=== PATIENT | female | born 1970 | race Caucasian/White ===

== ENCOUNTER 2016-06-12 15:05 | Inpatient (IN) | payer BC, MEDICARE ==
[2016-06-12] MEDS: SODIUM CHLORIDE 0.9% 500 ML IV SCH ×6 (15:46→17:30)
--- NOTE | 2016-06-12 16:15 | CT ---
EXAMINATION TYPE: CT brain wo con DATE OF EXAM: 06/12/2016 4:09 PM COMPARISON: 04/07/2016 HISTORY: weakness and tremor CT DLP: 2440 mGycm Automated exposure control for dose reduction was used. FINDINGS: There is no acute intracranial hemorrhage, mass effect, or midline shift identified. The ventricles and sulci are within normal limits in size. Calvarium intact. Mucous retention cyst or polyp within the right maxillary sinus. IMPRESSION: No acute intracranial hemorrhage, mass effect, or midline shift is seen.
--- NOTE | 2016-06-12 16:16 | XR ---
EXAMINATION TYPE: XR chest 2V DATE OF EXAM: 06/12/2016 4:11 PM COMPARISON: NONE HISTORY: Weakness and cough FINDINGS: Large area of consolidation involving the right upper and portions of the right middle and lower lobe . Left upper lobe consolidation also noted. Previous cardiac surgery seen. IVC filter in the abdomen. IMPRESSION: 1. Diffuse bilateral infiltrate correlate for pneumonia.
[2016-06-12] MEDS ORDERED: IV VANCOMYCIN PER PHARMACY 1 EACH MISC MISCELLANE PRN (16:17)
[2016-06-12] MEDS ORDERED: PIPERACILLIN-TAZOBACTAM 3.375 GM in DEXTROSE/WATER 1 50ML.BAG IVPB STA (16:17)
[2016-06-12] MEDS ORDERED: VANCOMYCIN 1,500 MG in SODIUM CHLORIDE 0.9% 250 ML IVPB ONE (16:30)
[2016-06-12 16:52] LABS: Basophils # (A) 0.1 k/uL (0-0.2); Basophils % (A) 1 %; CH 29.5; CHCM 31.3; Eosinophils % (A) 0 %; HCT 39.3 % (34.0-46.0); HDW 2.58; HGB 12.2 gm/dL (11.4-16.0); Luc # (Auto) 0.05; Luc % (Auto) 1; Lymphocytes # (A) 0.4 k/uL (1.0-4.8); Lymphocytes % (A) 6 %; MCH 29.5 pg (25.0-35.0); MCHC 31.1 g/dL (31.0-37.0); MCV 94.9 fL (80.0-100.0); Mean Platelet Volume 8.8; Monocytes # (A) 0.3 k/uL (0-1.0); Monocytes % (A) 4 %; Neutrophils # (A) 6.3 k/uL (1.3-7.7); Neutrophils % (A) 88 %; RBC 4.14 m/uL (3.80-5.40); WBC 7.1 k/uL (3.8-10.6); WBC (Perox) 7.33
[2016-06-12 16:59] LABS: INR 1.3 (<1.1); Partial Thromboplastin Time 37.1 sec (22.0-30.0); Prothrombin Time 12.5 sec (9.0-12.0)
[2016-06-12 17:09] LABS: Calcium 7.1 mg/dL (8.4-10.2); Potassium 5.5 mmol/L (3.5-5.1); Total Bilirubin 1.6 mg/dL (0.2-1.3); Total Protein 5.1 g/dL (6.3-8.2)
[2016-06-12 17:19] LABS: Creatine Kinase 86 U/L (30-135)
--- NOTE | 2016-06-12 17:28 | ED ---
Altered Mental Status HPI - General Source: patient, family, EMS, RN notes reviewed Mode of arrival: EMS Limitations: altered mental status <Meliton Bishop - Last Filed: 06/12/16 19:48> <Tyler Webber - Last Filed: 06/19/16 03:51> - General Chief Complaint: Altered Mental Status Stated Complaint: Altered Mental Status Time Seen by Provider: 06/12/16 15:10 - History of Present Illness Initial Comments: 45-year-old female presented emergency department via EMS from home for altered mental status. Patient information is limited as she and 1. Family does provide some history that she has a history of myasthenia gravis and has been sick recently with sore throat. Patient does not live at home with family she does with boyfriend currently. Patient's boyfriend is not present. Patient unsure she's been taking her medications or not. Patient was recently prescribed penicillin for her sore throat by urgent care. Patient reportedly has also had a slight cough. (Meliton Bishop) - Related Data Home Medications Medication Instructions Recorded Confirmed Diazepam [Valium] 5 mg PO HS 06/12/16 06/12/16 Diphenoxylate HCl/Atropine 2 tab PO BID PRN 06/12/16 06/12/16 [Lomotil] Hydrocodone/Acetaminophen [[place] 1 tab PO Q6H PRN 06/12/16 06/12/16 5-325] LORazepam [Ativan] 1 mg PO BID 06/12/16 06/12/16 Meclizine [Antivert] 25 mg PO TID PRN 06/12/16 06/12/16 Medroxyprogesterone Acetate 150 mg IM ONCE 06/12/16 06/12/16 [Depo-Provera] Methenamine Hippurate [Hiprex] 1 gm PO BID 06/12/16 06/12/16 Mycophenolate Mofetil [Cellcept] 1,000 mg PO BID 06/12/16 06/12/16 Naproxen 500 mg PO BID PRN 06/12/16 06/12/16 Pantoprazole [Protonix] 40 mg PO DAILY 06/12/16 06/12/16 Penicillin V Potassium [Pen Vee K] 500 mg PO TID 06/12/16 06/12/16 Telmisartan [Micardis] 40 mg PO DAILY 06/12/16 06/12/16 Zolpidem [Ambien] 10 mg PO HS PRN 06/12/16 06/12/16 cycloSPORINE [cycloSPORINE (GEQ 100 mg PO BID 06/12/16 06/12/16 for SandIMMUNE) 100MG] cycloSPORINE [cycloSPORINE (GEQ 25 mg PO BID 06/12/16 06/12/16 for SandIMMUNE)] traMADol HCL [Ultram] 100 mg PO TID PRN 06/12/16 06/12/16 Allergies Allergy/AdvReac Type Severity Reaction Status Date / Time adhesive Allergy Rash/Hives Verified 06/12/16 15:54 Aminoglycosides Allergy Dyspnea Verified 06/12/16 15:54 amlodipine besylate Allergy Swelling Verified 06/12/16 15:54 [From Norvasc] levofloxacin [From Levaquin] Allergy Dyspnea Verified 06/12/16 15:54 Macrolide Antibiotics Allergy Dyspnea Verified 06/12/16 15:54 Quinolones Allergy Dyspnea Verified 06/12/16 15:54 sulfamethoxazole Allergy Dyspnea Verified 06/12/16 15:54 [From Bactrim] trimethoprim [From Bactrim] Allergy Dyspnea Verified 06/12/16 15:54 Review of Systems ROS Other: All systems not noted in ROS Statement are negative. <Meliton Bishop - Last Filed: 06/12/16 19:48> ROS Other: All systems not noted in ROS Statement are negative. <Tyler Webber - Last Filed: 06/19/16 03:51> ROS Statement: Those systems with pertinent positive or pertinent negative responses have been documented in the HPI. Past Medical History Past Medical History: GERD/Reflux, Hypertension Additional Past Medical History / Comment(s): Hx. blood clot rt. leg and into lung 2010, ivan filter, kidney stones, myasthenia gravis, vertigo History of Any Multi-Drug Resistant Organisms: C-DIFF Date of last positivie culture/infection: 2012 MDRO Source:: stool Past Surgical History: Bariatric Surgery, Section, Cholecystectomy, Hernia Repair, Tonsillectomy Additional Past Surgical History / Comment(s): thymus removed 1994 LEEP.Umbilical hernia. GASTRIC SLEEVE 2012, uterine fibroid biopsy Past Anesthesia/Blood Transfusion Reactions: No Reported Reaction Past Psychological History: Anxiety Smoking Status: Never smoker Past Alcohol Use History: Unable to Obtain Past Drug Use History: Unable to Obtain - Past Family History Mother Family Medical History: Diabetes Mellitus, Hypertension <Meliton Bishop - Last Filed: 06/12/16 19:48> General Exam Limitations: altered mental status General appearance: alert Head exam: Present: atraumatic, normocephalic, normal inspection Eye exam: Present: normal appearance, PERRL, EOMI. Absent: scleral icterus, conjunctival injection, periorbital swelling ENT exam: Present: mucous membranes dry Neck exam: Present: normal inspection, full ROM. Absent: tenderness, meningismus, lymphadenopathy Respiratory exam: Present: rhonchi (Right), decreased breath sounds. Absent: normal lung sounds bilaterally, respiratory distress, wheezes, rales, stridor Cardiovascular Exam: Present: normal rhythm, tachycardia, normal heart sounds. Absent: systolic murmur, diastolic murmur, rubs, gallop, clicks GI/Abdominal exam: Present: soft, normal bowel sounds. Absent: distended, tenderness, guarding, rebound, rigid Neurological exam: Present: alert. Absent: oriented X3 (AOx1) Skin exam: Present: warm, dry <Meliton Bishop - Last Filed: 06/12/16 19:48> Course <Meliton Bihsop - Last Filed: 06/12/16 19:48> <Tyler Webber - Last Filed: 06/19/16 03:51> Vital Signs 06/12/16 06/12/16 06/12/16 15:07 15:49 16:19 Temperature 98.1 F Pulse Rate 111 H 101 H Pulse Rate [ 110 H Rn Float ] Respiratory 20 22 20 Rate Blood Pressure 68/55 114/53 O2 Sat by Pulse 93 L 93 L Oximetry 06/12/16 06/12/16 06/12/16 17:00 17:50 19:00 Temperature Pulse Rate 100 101 H 102 H Pulse Rate [ Rn Float ] Respiratory 20 20 18 Rate Blood Pressure 100/61 101/62 O2 Sat by Pulse 93 L 92 L 92 L Oximetry 06/12/16 06/12/16 06/12/16 19:45 20:15 20:44 Temperature Pulse Rate 100 100 104 H Pulse Rate [ Rn Float ] Respiratory 18 16 22 Rate Blood Pressure 115/59 102/59 O2 Sat by Pulse 88 L 89 L 92 L Oximetry 06/12/16 06/12/16 06/12/16 21:00 21:20 21:40 Temperature Pulse Rate 103 H 112 H 101 H Pulse Rate [ Rn Float ] Respiratory 20 20 20 Rate Blood Pressure 108/54 134/69 96/51 O2 Sat by Pulse 92 L 92 L 89 L Oximetry 06/12/16 06/12/16 22:00 22:20 Temperature Pulse Rate 97 104 H Pulse Rate [ Rn Float ] Respiratory 18 20 Rate Blood Pressure 90/51 97/55 O2 Sat by Pulse 89 L 95 Oximetry - Reevaluation(s) Reevaluation #1: 06/12/16 18:39 Central line was placed by Dr. Webber, patient's blood pressure is improving at this time with IV fluids. Patient has right-sided dense pneumonia with some patchy infiltrate noted to the left lung. Patient is in acute renal failure, sepsis. Patient was started on Zosyn and pending second antibiotic per ID secondary to multiple contraindications antibiotics secondary to myasthenia gravis. (Meliton Bishop) Reevaluation #2: 06/12/16 19:14 Dr. Webber discuss case with Dr. Rosa infectious disease who recommended Zosyn , Levaquin. According to her listed as an ALLERGY on her medications. Patient we given daptomycin at this time. Pending phone call to Dr. angulo news library director (Meliton Bishop) Reevaluation #3: 06/12/16 19:49 Dr. vasquez news library director case was discussed with by Dr. Webber, recommends IV hydration dual therapy antibiotics. (Meliton Bishop) Procedures - Central Line Placement Right Femoral Consent Obtained: written consent, emergent situation Patient Placed on Monitor/Pulse Ox: Yes MD Prep: mask, gown, gloves Central Line Prep: Chlorhexidine scrub, sterile drapes applied Local Anesthesia Used: Lidocaine 1% Central Line Lumen Inserted: triple Central Line Position: good blood return, all ports aspirated, flushed, capped, sutured in place with 2-0 silk Dressing Applied: Tegaderm Patient Tolerated Procedure: well Complications: none - Intubation Time Out Performed: Yes Sedative: Versed Paralytic: Succinylcholine Laryngoscope: Aman Size: 3 ET Tube Size: 7 ET Tube Uncuffed: No Tube Placement Confirmation: visualized tube passing through cords, equal breath sounds bilaterally, no breath sounds over epigastrium, confirmation by capnometry Patient Tolerated Procedure: well Intubation Complications: difficult intubation, other (Attempt to pass the tube once under direct laryngoscopy, but patient airway very anterior and she does have firm amount of tongue edema. Then switched over to the glidescope and patient intubated without difficulty under direct visualization.) <Tyler Webber - Last Filed: 06/19/16 03:51> Medical Decision Making - Lab Data Result diagrams: 06/12/16 16:26 06/12/16 16:26 - Radiology Data Radiology results: report reviewed, image reviewed <Meliton Bishop - Last Filed: 06/12/16 19:48> - Lab Data Result diagrams: 06/13/16 05:50 06/13/16 05:50 <Tyler Webber - Last Filed: 06/19/16 03:51> - Medical Decision Making Patient is a 45-year-old woman who presents with right-sided pneumonia and hypovolemia. She appears to be septic but lactic acid was normal. Patient resuscitated with over 3 L fluid bolus in the emergency department, started antibiotics. The patient had central line placed by myself to facilitate receiving antibiotics and fluids and in case she should require pressor support. Case discussed with Dr. oRsa of infectious disease and his recommendations incorporated. Following this the patient was not satting well on the nonrebreather mask. She also is delirious and not keeping a mask on. Case discussed with Dr. Vasquez, and patient will be intubated to support her respiratory status. I saw this patient in conjunction with the physician ambulance assistant. I performed independent history and physical exam. Agree with case management. (Tyler Webber) - Lab Data Lab Results 06/12/16 06/12/16 06/12/16 Range/Units 05:55 16:26 16:26 WBC 7.1 (3.8-10.6) k/uL RBC 4.14 (3.80-5.40) m/uL Hgb 12.2 (11.4-16.0) gm/dL Hct 39.3 (34.0-46.0) % MCV 94.9 (80.0-100.0) fL MCH 29.5 (25.0-35.0) pg MCHC 31.1 (31.0-37.0) g/dL RDW 14.0 (11.5-15.5) % Plt Count 104 L (150-450) k/uL Neutrophils % 88 % Lymphocytes % 6 % Monocytes % 4 % Eosinophils % 0 % Basophils % 1 % Neutrophils # 6.3 (1.3-7.7) k/uL Lymphocytes # 0.4 L (1.0-4.8) k/uL Monocytes # 0.3 (0-1.0) k/uL Eosinophils # 0.0 (0-0.7) k/uL Basophils # 0.1 (0-0.2) k/uL PT 12.5 H (9.0-12.0) sec INR 1.3 (<1.1) APTT 37.1 H (22.0-30.0) sec Sodium (137-145) mmol/L Potassium (3.5-5.1) mmol/L Chloride (98-107) mmol/L Carbon Dioxide (22-30) mmol/L Anion Gap mmol/L BUN (7-17) mg/dL Creatinine (0.52-1.04) mg/dL Est GFR (MDRD) Af Amer (>60 ml/min/1.73 sqM) Est GFR (MDRD) Non-Af (>60 ml/min/1.73 sqM) Glucose (74-99) mg/dL Plasma Lactic Acid Nahid (0.7-2.0) mmol/L Calcium (8.4-10.2) mg/dL Total Bilirubin (0.2-1.3) mg/dL AST (14-36) U/L ALT (9-52) U/L Alkaline Phosphatase (38-126) U/L Total Creatine Kinase 173 H (30-135) U/L CK-MB (CK-2) 2.4 (0.0-2.4) ng/mL CK-MB (CK-2) Rel Index 1.4 Troponin I 0.015 (0.000-0.034) ng/mL Total Protein (6.3-8.2) g/dL Albumin (3.5-5.0) g/dL Cortisol ug/dL 06/12/16 06/12/16 06/12/16 Range/Units 16:26 16:26 16:26 WBC (3.8-10.6) k/uL RBC (3.80-5.40) m/uL Hgb (11.4-16.0) gm/dL Hct (34.0-46.0) % MCV (80.0-100.0) fL MCH (25.0-35.0) pg MCHC (31.0-37.0) g/dL RDW (11.5-15.5) % Plt Count (150-450) k/uL Neutrophils % % Lymphocytes % % Monocytes % % Eosinophils % % Basophils % % Neutrophils # (1.3-7.7) k/uL Lymphocytes # (1.0-4.8) k/uL Monocytes # (0-1.0) k/uL Eosinophils # (0-0.7) k/uL Basophils # (0-0.2) k/uL PT (9.0-12.0) sec INR (<1.1) APTT (22.0-30.0) sec Sodium 145 (137-145) mmol/L Potassium 5.5 H (3.5-5.1) mmol/L Chloride 118 H (98-107) mmol/L Carbon Dioxide 14 L (22-30) mmol/L Anion Gap 13 mmol/L BUN 81 H* (7-17) mg/dL Creatinine 9.70 H* (0.52-1.04) mg/dL Est GFR (MDRD) Af Amer 5 (>60 ml/min/1.73 sqM) Est GFR (MDRD) Non-Af 4 (>60 ml/min/1.73 sqM) Glucose 78 (74-99) mg/dL Plasma Lactic Acid Nahid 1.3 (0.7-2.0) mmol/L Calcium 7.1 L (8.4-10.2) mg/dL Total Bilirubin 1.6 H (0.2-1.3) mg/dL AST 76 H (14-36) U/L ALT 87 H (9-52) U/L Alkaline Phosphatase 408 H (38-126) U/L Total Creatine Kinase 86 (30-135) U/L CK-MB (CK-2) 1.1 (0.0-2.4) ng/mL CK-MB (CK-2) Rel Index 1.3 Troponin I <0.012 (0.000-0.034) ng/mL Total Protein 5.1 L (6.3-8.2) g/dL Albumin 2.3 L (3.5-5.0) g/dL Cortisol 32 ug/dL 06/12/16 18:48 EKG performed at 15:12 sinus tachycardia with a rate of 110, OR 116, QRS duration 74, QT/QTC 324/438 (Meliton Bishop) - Radiology Data Chest x-ray dense pneumonia noted on the right lung with some patchy infiltrate noted to the left lung (Meliton Bishop) Critical Care Time Critical Care Time: Yes (50 minutes) <Tyler Webber - Last Filed: 06/19/16 03:51> Disposition <Meliton Bishop - Last Filed: 06/12/16 19:48> <Tyler Webber - Last Filed: 06/19/16 03:51> Clinical Impression: Sepsis, Bilateral pneumonia, Altered mental status, Acute renal failure, Dehydration, History of myasthenia gravis Disposition: ADMITTED IP TO THIS [facility] Condition: Critical
[2016-06-12 17:31] LABS: Creatine Kinase MB 1.1 ng/mL (0.0-2.4); Troponin I <0.012 ng/mL (0.000-0.034)
[2016-06-12] MEDS ORDERED: PYRIDOSTIGMINE 5 MG/ML IM STA (17:46)
[2016-06-12] MEDS: LORazepam 2 MG/ML SYRINGE IV STA ×3 (18:38→22:00)
[2016-06-12] MEDS ORDERED: PYRIDOSTIGMINE 60 MG TAB PO STA (18:40)
[2016-06-12] MEDS ORDERED: DAPTOmycin 500 MG in SODIUM CHLORIDE 0.9% 50 ML IV STA (19:13)
[2016-06-12] MEDS: SODIUM CHLORIDE 0.9% 1,000 ML IV SCH (19:30)
[2016-06-12 20:37] LABS: Appearance,Urine Turbid (Clear); Bacteria,Urine Moderate /hpf; Bilirubin,Urine Negative (Negative); Glucose,Urine (UA) Negative (Negative); Ketones,Urine Negative (Negative); Leukocyte Esterase,Urine Large (Negative); Nitrite,Urine Negative (Negative); PH, Urine 5.5 (5.0-8.0); Particle Count 358159; Protein,Urine 3+ (Negative); RBC,Urine >182 /hpf (0-5); UA Billing (MACRO vs. MICRO) MICRO; Urobilinogen,Urine <2.0 mg/dL (<2.0); WBC,Urine >182 /hpf (0-5)
[2016-06-12 20:59] LABS: Specific Gravity,Urine 1.023 (1.001-1.035)
[2016-06-12] MEDS: MIDAZOLAM (PF) 1 MG/ML 5 ML VIAL IV STA ×2 (21:14→23:22)
[2016-06-12] MEDS ORDERED: SUCCINYLCHOLINE CHLORIDE VIAL 200 MG/10 ML VIAL IV STA (21:16)
[2016-06-12] MEDS: MORPHINE SULFATE 4 MG/ML SYRINGE IVP STA ×3 (21:27→23:36)
--- NOTE | 2016-06-12 21:50 | XR ---
EXAMINATION TYPE: XR chest 1V portable DATE OF EXAM: 06/12/2016 9:44 PM COMPARISON: Today HISTORY: Check tube placement TECHNIQUE: Single frontal view of the chest is obtained. FINDINGS: There is an endotracheal tube that appears in fairly good position 2 cm from the ivan. T here is extensive pneumonic consolidation on the right side mainly in the right upper lobe. There is a mild patchy infiltrate also in the left lung. Trachea is midline. Heart size is normal. There is no gross heart failure. IMPRESSION: Endotracheal tube is at the lower limit of normal position. Extensive right-sided pneumo isael consolidation is worse than exam 5 hours ago.
[2016-06-12] MEDS ORDERED: fentaNYL (PF) 50 MCG/ML 2 ML AMP IV PRN (22:02)
[2016-06-12] MEDS ORDERED: PROPOFOL 50 ML IV ONE (22:38)
[2016-06-12] MEDS ORDERED: DEXTROSE 50%-WATER 50 ML SYRINGE IVP ONE (22:49)
[2016-06-12 22:57] LABS: Glucose,Whole Blood 74 mg/dL (75-99)
[2016-06-12 23:18] LABS: Glucose,Whole Blood 133 mg/dL (75-99)
[2016-06-12] MEDS: SODIUM CHLORIDE 0.9% 1,000 ML IV ONE ×2 (23:21)
[2016-06-12] MEDS ORDERED: NOREPINEPHRINE 4 MG-0.9% NS PMX 250 ML IV ONE (23:29)
[2016-06-12 23:38] LABS: ABG Base Excess -14.8 mmol/L; ABG HCO3 13 mmol/L (21-25); ABG PCO2 44 mmHg (35-45); ABG PO2 90 mmHg (83-108); ABG TCO2 14 mmol/L (19-24)
[2016-06-13 00:01] LABS: Potassium 5.3 mmol/L (3.5-5.1)
[2016-06-13] MEDS ORDERED: SODIUM BICARB 8.4% 50 ML SYR (1 MEQ/ML) IV STA ×2 (00:01→09:17)
[2016-06-13] MEDS ORDERED: NALOXONE 0.4 MG/ML 1 ML VIAL IV PRN (00:14)
[2016-06-13 00:20] LABS: Calcium 6.1 mg/dL (8.4-10.2)
[2016-06-13 00:26] LABS: Creatine Kinase MB 2.4 ng/mL (0.0-2.4); Troponin I 0.015 ng/mL (0.000-0.034)
[2016-06-13] MEDS: NOREPINEPHRINE 16 MG in SODIUM CHLORIDE 0.9% 250 ML IV SCH ×2 (00:35→09:55)
[2016-06-13] MEDS: SODIUM BICARB 8.4% 50 ML SYR (1 MEQ/ML) IV STA (00:41)
[2016-06-13] MEDS: PIPERACILLIN-TAZOBACTAM 3.375 GM in DEXTROSE/WATER 1 50ML.BAG IVPB SCH ×2 (01:37→08:35)
[2016-06-13] MEDS: LEVALBUTEROL NEB (CONC) 1.25 MG/0.5 ML AMP INHALATION SCH ×4 (03:15→15:26)
[2016-06-13] MEDS: IPRATROPIUM 0.5 MG/2.5 ML NEBU INHALATION SCH ×4 (03:15→15:26)
[2016-06-13] MEDS: PROPOFOL 500 MG in EMPTY BAG 1 BAG IV SCH ×2 (04:54→09:55)
[2016-06-13 05:36] LABS: ABG Base Excess -13.1 mmol/L; ABG HCO3 14 mmol/L (21-25); ABG PCO2 46 mmHg (35-45); ABG PH 7.13 (7.35-7.45); ABG PO2 89 mmHg (83-108); ABG TCO2 16 mmol/L (19-24)
[2016-06-13] MEDS: SODIUM CHLORIDE 0.9% 1,000 ML IV SCH (05:50)
[2016-06-13 06:16] LABS: Basophils # (A) 0.1 k/uL (0-0.2); Basophils % (A) 1 %; CHCM 30.2; Eosinophils % (A) 0 %; HCT 40.6 % (34.0-46.0); HDW 2.68; HGB 12.3 gm/dL (11.4-16.0); Hypochromasia Moderate; Luc # (Auto) 0.15; Luc % (Auto) 1; Lymphocytes # (A) 0.7 k/uL (1.0-4.8); Lymphocytes % (A) 3 %; MCH 29.2 pg (25.0-35.0); MCHC 30.3 g/dL (31.0-37.0); MCV 96.4 fL (80.0-100.0); Mean Platelet Volume 8.8; Monocytes # (A) 1.3 k/uL (0-1.0); Monocytes % (A) 6 %; Neutrophils # (A) 18.7 k/uL (1.3-7.7); Neutrophils % (A) 89 %; RBC 4.22 m/uL (3.80-5.40); RDW 14.1 % (11.5-15.5); WBC (Perox) 22.17
[2016-06-13 06:28] LABS: Magnesium 1.6 mg/dL (1.6-2.3); Phosphorous 7.9 mg/dL (2.5-4.5); Potassium 6.1 mmol/L (3.5-5.1)
[2016-06-13 06:43] LABS: Calcium 6.4 mg/dL (8.4-10.2)
[2016-06-13] MEDS ORDERED: Magnesium Replacement Protocol 1 EACH MISC MISCELLANE PRN (06:50)
[2016-06-13 07:25] LABS: Troponin I 0.143 ng/mL (0.000-0.034)
--- NOTE | 2016-06-13 07:33 | XR ---
EXAMINATION TYPE: XR chest 1V portable DATE OF EXAM: 06/13/2016 6:31 AM COMPARISON: 06/12/2016 HISTORY: Shortness of breath TECHNIQUE: Single frontal view of the chest is obtained. FINDINGS: There is bilateral airspace disease with near complete opacification the right hemithorax. NG tube now seen in position and appears in good position. Postoperative change and ET tube stable. IMPRESSION: 1. Bilateral airspace disease greater on the right correlate for pneumonia. Mucous plug or endobronch ial lesion of the right differential.
[2016-06-13] MEDS ORDERED: HEPARIN SODIUM,PORCINE 5,000 UNIT/ML 1 ML VIAL SQ SCH (08:00)
[2016-06-13] MEDS ORDERED: CHLORHEXIDINE GLUCONATE 15 ML CUP MUCOUS MEM SCH (09:00)
[2016-06-13] MEDS ORDERED: PANTOPRAZOLE 40 MG/10 ML VIAL IV SCH (09:00)
[2016-06-13] MEDS ORDERED: DEXTROSE 5% IN WATER 1,000 ML IV ONE (09:24)
[2016-06-13] MEDS ORDERED: CISATRACURIUM 2 MG/ML 5 ML VIAL IV ONE ×2 (10:19→10:29)
--- NOTE | 2016-06-13 11:02 | P.NPCON ---
History of Present Illness - Reason for Consult acute renal failure - History of Present Illness Reason for consultation: Acute kidney injury History of present illness: Patient is a 45-year-old female seen in renal consultation for acute kidney injury. Her baseline creatinine is near 1 and is elevated at greater than 9 during this admission. Patient presented with altered mental status. She was noted to be hypotensive with systolic blood pressure in the 60s to 70s on admission. She did receive about 4 L of IV fluid resuscitation. She is noted to be extremely acidotic with bicarb level of 9 which is improved to 14. She is also hyperkalemic with a potassium level of 6.1. She is currently intubated and sedated. She is anuric at this time with actually no urine output for the last few hours. She is requiring levofed which is currently at 30 mics. Vital signs are stable. General: The patient appeared well nourished and normally developed. HEENT: Head exam is unremarkable. Neck is without jugular venous distension. LUNGS: Lungs are clear to auscultation and percussion. Breath sounds decreased. HEART: Rate and Rhythm are regular. First and second heart sounds normal. No murmurs, rubs or gallops. ABDOMEN: Abdominal exam reveals normal bowel sounds. Non-tender and non- distended. No evidence of peritonitis. EXTREMITITES: No clubbing, cyanosis, or edema. Past Medical History Past Medical History: GERD/Reflux, Hypertension Additional Past Medical History / Comment(s): Hx. blood clot rt. leg and into lung 2010, ivan filter, kidney stones, myasthenia gravis, vertigo History of Any Multi-Drug Resistant Organisms: C-DIFF Date of last positivie culture/infection: 2012 MDRO Source:: stool Past Surgical History: Bariatric Surgery, Section, Cholecystectomy, Hernia Repair, Tonsillectomy Additional Past Surgical History / Comment(s): thymus removed 1994 LEEP.Umbilical hernia. GASTRIC SLEEVE 2012, uterine fibroid biopsy Past Anesthesia/Blood Transfusion Reactions: No Reported Reaction Past Psychological History: Anxiety Smoking Status: Never smoker Past Alcohol Use History: Unable to Obtain Past Drug Use History: Unable to Obtain - Past Family History Mother Family Medical History: Diabetes Mellitus, Hypertension Medications and Allergies Home Medications Medication Instructions Recorded Confirmed Type Diazepam [Valium] 5 mg PO HS 06/12/16 06/12/16 History Diphenoxylate HCl/Atropine 2 tab PO BID PRN 06/12/16 06/12/16 History [Lomotil] Hydrocodone/Acetaminophen [[place] 1 tab PO Q6H PRN 06/12/16 06/12/16 History 5-325] LORazepam [Ativan] 1 mg PO BID 06/12/16 06/12/16 History Meclizine [Antivert] 25 mg PO TID PRN 06/12/16 06/12/16 History Medroxyprogesterone Acetate 150 mg IM ONCE 06/12/16 06/12/16 History [Depo-Provera] Methenamine Hippurate [Hiprex] 1 gm PO BID 06/12/16 06/12/16 History Mycophenolate Mofetil [Cellcept] 1,000 mg PO BID 06/12/16 06/12/16 History Naproxen 500 mg PO BID PRN 06/12/16 06/12/16 History Pantoprazole [Protonix] 40 mg PO DAILY 06/12/16 06/12/16 History Penicillin V Potassium [Pen Vee K] 500 mg PO TID 06/12/16 06/12/16 History Telmisartan [Micardis] 40 mg PO DAILY 06/12/16 06/12/16 History Zolpidem [Ambien] 10 mg PO HS PRN 06/12/16 06/12/16 History cycloSPORINE [cycloSPORINE (GEQ 100 mg PO BID 06/12/16 06/12/16 History for SandIMMUNE) 100MG] cycloSPORINE [cycloSPORINE (GEQ 25 mg PO BID 06/12/16 06/12/16 History for SandIMMUNE)] traMADol HCL [Ultram] 100 mg PO TID PRN 06/12/16 06/12/16 History Allergies Allergy/AdvReac Type Severity Reaction Status Date / Time adhesive Allergy Rash/Hives Verified 06/12/16 15:54 Aminoglycosides Allergy Dyspnea Verified 06/12/16 15:54 amlodipine besylate Allergy Swelling Verified 06/12/16 15:54 [From Norvasc] levofloxacin [From Levaquin] Allergy Dyspnea Verified 06/12/16 15:54 Macrolide Antibiotics Allergy Dyspnea Verified 06/12/16 15:54 Quinolones Allergy Dyspnea Verified 06/12/16 15:54 sulfamethoxazole Allergy Dyspnea Verified 06/12/16 15:54 [From Bactrim] trimethoprim [From Bactrim] Allergy Dyspnea Verified 06/12/16 15:54 Physical Exam Vitals: Vital Signs Temp Pulse Resp BP Pulse Ox 06/13/16 08:19 96 06/13/16 07:45 92 06/13/16 07:00 94 24 96/60 95 06/13/16 06:00 96 24 101/54 93 L 06/13/16 05:00 101 H 24 112/57 95 06/13/16 04:00 98.7 F 102 H 24 108/64 96 06/13/16 03:32 96 06/13/16 03:20 93 06/13/16 03:00 92 24 95/53 96 06/13/16 02:00 86 24 100/55 95 06/13/16 01:00 85 18 97/62 92 L 06/13/16 00:00 86 24 78/54 96 06/12/16 23:00 98.6 F 91 28 H 107/53 94 L 06/12/16 22:44 94 L 06/12/16 22:40 102 H 20 104/52 96 06/12/16 22:20 104 H 20 97/55 95 06/12/16 22:00 97 18 90/51 89 L 06/12/16 21:40 101 H 20 96/51 89 L 06/12/16 21:20 112 H 20 134/69 92 L 06/12/16 21:00 103 H 20 108/54 92 L 06/12/16 20:44 104 H 22 102/59 92 L 06/12/16 20:15 100 16 115/59 89 L 06/12/16 19:45 100 18 88 L Intake and Output 06/12/16 06/13/16 06/13/16 22:59 06:59 14:59 Intake Total 100 997.250 218.75 Output Total 25 Balance 100 972.250 218.75 Intake: IV 100 800 100 Sodium Chloride 0.9% 1, 100 800 100 000 ml @ 100 mls/hr IV . Q10H [facility] Rx#:[id number] Intake, IV Titration 197.250 118.75 Amount Norepinephrine 16 mg In 170.000 96 Sodium Chloride 0.9% 250 ml @ Titrate IV .Q0M [facility] Rx#:[id number] Propofol 500 mg In Empty 27.25 22.75 Bag 1 bag @ Titrate IV . Q0M [facility]ERRANCE Rx#:[id number] Output: Urine 25 Other: Voiding Method Indwelling Catheter Indwelling Catheter Weight 93.4 kg Results - Lab Results Most recent lab results ABG pH 7.13 (7.35-7.45) L* 06/13/16 05:21 ABG pCO2 46 mmHg (35-45) H 06/13/16 05:21 ABG pO2 89 mmHg (83-108) 06/13/16 05:21 ABG HCO3 14 mmol/L (21-25) L 06/13/16 05:21 ABG O2 Saturation 93.0 % (94-97) L 06/13/16 05:21 Calcium 6.4 mg/dL (8.4-10.2) L* 06/13/16 05:50 Phosphorus 7.9 mg/dL (2.5-4.5) H 06/13/16 05:50 Magnesium 1.6 mg/dL (1.6-2.3) 06/13/16 05:50 06/13/16 05:50 06/13/16 05:50 Assessment and Plan Plan: Assessment: #1. Oliguric acute kidney injury secondary to ischemic ATN secondary to severe hypotension and sepsis. Creatinine 9.6 today. Baseline creatinine near 1. #2. Hyperkalemia secondary to acute kidney injury and metabolic acidosis. #3. Metabolic acidosis secondary to acute kidney injury. #4. Hypernatremia. Sodium level 148. #5. Hypocalcemia secondary to acute kidney injury and hyperalbuminemia. Plan: Patient is anuric with severe electrolyte imbalance including hyperkalemia and metabolic acidosis. Will get vascular surgery on board for dialysis catheter placement and plan for first treatment of hemodialysis today. Maintain Scales catheter. Strict I's and O's. Isotonic sodium bicarbonate drip to be run at 75 mL an hour. Wean vasopressors as blood pressure tolerates. Follow-up cultures. Antibiotics per infectious disease recommendations. Thank you for the consultation. I will continue to follow the patient with you during her hospital stay.
--- NOTE | 2016-06-13 11:08 | XR ---
EXAMINATION TYPE: XR chest 1V portable DATE OF EXAM: 06/13/2016 11:02 AM COMPARISON: 06/13/2016 HISTORY: Central line placement TECHNIQUE: Single frontal view of the chest is obtained. FINDINGS: Left-sided central line seen with the tip overlying the right atrium and no evidence of pn eumothorax. Postsurgical change, ET and NG tube stable. Diffuse bilateral airspace disease with near complete opa cification of the right hemithorax. Increasing left upper lobe area of consolidation. IMPRESSION: 1. Central line appears in good position with no pneumothorax. 2. Bilateral airspace disease most typical of pneumonia.
[2016-06-13 11:40] LABS: ABG HCO3 16 mmol/L (21-25); ABG PCO2 48 mmHg (35-45); ABG PH 7.15 (7.35-7.45); ABG PO2 79 mmHg (83-108); ABG TCO2 18 mmol/L (19-24)
[2016-06-13 11:41] LABS: ABG Oxygen Saturation 91.2 % (94-97)
[2016-06-13] MEDS ORDERED: CISATRACURIUM 200 MG in SODIUM CHLORIDE 0.9% 180 ML IV SCH (12:00)
[2016-06-13] MEDS ORDERED: DEXTROSE 5% IN WATER 1,000 ML with SODIUM BICARB (1 MEQ/ML) 150 ML IV ONE (12:00)
--- NOTE | 2016-06-13 12:01 | P.CNPUL ---
History of Present Illness Consult date: 06/13/16 Requesting physician: Nikolas Ace Reason for consult: abnormal CXR/CT, other (Critical care management) Chief complaint: Altered mental status History of present illness: This is a 45-year-old female patient who follows with Dr. Be Washburn is her primary care physician. She has a history of myasthenia gravis and is maintained on CellCept and cyclosporine, hypertension, nephrolithiasis, gastroesophageal reflux disease and a C. difficile colitis in 2012. She also has a history of DVT/PE in 2010 and is status post [place] filter placement. She's had her thymus removed in 1994, gastric sleeve surgery in 2012. She is a lifelong nonsmoker. No history of any previous pulmonary disease. She had recently presented to urgent care with complaints of a sore throat and cough and congestion and was started on antibiotics. She presented here yesterday after family had found her to have altered mental status. She lives with a boyfriend currently. She had subsequently developed impending respiratory failure was intubated in the emergency room. Her chest x-ray revealed extensive pneumonic consolidation on the right side mainly in the right upper lobe. There is also some patchy infiltrate in the left lung as well. Computed tomography scan of the brain revealed no acute intracranial process. Urine and sputum cultures are pending. She has remained afebrile. Her white count did jump from 7.1-21.0 today. She is currently on Zosyn per infectious disease. She had received daptomycin as well. She remains quite hypoxic and acidotic. Her current vent settings are assist-control 24, tidal volume 350 FiO2 100% and a PEEP of 10. Morning arterial blood gases revealed a P O2 of 79 pCO2 48 and a pH of 7.15. She is requiring significant amounts of pressors currently on levo fed at 50 mcg/kg/m and propofol 15 mcg/kg/m. Earlier this morning Dr. Vasquez had prescribed 2 amps of bicarb to be given along with D5W 1 L boluses 2. Review of Systems ROS unobtainable: due to endotracheal tube Past Medical History Past Medical History: GERD/Reflux, Hypertension Additional Past Medical History / Comment(s): Hx. blood clot rt. leg and into lung 2010, teresita filter, kidney stones, myasthenia gravis, vertigo History of Any Multi-Drug Resistant Organisms: C-DIFF Date of last positivie culture/infection: 2012 MDRO Source:: stool Past Surgical History: Bariatric Surgery, Section, Cholecystectomy, Hernia Repair, Tonsillectomy Additional Past Surgical History / Comment(s): thymus removed 1994 LEEP.Umbilical hernia. GASTRIC SLEEVE 2012, uterine fibroid biopsy Past Anesthesia/Blood Transfusion Reactions: No Reported Reaction Past Psychological History: Anxiety Smoking Status: Never smoker Past Alcohol Use History: Unable to Obtain Past Drug Use History: Unable to Obtain - Past Family History Mother Family Medical History: Diabetes Mellitus, Hypertension Medications and Allergies Home Medications Medication Instructions Recorded Confirmed Type Diazepam [Valium] 5 mg PO HS 06/12/16 06/12/16 History Diphenoxylate HCl/Atropine 2 tab PO BID PRN 06/12/16 06/12/16 History [Lomotil] Hydrocodone/Acetaminophen [[place] 1 tab PO Q6H PRN 06/12/16 06/12/16 History 5-325] LORazepam [Ativan] 1 mg PO BID 06/12/16 06/12/16 History Meclizine [Antivert] 25 mg PO TID PRN 06/12/16 06/12/16 History Medroxyprogesterone Acetate 150 mg IM ONCE 06/12/16 06/12/16 History [Depo-Provera] Methenamine Hippurate [Hiprex] 1 gm PO BID 06/12/16 06/12/16 History Mycophenolate Mofetil [Cellcept] 1,000 mg PO BID 06/12/16 06/12/16 History Naproxen 500 mg PO BID PRN 06/12/16 06/12/16 History Pantoprazole [Protonix] 40 mg PO DAILY 06/12/16 06/12/16 History Penicillin V Potassium [Pen Vee K] 500 mg PO TID 06/12/16 06/12/16 History Telmisartan [Micardis] 40 mg PO DAILY 06/12/16 06/12/16 History Zolpidem [Ambien] 10 mg PO HS PRN 06/12/16 06/12/16 History cycloSPORINE [cycloSPORINE (GEQ 100 mg PO BID 06/12/16 06/12/16 History for SandIMMUNE) 100MG] cycloSPORINE [cycloSPORINE (GEQ 25 mg PO BID 06/12/16 06/12/16 History for SandIMMUNE)] traMADol HCL [Ultram] 100 mg PO TID PRN 06/12/16 06/12/16 History Allergies Allergy/AdvReac Type Severity Reaction Status Date / Time adhesive Allergy Rash/Hives Verified 06/12/16 15:54 Aminoglycosides Allergy Dyspnea Verified 06/12/16 15:54 amlodipine besylate Allergy Swelling Verified 06/12/16 15:54 [From Norvasc] levofloxacin [From Levaquin] Allergy Dyspnea Verified 06/12/16 15:54 Macrolide Antibiotics Allergy Dyspnea Verified 06/12/16 15:54 Quinolones Allergy Dyspnea Verified 06/12/16 15:54 sulfamethoxazole Allergy Dyspnea Verified 06/12/16 15:54 [From Bactrim] trimethoprim [From Bactrim] Allergy Dyspnea Verified 06/12/16 15:54 Physical Exam Vitals: Vital Signs Temp Pulse Resp BP Pulse Ox 06/13/16 08:19 96 06/13/16 07:45 92 06/13/16 07:00 94 24 96/60 95 06/13/16 06:00 96 24 101/54 93 L 06/13/16 05:00 101 H 24 112/57 95 06/13/16 04:00 98.7 F 102 H 24 108/64 96 06/13/16 03:32 96 06/13/16 03:20 93 06/13/16 03:00 92 24 95/53 96 06/13/16 02:00 86 24 100/55 95 06/13/16 01:00 85 18 97/62 92 L 06/13/16 00:00 86 24 78/54 96 06/12/16 23:00 98.6 F 91 28 H 107/53 94 L 06/12/16 22:44 94 L 06/12/16 22:40 102 H 20 104/52 96 06/12/16 22:20 104 H 20 97/55 95 06/12/16 22:00 97 18 90/51 89 L 06/12/16 21:40 101 H 20 96/51 89 L 06/12/16 21:20 112 H 20 134/69 92 L 06/12/16 21:00 103 H 20 108/54 92 L 06/12/16 20:44 104 H 22 102/59 92 L 06/12/16 20:15 100 16 115/59 89 L 06/12/16 19:45 100 18 88 L Intake and Output 06/12/16 06/13/16 06/13/16 22:59 06:59 14:59 Intake Total 100 997.250 218.75 Output Total 25 Balance 100 972.250 218.75 Intake: IV 100 800 100 Sodium Chloride 0.9% 1, 100 800 100 000 ml @ 100 mls/hr IV . Q10H TERRANCE Rx#:[id number] Intake, IV Titration 197.250 118.75 Amount Norepinephrine 16 mg In 170.000 96 Sodium Chloride 0.9% 250 ml @ Titrate IV .Q0M [facility]ERRANCE Rx#:[id number] Propofol 500 mg In Empty 27.25 22.75 Bag 1 bag @ Titrate IV . Q0M TERRANCE Rx#:[id number] Output: Urine 25 Other: Voiding Method Indwelling Catheter Indwelling Catheter Weight 93.4 kg GENERAL EXAM: Sedated, intubated. HEAD: Normocephalic. EYES: Sluggish of pupils, equal size. NOSE: Clear with pink turbinates. THROAT: No tracheal and gastric tube secured in place. No erythema or exudates. NECK: No masses, no JVD. CHEST: No chest wall deformity. LUNGS: Equal air entry with crackles in the bilateral bases. He had rhonchi. CVS: S1 and S2 normal with no audible murmur, regular rhythm. ABDOMEN: No hepatosplenomegaly, normal bowel sounds, no guarding or rigidity. Extremities: There is no significant peripheral edema. No clubbing, no cyanosis. Peripheral pulses are intact. Results - Laboratory Findings CBC and BMP: 06/13/16 05:50 06/13/16 05:50 ABG ABG pH 7.13 (7.35-7.45) L* 06/13/16 05:21 ABG pCO2 46 mmHg (35-45) H 06/13/16 05:21 ABG pO2 89 mmHg (83-108) 06/13/16 05:21 ABG O2 Saturation 93.0 % (94-97) L 06/13/16 05:21 PT/INR, D-dimer PT 12.5 sec (9.0-12.0) H 06/12/16 16:26 INR 1.3 (<1.1) 06/12/16 16:26 Abnormal lab findings: Abnormal Labs 06/12/16 06/12/16 06/12/16 20:20 22:47 23:16 WBC MCHC Neutrophils # Lymphocytes # Monocytes # ABG pH ABG pCO2 ABG HCO3 ABG Total CO2 ABG O2 Saturation Sodium Potassium Chloride Carbon Dioxide BUN Creatinine Glucose POC Glucose (mg/dL) 74 L 133 H Plasma Lactic Acid N[place]id Calcium Ionized Calcium [place] Phosphorus Total Creatine Kinase CK-MB (CK-2) Troponin I Urine Appearance Turbid H Urine Protein 3+ H Urine Blood Large H Ur Leukocyte Esterase Large H Urine RBC >182 H Urine WBC >182 H Urine WBC Clumps Many H Urine Bacteria Moderate H Urine Opiates Screen U Benzodiazepines Scrn 06/12/16 06/12/16 06/12/16 23:24 23:30 23:30 WBC MCHC Neutrophils # Lymphocytes # Monocytes # ABG pH 7.10 L* ABG pCO2 ABG HCO3 13 L ABG Total CO2 14 L ABG O2 Saturation 93.0 L Sodium Potassium 5.3 H Chloride 121 H* Carbon Dioxide 9 L* BUN 79 H Creatinine 9.30 H* Glucose 110 H POC Glucose (mg/dL) Plasma Lactic Acid Nahid 0.6 L Calcium 6.1 L* Ionized Calcium [place] Phosphorus Total Creatine Kinase CK-MB (CK-2) Troponin I Urine Appearance Urine Protein Urine Blood Ur Leukocyte Esterase Urine RBC Urine WBC Urine WBC Clumps Urine Bacteria Urine Opiates Screen U Benzodiazepines Scrn 06/13/16 06/13/16 06/13/16 05:21 05:50 05:50 WBC 21.0 H MCHC 30.3 L Neutrophils # 18.7 H Lymphocytes # 0.7 L Monocytes # 1.3 H ABG pH 7.13 L* ABG pCO2 46 H ABG HCO3 14 L ABG Total CO2 16 L ABG O2 Saturation 93.0 L Sodium Potassium Chloride Carbon Dioxide BUN Creatinine Glucose POC Glucose (mg/dL) Plasma Lactic Acid N[place]id Calcium Ionized Calcium [place] Phosphorus Total Creatine Kinase 215 H CK-MB (CK-2) 3.0 H* Troponin I 0.143 H* Urine Appearance Urine Protein Urine Blood Ur Leukocyte Esterase Urine RBC Urine WBC Urine WBC Clumps Urine Bacteria Urine Opiates Screen U Benzodiazepines Scrn 06/13/16 06/13/16 06/13/16 05:50 05:50 07:00 WBC MCHC Neutrophils # Lymphocytes # Monocytes # ABG pH ABG pCO2 ABG HCO3 ABG Total CO2 ABG O2 Saturation Sodium 148 H Potassium 6.1 H Chloride 118 H Carbon Dioxide 14 L BUN 82 H* Creatinine 9.60 H* Glucose POC Glucose (mg/dL) Plasma Lactic Acid Nahid Calcium 6.4 L* Ionized Calcium [place] 4.1 L Phosphorus 7.9 H Total Creatine Kinase CK-MB (CK-2) Troponin I Urine Appearance Urine Protein Urine Blood Ur Leukocyte Esterase Urine RBC Urine WBC Urine WBC Clumps Urine Bacteria Urine Opiates Screen Detected H U Benzodiazepines Scrn Detected H - Diagnostic Findings Chest x-ray: image reviewed Assessment and Plan Plan: Impression: #1 Acute hypoxic respiratory failure secondary to multilobar pneumonia, possible opportunistic infection in a patient immunocompromised on CellCept. Possible aspiration secondary to altered mental status. #2 Altered mental status secondary to infection and sepsis. #3 Sepsis secondary to pneumonia. #4 Hypotension secondary to sepsis. #5 Acute oliguric kidney injury secondary to ischemic ATN secondary to severe hypotension and sepsis subsequent hyperkalemia and hypernatremia. #6Myasthenia gravis maintained on CellCept, cyclosporine area #7 Recurrent urinary tract infections, pain pain on Hiprex area #8 History of hypertension. #9 History of DVT/PE, status post [place] filter placement in 2010. #10 History of nephrolithiasis. #11 Thymectomy in 1994. #12 History of gastric sleeve in 2012. Plan: The patient was seen and evaluated by Dr. Vasquez. Her chest x-ray ABGs and labs were reviewed. We did initiate a bicarb drip. The patient was also given Nimbex 10 mg IV push 1 and started on a Nimbex drip at 2 mcg/kg/m. We'll continue to titrate down the propofol and levo fed as tolerated while maintaining mean arterial pressure of 65. Follow-up arterial blood gases revealed a pO2 of 79, pCO2 48 pH 7.15. We did increase the assist-control rate to 30 continue tidal volume 350 FiO2 100% and a PEEP of 10. A left internal jugular central line was placed along with a right radial arterial line. We'll continue to monitor patient closely. Her condition remains quite guarded at this point. May consider bronchoscopy with BAL if the chest x-ray is not clearing and she remains hypoxic. We'll continue to follow make further recommendations based on her clinical status. Critical care time not including procedures 42 minutes. Time with Patient: Greater than 30
[2016-06-13] MEDS ORDERED: ALTEPLASE 2 MG VIAL (CATHFLO) IV STA (12:44)
[2016-06-13] MEDS ORDERED: HEPARIN SODIUM,PORCINE 10,000 UNIT/ML 1 ML VIAL IV ONE ×2 (12:45→13:00)
[2016-06-13] MEDS: MAGNESIUM SULFATE-D5W PMX 1 GM in DEXTROSE/WATER 1 100ML.BAG IVPB SCH ×2 (12:54→13:12)
[2016-06-13 13:07] VITALS: BMI 33.2
--- NOTE | 2016-06-13 13:28 | CONS ---
DATE OF CONSULTATION: This is a 45-year-old female. I was consulted in intensive care unit for urgent dialysis catheter placement. Patient came with acute chronic renal failure. Patient has creatinine of 9. She is anuric at the time with no urine output. Her past medical history include history of hypertension. SURGICAL HISTORY: Patient had , cholecystectomy, hernia repair, tonsillectomy. On examination, patient was seen in the intensive care unit. She has been on respirator. Patient's neck is supple. Chest had crackles bilateral. ABDOMEN: Soft. Femoral pulses are present. Patient has line in the left femoral on the left groin. IMPRESSION: 1. Acute kidney injury secondary to ischemic acute tubular necrosis, severe hypotension. 2. Hyperkalemia. 3. Metabolic acidosis. Plan is placement of a dialysis catheter. Risks and complications discussed.
[2016-06-13] MEDS ORDERED: HYDROmorphone 1 MG/ML 1 ML SYRINGE IVP PRN ×2 (14:09→14:10)
[2016-06-13] MEDS ORDERED: SODIUM CHLORIDE 0.9% 99 ML with VASOPRESSIN 20 UNIT IV SCH ×2 (15:00)
[2016-06-13 15:04] VITALS: BP 83/55
[2016-06-13 15:10] VITALS: TEMP 99.4
[2016-06-13] MEDS ORDERED: AZITHROMYCIN 500 MG in SODIUM CHLORIDE 0.9% 250 ML IVPB STA (15:20)
[2016-06-13] MEDS ORDERED: methylPREDNISolone SOD SUCCI 125 MG/2 ML VIAL IV STA (15:33)
--- NOTE | 2016-06-13 15:56 | HP ---
DATE OF ADMISSION: CHIEF COMPLAINT: Altered mental status changed. HISTORY OF PRESENT ILLNESS: Ms. Beaver is a 45-year-old female with a past medical history of myasthenia gravis, hypertension, GERD, coming into the hospital for altered mental status changes. Patient has history of long-standing myasthenia gravis, but is noncompliant with her medications. Recently the patient went to an urgent care for difficulty in breathing and a sore throat. She was started on antibiotics and sent home, but patient did not show any signs of improvement and subsequently had difficulty in breathing and so EMS was called and she was brought into the emergency room. In the ED, the patient was intubated due to impending respiratory failure. Patient had a chest x-ray done showing patchy infiltrates and CT of the head was done, which was negative for any acute process. Patient also had ABGs done, which were showing acute hypoxic respiratory failure and also acute renal failure. Currently, the patient is in the ICU, is intubated and is also on ( ) mcg of Levophed. Nephrology and Pulmonary have been consulted. Review of systems could not be done as the patient is intubated. PAST MEDICAL HISTORY: Significant for GERD, hypertension, myasthenia gravis. Allergies of ADHESIVE TAPE, AMINOGLYCOSIDES, AMLODIPINE, LEVOFLOXACIN, MACROLIDE ANTIBIOTICS, QUINOLONES, BACTRIM. Patient's home medications: 1. Valium 5 mg p.o. q.h.s. 2. Lomotil 2 tablets p.o. b.i.d. p.r.n. for constipation. 3. [place] 5/325 one tablet q.6 hours p.r.n. for pain. 4. Ativan 1 mg p.o. b.i.d. 5. Meclizine 25 mg p.o. 3 times a day p.r.n. for vertigo. 6. Depo-Provera. 7. Hiprex 1 gram p.o. b.i.d. 8. CellCept 1000 mg p.o. b.i.d. 9. Naproxen 500 mg b.i.d. 10. Protonix 40 mg p.o. daily. 11. Penicillin VEE 500 mg p.o. 3 times a day. 12. Telmisartan 40 mg p.o. daily. 13. Ambien 10 mg p.o. q.h.s. p.r.n. for insomnia. 14. Cyclosporine 100 mg p.o. b.i.d. and 25 mg p.o. b.i.d. 15. Tramadol 100 mg p.o. 3 times a day. SOCIAL HISTORY: Never a smoker. Alcohol could not be obtained. FAMILY HISTORY: Diabetes mellitus and hypertension. PAST SURGICAL HISTORY: Bariatric surgery, , cholecystectomy, hernia repair, tonsillectomy and thymus removal in 1994. Patient's labs: White count of 21, hemoglobin is 12.3, platelets of 168. ABG 7.13, 46, 89. Sodium 148, potassium 6.1, chloride 118, bicarb 14, BUN 82, creatinine 9.6. Troponin 0.143. UDS is positive for benzos and opiates. ASSESSMENT AND PLAN: 1. Acute hypoxic respiratory failure secondary to multilobar pneumonia. 2. Severe sepsis secondary to pneumonia. 3. Hypotension requiring pressor support. 4. Acute renal failure secondary to ischemic acute tubular necrosis due to hypotension. 5. Myasthenia gravis. 6. History of hypertension. 7. History of deep venous thrombosis/pulmonary embolism, status post [place] filter placement. 8. History of nephrolithiasis. 9. Thymectomy in 1994. 10. History of gastric sleeve in 2012. PLAN: Plan is to continue the patient on ventilatory support and continue with bicarb drip and pressor support. Patient has been started on Nimbex drip, which will be continued. Continue the antibiotics in the form of Zosyn. Patient did receive one dose of daptomycin in the ED. Antibiotic management as per Dr. Moe AHUJA recommendation.
[2016-06-13] MEDS ORDERED: PYRIDOSTIGMINE 60 MG TAB PO SCH (16:00)
[2016-06-13 17:27] VITALS: PULSE 132; RESP 30
--- NOTE | 2016-06-13 20:29 | PCN ---
DATE OF PROCEDURE: 06/13/2016 ARTERIAL LINE PLACEMENT Indication: Hemodynamic monitoring. A time-out was completed verifying correct patient, procedure, site, positioning, and implant(s) or special equipment if applicable. Abdiaziz's test was performed to ensure adequate perfusion. The patient's right wrist was prepped and draped in sterile fashion. 1% Lidocaine was used to anesthetize the area. An 18G [place] arterial line was introduced into the right radial artery. The catheter was threaded over the guide wire and the needle was removed with appropriate pulsatile blood return. Blood loss was minimal. The catheter was then sutured in place to the skin and a sterile dressing applied. Perfusion to the extremity distal to the point of catheter insertion was checked and found to be adequate. The patient tolerated the procedure well and there were no complications. There were no immediate complications. RHINA
--- NOTE | 2016-06-13 20:31 | PCN ---
TRIPLE LUMEN CATHETER PLACEMENT PROCEDURE: Left internal jugular triple-lumen catheter. Indication: Administration of fluids and pressors. A time-out was completed verifying correct patient, procedure, site, positioning, and implant(s) or special equipment if applicable. The patient was placed in a dependent position appropriate for triple lumen catheter placement based on the vein to be cannulated. The patient's right/left shoulder or right/left neck or right/left groin was prepped and draped in sterile fashion. 1% Lidocaine was used to anesthetize the surrounding skin area. A triple lumen 9F [place] catheter was introduced into the subclavian or internal jugular or common femoral vein using Seldinger technique. The catheter was threaded smoothly over the guide wire and appropriate blood return was obtained. Each lumen of the catheter was evacuated of air and flushed with sterile saline. Perfusion to the extremity distal to the point of catheter insertion was checked and found to be adequate. A chest x-ray was ordered to check placement. The catheter was sutured in place. Sterile dressing was applied by the nurse. There was no immediate complications.
[2016-06-13] MEDS ORDERED: PIPERACILLIN-TAZOBACTAM 3.375 GM in DEXTROSE/WATER 1 50ML.BAG IVPB SCH (21:00)
--- NOTE | 2016-06-13 22:15 | P.CONS ---
History of Present Illness - Reason for Consult Consult date: 06/13/16 - Chief Complaint Shortness of breath - History of Present Illness 45-year-old female presents to the emergency center was negative and shortness of breath. She presented then to the emergency center a few days prior with similar symptoms, was instructed to follow-up with her primary care physician. She now presents with evidence of profound shortness of breath. She had respiratory failure required intubation mechanical ventilation. She also has become profoundly hypotensive requiring multiple vasopressors. She remains in intensive care unit. She however has continued to decline despite the aggressive interventions. She is on 100% FiO2 with a PEEP of 10 with barely adequate oxygenation. Vasopressin is being added to improve her blood pressure. The patient has a known history of myasthenia gravis and is on significant immunosuppression with CellCept as well as cyclosporine. There is evidence of extensive pneumonia and her chest x-rays pressure to the right chest. It with at the infectious diseases consultation was requested. At the time of the consult antibiotic therapy was initiated with piperacillin tazobactam as well as a azithromycin. She apparently had in ability to take levofloxacin. Review of Systems ROS unobtainable: due to endotracheal tube Past Medical History Past Medical History: GERD/Reflux, Hypertension Additional Past Medical History / Comment(s): Hx. blood clot rt. leg and into lung 2010, ivan filter, kidney stones, myasthenia gravis, vertigo History of Any Multi-Drug Resistant Organisms: C-DIFF Year Discovered:: 2012 MDRO Source:: stool Past Surgical History: Bariatric Surgery, Section, Cholecystectomy, Hernia Repair, Tonsillectomy Additional Past Surgical History / Comment(s): thymus removed 1994 LEEP.Umbilical hernia. GASTRIC SLEEVE 2012, uterine fibroid biopsy Past Anesthesia/Blood Transfusion Reactions: No Reported Reaction Past Psychological History: Anxiety Smoking Status: Never smoker Past Alcohol Use History: Unable to Obtain Past Drug Use History: Unable to Obtain - Past Family History Mother Family Medical History: Diabetes Mellitus, Hypertension Medications and Allergies Home Medications and Allergies Comment(s): please see the medication list Home Medications Medication Instructions Recorded Confirmed Type Diazepam [Valium] 5 mg PO HS 06/12/16 06/12/16 History Diphenoxylate HCl/Atropine 2 tab PO BID PRN 06/12/16 06/12/16 History [Lomotil] Hydrocodone/Acetaminophen [[place] 1 tab PO Q6H PRN 06/12/16 06/12/16 History 5-325] LORazepam [Ativan] 1 mg PO BID 06/12/16 06/12/16 History Meclizine [Antivert] 25 mg PO TID PRN 06/12/16 06/12/16 History Medroxyprogesterone Acetate 150 mg IM ONCE 06/12/16 06/12/16 History [Depo-Provera] Methenamine Hippurate [Hiprex] 1 gm PO BID 06/12/16 06/12/16 History Mycophenolate Mofetil [Cellcept] 1,000 mg PO BID 06/12/16 06/12/16 History Naproxen 500 mg PO BID PRN 06/12/16 06/12/16 History Pantoprazole [Protonix] 40 mg PO DAILY 06/12/16 06/12/16 History Penicillin V Potassium [Pen Vee K] 500 mg PO TID 06/12/16 06/12/16 History Telmisartan [Micardis] 40 mg PO DAILY 06/12/16 06/12/16 History Zolpidem [Ambien] 10 mg PO HS PRN 06/12/16 06/12/16 History cycloSPORINE [cycloSPORINE (GEQ 100 mg PO BID 06/12/16 06/12/16 History for SandIMMUNE) 100MG] cycloSPORINE [cycloSPORINE (GEQ 25 mg PO BID 06/12/16 06/12/16 History for SandIMMUNE)] traMADol HCL [Ultram] 100 mg PO TID PRN 06/12/16 06/12/16 History Allergies Allergy/AdvReac Type Severity Reaction Status Date / Time adhesive Allergy Rash/Hives Verified 06/12/16 15:54 Aminoglycosides Allergy Dyspnea Verified 06/12/16 15:54 amlodipine besylate Allergy Swelling Verified 06/12/16 15:54 [From Norvasc] levofloxacin [From Levaquin] Allergy Dyspnea Verified 06/12/16 15:54 Macrolide Antibiotics Allergy Dyspnea Verified 06/12/16 15:54 Quinolones Allergy Dyspnea Verified 06/12/16 15:54 sulfamethoxazole Allergy Dyspnea Verified 06/12/16 15:54 [From Bactrim] trimethoprim [From Bactrim] Allergy Dyspnea Verified 06/12/16 15:54 Physical Exam Vitals: Vital Signs Temp Pulse Resp BP Pulse Ox 06/13/16 17:00 132 H 30 H 93 L 06/13/16 16:00 124 H 29 H 92 L 06/13/16 15:41 115 H 06/13/16 15:26 118 H 06/13/16 15:20 95 06/13/16 15:00 99.4 F 130 H 23 83/55 86 L 06/13/16 14:00 126 H 30 H 83/55 86 L 06/13/16 13:00 118 H 30 H 100/61 90 L 06/13/16 12:00 98.4 F 105 H 24 100/61 93 L 06/13/16 11:48 92 06/13/16 11:38 92 06/13/16 11:00 101 H 24 112/58 94 L 06/13/16 10:00 103 H 24 105/64 95 06/13/16 09:00 110 H 24 90/64 95 06/13/16 08:19 96 06/13/16 08:00 98.2 F 89 23 89/57 95 06/13/16 07:45 92 06/13/16 07:00 94 24 96/60 95 06/13/16 06:00 96 24 101/54 93 L 06/13/16 05:00 101 H 24 112/57 95 06/13/16 04:00 98.7 F 102 H 24 108/64 96 06/13/16 03:32 96 06/13/16 03:20 93 06/13/16 03:00 92 24 95/53 96 06/13/16 02:00 86 24 100/55 95 06/13/16 01:00 85 18 97/62 92 L 06/13/16 00:00 86 24 78/54 96 06/12/16 23:00 98.6 F 91 28 H 107/53 94 L 06/12/16 22:44 94 L 06/12/16 22:40 102 H 20 104/52 96 06/12/16 22:20 104 H 20 97/55 95 Intake and Output 06/13/16 06/13/16 06/13/16 06:59 14:59 22:59 Intake Total 603.612 7120.275 553.506 Output Total 25 30 0 Balance 502.864 6107.275 553.506 Intake: IV 800 2500 300 Dextrose 5% in Water 1, 300 300 000 ml @ 100 mls/hr IV . [id number] ONE with Sodium Bicarb (1 Meq/ml) 150 ml Rx#:[id number] Dextrose 5% in Water 1, 2000 000 ml @ 999 mls/hr IV . Q1H1M ONE Rx#:[id number] Sodium Chloride 0.9% 1, 800 200 000 ml @ 100 mls/hr IV . Q10H TERRANCE Rx#:[id number] Intake, IV Titration 197.250 119.275 253.506 Amount Norepinephrine 16 mg In 170.000 96 253.506 Sodium Chloride 0.9% 250 ml @ Titrate IV .Q0M TERRANCE Rx#:[id number] Propofol 500 mg In Empty 27.25 23.275 Bag 1 bag @ Titrate IV . Q0M TERRANCE Rx#:[id number] Output: Urine 25 30 0 Stool 0 Other: Voiding Method Indwelling Catheter Indwelling Catheter Weight 93.4 kg 93.4 kg Patient Weight 06/14/16 06:59 Weight 93.4 kg ABP, PAP, CO, CI - Last 8 Hours Arterial Blood Pressure 96/54 Arterial Blood Pressure 96/58 Arterial Blood Pressure 83/47 45-year-old femalewho is intubated sedated and mechanically ventilated Multiple IVs in place HEENT: Anicteric conjunctiva are pale, nasal and oral mucosa without bleeding, oral cavity shows evidence of the No thrush is noted Neck: The neck is supple without significant lymphadenopathy or thyromegaly. Lungs: there is symmetrical air entry. However is markedly diminished breath sounds at the right base. Scattered expirtory wheezes heart: Tachycardic with mild irregularity, audible S1 and S2, soft S4 no audible murmur click or rub Abdomen: Positive bowel sounds soft and nontender without palpable masses or organomegaly. There was no rigidity Extremities: the upper and lower extremities are cool to touch but not frankly cold no ischemia is seen Neuro: sedated Results CBC & Chem 7: 06/13/16 05:50 06/13/16 05:50 Labs: Abnormal Lab Results - Last 24 Hours (Table) 06/12/16 06/12/16 06/12/16 Range/Units 22:47 23:16 23:24 WBC (3.8-10.6) k/uL MCHC (31.0-37.0) g/dL Neutrophils # (1.3-7.7) k/uL Lymphocytes # (1.0-4.8) k/uL Monocytes # (0-1.0) k/uL ABG pH 7.10 L* (7.35-7.45) ABG pCO2 (35-45) mmHg ABG pO2 (83-108) mmHg ABG HCO3 13 L (21-25) mmol/L ABG Total CO2 14 L (19-24) mmol/L ABG O2 Saturation 93.0 L (94-97) % Sodium (137-145) mmol/L Potassium (3.5-5.1) mmol/L Chloride (98-107) mmol/L Carbon Dioxide (22-30) mmol/L BUN (7-17) mg/dL Creatinine (0.52-1.04) mg/dL Glucose (74-99) mg/dL POC Glucose (mg/dL) 74 L 133 H (75-99) mg/dL Plasma Lactic Acid Nahid (0.7-2.0) mmol/L Calcium (8.4-10.2) mg/dL Ionized Calcium [place] (4.5-5.3) mg/dL Phosphorus (2.5-4.5) mg/dL Total Creatine Kinase (30-135) U/L CK-MB (CK-2) (0.0-2.4) ng/mL Troponin I (0.000-0.034) ng/mL Urine Opiates Screen (NotDetected) U Benzodiazepines Scrn (NotDetected) 06/12/16 06/12/16 06/13/16 Range/Units 23:30 23:30 05:21 WBC (3.8-10.6) k/uL MCHC (31.0-37.0) g/dL Neutrophils # (1.3-7.7) k/uL Lymphocytes # (1.0-4.8) k/uL Monocytes # (0-1.0) k/uL ABG pH 7.13 L* (7.35-7.45) ABG pCO2 46 H (35-45) mmHg ABG pO2 (83-108) mmHg ABG HCO3 14 L (21-25) mmol/L ABG Total CO2 16 L (19-24) mmol/L ABG O2 Saturation 93.0 L (94-97) % Sodium (137-145) mmol/L Potassium 5.3 H (3.5-5.1) mmol/L Chloride 121 H* (98-107) mmol/L Carbon Dioxide 9 L* (22-30) mmol/L BUN 79 H (7-17) mg/dL Creatinine 9.30 H* (0.52-1.04) mg/dL Glucose 110 H (74-99) mg/dL POC Glucose (mg/dL) (75-99) mg/dL Plasma Lactic Acid Nahid 0.6 L (0.7-2.0) mmol/L Calcium 6.1 L* (8.4-10.2) mg/dL Ionized Calcium [place] (4.5-5.3) mg/dL Phosphorus (2.5-4.5) mg/dL Total Creatine Kinase (30-135) U/L CK-MB (CK-2) (0.0-2.4) ng/mL Troponin I (0.000-0.034) ng/mL Urine Opiates Screen (NotDetected) U Benzodiazepines Scrn (NotDetected) 06/13/16 06/13/16 06/13/16 Range/Units 05:50 05:50 05:50 WBC 21.0 H (3.8-10.6) k/uL MCHC 30.3 L (31.0-37.0) g/dL Neutrophils # 18.7 H (1.3-7.7) k/uL Lymphocytes # 0.7 L (1.0-4.8) k/uL Monocytes # 1.3 H (0-1.0) k/uL ABG pH (7.35-7.45) ABG pCO2 (35-45) mmHg ABG pO2 (83-108) mmHg ABG HCO3 (21-25) mmol/L ABG Total CO2 (19-24) mmol/L ABG O2 Saturation (94-97) % Sodium 148 H (137-145) mmol/L Potassium 6.1 H (3.5-5.1) mmol/L Chloride 118 H (98-107) mmol/L Carbon Dioxide 14 L (22-30) mmol/L BUN 82 H* (7-17) mg/dL Creatinine 9.60 H* (0.52-1.04) mg/dL Glucose (74-99) mg/dL POC Glucose (mg/dL) (75-99) mg/dL Plasma Lactic Acid Nahid (0.7-2.0) mmol/L Calcium 6.4 L* (8.4-10.2) mg/dL Ionized Calcium [place] (4.5-5.3) mg/dL Phosphorus 7.9 H (2.5-4.5) mg/dL Total Creatine Kinase 215 H (30-135) U/L CK-MB (CK-2) 3.0 H* (0.0-2.4) ng/mL Troponin I 0.143 H* (0.000-0.034) ng/mL Urine Opiates Screen (NotDetected) U Benzodiazepines Scrn (NotDetected) 06/13/16 06/13/16 06/13/16 Range/Units 05:50 07:00 11:27 WBC (3.8-10.6) k/uL MCHC (31.0-37.0) g/dL Neutrophils # (1.3-7.7) k/uL Lymphocytes # (1.0-4.8) k/uL Monocytes # (0-1.0) k/uL ABG pH 7.15 L* (7.35-7.45) ABG pCO2 48 H (35-45) mmHg ABG pO2 79 L (83-108) mmHg ABG HCO3 16 L (21-25) mmol/L ABG Total CO2 18 L (19-24) mmol/L ABG O2 Saturation 91.2 L (94-97) % Sodium (137-145) mmol/L Potassium (3.5-5.1) mmol/L Chloride (98-107) mmol/L Carbon Dioxide (22-30) mmol/L BUN (7-17) mg/dL Creatinine (0.52-1.04) mg/dL Glucose (74-99) mg/dL POC Glucose (mg/dL) (75-99) mg/dL Plasma Lactic Acid Nahid (0.7-2.0) mmol/L Calcium (8.4-10.2) mg/dL Ionized Calcium [place] 4.1 L (4.5-5.3) mg/dL Phosphorus (2.5-4.5) mg/dL Total Creatine Kinase (30-135) U/L CK-MB (CK-2) (0.0-2.4) ng/mL Troponin I (0.000-0.034) ng/mL Urine Opiates Screen Detected H (NotDetected) U Benzodiazepines Scrn Detected H (NotDetected) Microbiology - Last 24 Hours (Table) 06/13/16 01:43 Gram Stain - Preliminary Sputum Sputum Culture - Preliminary 06/12/16 20:20 Urine Culture - Preliminary Urine,Catheterized Laboratory Results WBC 21.0 k/uL (3.8-10.6) H 06/13/16 05:50 RBC 4.22 m/uL (3.80-5.40) 06/13/16 05:50 Hgb 12.3 gm/dL (11.4-16.0) 06/13/16 05:50 Hct 40.6 % (34.0-46.0) 06/13/16 05:50 MCV 96.4 fL (80.0-100.0) 06/13/16 05:50 MCH 29.2 pg (25.0-35.0) 06/13/16 05:50 MCHC 30.3 g/dL (31.0-37.0) L 06/13/16 05:50 RDW 14.1 % (11.5-15.5) 06/13/16 05:50 Plt Count 168 k/uL (150-450) D 06/13/16 05:50 Neutrophils % 89 % 06/13/16 05:50 Lymphocytes % 3 % 06/13/16 05:50 Monocytes % 6 % 06/13/16 05:50 Eosinophils % 0 % 06/13/16 05:50 Basophils % 1 % 06/13/16 05:50 Neutrophils # 18.7 k/uL (1.3-7.7) H 06/13/16 05:50 Lymphocytes # 0.7 k/uL (1.0-4.8) L 06/13/16 05:50 Monocytes # 1.3 k/uL (0-1.0) H 06/13/16 05:50 Eosinophils # 0.0 k/uL (0-0.7) 06/13/16 05:50 Basophils # 0.1 k/uL (0-0.2) 06/13/16 05:50 Hypochromasia Moderate 06/13/16 05:50 PT 12.5 sec (9.0-12.0) H 06/12/16 16:26 INR 1.3 (<1.1) 06/12/16 16:26 APTT 37.1 sec (22.0-30.0) H 06/12/16 16:26 Sample Site A-LINE 06/13/16 11:27 ABG pH 7.15 (7.35-7.45) L* 06/13/16 11:27 ABG pCO2 48 mmHg (35-45) H 06/13/16 11:27 ABG pO2 79 mmHg (83-108) L 06/13/16 11:27 ABG HCO3 16 mmol/L (21-25) L 06/13/16 11:27 ABG Total CO2 18 mmol/L (19-24) L 06/13/16 11:27 ABG O2 Saturation 91.2 % (94-97) L 06/13/16 11:27 ABG Base Excess -11.0 mmol/L 06/13/16 11:27 FiO2 100 % 06/13/16 11:27 Sodium 148 mmol/L (137-145) H 06/13/16 05:50 Potassium 6.1 mmol/L (3.5-5.1) H 06/13/16 05:50 Chloride 118 mmol/L (98-107) H 06/13/16 05:50 Carbon Dioxide 14 mmol/L (22-30) L 06/13/16 05:50 Anion Gap 16 mmol/L 06/13/16 05:50 BUN 82 mg/dL (7-17) H* 06/13/16 05:50 Creatinine 9.60 mg/dL (0.52-1.04) H* 06/13/16 05:50 Est GFR (MDRD) Af Amer 5 (>60 ml/min/1.73 sqM) 06/13/16 05:50 Est GFR (MDRD) Non-Af 4 (>60 ml/min/1.73 sqM) 06/13/16 05:50 Glucose 94 mg/dL (74-99) 06/13/16 05:50 POC Glucose (mg/dL) 133 mg/dL (75-99) H 06/12/16 23:16 POC Glu Fitting Room Operator ID Amber Phelps 06/12/16 23:16 Plasma Lactic Acid Nahid 0.6 mmol/L (0.7-2.0) L 06/12/16 23:30 Calcium 6.4 mg/dL (8.4-10.2) L* 06/13/16 05:50 Ionized Calcium [place] 4.1 mg/dL (4.5-5.3) L 06/13/16 05:50 Phosphorus 7.9 mg/dL (2.5-4.5) H 06/13/16 05:50 Magnesium 1.6 mg/dL (1.6-2.3) 06/13/16 05:50 Total Bilirubin 1.6 mg/dL (0.2-1.3) H 06/12/16 16:26 AST 76 U/L (14-36) H 06/12/16 16:26 ALT 87 U/L (9-52) H 06/12/16 16:26 Alkaline Phosphatase 408 U/L (38-126) H 06/12/16 16:26 Total Creatine Kinase 215 U/L (30-135) H 06/13/16 05:50 CK-MB (CK-2) 3.0 ng/mL (0.0-2.4) H* 06/13/16 05:50 CK-MB (CK-2) Rel Index 1.4 06/13/16 05:50 Troponin I 0.143 ng/mL (0.000-0.034) H* 06/13/16 05:50 Total Protein 5.1 g/dL (6.3-8.2) L 06/12/16 16:26 Albumin 2.3 g/dL (3.5-5.0) L 06/12/16 16:26 Cortisol 32 ug/dL 06/12/16 16:26 Urine Color Dark Brown 06/12/16 20:20 Urine Appearance Turbid (Clear) H 06/12/16 20:20 Urine pH 5.5 (5.0-8.0) 06/12/16 20:20 Ur Specific [place] 1.023 (1.001-1.035) 06/12/16 20:20 Urine Protein 3+ (Negative) H 06/12/16 20:20 Urine Glucose (UA) Negative (Negative) 06/12/16 20:20 Urine Ketones Negative (Negative) 06/12/16 20:20 Urine Blood Large (Negative) H 06/12/16 20:20 Urine Nitrate Negative (Negative) 06/12/16 20:20 Urine Bilirubin Negative (Negative) 06/12/16 20:20 Urine Urobilinogen <2.0 mg/dL (<2.0) 06/12/16 20:20 Ur Leukocyte Esterase Large (Negative) H 06/12/16 20:20 Urine RBC >182 /hpf (0-5) H 06/12/16 20:20 Urine WBC >182 /hpf (0-5) H 06/12/16 20:20 Urine WBC Clumps Many /hpf (None) H 06/12/16 20:20 Urine Bacteria Moderate /hpf (None) H 06/12/16 20:20 Urine Opiates Screen Detected (NotDetected) H 06/13/16 07:00 Ur Oxycodone Screen Not Detected (NotDetected) 06/13/16 07:00 Urine Methadone Screen Not Detected (NotDetected) 06/13/16 07:00 Ur Propoxyphene Screen Not Detected (NotDetected) 06/13/16 07:00 Ur Barbiturates Screen Not Detected (NotDetected) 06/13/16 07:00 U Tricyclic Antidepress Not Detected (NotDetected) 06/13/16 07:00 Ur Phencyclidine Scrn Not Detected (NotDetected) 06/13/16 07:00 Ur Amphetamines Screen Not Detected (NotDetected) 06/13/16 07:00 U Methamphetamines Scrn Not Detected (NotDetected) 06/13/16 07:00 U Benzodiazepines Scrn Detected (NotDetected) H 06/13/16 07:00 Urine Cocaine Screen Not Detected (NotDetected) 06/13/16 07:00 U Marijuana (THC) Screen Not Detected (NotDetected) 06/13/16 07:00 Microbiology 06/12/16 16:26 Blood Blood Culture - Preliminary No Growth after 24 hours 06/13/16 01:43 Sputum Gram Stain - Preliminary 06/13/16 01:43 Sputum Sputum Culture - Preliminary 06/12/16 20:20 Urine,Catheterized Urine Culture - Preliminary Assessment and Plan (1) Septic shock Narrative/Plan: 45-year-old female with history of myasthenia gravis presents to the emergency center with profound shortness of breath. His thought evidence of extensive pneumonia, respiratory failure and hypotension. She's required volume resuscitation and vasopressor therapy for her septic shock. Given her significant immunosuppression concern would be to gram-negative pathogens as well as routine pathogen septa Streptococcus pneumoniae. However Legionella and other more opportunistic pathogens must be considered. And constantly piperacillin tazobactam and azithromycin is utilized given her history of inability to take levofloxacin. It is noted that she is on methenamine. Data review reveals that in persons with renal failure this medication may cause profound acidosis. It may be part of the difficulty she is suffering. At this point in time with her significant acidosis and her renal failure. She will be transferred to [facility] clinic short period of time for further evaluation of her status and alternatives to current ventilatory status. Prognosis is very poor. Multiple cultures have been obtained. She is somewhat immunosuppressed but has not been on large doses of steroids per the data. Consideration for pneumocystis is related she is being transferred. Status: Acute
--- NOTE | 2016-06-13 22:27 | PCN ---
DATE OF PROCEDURE: PREOPERATIVE DIAGNOSIS: Acute chronic renal failure and hyperkalemia. POSTOPERATIVE DIAGNOSIS: Acute chronic renal failure and hyperkalemia. PROCEDURE: Placement of dialysis catheter right femoral approach. The patient was seen in the Intensive Care Unit. The right groin was prepped and draped in sterile manner. 1% of Lidocaine was infiltrated in the right groin area ( ) right femoral vein. Micropuncture guidewire was passed. A ( ) dilated on top of the guidewire. The dilator guidewire was passed and tunneled on the top of the guidewire, we placed 20 cm dialysis catheter on the top of the guidewire, secured with 3-0 silk and hep-locked. Dressing applied. The patient tolerated the procedure well.
--- NOTE | 2016-07-09 09:30 | DS ---
DATE OF ADMISSION: 06/12/2016 DATE OF DISCHARGE: 06/13/2016 HOSPITAL COURSE: Ms. Beaver is a 45-year-old female with a past medical history of myasthenia gravis, hypertension, GERD, coming into the hospital with altered mental status changes. The patient has long-standing history of myasthenia gravis and has been noncompliant with her medications. Recently the patient went to urgent care for difficulty in breathing and was started on antibiotics and sent home. Eventually the patient did not show any signs of improvement and subsequently developed difficulty in breathing and so EMS was called she was brought into the emergency department. In the ED, the patient was intubated due to impending respiratory failure. Patient had a chest x-ray showing patchy infiltrates. A CT scan of the head was done, which for any acute process. The patient was acute hypoxic respiratory failure and also acute renal failure was septic shock. The patient was started on IV fluids and also pressors. Nephrology, pulmonary and infectious doctors are consulted. The patient showed some improvement in her blood pressure with pressor support and also antibiotics were initiated in the form of Zosyn and azithromycin. But, as the patient was on pressor support and also has history of myasthenia gravis, the decision was made to transfer the patient to a tertiary care center. The patient has been accepted by [facility]. I personally gave the sign-off to the hospitalist distance education faculty liaison at [facility]. The patient is being transferred on a ventilator and with pressor support. DISCHARGE DIAGNOSES: 1. Acute hypoxic respiratory failure secondary to multilobar pneumonia. 2. Septic shock secondary to pneumonia. 3. Acute renal failure secondary to ischemic acute tubular necrosis due to hypotension. 4. Myasthenia gravis. 5. Hypertension. 6. History of deep venous thrombosis and pulmonary embolism, status post [place] placement. 7. History of nephrolithiasis. 8. History of thymectomy in 1994. 9. History of gastric sleeve in 2012. Patient's condition has a poor prognosis and she is being transferred to [facility].
== END 2016-06-13 17:53 | disposition short-term general hospital (02) | DRG 871 ==
LOC: EC 15:05 → 6ICU 19:17
PROVIDERS: ADMIT Hospitalist; ATTEND Family Medicine
PROC: 0BH18EZ Insertion of Endotracheal Airway into Trachea, Via Natural or Artificial Opening Endoscopic (ICD-10-PCS; principal; 2016-06-12)
PROC: 5A1935Z Respiratory Ventilation, Less than 24 Consecutive Hours (ICD-10-PCS; 2016-06-12)
PROC: 06HM33Z Insertion of Infusion Device into Right Femoral Vein, Percutaneous Approach (ICD-10-PCS; 2016-06-12)
PROC: 03HY32Z Insertion of Monitoring Device into Upper Artery, Percutaneous Approach (ICD-10-PCS; 2016-06-13)
PROC: 4A133B1 Monitoring of Arterial Pressure, Peripheral, Percutaneous Approach (ICD-10-PCS; 2016-06-13)
PROC: 4A133J1 Monitoring of Arterial Pulse, Peripheral, Percutaneous Approach (ICD-10-PCS; 2016-06-13)
PROC: 05HN33Z Insertion of Infusion Device into Left Internal Jugular Vein, Percutaneous Approach (ICD-10-PCS; 2016-06-13)
PROC: 06HM33Z Insertion of Infusion Device into Right Femoral Vein, Percutaneous Approach (ICD-10-PCS; 2016-06-13)
DX: A41.9 Sepsis, unspecified organism (principal); J96.01 Acute respiratory failure with hypoxia; N17.0 Acute kidney failure with tubular necrosis; R65.21 Severe sepsis with septic shock; E87.0 Hyperosmolality and hypernatremia; J18.9 Pneumonia, unspecified organism; E87.2 Acidosis; E86.0 Dehydration; E87.5 Hyperkalemia; E83.51 Hypocalcemia; G70.00 Myasthenia gravis without (acute) exacerbation; E86.1 Hypovolemia; K21.9 Gastro-esophageal reflux disease without esophagitis; F41.9 Anxiety disorder, unspecified; G47.00 Insomnia, unspecified; I12.9 Hypertensive chronic kidney disease with stage 1 through stage 4 chronic kidney disease, or unspecified chronic kidney disease; N18.9 Chronic kidney disease, unspecified; Z98.84 Bariatric surgery status; Z91.14 Patient's other noncompliance with medication regimen; Z87.442 Personal history of urinary calculi; Z87.440 Personal history of urinary (tract) infections; Z86.718 Personal history of other venous thrombosis and embolism; Z86.711 Personal history of pulmonary embolism; Z90.49 Acquired absence of other specified parts of digestive tract; Z79.1 Long term (current) use of non-steroidal anti-inflammatories (NSAID); Z79.899 Other long term (current) drug therapy
CPT/HCPCS: 31500; 36415; 36556; 36600; 70450; 71010; 71020; 80048; 80053; 80306; 81001; 82330; 82533; 82550; 82553; 82805; 83605; 83735; 84100; 84484; 85025; 85610; 85730; 87040; 87070; 87077; 87086; 87186; 87205; 93005; 94002; 94003; 94640; 96361; 96365; 96366; 96367; 96368; 96375; 99291

== ENCOUNTER → 2016-08-28 | Outpatient (CLI) | payer MEDICARE ==
[2016-08-28 16:45] LABS: Appearance,Urine Clear (Clear); Bilirubin,Urine Negative (Negative); Glucose,Urine (UA) Negative (Negative); Ketones,Urine Negative (Negative); Leukocyte Esterase,Urine Negative (Negative); Nitrite,Urine Negative (Negative); Protein,Urine Negative (Negative); Specific Gravity,Urine 1.012 (1.001-1.035); UA Billing (MACRO vs. MICRO) CHEM; Urobilinogen,Urine <2.0 mg/dL (<2.0)
[2016-08-28 16:46] LABS: CH 30.5; CHCM 31.6; HCT 35.3 % (34.0-46.0); HDW 2.62; HGB 11.5 gm/dL (11.4-16.0); MCH 31.4 pg (25.0-35.0); MCHC 32.5 g/dL (31.0-37.0); MCV 96.6 fL (80.0-100.0); Mean Platelet Volume 7.1; RBC 3.65 m/uL (3.80-5.40); RDW 14.5 % (11.5-15.5)
[2016-08-28 16:52] LABS: Calcium 9.5 mg/dL (8.4-10.2); Magnesium 1.5 mg/dL (1.6-2.3); Phosphorous 4.1 mg/dL (2.5-4.5); Potassium 5.5 mmol/L (3.5-5.1); Uric Acid 5.3 mg/dL (3.7-7.4)
[2016-08-28 17:00] LABS: % Iron Saturation 31.9 % (20-50)
[2016-08-28 17:04] LABS: Creatinine,Urine Random 66.9 mg/dL
== END | disposition home or self-care (01) ==
LOC: LABWHC1 15:50
PROVIDERS: ATTEND Nurse Practitioner Family
DX: N18.6 End stage renal disease (principal); N17.9 Acute kidney failure, unspecified; N25.81 Secondary hyperparathyroidism of renal origin
CPT/HCPCS: 36415; 80048; 81003; 82306; 82570; 83540; 83550; 83735; 83970; 84100; 84156; 84550; 85027

== ENCOUNTER → 2016-09-04 | Outpatient (CLI) | payer MEDICARE | END | disposition home or self-care (01) | LOC: LABWHC1 12:20 | PROVIDERS: ATTEND Nurse Practitioner Family | DX: E87.5 Hyperkalemia (principal) | CPT/HCPCS: 36415; 84132 ==

== ENCOUNTER → 2016-11-10 | Outpatient (CLI) | payer MEDICARE ==
[2016-11-10 13:25] LABS: Calcium 9.6 mg/dL (8.4-10.2); Potassium 4.2 mmol/L (3.5-5.1); Total Bilirubin 0.8 mg/dL (0.2-1.3)
[2016-11-10 13:26] LABS: Appearance,Urine Cloudy (Clear); Bacteria,Urine Rare /hpf; Bilirubin,Urine Negative (Negative); Glucose,Urine (UA) Negative (Negative); Ketones,Urine Negative (Negative); Leukocyte Esterase,Urine Large (Negative); Mucus,Urine Rare /hpf; Nitrite,Urine Negative (Negative); Particle Count 6072; Protein,Urine Trace (Negative); RBC,Urine 2 /hpf (0-5); Specific Gravity,Urine 1.017 (1.001-1.035); Squamous Epithelial Cell,Urine 7 /hpf (0-4); UA Billing (MACRO vs. MICRO) MICRO; Urobilinogen,Urine <2.0 mg/dL (<2.0); WBC,Urine 21 /hpf (0-5)
[2016-11-10 14:54] LABS: Creatinine,Urine Random 267.5 mg/dL
== END | disposition home or self-care (01) ==
LOC: LABWHC1 12:40
PROVIDERS: ATTEND Internal Medicine Nephrology
DX: D64.9 Anemia, unspecified (principal); R80.9 Proteinuria, unspecified; N39.0 Urinary tract infection, site not specified; E21.3 Hyperparathyroidism, unspecified; E55.9 Vitamin D deficiency, unspecified
CPT/HCPCS: 36415; 80053; 81001; 82306; 82570; 83970; 84156

== ENCOUNTER → 2017-03-23 | Outpatient (CLI) | payer MEDICARE ==
[2017-03-23 16:17] LABS: Basophils # (A) 0.1 k/uL (0-0.2); Basophils % (A) 1 %; CH 31.4; CHCM 31.5; Eosinophils # (A) 0.3 k/uL (0-0.7); Eosinophils % (A) 5 %; HCT 43.7 % (34.0-46.0); HDW 2.18; HGB 13.8 gm/dL (11.4-16.0); Luc # (Auto) 0.15; Luc % (Auto) 3; Lymphocytes % (A) 34 %; MCH 31.5 pg (25.0-35.0); MCHC 31.5 g/dL (31.0-37.0); MCV 100.1 fL (80.0-100.0); Mean Platelet Volume 7.7; Monocytes # (A) 0.2 k/uL (0-1.0); Monocytes % (A) 4 %; Neutrophils # (A) 3.2 k/uL (1.3-7.7); Neutrophils % (A) 54 %; RBC 4.36 m/uL (3.80-5.40); RDW 13.4 % (11.5-15.5); WBC 5.9 k/uL (3.8-10.6); WBC (Perox) 5.96
[2017-03-23 16:36] LABS: Calcium 9.3 mg/dL (8.4-10.2); Potassium 3.8 mmol/L (3.5-5.1); Total Bilirubin 0.3 mg/dL (0.2-1.3)
[2017-03-23 20:16] LABS: Erythrocyte Sedimentation Rate 5 mm/hr (0-20)
== END | disposition home or self-care (01) ==
LOC: LABWHC1 15:28
PROVIDERS: ATTEND Psychiatry & Neurology Neurology
DX: R53.82 Chronic fatigue, unspecified (principal); G70.9 Myoneural disorder, unspecified; E55.9 Vitamin D deficiency, unspecified
CPT/HCPCS: 36415; 80053; 82306; 82550; 82607; 84207; 84439; 84443; 85025; 85652

== ENCOUNTER → 2017-05-04 | Outpatient (CLI) | payer MEDICARE ==
[~2017-05-04] MED LIST: SODIUM CHLORIDE 0.9% 500 ML in EMPTY BAG 1 BAG IV PRN
[2017-05-04 14:20] VITALS: BP 117/84; PULSE 56; RESP 16; TEMP 97.8
== END | disposition home or self-care (01) ==
LOC: PROCWHC3 13:50
PROVIDERS: ATTEND Psychiatry & Neurology Neurology
DX: G70.01 Myasthenia gravis with (acute) exacerbation (principal)
CPT/HCPCS: 96365; J2930

== ENCOUNTER → 2017-05-24 | Outpatient (CLI) | payer MEDICARE ==
[2017-05-24 17:02] LABS: HCT 48.1 % (34.0-46.0); MCH 30.8 pg (25.0-35.0); MCHC 31.2 g/dL (31.0-37.0); MCV 98.9 fL (80.0-100.0); Mean Platelet Volume 8.1; Platelet Count 229 k/uL (150-450); RBC 4.86 m/uL (3.80-5.40); WBC 7.4 k/uL (3.8-10.6)
[2017-05-24 17:20] LABS: Albumin 4.1 g/dL (3.5-5.0); Calcium 10.1 mg/dL (8.4-10.2); Potassium 4.6 mmol/L (3.5-5.1); Total Bilirubin 0.5 mg/dL (0.2-1.3); Total Protein 7.5 g/dL (6.3-8.2)
[2017-05-24 20:58] LABS: Lymphocytes # (M) 3.92 k/uL (1.0-4.8); Monocytes # (M) 0.22 k/uL (0-1.0); Neutrophils # (M) 2.96 k/uL (1.3-7.7); Neutrophils % (M) 40 %; Nucleated Red Blood Cells 0 /100 WBC (0-0); Total Cells Counted 100
== END | disposition home or self-care (01) ==
LOC: LABWHC1 16:10
PROVIDERS: ATTEND Psychiatry & Neurology Neurology
DX: T45.1X5A Adverse effect of antineoplastic and immunosuppressive drugs, initial encounter (principal); G70.01 Myasthenia gravis with (acute) exacerbation
CPT/HCPCS: 36415; 80053; 85027

== ENCOUNTER 2017-06-05 08:29 | Emergency (ER) | payer MEDICARE ==
[2017-06-05 08:39] VITALS: RESP 16
--- NOTE | 2017-06-05 10:16 | ED ---
Fall HPI - General Chief Complaint: Fall Stated Complaint: Fall Time Seen by Provider: 06/05/17 08:37 Source: patient, EMS Mode of arrival: EMS Limitations: no limitations - History of Present Illness Initial Comments: This a 46-year-old female presents emergency Department chief complaint of sudden fall. Patient states she was cutting across her yard states that she slipped on some ice and snow fell hit the right side of her head. There is no loss conscious. She does complain of mild headache and some neck discomfort. She denies any confusion, blurred vision, dizziness, back pain, lower extremity injury or upper [place] injury. She states that she was just concerned as she struck her head. - Related Data Home Medications Medication Instructions Recorded Confirmed Diazepam [Valium] 5 mg PO HS 06/12/16 05/04/17 Diphenoxylate HCl/Atropine 2 tab PO BID PRN 06/12/16 05/04/17 [Lomotil] LORazepam [Ativan] 1 mg PO BID 06/12/16 05/04/17 Meclizine [Antivert] 25 mg PO TID PRN 06/12/16 05/04/17 Medroxyprogesterone Acetate 150 mg IM ONCE 06/12/16 05/04/17 [Depo-Provera] Methenamine Hippurate [Hiprex] 1 gm PO BID 06/12/16 05/04/17 Pantoprazole [Protonix] 40 mg PO DAILY 06/12/16 05/04/17 Telmisartan [Micardis] 40 mg PO DAILY 06/12/16 05/04/17 Zolpidem [Ambien] 10 mg PO HS PRN 06/12/16 05/04/17 traMADol HCL [Ultram] 100 mg PO TID PRN 06/12/16 05/04/17 Mycophenolate Mofetil [Cellcept] 1,000 mg PO DAILY 04/22/17 05/04/17 Allergies Allergy/AdvReac Type Severity Reaction Status Date / Time adhesive Allergy Rash/Hives Verified 05/04/17 14:08 Aminoglycosides Allergy Dyspnea Verified 05/04/17 14:08 amlodipine besylate Allergy Swelling Verified 05/04/17 14:08 [From Norvasc] levofloxacin [From Levaquin] Allergy Dyspnea Verified 05/04/17 14:08 Macrolide Antibiotics Allergy Dyspnea Verified 05/04/17 14:08 Quinolones Allergy Dyspnea Verified 05/04/17 14:08 sulfamethoxazole Allergy Dyspnea Verified 05/04/17 14:08 [From Bactrim] trimethoprim [From Bactrim] Allergy Dyspnea Verified 05/04/17 14:08 Review of Systems ROS Statement: Those systems with pertinent positive or pertinent negative responses have been documented in the HPI. ROS Other: All systems not noted in ROS Statement are negative. Past Medical History Past Medical History: GERD/Reflux, Hypertension Additional Past Medical History / Comment(s): Hx. blood clot rt. leg and into lung 2010, ivan filter, kidney stones, myasthenia gravis, vertigo History of Any Multi-Drug Resistant Organisms: C-DIFF Date of last positivie culture/infection: 2012 MDRO Source:: stool Past Surgical History: Bariatric Surgery, Section, Cholecystectomy, Hernia Repair, Tonsillectomy Additional Past Surgical History / Comment(s): thymus removed 1994 LEEP.Umbilical hernia. GASTRIC SLEEVE 2012, uterine fibroid biopsy Past Anesthesia/Blood Transfusion Reactions: No Reported Reaction Past Psychological History: Anxiety Smoking Status: Never smoker Past Alcohol Use History: None Reported Past Drug Use History: None Reported - Past Family History Mother Family Medical History: Diabetes Mellitus, Hypertension General Exam General appearance: alert, in no apparent distress Head exam: Present: atraumatic, normocephalic, normal inspection Eye exam: Present: normal appearance, PERRL, EOMI. Absent: scleral icterus, conjunctival injection, periorbital swelling ENT exam: Present: normal exam, normal oropharynx, mucous membranes moist, TM's normal bilaterally, normal external ear exam Neck exam: Present: normal inspection, tenderness. Absent: meningismus, full ROM (In c-collar), lymphadenopathy Respiratory exam: Present: normal lung sounds bilaterally. Absent: respiratory distress, wheezes, rales, rhonchi, stridor Cardiovascular Exam: Present: regular rate, normal rhythm, normal heart sounds. Absent: systolic murmur, diastolic murmur, rubs, gallop, clicks Back exam: Present: normal inspection, full ROM. Absent: tenderness, paraspinal tenderness, vertebral tenderness Neurological exam: Present: alert, oriented X3, CN II-XII intact. Absent: motor sensory deficit Skin exam: Present: warm, dry, intact, normal color. Absent: rash Course Vital Signs 06/05/17 08:34 Temperature 97.8 F Pulse Rate 65 Respiratory 16 Rate Blood Pressure 183/95 O2 Sat by Pulse 92 L Oximetry Medical Decision Making - Medical Decision Making 46-year-old female presented emergency from for fall, head injury. Patient CT shows no acute cranial hemorrhage or mass effect. She does have a small scalp hematoma. CT of the C-spine shows no acute fracture or malalignment. Patient had incidental finding of an aneurysm. Patient is no chest pain or shortness of breath. Patient was updated on CT findings and that she needs follow-up with primary care physician to be referred to cardiothoracic surgeons. Disposition Clinical Impression: Fall, Head injury, Scalp hematoma Disposition: HOME SELF-CARE Condition: Stable Instructions: Head Injury (ED) Additional Instructions: Please follow up with your primary care physician and discuss possible referral to cardiothoracic surgeon for your aortic aneurysm.Please return to the Emergency Department if symptoms worsen or any other concerns. Referrals: Be Washburn MD [Primary Care Provider] - 1-2 days Time of Disposition: 10:34
--- NOTE | 2017-06-05 10:20 | CT ---
EXAMINATION TYPE: CT brain kelsieine wo con DATE OF EXAM: 06/05/2017 COMPARISON: Previous study dated 06/05/1716 HISTORY: fall CT DLP: 1692.7 mGycm Automated exposure control for dose reduction was used. TECHNIQUE: CT scan of the head and cervical spine are performed without contrast. FINDINGS: BRAIN: There is a small scalp hematoma overlying the posterior right parietal region. Central structures are midline. There is no evidence of hydrocephalus. No acute focal lesion, mass ef fect or midline shift is seen. I do not see evidence of intracranial blood. Visualized portions of the paranasal sinuses and mastoids are clear. No depressed skull fracture is s een. IMPRESSION: 1. NO ACUTE INTRACRANIAL ABNORMALITY. 2. SMALL, RIGHT PARIETAL SCALP HEMATOMA. CERVICAL SPINE: There is some mild interstitial change in the upper lobes bilaterally. I suspect some underlying COPD. There is mild aneurysmal dilatation of the proximal arch of the aorta measures 3.4 cm. Prevertebral soft tissues are otherwise unremarkable. There is a mild reversal of the normal cervical lordosis. Alignment is normal. Atlantoaxial relations hips are normal. There is no significant degenerative change. No fractures are identified. IMPRESSION: 1. NO ACUTE OSSEOUS LESION. 2. MILD ANEURYSMAL DILATATION OF THE PROXIMAL ARCH OF THE AORTA.
[2017-06-05] MEDS ORDERED: HYDROcodone/APAP 5-325MG 1 EACH TAB PO STA (10:34)
[2017-06-05 10:53] VITALS: BP 134/84; PULSE 63; TEMP 98
== END 2017-06-05 10:52 | disposition home or self-care (01) ==
LOC: EC 08:29
DX: S00.03XA Contusion of scalp, initial encounter (principal); I10 Essential (primary) hypertension; K21.9 Gastro-esophageal reflux disease without esophagitis; F41.9 Anxiety disorder, unspecified; Z79.3 Long term (current) use of hormonal contraceptives; Z79.899 Other long term (current) drug therapy; Z91.048 Other nonmedicinal substance allergy status; Z88.8 Allergy status to other drugs, medicaments and biological substances; Z88.1 Allergy status to other antibiotic agents; Z88.2 Allergy status to sulfonamides; W00.0XXA Fall on same level due to ice and snow, initial encounter; Y92.096 Garden or yard of other non-institutional residence as the place of occurrence of the external cause; Y93.89 Activity, other specified
CPT/HCPCS: 70450; 72125; 99284

== ENCOUNTER → 2017-06-17 | Outpatient (CLI) | payer MEDICARE | END | disposition home or self-care (01) | LOC: LABWHC1 12:19 | PROVIDERS: ATTEND Psychiatry & Neurology Neurology | DX: T45.1X5A Adverse effect of antineoplastic and immunosuppressive drugs, initial encounter (principal) | CPT/HCPCS: 36415; 80180 ==

== ENCOUNTER → 2017-07-14 | Outpatient (CLI) | payer MEDICARE ==
[2017-07-14 13:01] LABS: HCT 43.3 % (34.0-46.0); HGB 13.8 gm/dL (11.4-16.0); MCH 30.1 pg (25.0-35.0); MCHC 31.9 g/dL (31.0-37.0); MCV 94.6 fL (80.0-100.0); Mean Platelet Volume 7.5; Platelet Count 215 k/uL (150-450); RBC 4.58 m/uL (3.80-5.40); RDW 12.1 % (11.5-15.5); WBC 9.2 k/uL (3.8-10.6)
[2017-07-14 13:05] LABS: Appearance,Urine Cloudy (Clear); Bacteria,Urine Rare /hpf; Bilirubin,Urine Negative (Negative); Blood,Urine Negative (Negative); Calcium Oxalate Crystals,Urine Occasional /hpf; Color,Urine Yellow; Glucose,Urine (UA) Negative (Negative); Hyaline Casts,Urine 1 /lpf (0-2); Ketones,Urine Negative (Negative); Leukocyte Esterase,Urine Small (Negative); Mucus,Urine Rare /hpf; PH, Urine 5.5 (5.0-8.0); Protein,Urine 1+ (Negative); RBC,Urine 4 /hpf (0-5); Specific Gravity,Urine 1.027 (1.001-1.035); Squamous Epithelial Cell,Urine 11 /hpf (0-4); WBC,Urine 6 /hpf (0-5)
[2017-07-14 13:12] LABS: Anion Gap 1 mmol/L; Blood Urea Nitrogen 15 mg/dL (7-17); Calcium 9.6 mg/dL (8.4-10.2); Carbon Dioxide 21 mmol/L (22-30); Glucose 99 mg/dL (74-99); Potassium 3.6 mmol/L (3.5-5.1); Sodium 143 mmol/L (137-145)
[2017-07-14 13:26] LABS: Chloride 121 mmol/L (98-107)
--- NOTE | 2017-07-14 14:13 | MM ---
Reason for exam: additional evaluation requested from abnormal screening. Last mammogram was performed 1 month ago. History: Taking hormonal contraceptives beginning at age 31. Physical Findings: Nurse did not find any significant physical abnormalities on exam. MG 3D Work Up W/Cad LT Spot compression CC, spot compression MLO, and ML view(s) were taken of the left breast. Prior study comparison: June 17, 2017, bilateral MG 3d screening mammo w/cad. April 14, 2016, bilateral MG screening mammo w CAD. The breast tissue is heterogeneously dense. This may lower the sensitivity of mammography. There is no discrete abnormality including area of concern. These results were verbally communicated with the patient and result sheet given to the patient on 07/14/17. ASSESSMENT: Incomplete: need additional imaging evaluation, BI-RAD 0 RECOMMENDATION: Ultrasound of the left breast.
--- NOTE | 2017-07-14 14:14 | USB ---
Reason for exam: additional evaluation requested from abnormal screening. History: Taking hormonal contraceptives beginning at age 31. US Breast Workup Limited LT Left breast ultrasound demonstrates no cystic or solid lesion seen. These results were verbally communicated with the patient and result sheet given to the patient on 07/14/17. ASSESSMENT: Probably benign, BI-RAD 3 RECOMMENDATION: Follow-up diagnostic mammogram of the left breast in 6 months.
== END | disposition home or self-care (01) ==
LOC: RADMAMWWP 12:05
PROVIDERS: ATTEND Family Medicine
DX: R92.8 Other abnormal and inconclusive findings on diagnostic imaging of breast (principal); N39.0 Urinary tract infection, site not specified; D58.9 Hereditary hemolytic anemia, unspecified; N17.9 Acute kidney failure, unspecified
CPT/HCPCS: 80048; 82728; 83540; 83550; 83735; 84100; 85027; 81001; 77065; 76642; 36415; G0279

== ENCOUNTER 2017-07-28 08:20 | Day surgery (SDC) | payer MEDICARE ==
[2017-07-26 14:57] VITALS: BMI 31.6
--- NOTE | 2017-07-28 07:45 | P.GSHP ---
History of Present Illness H&P Date: 07/28/17 CHIEF COMPLAINT: GERD HISTORY OF PRESENT ILLNESS: The patient is a 46-year-old female who presents reports gastroesophageal reflux disease. Upper endoscopy was offered for further evaluation and management. PAST MEDICAL HISTORY: Please see list. PAST SURGICAL HISTORY: Please see list. MEDICATIONS: Please see list. ALLERGIES: Please see list. SOCIAL HISTORY: No illicit drug use FAMILY HISTORY: No reports of Crohn disease or ulcerative colitis. REVIEW OF ORGAN SYSTEMS: CONSTITUTIONAL: No reports of fevers or chills. GI: Denies any blood in stools or constipation. PHYSICAL EXAM: VITAL SIGNS: Stable GENERAL: Well-developed and pleasant in no acute distress. HEENT: No scleral icterus. Extraocular movements grossly intact. Moist buccal mucosa. NECK: Supple without lymphadenopathy. CHEST: Unlabored respirations. Equal bilateral excursions. CARDIOVASCULAR: Regular rate and rhythm. Distal 2+ pulses. ABDOMEN: Soft, nondistended. MUSCULOSKELETAL: No clubbing, cyanosis, or edema. ASSESSMENT: 1. Gastroesophageal reflux disease PLAN: 1. Recommend proceeding with an upper endoscopy Past Medical History Past Medical History: Deep Vein Thrombosis (DVT), GERD/Reflux, Hypertension, Pneumonia, Pulmonary Embolus (PE) Additional Past Medical History / Comment(s): ivan filter, kidney stones, myasthenia gravis, vertigo, hypoglycemia, hx renal problems with dialysis 1 yr ago- now resolved per pt, c-diff 2012, septicemia 2017 History of Any Multi-Drug Resistant Organisms: C-DIFF Date of last positivie culture/infection: 2012 MDRO Source:: stool Past Surgical History: Bariatric Surgery, Section, Cholecystectomy, Hernia Repair, Tonsillectomy Additional Past Surgical History / Comment(s): thymus removed , LEEP.Umbilical hernia. GASTRIC SLEEVE 2012, uterine fibroid biopsy, hiatal hernia repair, rt cataract, ivan filter, ports x 2/later removed Past Anesthesia/Blood Transfusion Reactions: Motion Sickness Smoking Status: Never smoker - Past Family History Mother Family Medical History: No Reported History Medications and Allergies Home Medications Medication Instructions Recorded Confirmed Type Diazepam [Valium] 5 mg PO HS 06/12/16 07/26/17 History Medroxyprogesterone Acetate 150 mg IM DIRECTED 06/12/16 07/26/17 History [Depo-Provera] Methenamine Hippurate [Hiprex] 1 gm PO BID PRN 06/12/16 07/26/17 History Zolpidem [Ambien] 10 mg PO HS 06/12/16 07/26/17 History Mycophenolate Mofetil [Cellcept] 750 mg PO BID 04/22/17 07/26/17 History Calcium Citrate/Vitamin D3 1 each PO BID 07/26/17 07/26/17 History [Calcitrate + Vit D Caplet] Escitalopram [Lexapro] 20 mg PO DAILY PRN 07/26/17 07/26/17 History Loperamide [Imodium] 2 mg PO QID 07/26/17 07/26/17 History Meclizine [Antivert] 25 mg PO HS PRN 07/26/17 07/26/17 History Multivitamins, Thera [Multivitamin 1 tab PO DAILY 07/26/17 07/26/17 History (formulary)] Ondansetron HCl [Zofran] 4 mg PO Q4-6H PRN 07/26/17 07/26/17 History Pyridostigmine Kincaid [Mestinon] 60 mg PO DIRECTED 07/26/17 07/26/17 History traMADol HCL [Ultram] 50 mg PO Q4HR PRN 07/26/17 07/26/17 History Allergies Allergy/AdvReac Type Severity Reaction Status Date / Time adhesive Allergy Rash/Hives Verified 07/26/17 14:40 Aminoglycosides Allergy Dyspnea Verified 07/26/17 14:40 amlodipine besylate Allergy Swelling Verified 07/26/17 14:40 [From Norvasc] levofloxacin [From Levaquin] Allergy Dyspnea Verified 07/26/17 14:40 Macrolide Antibiotics Allergy Dyspnea Verified 07/26/17 14:40 Quinolones Allergy Dyspnea Verified 07/26/17 14:40 sulfamethoxazole Allergy Dyspnea Verified 07/26/17 14:40 [From Bactrim] trimethoprim [From Bactrim] Allergy Dyspnea Verified 07/26/17 14:40
[~2017-07-28 08:20] MED LIST changes: +DEXAMETHASONE SOD PHOSPHATE 10 MG/ML 1 ML VIAL IV ONE; +LACTATED RINGERS 1,000 ML IV SCH; +ONDANSETRON 4 MG/2 ML VIAL IVP ONE; -SODIUM CHLORIDE 0.9% 500 ML in EMPTY BAG 1 BAG IV PRN
[2017-07-28 08:46] VITALS: TEMP 97.6
[2017-07-28] MEDS ORDERED: LIDOCAINE 1% 20 ML VIAL (10MG/ML) FOR IV START INTRADERMA ONE (08:54)
[2017-07-28 09:04] LABS: Glucose,Whole Blood 82 mg/dL (75-99)
[2017-07-28] MEDS ORDERED: ONDANSETRON 4 MG/2 ML VIAL IVP ONE (10:08)
[2017-07-28] MEDS ORDERED: fentaNYL (PF) 50 MCG/ML 2 ML AMP ONE (10:37)
[2017-07-28] MEDS ORDERED: PROPOFOL 10 MG/ML 20 ML VIAL IV ONE (10:37)
[2017-07-28] MEDS ORDERED: GLYCOPYRROLATE 0.2 MG/ML 2 ML VIAL ONE (10:37)
[2017-07-28 11:12] VITALS: RESP 18
[2017-07-28 11:26] VITALS: PULSE 69
[2017-07-28 11:44] VITALS: BP 156/87
--- NOTE | 2017-08-02 09:49 | P.PCN ---
Date of Procedure: 07/28/17 Description of Procedure: PREOPERATIVE DIAGNOSIS: Status post sleeve gastrectomy. Gastroesophageal reflux disease. Epigastric abdominal pain. POSTOPERATIVE DIAGNOSIS: Status post sleeve gastrectomy. Gastroesophageal reflux disease. Epigastric abdominal pain. Erosive esophagitis, chronic. Diaphragmatic hiatal hernia with obstruction. Chronic superficial gastritis. OPERATION: Esophagogastroduodenoscopy with cold forceps biopsies along the antrum and distal esophagus. SURGEON: Arleth Iniguez MD ANESTHESIA: MAC. INDICATIONS: The patient is a 46-year-old female who presents with a history of sleeve gastrectomy with abdominal pain. She is over 5 years out from her bariatric procedure. Benefits and risks of the procedure were described. Informed consent was obtained. DESCRIPTION: The patient was brought into the endoscopy suite and laid in the left lateral decubitus position. An Olympus gastroscope was passed along the posterior oropharynx down to the distal esophagus where the squamocolumnar junction was at 36 centimeters from the incisors remarkable for chronic erosive esophagitis, LA grade C with ulceration. The stomach was entered where she had a recurrent 4- cm hiatal hernia with a diaphragmatic hiatus found at 40 cm. The sleeve reservoir moderately large allowing easy retroflexion of the scope to view the lower esophageal valve. Chronic gastritis albeit mild was found along the antrum with cold biopsies obtained. The first through third portion of the duodenum was examined and unremarkable. The scope again had easily retroflexed along the antrum. The stomach was desufflated. The patient tolerated the procedure well. FINDINGS: No acute ulceration found along her sleeve. Mild corkscrewing of her sleeve gastrectomy. Squamocolumnar junction at 36 cm from the incisors. Diaphragmatic hiatus at 40 cm. Moderate large gastric reservoir with prior history of sleeve gastrectomy allowing easy retroflexion of the gastroscope to view the lower esophageal valve. Hiatal hernia 4 cm, fixed, recurrent. LA grade C erosive esophagitis. No active duodenitis. Chronic gastritis. RECOMMENDATIONS: Upper endoscopy as needed. Recommend conversion of sleeve to the gastric bypass for anatomical variation of her sleeve gastrectomy Plan - Discharge Summary New Discharge Prescriptions: New Omeprazole 40 mg PO DAILY #30 capsule.dr Rosa Dean Zolpidem [Ambien] 10 mg PO HS Medroxyprogesterone Acetate [Depo-Provera] 150 mg IM DIRECTED Methenamine Hippurate [Hiprex] 1 gm PO BID PRN PRN Reason: UTI Diazepam [Valium] 5 mg PO HS Mycophenolate Mofetil [Cellcept] 750 mg PO BID traMADol HCL [Ultram] 50 mg PO Q4HR PRN PRN Reason: Pain Meclizine [Antivert] 25 mg PO HS PRN PRN Reason: dizziness Pyridostigmine Ward [Mestinon] 60 mg PO DIRECTED Loperamide [Imodium] 2 mg PO QID Multivitamins, Thera [Multivitamin (formulary)] 1 tab PO DAILY Calcium Citrate/Vitamin D3 [Calcitrate + Vit D Caplet] 1 each PO BID Ondansetron HCl [Zofran] 4 mg PO Q4-6H PRN PRN Reason: Nausea Escitalopram [Lexapro] 20 mg PO DAILY PRN PRN Reason: stress Discharge Medication List Diazepam [Valium] 5 mg PO HS 06/12/16 [History] Medroxyprogesterone Acetate [Depo-Provera] 150 mg IM DIRECTED 06/12/16 [ History] Methenamine Hippurate [Hiprex] 1 gm PO BID PRN 06/12/16 [History] Zolpidem [Ambien] 10 mg PO HS 06/12/16 [History] Mycophenolate Mofetil [Cellcept] 750 mg PO BID 04/22/17 [History] Calcium Citrate/Vitamin D3 [Calcitrate + Vit D Caplet] 1 each PO BID 07/26/17 [ History] Escitalopram [Lexapro] 20 mg PO DAILY PRN 07/26/17 [History] Loperamide [Imodium] 2 mg PO QID 07/26/17 [History] Meclizine [Antivert] 25 mg PO HS PRN 07/26/17 [History] Multivitamins, Thera [Multivitamin (formulary)] 1 tab PO DAILY 07/26/17 [History ] Ondansetron HCl [Zofran] 4 mg PO Q4-6H PRN 07/26/17 [History] Pyridostigmine Ward [Mestinon] 60 mg PO DIRECTED 07/26/17 [History] traMADol HCL [Ultram] 50 mg PO Q4HR PRN 07/26/17 [History] Omeprazole 40 mg PO DAILY #30 capsule. 03/14/18 [Rx] Follow up Appointment(s)/Referral(s): [facility] [NON-STAFF] - 08/18/17 3:40 pm Patient Instructions/Handouts: *Surgery [facility] - (Anesthesia) Endoscopy Discharge Instructions, Hiatal Hernia (GEN), Gastritis (DC), Gastroesophageal Reflux Disease (DC), Upper Endoscopy (DC) Discharge Disposition: HOME SELF-CARE
== END 2017-07-28 12:09 | disposition home or self-care (01) ==
LOC: ORWHC2ENDO 08:20
PROVIDERS: ATTEND Surgery Plastic and Reconstructive Surgery
DX: K29.30 Chronic superficial gastritis without bleeding (principal); K31.9 Disease of stomach and duodenum, unspecified; K21.0 Gastro-esophageal reflux disease with esophagitis; K22.10 Ulcer of esophagus without bleeding; K44.9 Diaphragmatic hernia without obstruction or gangrene; Z90.3 Acquired absence of stomach [part of]; Z98.84 Bariatric surgery status; I10 Essential (primary) hypertension; G70.00 Myasthenia gravis without (acute) exacerbation; Z86.718 Personal history of other venous thrombosis and embolism; Z86.711 Personal history of pulmonary embolism; Z79.899 Other long term (current) drug therapy; Z88.1 Allergy status to other antibiotic agents; Z88.2 Allergy status to sulfonamides; Z91.048 Other nonmedicinal substance allergy status; Z88.8 Allergy status to other drugs, medicaments and biological substances
CPT/HCPCS: 81025; 88305; 88312; 43239; J2405; J3010; J2704

== ENCOUNTER → 2017-09-22 | Outpatient (CLI) | payer MEDICARE ==
[2017-09-22 13:42] VITALS: BP 131/84; PULSE 67; RESP 16; TEMP 98.3; BMI 34.0
--- NOTE | 2017-09-22 14:06 | P.PN ---
Subjective Progress Note Date: 09/22/17 DATE OF SERVICE: 09/22/2017 CHIEF COMPLAINT: Follow-up sleeve gastrectomy. HISTORY OF PRESENT ILLNESS: Vianca Beaver is a 46-year-old female who had a sleeve gastrectomy at an outside institution 2012. Her last visit was 03/25/2016. Her last weight was 179 pounds almost 2 years ago. Today she comes in 198 pounds. She reports having diarrhea from her medications. She often skips breakfast due to taking much of her medications. She is concerned about eating very little and feeling full during the day. She reports getting hypoglycemia and is drinking pop. No recent dysphagia or abdominal pain. She has occasional nausea and reports generalized malaise. Her initial weight was 268 pounds for a 5-foot, 4-frame. Her ideal body weight is 144 pounds. Today she comes weighing 198 pounds. She has gained 19 pounds since her last visit. Maintained weight loss is 70 pounds. Percent excess weight loss is 56%. PAST MEDICAL HISTORY: 1. Myasthenia gravis. 2. DVT. 3. Pulmonary embolism. 4. Obstructive sleep apnea. 5. Hypertension. 6. Gastroesophageal reflux disease. 7. Morbid obesity. 8. Anxiety. 9. History of respiratory failure. 10. Urinary tract infection. 11. Adrenal mass. 12. Esophageal dysmotility due to myasthenia gravis. PAST SURGICAL HISTORY: 1. . 2. Tonsillectomy. 3. LEEP procedure. 4. Laparoscopic cholecystectomy. 5. IVC filter placement. 6. Mediport placement. 7. Thymectomy. 8. Uvuloplasty. 9. Status post sleeve gastrectomy. 10. Upper endoscopy. MEDICATIONS: 1. Hiprex. 2. Ultram. 3. Cyclosporine. 4. Micardis. 5. Carafate. 6. Zantac. 7. Mestinon. 8. CellCept. 9. Centrum. 10. Imodium. 11. Ativan. 12. Vitamin D. 13. TUMS. ALLERGIES: 1. ADHESIVES. 2. AMINOGLYCOSIDE. 3. NORVASC. 4. LEVAQUIN. 5. MACROLIDE. 6. QUINOLONE. 7. BACTRIM. SOCIAL HISTORY: Denies any active tobacco use. FAMILY HISTORY: Significant for morbid obesity. REVIEW OF SYSTEMS: CONSTITUTIONAL: 5 foot 4, ideal body weight is 144 pounds. There has been an 89 pound weight loss, percent excess weight loss, 72%. Her initial weight was 268 pounds for a 5-foot, 4-frame. Today she comes weighing 179 pounds. GASTROINTESTINAL: Has gastroesophageal reflux disease. Also history of bilateral lower abdominal pain. NEURO: Myasthenia gravis is currently in remission, she is no longer on steroids. MUSCULOSKELETAL: History of myasthenia gravis. HEENT: Denies any trouble with vision or hearing. ENDOCRINE: History of adrenal suppression with prednisone. CARDIOVASCULAR: Denies any active chest pain or heart attack. RESPIRATORY: Denies any recent pneumonia. Prior history of respiratory failure. PSYCH: No reports of depression or suicidal ideation. PHYSICAL EXAM: VITAL SIGNS: 5 foot 4, 179 pounds. Body mass index 30.7. GENERAL: Well-developed female in no acute distress. ABDOMEN: Bilateral lower abdominal pain without peritonitis. Pannus extends over pubis by 6 cm. Mild hyperemia. Pannus is 8 pounds. MUSCULOSKELETAL: No clubbing, cyanosis, or edema. HEENT: No scleral icterus. Extraocular movements intact. NECK: No JVD or lymphadenopathy. CHEST: Unlabored respirations, equal bilateral excursions. CARDIOVASCULAR: Regular rate and rhythm. NEURO: No focal or lateralizing signs. Cranial nerves II through XII grossly intact. PSYCH: Appropriate affect. Alert and oriented to person, place and time. EGD FINDINGS: No acute ulceration found along her sleeve. Mild corkscrewing of her sleeve gastrectomy. Squamocolumnar junction at 36 cm from the incisors. Diaphragmatic hiatus at 40 cm. Moderate large gastric reservoir with prior history of sleeve gastrectomy allowing easy retroflexion of the gastroscope to view the lower esophageal valve. Hiatal hernia 4 cm, fixed, recurrent. LA grade C erosive esophagitis. No active duodenitis. Chronic gastritis. ASSESSMENT: 1. Chronic narcotic use. 2. History of left lower quadrant abdominal pain. 3. History of diverticulitis. 4. History of chronic urinary tract infection. 5. Chronic pain. 6. History of multiple antibiotic allergies. 7. Morbid obesity due to excess calories, now resolved. 8. Body mass index reduced from 46 down to 30.7. obese. 9. Status post sleeve gastrectomy. 10. Status post weight loss 90 pounds. 11. Recurrent panniculitis. 12. Esophageal dysmotility secondary to myasthenia gravis. 13. Gastroesophageal reflux disease with history of erosive esophagitis. 14. Myasthenia gravis. 15. Complications from sleeve gastrectomy. PLAN: 1. She has complications from her sleeve gastrectomy including distortion of the body of her sleeve and a recurrent hiatal hernia. As a result of her surgery , corrective procedure to a gastric bypass is advised. 2. Increased risks of complications from a revision of a sleeve to a gastric bypass is reviewed. 3. Recommend bariatric dietitan evaluation to address hypoglycemia. 4. In the meantime, will add Zantac, Reglan, and Carafate to address severity of reflux disease exacerbated from her sleeve gastrectomy. 5. Correct nutritional deficiencies.
== END ==
LOC: BARWHC3 13:01
PROVIDERS: ATTEND Surgery Plastic and Reconstructive Surgery
DX: Z48.815 Encounter for surgical aftercare following surgery on the digestive system (principal); G89.4 Chronic pain syndrome; M79.3 Panniculitis, unspecified; K22.4 Dyskinesia of esophagus; G70.00 Myasthenia gravis without (acute) exacerbation; K22.10 Ulcer of esophagus without bleeding; K95.89 Other complications of other bariatric procedure; K21.9 Gastro-esophageal reflux disease without esophagitis; Z87.19 Personal history of other diseases of the digestive system; Z87.448 Personal history of other diseases of urinary system; Z98.84 Bariatric surgery status; Z88.1 Allergy status to other antibiotic agents; Z91.09 Other allergy status, other than to drugs and biological substances; Z88.2 Allergy status to sulfonamides; Z88.8 Allergy status to other drugs, medicaments and biological substances; Z79.899 Other long term (current) drug therapy; Z79.891 Long term (current) use of opiate analgesic
CPT/HCPCS: 99211

== ENCOUNTER → 2017-10-20 | Outpatient (CLI) | payer MEDICARE ==
[2017-10-20 15:35] VITALS: BP 133/81; PULSE 63; TEMP 98.2; BMI 35.2
--- NOTE | 2017-10-20 16:18 | P.PN ---
Subjective Progress Note Date: 10/20/17 DATE OF SERVICE: 10/20/2017 CHIEF COMPLAINT: Follow-up sleeve gastrectomy. HISTORY OF PRESENT ILLNESS: Vianca Beaver is a 46-year-old female who had a sleeve gastrectomy at an outside institution 2012. Her last visit was 03/25/2016. Her last weight was 179 pounds almost 2 years ago. 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 She has severe reflux and is pending revision. PLAN: 1. Needs letter from her myasthenia gravis provider, Dr. Bailey 2. She is at very high risk of complications of sleeve to gastric bypass. Will need to stop medications that impairs healing such as Cellcept. DATE OF SERVICE: 09/22/2017 CHIEF COMPLAINT: Follow-up sleeve gastrectomy. HISTORY OF PRESENT ILLNESS: Vianca Beaver is a 46-year-old female who had a sleeve gastrectomy at an outside institution 2012. Her last visit was 03/25/2016. Her last weight was 179 pounds almost 2 years ago. Today she comes in 198 pounds. She reports having diarrhea from her medications. She often skips breakfast due to taking much of her medications. She is concerned about eating very little and feeling full during the day. She reports getting hypoglycemia and is drinking pop. No recent dysphagia or abdominal pain. She has occasional nausea and reports generalized malaise. Her initial weight was 268 pounds for a 5-foot, 4-frame. Her ideal body weight is 144 pounds. Today she comes weighing 198 pounds. She has gained 19 pounds since her last visit. Maintained weight loss is 70 pounds. Percent excess weight loss is 57%. PAST MEDICAL HISTORY: 1. Myasthenia gravis. 2. DVT. 3. Pulmonary embolism. 4. Obstructive sleep apnea. 5. Hypertension. 6. Gastroesophageal reflux disease. 7. Morbid obesity. 8. Anxiety. 9. History of respiratory failure. 10. Urinary tract infection. 11. Adrenal mass. 12. Esophageal dysmotility due to myasthenia gravis. PAST SURGICAL HISTORY: 1. . 2. Tonsillectomy. 3. LEEP procedure. 4. Laparoscopic cholecystectomy. 5. IVC filter placement. 6. Mediport placement. 7. Thymectomy. 8. Uvuloplasty. 9. Status post sleeve gastrectomy. 10. Upper endoscopy. MEDICATIONS: 1. Hiprex. 2. Ultram. 3. Mestinon. 4. CellCept. 5. Imodium. 6. Ambien 7. Zofran 8. Omeprazole 9. Multivitamin 10. Depo-Provera 11. Antivert 12. Ibuprofen 13. Lexapro 14. Valium ALLERGIES: 1. ADHESIVES. 2. AMINOGLYCOSIDE. 3. NORVASC. 4. LEVAQUIN. 5. MACROLIDE. 6. QUINOLONE. 7. BACTRIM. SOCIAL HISTORY: Denies any active tobacco use. FAMILY HISTORY: Significant for morbid obesity. REVIEW OF SYSTEMS: CONSTITUTIONAL: Her initial weight was 268 pounds for a 5-foot, 4-frame. Her ideal body weight is 144 pounds. Today she comes weighing 198 pounds. She has gained 19 pounds since her last visit. Maintained weight loss is 70 pounds. Percent excess weight loss is 57%. GASTROINTESTINAL: Has gastroesophageal reflux disease. Has chronic diarrhea. NEURO: Myasthenia gravis is currently in remission, she is no longer on steroids. Denies any numbness or tingling along the distal extremities. No seizure disorders or headaches. MUSCULOSKELETAL: History of myasthenia gravis. Has back pain, stiffness, joint arthritis. HEENT: Denies any trouble with vision or hearing. CARDIOVASCULAR: Denies any active chest pain or heart attack. RESPIRATORY: Denies any recent pneumonia. Prior history of respiratory failure. PSYCH: No reports of depression or suicidal ideation. LYMPHATIC: The patient denies any lumps and bumps around the neck. ENDOCRINE: Denies any thyroid disorders. Denies any blood sugar glucose intolerance. RESPIRATORY: Denies pneumonia. Denies any troubles with breathing or dyspnea on exertion. GENITOURINARY: Has history of chronic urinary tract infection HEMATOLOGIC: Denies any abnormal bleeding or bruising. BREASTS: Denies any breast lumps, pain or nipple discharge. PHYSICAL EXAM: VITAL SIGNS: 5 foot 4, 198 pounds. Body mass index 34.0 Vital Signs Temp 98.3 F 09/22/17 13:38 Pulse 67 09/22/17 13:38 Resp 16 09/22/17 13:38 BP 131/84 09/22/17 13:38 Pulse Ox ABDOMEN: Soft, nontender, nondistended. No peritonitis. MUSCULOSKELETAL: No clubbing, cyanosis, or edema. CHEST: Unlabored respirations, equal bilateral excursions. NEURO: No focal or lateralizing signs. Cranial nerves II through XII grossly intact. PSYCH: Appropriate affect. Alert and oriented to person, place and time. GENERAL: Well developed and in no acute distress. Pleasant. HEENT: No sclera icterus. Extraocular movements grossly intact. Moist buccal mucosa. Head is atraumatic, normocephalic. Hears conversational speech. No nasal drainage. NECK: Supple without lymphadenopathy. No JV distention. CHEST: Non-labored respirations and equal bilateral excursions. CARDIOVASCULAR: Regular rate and rhythm. Palpable 2+ radial pulses. ABDOMEN: Soft, nontender. Nondistended. MUSCULOSKELETAL: No clubbing, cyanosis or edema. SKIN: Good skin turgor. Well perfused. EGD FINDINGS: No acute ulceration found along her sleeve. Corkscrewing of her sleeve gastrectomy. Squamocolumnar junction at 36 cm from the incisors. Diaphragmatic hiatus at 40 cm. Moderate large gastric reservoir with prior history of sleeve gastrectomy allowing easy retroflexion of the gastroscope to view the lower esophageal valve. Hiatal hernia 4 cm, fixed, recurrent. LA grade C erosive esophagitis. No active duodenitis. Chronic gastritis. ASSESSMENT: 1. Morbid obesity due to excess calories 2. Body mass index reduced from 46 down to 34.0 3. Status post sleeve gastrectomy. 4. Status post weight loss 70 pounds. 5. Recurrent panniculitis. 6. Esophageal dysmotility secondary to myasthenia gravis. 7. Gastroesophageal reflux disease with history of erosive esophagitis. 8. Myasthenia gravis. 9. Complications from sleeve gastrectomy. 10. Recurrent hiatal hernia 11. Hypoglycemia PLAN: 1. She has complications from her sleeve gastrectomy including distortion of the body of her sleeve and a recurrent hiatal hernia. As a result of her surgery , corrective procedure to a gastric bypass is advised. 2. Increased risks of complications from a revision of a sleeve to a gastric bypass is reviewed. 3. Recommend bariatric dietitan evaluation to address hypoglycemia. 4. In the meantime, will add Zantac, Reglan, and Carafate to address severity of reflux disease exacerbated from her sleeve gastrectomy. 5. Correct nutritional deficiencies. 6. Recommend bariatric metabolic panel 7. DVT prophylaxis 8. Antibiotic prophylaxis 9. Inpatient hospitalization greater than 2 nights Objective - Vital Signs Vital signs: Vital Signs Temp 98.2 F 10/20/17 15:27 Pulse 63 10/20/17 15:27 Resp BP 133/81 10/20/17 15:27 Pulse Ox Intake & Output 10/19/17 10/20/17 10/20/17 18:59 06:59 18:59 Weight 93.032 kg
== END | disposition home or self-care (01) ==
LOC: BARWHC3 15:06
PROVIDERS: ATTEND Surgery Plastic and Reconstructive Surgery
DX: Z09 Encounter for follow-up examination after completed treatment for conditions other than malignant neoplasm (principal); E66.01 Morbid (severe) obesity due to excess calories; M79.3 Panniculitis, unspecified; G70.00 Myasthenia gravis without (acute) exacerbation; K22.4 Dyskinesia of esophagus; K21.9 Gastro-esophageal reflux disease without esophagitis; K44.9 Diaphragmatic hernia without obstruction or gangrene; E16.2 Hypoglycemia, unspecified; Z79.899 Other long term (current) drug therapy; Z79.891 Long term (current) use of opiate analgesic; Z79.1 Long term (current) use of non-steroidal anti-inflammatories (NSAID); Z88.1 Allergy status to other antibiotic agents; Z88.2 Allergy status to sulfonamides; Z88.8 Allergy status to other drugs, medicaments and biological substances; Z91.09 Other allergy status, other than to drugs and biological substances; Z68.34 Body mass index [BMI] 34.0-34.9, adult; K95.89 Other complications of other bariatric procedure; Z98.84 Bariatric surgery status
CPT/HCPCS: 99211

== ENCOUNTER → 2018-01-06 | Outpatient (CLI) | payer MEDICARE ==
--- NOTE | 2018-01-07 10:32 | MM ---
Reason for exam: follow-up at short interval from prior study. Last mammogram was performed 6 months ago. History: Taking hormonal contraceptives beginning at age 31. Physical Findings: Nurse did not find any significant physical abnormalities on exam. MG 3D Diag Mammo W/Cad LT CC and MLO view(s) were taken of the left breast. Prior study comparison: July 14, 2017, left breast MG 3d work up w/cad LT. June 17, 2017, bilateral MG 3d screening mammo w/cad. The breast tissue is heterogeneously dense. This may lower the sensitivity of mammography. No significant new findings when compared with previous films. These results were verbally communicated with the patient and result sheet given to the patient on 01/06/18. ASSESSMENT: Benign, BI-RAD 2 RECOMMENDATION: Return to routine screening mammogram schedule for both breasts.
== END | disposition home or self-care (01) ==
LOC: RADMAMWWP 13:25
PROVIDERS: ATTEND Family Medicine
DX: R92.8 Other abnormal and inconclusive findings on diagnostic imaging of breast (principal)
CPT/HCPCS: 77065; G0279; 77061

== ENCOUNTER → 2018-03-21 | Outpatient (CLI) | payer MEDICARE ==
--- NOTE | 2018-03-21 22:17 | CT ---
EXAMINATION TYPE: CT abdomen pelvis w con DATE OF EXAM: 03/21/2018 HISTORY: Abdominal pain with cramping x3 days CT DLP: 1424mGycm Automated Exposure Control for Dose Reduction was Utilized. CONTRAST: CT scan of the abdomen and pelvis is performed with oral and with IV Contrast, patient injected with 100 mL of Isovue 300. COMPARISON: CT abdomen and pelvis January 23, 2016. FINDINGS: LUNG BASES: No significant abnormality is appreciated. LIVER/GB: Cholecystectomy clips are redemonstrated. There is new mild left-sided intrahepatic biliary dilatation is fairly moderate to severe extrahepatic biliary dilatation as the common bile duct oziel ures around 28 mm near the raghav hepatis and gradually tapers measuring around 18 mm mid segment and between 10 to 14 mm near duodenal ampulla.. No obstructing mass or calculus is clearly seen. PANCREAS: There is mild fat replaced atrophy involving the inferior body and uncinate process. SPLEEN: No significant abnormality is seen. ADRENALS: No significant abnormality is seen. KIDNEYS: Cortical thinning in both kidneys is present. There is symmetric cortical medullary uptake a nd excretion without hydronephrosis bilaterally. BOWEL: The oral contrast reaches level of proximal sigmoid colon. Sutures from gastric sleeve procedu re are redemonstrated. There is no suspicious small or large bowel dilatation. Normal contrast-filled appendix is seen extending medially from cecum. There are prominent diverticula in the sigmoid colon . There is mild haziness of the surrounding fat on the current study. Well-formed fluid collection or pneumoperitoneum is present. Mild to moderate wall thickening distal sigmoid colon and rectum is pre sent. Findings presumed primary ductal poor distention, a mild distal colitis cannot be excluded. Cor relate clinically. UTERUS/ADNEXA: Uterus is seen. Both ovaries are redemonstrated and not suspiciously enlarged. Scatter ed pelvic phleboliths are noted inferiorly. LYMPH NODES: No greater than 1cm abdominal or pelvic lymph nodes are appreciated. OSSEOUS STRUCTURES: No significant abnormality is seen. OTHER: Stable IVC filter with struts penetrating venous wall similar to prior. Stable 1.0 cm subcutan eous soft tissue nodule anterior right lower quadrant axial image 66 is presumed benign. IMPRESSION: 1. Worsening now moderate to severe extrahepatic biliary dilatation with new mild central intrahepati c biliary dilatation even for a patient with history of cholecystectomy. No obvious obstructing mass or calculus. Advise ERCP to rule out ampullary tumor or distal stricture. 2. Possible mild distal colitis versus product of poor distention. Correlate clinically. Prominent si gmoid colonic diverticulosis is redemonstrated. Possible mild acute diverticulitis involving sigmoid colon on current study. Correlate clinically.
== END | disposition home or self-care (01) ==
LOC: RADCTMAIN 14:42
PROVIDERS: ATTEND Midwife
DX: K57.30 Diverticulosis of large intestine without perforation or abscess without bleeding (principal)
CPT/HCPCS: 82565; 84520; 74177; 36415; Q9967

== ENCOUNTER → 2018-05-13 | Outpatient (CLI) | payer MEDICARE ==
--- NOTE | 2018-05-13 12:26 | CT ---
EXAMINATION TYPE: CT abdomen pelvis w con DATE OF EXAM: 05/13/2018 HISTORY: Diverticulitis of intestine CT DLP: 1543mGycm Automated Exposure Control for Dose Reduction was Utilized. CONTRAST: CT scan of the abdomen and pelvis is performed with oral and with IV Contrast, patient injected with 100 ml mL of Isovue 300. COMPARISON: CT abdomen and pelvis March 21, 2018 FINDINGS: LUNG BASES: Elevated right hemidiaphragm is redemonstrated. LIVER/GB: Cholecystectomy clips are redemonstrated. There is persistent moderate extrahepatic and mil d to moderate central intrahepatic biliary dilatation not significantly changed from prior study with out obstructing mass or calculus clearly seen. PANCREAS: No significant abnormality is seen. SPLEEN: No significant abnormality is seen. ADRENALS: No significant abnormality is seen. KIDNEYS: Some cortical thinning in both kidneys is present. There is symmetric cortical medullary upt trisha and excretion from both kidneys without hydronephrosis seen bilaterally BOWEL: Oral contrast does not reach ileal loops in the right lower quadrant make evaluation of distal bowel suboptimal. There is no suspicious small or large bowel dilatation. Diverticula in the sigmoid colon are redemonstrated without convincing CT evidence for acute diverticulitis on current study. UTERUS/ADNEXA: Anteverted uterus is seen. There is slightly more prominent hypodense area superior le ft aspect axial image 71 suspicious for intrauterine subserosal fibroid measuring roughly 2.5 cm. Lef t ovary is felt normal in size near axial image 72. There is small amount of fluid in the left pelvis just superior to this axial image 70. LYMPH NODES: No greater than 1cm abdominal or pelvic lymph nodes are appreciated. OSSEOUS STRUCTURES: No significant abnormality is seen. OTHER: There is stable infrarenal IVC filter with wall penetration. IMPRESSION: Interval resolution of suspected mild acute diverticulitis in the sigmoid colon. Suboptim al evaluation due to slow passage of ingested contrast. Redemonstration of prominent sigmoid colonic diverticulosis without convincing evidence for acute diverticulitis currently.
== END | disposition home or self-care (01) ==
LOC: RADCTMAIN 09:17
DX: K57.30 Diverticulosis of large intestine without perforation or abscess without bleeding (principal)
CPT/HCPCS: 74177; 36415; Q9967

== ENCOUNTER → 2018-06-28 | Outpatient (CLI) | payer MEDICARE ==
--- NOTE | 2018-06-28 14:48 | US ---
EXAMINATION TYPE: US thyroid st tissue head/neck DATE OF EXAM: 06/28/2018 COMPARISON: NONE CLINICAL HISTORY: 47-year-old female E07.9 Disorder of thyroid, unspecified. TECHNIQUE: Multiple sonographic images of the thyroid gland are obtained. FINDINGS: GLAND SIZE: Right Lobe: 4.7 x 1.7 x 1.8 cm Overall Parenchyma: heterogenous Left Lobe: 3.6 x 1.4 x 1.5 cm Overall Parenchyma: heterogeneous Isthmus Thickness: 0.7 cm NODULES RIGHT: # of nodules measured on right: 1 1. 0.6 X 0.4 x 0.5 cm hypoechoic cystic nodule at the mid pole with well-defined margins. There may be a tiny mural based nodular focus. This nodule is wider than tall and shows no intranodular vascul arity. Prior size: No previous LEFT: # of nodules measured on left: 0 ISTHMUS: # of nodules measured in the isthmus: 0 Bilateral neck scanned, no evidence of lymphadenopathy. IMPRESSION: Solitary 6 mm nodule in the right lobe appears predominantly cystic. Short interval follow-up can be considered.
== END | disposition home or self-care (01) ==
LOC: RADUSWWP 13:53
PROVIDERS: ATTEND Family Medicine
DX: E04.1 Nontoxic single thyroid nodule (principal)
CPT/HCPCS: 76536

== ENCOUNTER → 2018-06-29 | Outpatient (CLI) | payer MEDICARE ==
[2018-06-29 14:32] VITALS: BP 149/96; PULSE 59; RESP 16; TEMP 98.1; BMI 37.6
--- NOTE | 2018-06-29 15:00 | P.PN ---
Subjective Progress Note Date: 06/29/18 HPI: She reports troubles with her thyroid and diverticulitis. She has changed her neurologist. She has weight regain with her sleeve. She has severe GERD and reports lower abdominal pain. STUDIES: US of thyroid reviewed with less than 6 mm nodule PLAN: 1. She is seeing Dr. Galvan for neurology 2. She has troubles with myasthenia gravis 3. She is pending follow up [facility] for her myasthenia gravis 4. She is still seeking for revision of her sleeve gastrectomy to a gastric bypass 5. Needs psych per Medicare guidelines. 6. Gastric bypass revisions described. 7. Will need off Cellcept for 30 days before and after surgery. Objective - Vital Signs Vital signs: Vital Signs Temp 98.1 F 06/29/18 14:23 Pulse 59 L 06/29/18 14:23 Resp 16 06/29/18 14:23 BP 149/96 06/29/18 14:23 Pulse Ox Intake & Output 06/28/18 06/29/18 06/29/18 18:59 06:59 18:59 Weight 99.478 kg
== END ==
LOC: BARWHC3 13:11
PROVIDERS: ATTEND Surgery Plastic and Reconstructive Surgery
DX: K57.92 Diverticulitis of intestine, part unspecified, without perforation or abscess without bleeding (principal); K21.9 Gastro-esophageal reflux disease without esophagitis; R10.30 Lower abdominal pain, unspecified; E04.1 Nontoxic single thyroid nodule
CPT/HCPCS: 99211

== ENCOUNTER → 2018-08-17 | Outpatient (CLI) | payer MEDICARE ==
--- NOTE | 2018-08-17 16:15 | P.PN ---
Subjective Progress Note Date: 08/17/18 HPI: She has seen her neurologist and may be off Cellcept prior to her revision of a gastric bypass. She reports severe GERD. She is looking into the gastric bypass. She reports trouble with her diverticulosis. ABDOMEN: ASSESSMENT: 1. Morbid obesity 2. Diverticulosis PLAN: 1. Gastric bypass risks described 2. All risks of surgery described with over 40 to 50% of leak and potential complications.
== END ==
LOC: BARWHC3 14:14
PROVIDERS: ATTEND Surgery Plastic and Reconstructive Surgery
DX: K21.9 Gastro-esophageal reflux disease without esophagitis (principal); K57.90 Diverticulosis of intestine, part unspecified, without perforation or abscess without bleeding; E66.01 Morbid (severe) obesity due to excess calories
CPT/HCPCS: 99211

== ENCOUNTER → 2018-09-19 | Outpatient (CLI) | payer MEDICARE ==
--- NOTE | 2018-09-21 08:43 | MM ---
Reason for exam: screening (asymptomatic). Last mammogram was performed 8 months ago. History: Taking hormonal contraceptives beginning at age 31. Physical Findings: A clinical breast exam by your physician is recommended on an annual basis and results should be correlated with mammographic findings. MG 3D Screening Mammo W/Cad Bilateral CC and MLO view(s) were taken. Prior study comparison: January 06, 2018, left breast MG 3d diag mammo w/cad LT. July 14, 2017, left breast MG 3d work up w/cad LT. The breast tissue is heterogeneously dense. This may lower the sensitivity of mammography. No significant changes when compared with prior studies. ASSESSMENT: Negative, BI-RAD 1 RECOMMENDATION: Routine screening mammogram of both breasts in 1 year.
== END ==
LOC: RADMAMWWP 14:57
PROVIDERS: ATTEND Family Medicine
DX: Z12.31 Encounter for screening mammogram for malignant neoplasm of breast (principal)
CPT/HCPCS: 77063; 77067

== ENCOUNTER 2018-10-03 16:04 | Emergency (ER) | payer MEDICARE ==
[2018-10-03] MEDS ORDERED: SODIUM CHLORIDE 0.9% 1,000 ML IV ONE (16:20)
[2018-10-03] MEDS ORDERED: ONDANSETRON 4 MG/2 ML VIAL IVP STA (16:33)
[2018-10-03] MEDS ORDERED: HYDROcodone/APAP 5-325MG 1 EACH TAB PO STA (16:33)
--- NOTE | 2018-10-03 16:36 | ED ---
Abdominal Pain HPI - General Chief Complaint: Abdominal Pain Stated Complaint: Abd Pain Time Seen by Provider: 10/03/18 16:19 Source: patient Mode of arrival: ambulatory Limitations: no limitations - History of Present Illness Initial Comments: Patient is a 47-year-old female who presents with a chief complaint of abdominal pain. This for about 2 days. She has a history of diverticulitis. She states that this feels similar. She states she has had a 10 out of 10 pain, stabbing in nature in the left lower quadrant and spanning across the right. She states that her symptoms are worse with ending and twisting. There are no alleviating factors. Timing is constant. Patient denies fever or chills but admits to nausea and dysuria - Related Data Home Medications Medication Instructions Recorded Confirmed Diazepam [Valium] 5 mg PO HS 06/12/16 10/03/18 Zolpidem [Ambien] 10 mg PO HS 06/12/16 10/03/18 Loperamide [Imodium] 2 mg PO QID 07/26/17 10/03/18 Meclizine [Antivert] 25 mg PO HS PRN 07/26/17 10/03/18 traMADol HCL [Ultram] 50 mg PO Q4HR PRN 07/26/17 10/03/18 Mycophenolate Mofetil [Cellcept] 1,000 mg PO BID 10/03/18 10/03/18 Ondansetron [Zofran] 1 - 2 tab PO Q4-6H PRN 10/03/18 10/03/18 Pyridostigmine [place] [Mestinon] 90 mg PO QID 10/03/18 10/03/18 Previous Rx's Medication Instructions Recorded Omeprazole 40 mg PO DAILY #30 capsule. 07/28/17 Ibuprofen 600 mg PO Q6HR #20 tablet 09/03/17 Cephalexin [Keflex] 500 mg PO Q6HR #28 cap 10/03/18 Ibuprofen [Motrin] 800 mg PO TID #20 tab 10/03/18 Allergies Allergy/AdvReac Type Severity Reaction Status Date / Time adhesive Allergy Rash/Hives Verified 10/03/18 16:21 Aminoglycosides Allergy Dyspnea Verified 10/03/18 16:21 amlodipine besylate Allergy Swelling Verified 10/03/18 16:21 [From Norvasc] levofloxacin [From Levaquin] Allergy Dyspnea Verified 10/03/18 16:21 Macrolide Antibiotics Allergy Dyspnea Verified 10/03/18 16:21 Quinolones Allergy Dyspnea Verified 10/03/18 16:21 sulfamethoxazole Allergy Dyspnea Verified 10/03/18 16:21 [From Bactrim] trimethoprim [From Bactrim] Allergy Dyspnea Verified 10/03/18 16:21 Review of Systems ROS Statement: Those systems with pertinent positive or pertinent negative responses have been documented in the HPI. ROS Other: All systems not noted in ROS Statement are negative. Gastrointestinal: Reports: nausea, diarrhea Genitourinary: Reports: dysuria Past Medical History Past Medical History: Deep Vein Thrombosis (DVT), GERD/Reflux, Hypertension, Pneumonia, Pulmonary Embolus (PE) Additional Past Medical History / Comment(s): ivan filter, kidney stones, myasthenia gravis, vertigo, hypoglycemia, hx renal problems with dialysis 1 yr ago- now resolved per pt, c-diff 2012, septicemia 2017, diverticulitis. History of Any Multi-Drug Resistant Organisms: C-DIFF Date of last positivie culture/infection: 2012 MDRO Source:: stool Past Surgical History: Bariatric Surgery, Section, Cholecystectomy, Hernia Repair, Tonsillectomy Additional Past Surgical History / Comment(s): thymus removed , LEEP.Umbilical hernia. GASTRIC SLEEVE 2012, uterine fibroid biopsy, hiatal hernia repair, rt cataract, ivan filter, ports x 2/later removed Past Anesthesia/Blood Transfusion Reactions: Motion Sickness Past Psychological History: Anxiety Smoking Status: Never smoker Past Alcohol Use History: None Reported Past Drug Use History: None Reported - Past Family History Mother Family Medical History: No Reported History General Exam Limitations: no limitations General appearance: alert, in no apparent distress Head exam: Present: atraumatic, normocephalic Eye exam: Present: normal appearance ENT exam: Present: normal exam Neck exam: Present: normal inspection Respiratory exam: Present: normal lung sounds bilaterally. Absent: respiratory distress, wheezes Cardiovascular Exam: Present: regular rate, normal rhythm GI/Abdominal exam: Present: soft, tenderness (Patient has tenderness to palpation in the left and right lower quadrants). Absent: distended Rectal exam: Present: deferred Extremities exam: Present: normal inspection Back exam: Present: normal inspection. Absent: CVA tenderness (R), CVA tenderness (L) Neurological exam: Present: alert, oriented X3 Psychiatric exam: Present: normal affect, normal mood Skin exam: Present: warm, dry, intact Course Vital Signs 10/03/18 10/03/18 16:06 16:40 Temperature 98.1 F 98.6 F Pulse Rate 109 H 103 H Respiratory 18 18 Rate Blood Pressure 135/97 145/106 O2 Sat by Pulse 97 98 Oximetry Medical Decision Making - Medical Decision Making Patient presents with a chief complaint abdominal pain. On initial evaluation, vital signs showed tachycardia but otherwise stable. Patient is in no acute distress. She'll be evaluated basic labs including liver profile, lipase, urinalysis. She'll be sent for computed tomography scan of the abdomen and pelvis with IV contrast. 5:59 PM Lab evaluation of this patient is consistent with urinary tract infection. Computed tomography scan of the abdomen and pelvis with IV contrast shows diverticulosis without active diverticulitis. No obstructive uropathy. At this time, patient started on Keflex and instructed to use Motrin for pain. Follow- up with primary care in 1-2 days, return to the ED if symptoms worsen or change. - Lab Data Result diagrams: 10/03/18 16:48 10/03/18 16:48 Lab Results 10/03/18 10/03/18 10/03/18 Range/Units 16:48 16:48 16:48 WBC 9.4 (3.8-10.6) k/uL RBC 4.87 (3.80-5.40) m/uL Hgb 14.3 (11.4-16.0) gm/dL Hct 44.8 (34.0-46.0) % MCV 91.9 (80.0-100.0) fL MCH 29.3 (25.0-35.0) pg MCHC 31.9 (31.0-37.0) g/dL RDW 13.2 (11.5-15.5) % Plt Count 207 (150-450) k/uL Neutrophils % 72 % Lymphocytes % 22 % Monocytes % 4 % Eosinophils % 2 % Basophils % 0 % Neutrophils # 6.7 (1.3-7.7) k/uL Lymphocytes # 2.0 (1.0-4.8) k/uL Monocytes # 0.4 (0-1.0) k/uL Eosinophils # 0.1 (0-0.7) k/uL Basophils # 0.0 (0-0.2) k/uL Sodium 143 (137-145) mmol/L Potassium 3.8 (3.5-5.1) mmol/L Chloride 123 H (98-107) mmol/L Carbon Dioxide 17 L (22-30) mmol/L Anion Gap 3 mmol/L BUN 17 (7-17) mg/dL Creatinine 1.39 H (0.52-1.04) mg/dL Est GFR (CKD-EPI)AfAm 53 (>60 ml/min/1.73 sqM) Est GFR (CKD-EPI)NonAf 46 (>60 ml/min/1.73 sqM) Glucose 101 H (74-99) mg/dL Calcium 9.8 (8.4-10.2) mg/dL Total Bilirubin 0.7 (0.2-1.3) mg/dL AST 15 (14-36) U/L ALT 17 (9-52) U/L Alkaline Phosphatase 90 (38-126) U/L Total Protein 7.2 (6.3-8.2) g/dL Albumin 3.8 (3.5-5.0) g/dL Lipase 83 (23-300) U/L Urine Color Yellow Urine Appearance Turbid H (Clear) Urine pH 6.0 (5.0-8.0) Ur Specific [place] 1.026 (1.001-1.035) Urine Protein 2+ H (Negative) Urine Glucose (UA) Negative (Negative) Urine Ketones Negative (Negative) Urine Blood Moderate H (Negative) Urine Nitrite Negative (Negative) Urine Bilirubin Negative (Negative) Urine Urobilinogen <2.0 (<2.0) mg/dL Ur Leukocyte Esterase Large H (Negative) Urine RBC 62 H (0-5) /hpf Urine WBC >182 H (0-5) /hpf Urine WBC Clumps Many H (None) /hpf Ur Squamous Epith Cells 5 H (0-4) /hpf Urine Mucus Rare H (None) /hpf Disposition Clinical Impression: UTI (urinary tract infection), Diverticulosis Disposition: HOME SELF-CARE Condition: Good Prescriptions: Cephalexin [Keflex] 500 mg PO Q6HR #28 cap Ibuprofen [Motrin] 800 mg PO TID #20 tab Is patient prescribed a controlled substance at d/c from ED?: No Referrals: Be Washburn MD [Primary Care Provider] - 1-2 days
[2018-10-03 16:58] LABS: Eosinophils % (A) 2 %; HCT 44.8 % (34.0-46.0); HGB 14.3 gm/dL (11.4-16.0); Lymphocytes % (A) 22 %; MCH 29.3 pg (25.0-35.0); MCHC 31.9 g/dL (31.0-37.0); MCV 91.9 fL (80.0-100.0); Mean Platelet Volume 7.1; Monocytes % (A) 4 %; Neutrophils % (A) 72 %; Platelet Count 207 k/uL (150-450); RBC 4.87 m/uL (3.80-5.40); RDW 13.2 % (11.5-15.5); WBC 9.4 k/uL (3.8-10.6)
[2018-10-03 16:59] LABS: Basophils % (A) 0 %; Eosinophils # (A) 0.1 k/uL (0-0.7); Monocytes # (A) 0.4 k/uL (0-1.0); Neutrophils # (A) 6.7 k/uL (1.3-7.7)
[2018-10-03 17:08] LABS: Albumin 3.8 g/dL (3.5-5.0); Calcium 9.8 mg/dL (8.4-10.2); Potassium 3.8 mmol/L (3.5-5.1); Total Bilirubin 0.7 mg/dL (0.2-1.3); Total Protein 7.2 g/dL (6.3-8.2)
[2018-10-03 17:21] LABS: Appearance,Urine Turbid (Clear); Bilirubin,Urine Negative (Negative); Blood,Urine Moderate (Negative); Color,Urine Yellow; Glucose,Urine (UA) Negative (Negative); Ketones,Urine Negative (Negative); Leukocyte Esterase,Urine Large (Negative); Mucus,Urine Rare /hpf; Nitrite,Urine Negative (Negative); Protein,Urine 2+ (Negative); RBC,Urine 62 /hpf (0-5); Specific Gravity,Urine 1.026 (1.001-1.035); Squamous Epithelial Cell,Urine 5 /hpf (0-4); Urobilinogen,Urine <2.0 mg/dL (<2.0); WBC,Urine >182 /hpf (0-5)
--- NOTE | 2018-10-03 17:39 | CT ---
EXAMINATION TYPE: CT abdomen pelvis w con DATE OF EXAM: 10/03/2018 COMPARISON: 05/13/2018 HISTORY: Pelvic pain. CT DLP: 1307.2 mGycm Automated exposure control for dose reduction was used. TECHNIQUE: Helical acquisition of images was performed from the lung bases through the pelvis. CONTRAST: Performed without Oral Contrast and with IV Contrast, patient injected with 100 mL of Isovue 300. FINDINGS: Lung bases are clear. There is no pleural effusion. Heart size is normal. There is hiatal hernia. The re is clips from bariatric surgery. There are clips from cholecystectomy. There is large common bile duct that measures 1.3 cm. Spleen appears normal. There is no pancreatic mass. There is no adrenal mass. Kidneys show satisfactory contrast opacification. There is no hydronephrosi s. Ureters are not dilated. There is no retroperitoneal adenopathy. Bladder distends smoothly. Uterus is anteverted. There is no free fluid in the pelvis. There is extensive sigmoid diverticulosis. Ther e is minimal fat stranding around the mid sigmoid colon. There is small fluid collection on the poste rior aspect of the sigmoid colon within the pelvis that measures 2 x 1.5 cm. It is not clear if this is related to the colon or is a cyst on the left ovary. This is more likely arising from the sigmoid colon. The appendix appears normal. There is no free air. There is no ascites. Lumbar spine is intact. I see no bony destructive process. Bony pelvis is intact. IMPRESSION: THERE IS MODERATE SIGMOID DIVERTICULOSIS. SMALL FLUID COLLECTION POSTERIOR TO THE MID SIGMOID COLON S HOW SLIGHT CHANGING PATTERN COMPARED TO LAST EXAM AND CONSISTENT WITH THE RESIDUAL OF A PERIDIVERTICU LAR ABSCESS AND CHRONIC DIVERTICULITIS. I DO NOT SEE EVIDENCE FOR ACUTE DIVERTICULITIS.
[2018-10-03 19:10] VITALS: BP 137/98; PULSE 70; RESP 16; TEMP 98.9
== END 2018-10-03 19:00 | disposition home or self-care (01) ==
LOC: EC 16:04
DX: N39.0 Urinary tract infection, site not specified (principal); K57.30 Diverticulosis of large intestine without perforation or abscess without bleeding; G70.00 Myasthenia gravis without (acute) exacerbation; F41.9 Anxiety disorder, unspecified; Z88.1 Allergy status to other antibiotic agents; Z88.2 Allergy status to sulfonamides; Z88.8 Allergy status to other drugs, medicaments and biological substances; Z91.048 Other nonmedicinal substance allergy status; Z79.899 Other long term (current) drug therapy; Z87.19 Personal history of other diseases of the digestive system; Z90.49 Acquired absence of other specified parts of digestive tract; Z98.84 Bariatric surgery status
CPT/HCPCS: 36415; 80053; 83690; 85025; 81001; 74177; 99284; 96374; 96361; J2405; Q9967

== ENCOUNTER 2019-02-16 13:49 | Emergency (ER) | payer MEDICARE ==
[2019-02-16] MEDS ORDERED: SODIUM CHLORIDE 0.9% 1,000 ML IV STA (14:37)
[2019-02-16] MEDS ORDERED: ONDANSETRON 4 MG/2 ML VIAL IVP STA (14:38)
--- NOTE | 2019-02-16 14:43 | ED ---
General Adult HPI - General Chief complaint: Nausea/Vomiting/Diarrhea Stated complaint: NVD Time Seen by Provider: 02/16/19 14:09 Source: patient, RN notes reviewed Mode of arrival: ambulatory Limitations: no limitations - History of Present Illness Initial comments: 48-year-old female with a past medical history of DVT, GERD, hypertension, PE, kidney stones, myasthenia gravis presents to the emergency department for nausea vomiting diarrhea. Patient states she has had these symptoms for about one week. States they started a few days after she had a flu shot. He denies any abdominal pain associated this whatsoever. States she has also had congestion for several months and is on Flonase for this. States she is not able to keep down any solids or liquids. Denies fevers or chills. Patient has no other complaints at this time including shortness of breath, chest pain, abdominal pain,headache, or visual changes. - Related Data Home Medications Medication Instructions Recorded Confirmed Diazepam [Valium] 5 mg PO HS 06/12/16 10/03/18 Zolpidem [Ambien] 10 mg PO HS 06/12/16 10/03/18 Loperamide [Imodium] 2 mg PO QID 07/26/17 10/03/18 Meclizine [Antivert] 25 mg PO HS PRN 07/26/17 10/03/18 traMADol HCL [Ultram] 50 mg PO Q4HR PRN 07/26/17 10/03/18 Mycophenolate Mofetil [Cellcept] 1,000 mg PO BID 10/03/18 10/03/18 Ondansetron [Zofran] 1 - 2 tab PO Q4-6H PRN 10/03/18 10/03/18 Pyridostigmine [place] [Mestinon] 90 mg PO QID 10/03/18 10/03/18 Previous Rx's Medication Instructions Recorded RX: Omeprazole 40 mg PO DAILY #30 capsule. 07/28/17 RX: Ibuprofen 600 mg PO Q6HR #20 tablet 09/03/17 Cephalexin [Keflex] 500 mg PO Q6HR #28 cap 10/03/18 Ibuprofen [Motrin] 800 mg PO TID #20 tab 10/03/18 Allergies Allergy/AdvReac Type Severity Reaction Status Date / Time adhesive Allergy Rash/Hives Verified 02/16/19 14:02 Aminoglycosides Allergy Dyspnea Verified 02/16/19 14:02 amlodipine besylate Allergy Swelling Verified 02/16/19 14:02 [From Norvasc] levofloxacin [From Levaquin] Allergy Dyspnea Verified 02/16/19 14:02 Macrolide Antibiotics Allergy Dyspnea Verified 02/16/19 14:02 Quinolones Allergy Dyspnea Verified 02/16/19 14:02 sulfamethoxazole Allergy Dyspnea Verified 02/16/19 14:02 [From Bactrim] trimethoprim [From Bactrim] Allergy Dyspnea Verified 02/16/19 14:02 Review of Systems ROS Statement: Those systems with pertinent positive or pertinent negative responses have been documented in the HPI. ROS Other: All systems not noted in ROS Statement are negative. Past Medical History Past Medical History: Deep Vein Thrombosis (DVT), GERD/Reflux, Hypertension, Pneumonia, Pulmonary Embolus (PE) Additional Past Medical History / Comment(s): ivan filter, kidney stones, myasthenia gravis, vertigo, hypoglycemia, hx renal problems with dialysis 1 yr ago- now resolved per pt, c-diff 2012, septicemia 2016, diverticulitis. History of Any Multi-Drug Resistant Organisms: C-DIFF Date of last positivie culture/infection: 2012 MDRO Source:: stool Past Surgical History: Bariatric Surgery, Section, Cholecystectomy, Hernia Repair, Tonsillectomy Additional Past Surgical History / Comment(s): thymus removed , LEEP.Umbilical hernia. GASTRIC SLEEVE 2012, uterine fibroid biopsy, hiatal hernia repair, rt cataract, ivan filter, ports x 2/later removed Past Anesthesia/Blood Transfusion Reactions: Motion Sickness Past Psychological History: Anxiety Smoking Status: Never smoker Past Alcohol Use History: None Reported Past Drug Use History: None Reported - Past Family History Mother Family Medical History: No Reported History General Exam Limitations: no limitations General appearance: alert, in no apparent distress Head exam: Present: atraumatic, normocephalic, normal inspection Eye exam: Present: normal appearance, PERRL, EOMI. Absent: scleral icterus, conjunctival injection, periorbital swelling ENT exam: Present: normal exam, mucous membranes moist Neck exam: Present: normal inspection, full ROM. Absent: tenderness, meningismus, lymphadenopathy Respiratory exam: Present: normal lung sounds bilaterally. Absent: respiratory distress, wheezes, rales, rhonchi, stridor Cardiovascular Exam: Present: regular rate, normal rhythm, normal heart sounds. Absent: systolic murmur, diastolic murmur, rubs, gallop, clicks GI/Abdominal exam: Present: soft, normal bowel sounds. Absent: distended, tenderness, guarding, rebound, rigid Neurological exam: Present: alert Course Vital Signs 02/16/19 14:00 Temperature 97.9 F Pulse Rate 58 L Respiratory 20 Rate Blood Pressure 140/97 O2 Sat by Pulse 99 Oximetry Medical Decision Making - Medical Decision Making 48-year-old female presents for nausea vomiting diarrhea. HPI and past medical history as documented. Exam demonstrates no abdominal tenderness. Vitals are stable. CBC CMP unremarkable. Creatinine 1.16 was actually appears better than patient's baseline. Minimal hypomagnesemia 1.5. TSH is found to be less than 0.015. However free T4 is within normal limits. She can follow up with primary care for this. Patient was given IV fluids and antiemetics. Patient is feeling better at this time. Patient likely has viral gastroenteritis given nausea vomiting and diarrhea. Drinking plenty of fluids. Patient has Zofran at home. recommended to return if she has any worsening symptoms.I discussed this case with attending Dr. Fountain who agrees with this assessment and treatment plan. - Lab Data Result diagrams: 02/16/19 14:45 02/16/19 14:45 Lab Results 02/16/19 02/16/19 02/16/19 Range/Units 14:45 14:45 14:45 WBC 7.1 (3.8-10.6) k/uL RBC 5.02 (3.80-5.40) m/uL Hgb 14.7 (11.4-16.0) gm/dL Hct 46.3 H (34.0-46.0) % MCV 92.3 (80.0-100.0) fL MCH 29.4 (25.0-35.0) pg MCHC 31.8 (31.0-37.0) g/dL RDW 12.9 (11.5-15.5) % Plt Count 187 (150-450) k/uL Neutrophils % 77 % Lymphocytes % 19 % Monocytes % 2 % Eosinophils % 1 % Basophils % 0 % Neutrophils # 5.4 (1.3-7.7) k/uL Lymphocytes # 1.4 (1.0-4.8) k/uL Monocytes # 0.1 (0-1.0) k/uL Eosinophils # 0.1 (0-0.7) k/uL Basophils # 0.0 (0-0.2) k/uL Sodium 139 (137-145) mmol/L Potassium 4.1 (3.5-5.1) mmol/L Chloride 117 H (98-107) mmol/L Carbon Dioxide 21 L (22-30) mmol/L Anion Gap 1 mmol/L BUN 13 (7-17) mg/dL Creatinine 1.16 H (0.52-1.04) mg/dL Est GFR (CKD-EPI)AfAm 65 (>60 ml/min/1.73 sqM) Est GFR (CKD-EPI)NonAf 56 (>60 ml/min/1.73 sqM) Glucose 96 (74-99) mg/dL Calcium 9.9 (8.4-10.2) mg/dL Magnesium 1.5 L (1.6-2.3) mg/dL Total Bilirubin 0.6 (0.2-1.3) mg/dL AST 19 (14-36) U/L ALT 21 (9-52) U/L Alkaline Phosphatase 84 (38-126) U/L Total Protein 7.4 (6.3-8.2) g/dL Albumin 4.2 (3.5-5.0) g/dL Amylase 63 (30-110) U/L Lipase 59 (23-300) U/L TSH <0.015 L (0.465-4.680) mIU/L Free T4 1.15 (0.78-2.19) ng/dL Urine Color Urine Appearance (Clear) Urine pH (5.0-8.0) Ur Specific [place] (1.001-1.035) Urine Protein (Negative) Urine Glucose (UA) (Negative) Urine Ketones (Negative) Urine Blood (Negative) Urine Nitrite (Negative) Urine Bilirubin (Negative) Urine Urobilinogen (<2.0) mg/dL Ur Leukocyte Esterase (Negative) Urine RBC (0-5) /hpf Urine WBC (0-5) /hpf Ur Squamous Epith Cells (0-4) /hpf Amorphous Sediment (None) /hpf Urine Bacteria (None) /hpf Hyaline Casts (0-2) /lpf Urine Mucus (None) /hpf 02/16/19 Range/Units 15:27 WBC (3.8-10.6) k/uL RBC (3.80-5.40) m/uL Hgb (11.4-16.0) gm/dL Hct (34.0-46.0) % MCV (80.0-100.0) fL MCH (25.0-35.0) pg MCHC (31.0-37.0) g/dL RDW (11.5-15.5) % Plt Count (150-450) k/uL Neutrophils % % Lymphocytes % % Monocytes % % Eosinophils % % Basophils % % Neutrophils # (1.3-7.7) k/uL Lymphocytes # (1.0-4.8) k/uL Monocytes # (0-1.0) k/uL Eosinophils # (0-0.7) k/uL Basophils # (0-0.2) k/uL Sodium (137-145) mmol/L Potassium (3.5-5.1) mmol/L Chloride (98-107) mmol/L Carbon Dioxide (22-30) mmol/L Anion Gap mmol/L BUN (7-17) mg/dL Creatinine (0.52-1.04) mg/dL Est GFR (CKD-EPI)AfAm (>60 ml/min/1.73 sqM) Est GFR (CKD-EPI)NonAf (>60 ml/min/1.73 sqM) Glucose (74-99) mg/dL Calcium (8.4-10.2) mg/dL Magnesium (1.6-2.3) mg/dL Total Bilirubin (0.2-1.3) mg/dL AST (14-36) U/L ALT (9-52) U/L Alkaline Phosphatase (38-126) U/L Total Protein (6.3-8.2) g/dL Albumin (3.5-5.0) g/dL Amylase (30-110) U/L Lipase (23-300) U/L TSH (0.465-4.680) mIU/L Free T4 (0.78-2.19) ng/dL Urine Color Yellow Urine Appearance Cloudy H (Clear) Urine pH 5.5 (5.0-8.0) Ur Specific [place] 1.021 (1.001-1.035) Urine Protein Negative (Negative) Urine Glucose (UA) Negative (Negative) Urine Ketones Negative (Negative) Urine Blood Small H (Negative) Urine Nitrite Negative (Negative) Urine Bilirubin Negative (Negative) Urine Urobilinogen <2.0 (<2.0) mg/dL Ur Leukocyte Esterase Moderate H (Negative) Urine RBC 5 (0-5) /hpf Urine WBC 27 H (0-5) /hpf Ur Squamous Epith Cells 13 H (0-4) /hpf Amorphous Sediment Rare H (None) /hpf Urine Bacteria Occasional H (None) /hpf Hyaline Casts 3 H (0-2) /lpf Urine Mucus Occasional H (None) /hpf Disposition Clinical Impression: Nausea vomiting and diarrhea Disposition: HOME SELF-CARE Condition: Fair Instructions (If sedation given, give patient instructions): Acute Nausea and Vomiting (ED), Acute Diarrhea (ED) Additional Instructions: Please drink plenty of fluids. Follow-up with primary care in 1-2 days. Return if you have any worsening symptoms. Is patient prescribed a controlled substance at d/c from ED?: No Referrals: Be Washburn MD [Primary Care Provider] - 1-2 days Time of Disposition: 17:13
[2019-02-16 14:51] LABS: Basophils % (A) 0 %; Eosinophils # (A) 0.1 k/uL (0-0.7); Eosinophils % (A) 1 %; HCT 46.3 % (34.0-46.0); HGB 14.7 gm/dL (11.4-16.0); Lymphocytes # (A) 1.4 k/uL (1.0-4.8); Lymphocytes % (A) 19 %; MCH 29.4 pg (25.0-35.0); MCHC 31.8 g/dL (31.0-37.0); MCV 92.3 fL (80.0-100.0); Mean Platelet Volume 7.4; Monocytes # (A) 0.1 k/uL (0-1.0); Monocytes % (A) 2 %; Neutrophils # (A) 5.4 k/uL (1.3-7.7); Neutrophils % (A) 77 %; Platelet Count 187 k/uL (150-450); RBC 5.02 m/uL (3.80-5.40); RDW 12.9 % (11.5-15.5); WBC 7.1 k/uL (3.8-10.6)
[2019-02-16 15:04] LABS: ALT 21 U/L (9-52); AST 19 U/L (14-36); African American GFR (CKD) 65 (>60 ml/min/1.73 sqM); Albumin 4.2 g/dL (3.5-5.0); Alkaline Phosphatase 84 U/L (38-126); Amylase 63 U/L (30-110); Anion Gap 1 mmol/L; Blood Urea Nitrogen 13 mg/dL (7-17); Calcium 9.9 mg/dL (8.4-10.2); Carbon Dioxide 21 mmol/L (22-30); Chloride 117 mmol/L (98-107); Glucose 96 mg/dL (74-99); Magnesium 1.5 mg/dL (1.6-2.3); Potassium 4.1 mmol/L (3.5-5.1); Sodium 139 mmol/L (137-145); Total Bilirubin 0.6 mg/dL (0.2-1.3); Total Protein 7.4 g/dL (6.3-8.2)
[2019-02-16] MEDS ORDERED: METOCLOPRAMIDE 5 MG/ML 2 ML VIAL IVP STA (15:21)
[2019-02-16 15:59] LABS: Amorphous Sediment,Urine Rare /hpf; Appearance,Urine Cloudy (Clear); Bacteria,Urine Occasional /hpf; Bilirubin,Urine Negative (Negative); Blood,Urine Small (Negative); Color,Urine Yellow; Glucose,Urine (UA) Negative (Negative); Hyaline Casts,Urine 3 /lpf (0-2); Ketones,Urine Negative (Negative); Leukocyte Esterase,Urine Moderate (Negative); Mucus,Urine Occasional /hpf; Nitrite,Urine Negative (Negative); PH, Urine 5.5 (5.0-8.0); Protein,Urine Negative (Negative); RBC,Urine 5 /hpf (0-5); Specific Gravity,Urine 1.021 (1.001-1.035); Squamous Epithelial Cell,Urine 13 /hpf (0-4); Urobilinogen,Urine <2.0 mg/dL (<2.0); WBC,Urine 27 /hpf (0-5)
[2019-02-16 17:34] VITALS: BP 134/87; PULSE 67; RESP 16; TEMP 98
[2019-02-17 14:04] LABS: C. trachomatis,PCR Negative (Neg,Equiv); Chlamydia trachomatis Source Urine; N. gonorrhoeae,PCR Negative (Neg,Equiv); Neisseria Source Urine
== END 2019-02-16 17:34 | disposition home or self-care (01) ==
LOC: EC 13:49
DX: R11.2 Nausea with vomiting, unspecified (principal); R19.7 Diarrhea, unspecified; E83.42 Hypomagnesemia; G70.00 Myasthenia gravis without (acute) exacerbation; F41.9 Anxiety disorder, unspecified; Z88.1 Allergy status to other antibiotic agents; Z88.2 Allergy status to sulfonamides; Z88.8 Allergy status to other drugs, medicaments and biological substances; Z91.048 Other nonmedicinal substance allergy status; Z79.899 Other long term (current) drug therapy; Z92.25 Personal history of immunosuppression therapy; Z87.19 Personal history of other diseases of the digestive system; Z90.49 Acquired absence of other specified parts of digestive tract; Z98.84 Bariatric surgery status
CPT/HCPCS: 36415; 84439; 80053; 82150; 83690; 83735; 84443; 85025; 81001; 87491; 87591; 99284; 96374; 96375; 96361 ×3; J2765; J2405

== ENCOUNTER 2019-04-16 19:15 | Emergency (ER) | payer MEDICARE ==
[2019-04-16] MEDS ORDERED: ACETAMINOPHEN TAB 325 MG TAB PO STA (20:04)
--- NOTE | 2019-04-16 20:26 | XR ---
EXAMINATION TYPE: XR chest 2V DATE OF EXAM: 04/16/2019 COMPARISON: 06/13/2016 HISTORY: Fever and cough TECHNIQUE: Frontal and lateral views of the chest are obtained. FINDINGS: Heart is normal. Lungs are clear of consolidation. There are sternal wires. There is no si gn of pleural effusion. Bony thorax is intact. IMPRESSION: No active cardiopulmonary disease. There is clearing of the right side pleural fluid and bilateral pulmonary edema compared to old exam.
[2019-04-16 20:40] LABS: Basophils % (A) 0 %; Eosinophils # (A) 0.2 k/uL (0-0.7); Eosinophils % (A) 1 %; HCT 44.2 % (34.0-46.0); HGB 14.1 gm/dL (11.4-16.0); Lymphocytes # (A) 1.1 k/uL (1.0-4.8); Lymphocytes % (A) 9 %; MCH 29.8 pg (25.0-35.0); MCV 93.4 fL (80.0-100.0); Mean Platelet Volume 6.3; Monocytes # (A) 0.6 k/uL (0-1.0); Monocytes % (A) 5 %; Neutrophils # (A) 10.4 k/uL (1.3-7.7); Neutrophils % (A) 83 %; Platelet Count 163 k/uL (150-450); RBC 4.73 m/uL (3.80-5.40); RDW 13.3 % (11.5-15.5); WBC 12.5 k/uL (3.8-10.6)
[2019-04-16 21:16] LABS: Albumin 4.1 g/dL (3.5-5.0); Calcium 9.4 mg/dL (8.4-10.2); Potassium 4.3 mmol/L (3.5-5.1); Total Bilirubin 0.5 mg/dL (0.2-1.3); Total Protein 7.4 g/dL (6.3-8.2)
--- NOTE | 2019-04-16 21:56 | ED ---
General Adult HPI - General Chief complaint: Upper Respiratory Infection Stated complaint: Fever Time Seen by Provider: 04/16/19 19:35 Source: patient Mode of arrival: EMS Limitations: no limitations - History of Present Illness Initial comments: Patient is a 48-year-old female with history of myasthenia gravis is presenting to the emergency department with a chief complaint of a cough. Patient reports about 2 weeks ago she developed an upper respiratory infection along with a sore throat and clear bilateral rhinorrhea. Patient reports about a week ago she began to have a productive cough with some green sputum production. Patient denies any night sweats fevers or chills. Patient is not a smoker, denies COPD or asthma. Patient went to primary care 2 days ago and was started on amoxicillin. Patient currently taken 3 doses of the amoxicillin and states she continues to have a cough. Patient denies wheezing shortness of breath or chest pain. - Related Data Home Medications Medication Instructions Recorded Confirmed Diazepam [Valium] 5 mg PO HS 06/12/16 10/03/18 Zolpidem [Ambien] 10 mg PO HS 06/12/16 10/03/18 Loperamide [Imodium] 2 mg PO QID 07/26/17 10/03/18 Meclizine [Antivert] 25 mg PO HS PRN 07/26/17 10/03/18 traMADol HCL [Ultram] 50 mg PO Q4HR PRN 07/26/17 10/03/18 Mycophenolate Mofetil [Cellcept] 1,000 mg PO BID 10/03/18 10/03/18 Ondansetron [Zofran] 1 - 2 tab PO Q4-6H PRN 10/03/18 10/03/18 Pyridostigmine [place] [Mestinon] 90 mg PO QID 10/03/18 10/03/18 Previous Rx's Medication Instructions Recorded Omeprazole 40 mg PO DAILY #30 capsule. 07/28/17 Ibuprofen 600 mg PO Q6HR #20 tablet 09/03/17 Cephalexin [Keflex] 500 mg PO Q6HR #28 cap 10/03/18 Ibuprofen [Motrin] 800 mg PO TID #20 tab 10/03/18 Allergies Allergy/AdvReac Type Severity Reaction Status Date / Time adhesive Allergy Rash/Hives Verified 04/16/19 19:30 Aminoglycosides Allergy Dyspnea Verified 04/16/19 19:30 amlodipine besylate Allergy Swelling Verified 04/16/19 19:30 [From Norvasc] levofloxacin [From Levaquin] Allergy Dyspnea Verified 04/16/19 19:30 Macrolide Antibiotics Allergy Dyspnea Verified 04/16/19 19:30 Quinolones Allergy Dyspnea Verified 04/16/19 19:30 sulfamethoxazole Allergy Dyspnea Verified 04/16/19 19:30 [From Bactrim] trimethoprim [From Bactrim] Allergy Dyspnea Verified 04/16/19 19:30 Review of Systems ROS Statement: Those systems with pertinent positive or pertinent negative responses have been documented in the HPI. ROS Other: All systems not noted in ROS Statement are negative. Past Medical History Past Medical History: Deep Vein Thrombosis (DVT), GERD/Reflux, Hypertension, Pneumonia, Pulmonary Embolus (PE) Additional Past Medical History / Comment(s): ivan filter, kidney stones, myasthenia gravis, vertigo, hypoglycemia, hx renal problems with dialysis 1 yr ago- now resolved per pt, c-diff 2012, septicemia 2016, diverticulitis. History of Any Multi-Drug Resistant Organisms: C-DIFF Date of last positivie culture/infection: 2012 MDRO Source:: stool Past Surgical History: Bariatric Surgery, Section, Cholecystectomy, Hernia Repair, Tonsillectomy Additional Past Surgical History / Comment(s): thymus removed , LEEP.Umbilical hernia. GASTRIC SLEEVE 2012, uterine fibroid biopsy, hiatal hernia repair, rt cataract, ivan filter, ports x 2/later removed Past Anesthesia/Blood Transfusion Reactions: Motion Sickness Past Psychological History: Anxiety Smoking Status: Never smoker Past Alcohol Use History: None Reported Past Drug Use History: None Reported - Past Family History Mother Family Medical History: No Reported History General Exam Limitations: no limitations General appearance: alert, in no apparent distress Head exam: Present: atraumatic, normocephalic, normal inspection Eye exam: Present: normal appearance, PERRL, EOMI Pupils: Present: normal accommodation ENT exam: Present: normal exam, normal oropharynx, mucous membranes moist, TM's normal bilaterally, normal external ear exam Neck exam: Present: normal inspection, full ROM Respiratory exam: Present: normal lung sounds bilaterally. Absent: respiratory distress, wheezes, rales Cardiovascular Exam: Present: normal rhythm, tachycardia, normal heart sounds GI/Abdominal exam: Present: soft, normal bowel sounds. Absent: distended, tenderness, guarding Extremities exam: Present: normal inspection, full ROM Back exam: Present: normal inspection, full ROM. Absent: CVA tenderness (R), CVA tenderness (L) Neurological exam: Present: alert, oriented X3 Psychiatric exam: Present: normal affect, normal mood Skin exam: Present: warm, dry, intact, normal color Course Vital Signs 04/16/19 04/16/19 04/16/19 19:26 19:47 20:36 Temperature 100.3 F H Pulse Rate 113 H Respiratory 18 22 20 Rate Blood Pressure 129/60 O2 Sat by Pulse 96 Oximetry Medical Decision Making - Medical Decision Making Patient is a 48-year-old female with history of myasthenia gravis is presenting to emergency Department with a chief complaint of cough. Physical exam is negative for wheezing, rales or rhonchi. Rest of physical examination is unremarkable. No fevers or chills. Patient has a white count of 12.5 K. K idney function appears to be at baseline. Blood cultures pending. Lactic is 1.2. Chest x-ray is unremarkable, in fact there is an improvement in pleural effusion compared to last exam. I suspect the patient to have an upper respiratory infection along with bronchitis. This appears to viral in nature although she is currently getting treated with amoxicillin. Patient advised to continue taking the antibiotic. Strict return parameters were thoroughly discussed with patient is understanding and agreeable. Case discussed with physician. - Lab Data Result diagrams: 04/16/19 20:25 04/16/19 20:25 Lab Results 04/16/19 04/16/19 04/16/19 Range/Units 20:25 20:25 20:30 WBC 12.5 H (3.8-10.6) k/uL RBC 4.73 (3.80-5.40) m/uL Hgb 14.1 (11.4-16.0) gm/dL Hct 44.2 (34.0-46.0) % MCV 93.4 (80.0-100.0) fL MCH 29.8 (25.0-35.0) pg MCHC 32.0 (31.0-37.0) g/dL RDW 13.3 (11.5-15.5) % Plt Count 163 (150-450) k/uL Neutrophils % 83 % Lymphocytes % 9 % Monocytes % 5 % Eosinophils % 1 % Basophils % 0 % Neutrophils # 10.4 H (1.3-7.7) k/uL Lymphocytes # 1.1 (1.0-4.8) k/uL Monocytes # 0.6 (0-1.0) k/uL Eosinophils # 0.2 (0-0.7) k/uL Basophils # 0.0 (0-0.2) k/uL Sodium 139 (137-145) mmol/L Potassium 4.3 (3.5-5.1) mmol/L Chloride 111 H (98-107) mmol/L Carbon Dioxide 25 (22-30) mmol/L Anion Gap 3 mmol/L BUN 19 H (7-17) mg/dL Creatinine 1.14 H (0.52-1.04) mg/dL Est GFR (CKD-EPI)AfAm 67 (>60 ml/min/1.73 sqM) Est GFR (CKD-EPI)NonAf 58 (>60 ml/min/1.73 sqM) Glucose 106 H (74-99) mg/dL Plasma Lactic Acid [place] 1.2 (0.7-2.0) mmol/L Calcium 9.4 (8.4-10.2) mg/dL Total Bilirubin 0.5 (0.2-1.3) mg/dL AST 19 (14-36) U/L ALT 17 (9-52) U/L Alkaline Phosphatase 90 (38-126) U/L Total Protein 7.4 (6.3-8.2) g/dL Albumin 4.1 (3.5-5.0) g/dL Disposition Clinical Impression: Upper respiratory tract infection, Bronchitis Disposition: HOME SELF-CARE Condition: Stable Instructions (If sedation given, give patient instructions): Upper Respiratory Infection (ED), Acute Bronchitis (ED) Additional Instructions: Continue taking the antibiotics. Alternate between Tylenol and ibuprofen for fever control. Please return to emergency department if symptoms worsen. Is patient prescribed a controlled substance at d/c from ED?: No Referrals: Be Washburn MD [Primary Care Provider] - 1-2 days Time of Disposition: 21:50
[2019-04-16 22:11] VITALS: BP 128/76; PULSE 72; RESP 18; TEMP 99.2
== END 2019-04-16 22:05 | disposition home or self-care (01) ==
LOC: EC 19:15
DX: J40 Bronchitis, not specified as acute or chronic (principal); J06.9 Acute upper respiratory infection, unspecified; J90 Pleural effusion, not elsewhere classified; G70.00 Myasthenia gravis without (acute) exacerbation; F41.9 Anxiety disorder, unspecified; I10 Essential (primary) hypertension; Z79.899 Other long term (current) drug therapy; Z91.048 Other nonmedicinal substance allergy status; Z88.8 Allergy status to other drugs, medicaments and biological substances; Z88.1 Allergy status to other antibiotic agents; Z88.2 Allergy status to sulfonamides
CPT/HCPCS: 36415; 71046; 80053; 83605; 85025; 87040; 99284

== ENCOUNTER 2019-07-11 23:01 | Inpatient (IN) | payer MEDICARE ==
[2019-07-11] MEDS ORDERED: ALBUTEROL NEBULIZED 2.5 MG/3 ML INHALATION STA (23:37)
--- NOTE | 2019-07-11 23:44 | ED ---
SOB HPI - General Chief Complaint: Shortness of Breath Stated Complaint: Upper Resp Time Seen by Provider: 07/11/19 23:11 Source: patient Mode of arrival: ambulatory Limitations: no limitations - History of Present Illness MD Complaint: shortness of breath, cough -: days(s) Severity scale (1-10): 0 Consistency: constant Improves With: nothing Worsens With: nothing Context: recent URI Associated Symptoms: cough Treatments Prior to Arrival: none - Related Data Home Oxygen Therapy: No Home Medications Medication Instructions Recorded Confirmed Diazepam [Valium] 5 mg PO HS PRN 06/12/16 07/12/19 Zolpidem [Ambien] 10 mg PO HS 06/12/16 07/12/19 Loperamide [Imodium] 2 mg PO QID 07/26/17 07/12/19 Meclizine [Antivert] 25 mg PO TID PRN 07/26/17 07/12/19 traMADol HCL [Ultram] 50 mg PO TID PRN 07/26/17 07/12/19 Mycophenolate Mofetil [Cellcept] 1,000 mg PO BID 10/03/18 07/12/19 Pyridostigmine [place] [Mestinon] 90 mg PO QID 10/03/18 07/12/19 Ibuprofen [Motrin] 800 mg PO TID PRN 07/12/19 07/12/19 Multivitamins, Thera [Multivitamin 1 tab PO BID 07/12/19 07/12/19 (formulary)] Omeprazole [PriLOSEC] 40 mg PO DAILY@1200 07/12/19 07/12/19 Ondansetron Odt [Zofran ODT] 8 mg PO Q8HR PRN 07/12/19 07/12/19 Previous Rx's Medication Instructions Recorded Amoxic-Pot Clav 875-125Mg 1 tab PO Q12HR 10 Days #20 tab 07/13/19 [Augmentin 875-125] Allergies Allergy/AdvReac Type Severity Reaction Status Date / Time adhesive Allergy Rash/Hives Verified 07/12/19 09:55 Aminoglycosides Allergy Dyspnea Verified 07/12/19 09:55 amlodipine besylate Allergy Swelling Verified 07/12/19 09:55 [From Norvasc] levofloxacin [From Levaquin] Allergy Dyspnea Verified 07/12/19 09:55 Macrolide Antibiotics Allergy Dyspnea Verified 07/12/19 09:55 Quinolones Allergy Dyspnea Verified 07/12/19 09:55 sulfamethoxazole Allergy Dyspnea Verified 07/12/19 09:55 [From Bactrim] trimethoprim [From Bactrim] Allergy Dyspnea Verified 07/12/19 09:55 Review of Systems ROS Statement: Those systems with pertinent positive or pertinent negative responses have been documented in the HPI. ROS Other: All systems not noted in ROS Statement are negative. Constitutional: Denies: fever, chills Respiratory: Reports: cough, dyspnea, wheezes. Denies: hemoptysis, stridor Cardiovascular: Denies: chest pain, palpitations, edema, syncope Gastrointestinal: Denies: abdominal pain, nausea, vomiting, diarrhea Genitourinary: Denies: dysuria, hematuria Musculoskeletal: Denies: back pain Skin: Denies: rash Neurological: Denies: headache, weakness, numbness Past Medical History Past Medical History: Deep Vein Thrombosis (DVT), GERD/Reflux, Hypertension, Pneumonia, Pulmonary Embolus (PE) Additional Past Medical History / Comment(s): ivan filter, kidney stones, myasthenia gravis, vertigo, hypoglycemia, hx renal problems with dialysis 1 yr ago- now resolved per pt, c-diff 2012, septicemia 2017, diverticulitis. History of Any Multi-Drug Resistant Organisms: C-DIFF Date of last positivie culture/infection: 2012 MDRO Source:: stool Past Surgical History: Bariatric Surgery, Section, Cholecystectomy, Hernia Repair, Tonsillectomy Additional Past Surgical History / Comment(s): thymus removed , LEEP.Umbilical hernia. GASTRIC SLEEVE 2013, uterine fibroid biopsy, hiatal hernia repair, rt cataract, ivan filter, ports x 2/later removed Past Anesthesia/Blood Transfusion Reactions: Motion Sickness Past Psychological History: Anxiety Smoking Status: Never smoker Past Alcohol Use History: None Reported Past Drug Use History: None Reported - Past Family History Mother Family Medical History: No Reported History General Exam Limitations: no limitations General appearance: alert, in no apparent distress Head exam: Present: atraumatic, normocephalic Eye exam: Present: normal appearance. Absent: scleral icterus, conjunctival injection ENT exam: Present: normal oropharynx Respiratory exam: Present: wheezes. Absent: respiratory distress, rales, rhonchi, stridor, chest wall tenderness, accessory muscle use Cardiovascular Exam: Present: regular rate, normal rhythm, normal heart sounds. Absent: systolic murmur, diastolic murmur, rubs, gallop GI/Abdominal exam: Present: soft. Absent: distended, tenderness, guarding, rebound, rigid, mass Extremities exam: Present: normal inspection, normal capillary refill. Absent: pedal edema, calf tenderness Back exam: Present: normal inspection. Absent: CVA tenderness (R), CVA tenderness (L) Neurological exam: Present: alert Skin exam: Present: warm, dry, intact, normal color. Absent: rash Course Vital Signs 07/11/19 07/11/19 07/11/19 23:03 23:17 23:50 Temperature 98.1 F Pulse Rate 92 96 Respiratory 18 18 Rate Blood Pressure 161/94 O2 Sat by Pulse 97 Oximetry 07/12/19 00:02 Temperature Pulse Rate 96 Respiratory Rate Blood Pressure O2 Sat by Pulse Oximetry Medical Decision Making - Lab Data Result diagrams: 07/13/19 06:26 07/13/19 06:26 Lab Results 07/11/19 Range/Units 23:38 Influenza Type A RNA Not Detected (Not Detectd) Influenza Type B (PCR) Not Detected (Not Detectd) Disposition Clinical Impression: Bilateral pneumonia, History of myasthenia gravis Disposition: ADMITTED IP TO THIS HOSP Condition: Fair
--- NOTE | 2019-07-11 23:51 | XR ---
EXAMINATION TYPE: XR chest 2V DATE OF EXAM: 07/11/2019 COMPARISON: 04/16/2019 HISTORY: Cough TECHNIQUE: FINDINGS: There is some patchy airspace infiltrate in the left upper lobe and to a lesser extent the left lower lobe. The right lung is relatively clear. There are sternal wires. Heart size is normal. T here is no heart failure. IMPRESSION: There is left upper lobe pneumonia and minimal left lower lobe pneumonia that is new comp ared to last exam. Normal heart.
[2019-07-12] MEDS ORDERED: PNEUMONIA PROTOCOL UTILIZED 1 EACH MISC PO PRN (00:23)
[2019-07-12] MEDS ORDERED: AZITHROMYCIN 500 MG in SODIUM CHLORIDE 0.9% 250 ML IVPB STA (00:23)
[2019-07-12] MEDS ORDERED: ALBUTEROL NEBULIZED 2.5 MG/3 ML INHALATION PRN (00:23)
[2019-07-12] MEDS ORDERED: MECLIZINE 25 MG TAB PO PRN (00:28)
[2019-07-12] MEDS: SODIUM CHLORIDE 0.9% 1,000 ML IV SCH (01:27)
[2019-07-12] MEDS: traMADol 50 MG TAB PO PRN ×2 (02:31→07:37)
[2019-07-12] MEDS ORDERED: ZOLPIDEM 10 MG TAB PO ONE (04:02)
[2019-07-12] MEDS: IBUPROFEN 800 MG TAB PO SCH ×3 (07:37→21:19)
[2019-07-12] MEDS: PANTOPRAZOLE 40 MG TABLET PO SCH (07:37)
[2019-07-12] MEDS: LOPERAMIDE 2 MG CAP PO SCH ×4 (07:38→21:20)
[2019-07-12] MEDS: MYCOPHENOLATE MOFETIL 500 MG TAB PO SCH ×2 (07:38→21:19)
[2019-07-12] MEDS: PYRIDOSTIGMINE 60 MG TAB PO SCH ×4 (07:38→21:20)
[2019-07-12] MEDS: IPRATROPIUM-ALBUTEROL 3 ML NEB INHALATION SCH ×4 (09:04→19:43)
[2019-07-12] MEDS: ONDANSETRON 4 MG TAB PO PRN (09:23)
--- NOTE | 2019-07-12 11:58 | P.HPIM ---
History of Present Illness Patient is a 48-year-old female presented to the hospital with cough she reports that she had been sick for approximately 1 week, she did not report any shortness of breath however she did state that she could not control her cough after coming home from the gym and felt that she needed to go to the emergency room for evaluation. She has a history of myasthenia gravis and an immunity disorder she is being treated through [facility] and currently on CellCept for her disorder. Review of Systems Constitutional: Reports night sweats Respiratory: Reports cough Gastrointestinal: Reports diarrhea, Reports nausea Past Medical History Past Medical History: Deep Vein Thrombosis (DVT), GERD/Reflux, Hypertension, Pneumonia, Pulmonary Embolus (PE) Additional Past Medical History / Comment(s): ivan filter, kidney stones, myasthenia gravis, vertigo, hypoglycemia, hx renal problems with dialysis 1 yr ago- now resolved per pt, c-diff 2012, septicemia 2016, diverticulitis, immunity disorder History of Any Multi-Drug Resistant Organisms: C-DIFF Date of last positivie culture/infection: 2012 MDRO Source:: stool Past Surgical History: Bariatric Surgery, Section, Cholecystectomy, Hernia Repair, Tonsillectomy Additional Past Surgical History / Comment(s): thymus removed , LEEP.Umbilical hernia. GASTRIC SLEEVE 2012, uterine fibroid biopsy, hiatal hernia repair, rt cataract, ivan filter, ports x 2/later removed Past Anesthesia/Blood Transfusion Reactions: Motion Sickness Past Psychological History: Anxiety Smoking Status: Never smoker Past Alcohol Use History: None Reported Past Drug Use History: None Reported - Past Family History Mother Family Medical History: No Reported History Medications and Allergies Home Medications Medication Instructions Recorded Confirmed Type Diazepam [Valium] 5 mg PO HS PRN 06/12/16 07/12/19 History Zolpidem [Ambien] 10 mg PO HS 06/12/16 07/12/19 History Loperamide [Imodium] 2 mg PO QID 07/26/17 07/12/19 History Meclizine [Antivert] 25 mg PO TID PRN 07/26/17 07/12/19 History traMADol HCL [Ultram] 50 mg PO TID PRN 07/26/17 07/12/19 History Mycophenolate Mofetil [Cellcept] 1,000 mg PO BID 10/03/18 07/12/19 History Pyridostigmine [place] [Mestinon] 90 mg PO QID 10/03/18 07/12/19 History Ibuprofen [Motrin] 800 mg PO TID PRN 07/12/19 07/12/19 History Multivitamins, Thera [Multivitamin 1 tab PO BID 07/12/19 07/12/19 History (formulary)] Omeprazole [PriLOSEC] 40 mg PO DAILY@1200 07/12/19 07/12/19 History Ondansetron Odt [Zofran Odt] 8 mg PO Q8HR PRN 07/12/19 07/12/19 History Allergies Allergy/AdvReac Type Severity Reaction Status Date / Time adhesive Allergy Rash/Hives Verified 07/12/19 09:55 Aminoglycosides Allergy Dyspnea Verified 07/12/19 09:55 amlodipine besylate Allergy Swelling Verified 07/12/19 09:55 [From Norvasc] levofloxacin [From Levaquin] Allergy Dyspnea Verified 07/12/19 09:55 Macrolide Antibiotics Allergy Dyspnea Verified 07/12/19 09:55 Quinolones Allergy Dyspnea Verified 07/12/19 09:55 sulfamethoxazole Allergy Dyspnea Verified 07/12/19 09:55 [From Bactrim] trimethoprim [From Bactrim] Allergy Dyspnea Verified 07/12/19 09:55 Physical Exam Vitals: Vital Signs Temp Pulse Pulse Resp BP BP Pulse Ox 07/12/19 09:15 84 07/12/19 09:05 80 07/12/19 07:00 98.4 F 84 17 154/74 96 07/12/19 02:10 92 18 151/98 95 07/12/19 00:02 96 07/11/19 23:50 96 07/11/19 23:17 18 07/11/19 23:03 98.1 F 92 18 161/94 97 Intake and Output 07/11/19 07/12/19 07/12/19 22:59 06:59 14:59 Intake Total 200 Balance 200 Intake: Intake, IV Titration 50 Amount cefTRIAXone 1 gm In 50 Sodium Chloride 0.9% 50 ml @ 100 mls/hr IVPB Q24H [facility] Rx#:[id number] Oral 150 Other: Voiding Method Toilet # Voids 1 Weight 100.698 kg - Constitutional General appearance: mild distress - EENT Eyes: PERRLA - Neck Neck: normal ROM - Respiratory Respiratory: bilateral: CTA, diminished (Bilateral lower lobe) - Cardiovascular Rhythm: regular Heart sounds: normal: S1, S2 - Gastrointestinal General gastrointestinal: normal bowel sounds - Integumentary Integumentary: normal - Neurologic Neurologic: CNII-XII intact - Psychiatric Psychiatric: A&O x's 3, appropriate affect Results Abdominal x-ray: report reviewed Thrombosis Risk Factor Assmnt - Choose All That Apply Any of the Below Risk Factors Present?: Yes Each Factor Represents 1 point: Age 41-60 years, Obesity (BMI >25) Other Risk Factors: Yes Each Risk Factor Represents 3 Points: History of DVT/PE Other congenital or acquired thrombophilia - If yes, enter type in comment: No Thrombosis Risk Factor Assessment Total Risk Factor Score: 5 Thrombosis Risk Factor Assessment Level: High Risk Assessment and Plan Plan: Assessment Pneumonia left upper lobe minimal left lower lobe community-acquired History of DVT remote History of GERD acid reflux History of hypertension History of pulmonary embolism remote with a Ivan filter History of immunity disorder treated through [facility] History of myasthenia gravis Plan Continue IV antibiotics Rocephin 1 g daily Consult pulmonology Dr. Bobby
--- NOTE | 2019-07-12 15:52 | P.CNPUL ---
History of Present Illness Consult date: 07/12/19 Requesting physician: Be Washburn Reason for consult: dyspnea, cough, pneumonia, abnormal CXR/CT Chief complaint: Dyspnea, cough History of present illness: 48-year-old white female patient of Dr. Be Washburn, with past medical history of myasthenia gravis maintained on CellCept, hypertension, nephrolithiasis, GERD, previous history of DVT/PE in 2010 status post [place] filter placement. Patient had her thymus removed in 1994, and she had a gastric sleeve surgery in 2012. She is a lifelong nonsmoker. She has been following at the [facility] in regards to her myasthenia gravis, she used to be on a combination of CellCept and cyclosporine however she is no longer on cyclosporine. She states her myasthenia gravis has been stable, she had last been seen at the [facility] last year in August. Today on O2 2019 patient presents to the hospital with complaints of increased shortness of breath, cough. She states that she started with cold symptoms several weeks ago, which gradually progressed to cough and chest congestion, denies any fever or chills, denies any chest pain, no nausea vomiting or diarrhea, denied any hemoptysis, or palpitations, no increased edema in lower extremities. Chest x-ray shows left upper lobe patchy airspace infiltrate and minimal left lower lobe patchy infiltrate in the right lung is relatively clear. Influenza A and B were negative, other blood work including CBC and comprehensive metabolic panel have been ordered by the attending physician but are pending at this time, she was empirically placed on azithromycin and Rocephin however patient is ALLERGIC to macrolide antibiotics, and Zithromax will be discontinued, room air pulse ox is 95%, hemodynamically she is stable, she is afebrile, she is awake and alert, no altered mentation. Lung sounds reveal diminished breath sounds and crackles at lower bases otherwise patient is clinically stable. Review of Systems All systems: negative Constitutional: Denies chills, Denies fever Eyes: denies blurred vision, denies pain Ears, nose, mouth and throat: Denies headache, Denies sore throat Cardiovascular: Denies chest pain, Denies shortness of breath Respiratory: Reports cough, Reports dyspnea, Reports respiratory infections Gastrointestinal: Denies abdominal pain, Denies diarrhea, Denies nausea, Denies vomiting Genitourinary: Denies dysuria, Denies hematuria Musculoskeletal: Denies myalgias Integumentary: Denies pruritus, Denies rash Neurological: Denies numbness, Denies weakness Psychiatric: Denies anxiety, Denies depression Endocrine: Denies fatigue, Denies weight change Past Medical History Past Medical History: Deep Vein Thrombosis (DVT), GERD/Reflux, Hypertension, Pneumonia, Pulmonary Embolus (PE) Additional Past Medical History / Comment(s): ivan filter, kidney stones, myasthenia gravis, vertigo, hypoglycemia, hx renal problems with dialysis 1 yr ago- now resolved per pt, c-diff 2012, septicemia 2016, diverticulitis, immunity disorder History of Any Multi-Drug Resistant Organisms: C-DIFF Date of last positivie culture/infection: 2012 MDRO Source:: stool Past Surgical History: Bariatric Surgery, Section, Cholecystectomy, Hernia Repair, Tonsillectomy Additional Past Surgical History / Comment(s): thymus removed , LEEP.Umbilical hernia. GASTRIC SLEEVE 2012, uterine fibroid biopsy, hiatal hernia repair, rt cataract, ivan filter, ports x 2/later removed Past Anesthesia/Blood Transfusion Reactions: Motion Sickness Past Psychological History: Anxiety Smoking Status: Never smoker Past Alcohol Use History: None Reported Past Drug Use History: None Reported - Past Family History Mother Family Medical History: No Reported History Medications and Allergies Home Medications Medication Instructions Recorded Confirmed Type Diazepam [Valium] 5 mg PO HS PRN 06/12/16 07/12/19 History Zolpidem [Ambien] 10 mg PO HS 06/12/16 07/12/19 History Loperamide [Imodium] 2 mg PO QID 07/26/17 07/12/19 History Meclizine [Antivert] 25 mg PO TID PRN 07/26/17 07/12/19 History traMADol HCL [Ultram] 50 mg PO TID PRN 07/26/17 07/12/19 History Mycophenolate Mofetil [Cellcept] 1,000 mg PO BID 10/03/18 07/12/19 History Pyridostigmine [place] [Mestinon] 90 mg PO QID 10/03/18 07/12/19 History Ibuprofen [Motrin] 800 mg PO TID PRN 07/12/19 07/12/19 History Multivitamins, Thera [Multivitamin 1 tab PO BID 07/12/19 07/12/19 History (formulary)] Omeprazole [PriLOSEC] 40 mg PO DAILY@1200 07/12/19 07/12/19 History Ondansetron Odt [Zofran Odt] 8 mg PO Q8HR PRN 07/12/19 07/12/19 History Allergies Allergy/AdvReac Type Severity Reaction Status Date / Time adhesive Allergy Rash/Hives Verified 07/12/19 09:55 Aminoglycosides Allergy Dyspnea Verified 07/12/19 09:55 amlodipine besylate Allergy Swelling Verified 07/12/19 09:55 [From Norvasc] levofloxacin [From Levaquin] Allergy Dyspnea Verified 07/12/19 09:55 Macrolide Antibiotics Allergy Dyspnea Verified 07/12/19 09:55 Quinolones Allergy Dyspnea Verified 07/12/19 09:55 sulfamethoxazole Allergy Dyspnea Verified 07/12/19 09:55 [From Bactrim] trimethoprim [From Bactrim] Allergy Dyspnea Verified 07/12/19 09:55 Physical Exam Vitals: Vital Signs Temp Pulse Pulse Resp BP BP Pulse Ox 07/12/19 13:05 80 07/12/19 12:55 80 07/12/19 09:15 84 07/12/19 09:05 80 07/12/19 07:00 98.4 F 84 17 154/74 96 07/12/19 02:10 92 18 151/98 95 07/12/19 00:02 96 07/11/19 23:50 96 07/11/19 23:17 18 07/11/19 23:03 98.1 F 92 18 161/94 97 Intake and Output 07/12/19 07/12/19 07/12/19 06:59 14:59 22:59 Intake Total 200 580 Balance 200 580 Intake: Intake, IV Titration 50 Amount cefTRIAXone 1 gm In 50 Sodium Chloride 0.9% 50 ml @ 100 mls/hr IVPB Q24H [facility] Rx#:[id number] Oral 150 580 Other: Voiding Method Toilet Toilet Toilet # Voids 1 2 Weight 100.698 kg GENERAL EXAM: Alert, very pleasant, 48-year-old white female, on room air, with a pulse ox of 96%, hemodynamically stable, no altered mentation, no shortness of breath, comfortable in no apparent distress. HEAD: Normocephalic/atraumatic. EYES: Normal reaction of pupils, equal size. Conjunctiva pink, sclera white. NOSE: Clear with pink turbinates. THROAT: No erythema or exudates. NECK: No masses, no JVD, no thyroid enlargement, no adenopathy. CHEST: No chest wall deformity. Symmetrical expansion. LUNGS: Equal air entry with bibasilar crackles, but no wheeze, rhonchi or dullness. CVS: Regular rate and rhythm, normal S1 and S2, no gallops, no murmurs, no rubs ABDOMEN: Soft, nontender. No hepatosplenomegaly, normal bowel sounds, no guarding or rigidity. EXTREMITIES: No clubbing, no edema, no cyanosis, 2+ pulses and upper and lower extremities. MUSCULOSKELETAL: Muscle strength and tone normal. SPINE: No scoliosis or deformity SKIN: No rashes CENTRAL NERVOUS SYSTEM: Alert and oriented -3. No focal deficits, tone is normal in all 4 extremities. PSYCHIATRIC: Alert and oriented -3. Appropriate affect. Intact judgment and insight. Results - Diagnostic Findings Chest x-ray: report reviewed, image reviewed Assessment and Plan Plan: Assessment: #1. Acute left upper and left lower lobe pneumonia, community acquired. Influenza screen was negative, CBC and CMP are still pending, no fever or chills, patient presented with symptoms of progressive shortness of breath and coughing after having upper respiratory infection #2. History of myasthenia gravis, status post thymectomy, maintained on CellCept, has been stable, patient follows at the [facility] #3. Previous history of pneumonia #4. Previous history of pulmonary embolism and DVT status post Ivan filter #5. Previous history of chronic kidney disease, with previous hemodialysis, which had improved and patient no longer requires hemodialysis #6. History of renal calculi #7. Hypertension #8. History of C. diff colitis #9. History of uterine fibroids status post LEEP surgery #10. History of morbid obesity status post gastric sleeve in 2013 #11. Anxiety #12. Never smoker Plan: Continue current antibiotic coverage, patient cannot take macrolide antibiotics, so Zithromax will be discontinued, continue with Rocephin, clinically she is stable, no altered mentation, no fever or chills, her blood work is still pending, influenza screen was negative, chest x-ray does show left upper and lower lobe pneumonia, she is maintaining stable oxygenation on room air, her home dose of CellCept and Mestinon have been reordered and continue. Continue breathing treatments. We'll repeat chest x-ray in the morning if it shows improvement and patient is improving may consider discharge home in the next 24 hours on outpatient course of Augmentin I performed a history & physical examination of the patient and discussed their management with my nurse practitioner, Alisia Guillen. I reviewed the nurse practitioner's note and agree with the documented findings and plan of care. Lung sounds are positive for basilar crackles. The findings and the impression was discussed with the patient. I attest to the documentation by the nurse practitioner. Time with Patient: Greater than 30
[2019-07-12 20:23] LABS: Glucose,Whole Blood 132 mg/dL (75-99)
[2019-07-12] MEDS ORDERED: DIAZEPAM 5 MG TAB PO SCH (21:00)
[2019-07-12] MEDS ORDERED: ZOLPIDEM 10 MG TAB PO SCH (21:00)
[2019-07-13] MEDS: SODIUM CHLORIDE 0.9% 1,000 ML IV SCH (00:16)
[2019-07-13] MEDS ORDERED: AZITHROMYCIN 500 MG TAB PO SCH (00:24)
[2019-07-13 01:52] VITALS: TEMP 98.2
[2019-07-13] MEDS: traMADol 50 MG TAB PO PRN (05:07)
[2019-07-13 07:24] LABS: Basophils % (A) 1 %; Eosinophils # (A) 0.1 k/uL (0-0.7); Eosinophils % (A) 3 %; HCT 42.2 % (34.0-46.0); HGB 12.9 gm/dL (11.4-16.0); Hypochromasia Slight; Lymphocytes % (A) 35 %; MCH 28.7 pg (25.0-35.0); MCHC 30.4 g/dL (31.0-37.0); MCV 94.3 fL (80.0-100.0); Mean Platelet Volume 8.3; Monocytes # (A) 0.2 k/uL (0-1.0); Monocytes % (A) 7 %; Neutrophils # (A) 1.6 k/uL (1.3-7.7); Neutrophils % (A) 53 %; Platelet Count 133 k/uL (150-450); RBC 4.48 m/uL (3.80-5.40); RDW 13.3 % (11.5-15.5); WBC 2.9 k/uL (3.8-10.6)
[2019-07-13 07:34] LABS: Albumin 3.4 g/dL (3.5-5.0); Calcium 8.7 mg/dL (8.4-10.2); Potassium 4.8 mmol/L (3.5-5.1); Total Bilirubin 0.1 mg/dL (0.2-1.3); Total Protein 6.4 g/dL (6.3-8.2)
[2019-07-13 07:44] VITALS: BP 121/80; RESP 17
[2019-07-13] MEDS: MYCOPHENOLATE MOFETIL 500 MG TAB PO SCH (07:44)
[2019-07-13] MEDS: PANTOPRAZOLE 40 MG TABLET PO SCH (07:44)
[2019-07-13] MEDS: LOPERAMIDE 2 MG CAP PO SCH ×2 (07:45→12:52)
[2019-07-13] MEDS: IBUPROFEN 800 MG TAB PO SCH (07:45)
[2019-07-13] MEDS: PYRIDOSTIGMINE 60 MG TAB PO SCH ×2 (07:45→12:51)
--- NOTE | 2019-07-13 08:09 | XR ---
EXAMINATION TYPE: XR chest 2V DATE OF EXAM: 07/13/2019 COMPARISON: Prior chest x-ray 07/11/2019 HISTORY: Pneumonia TECHNIQUE: Frontal and lateral views of the chest are obtained. FINDINGS: Airspace disease persists in the left upper lobe. Patient is post median sternotomy. No ev ident pneumothorax or pleural effusion. Cardiac mediastinal silhouette, pulmonary vascularity and hil a are stable. IMPRESSION: Similar findings to prior exam. Left upper lobe pneumonia.
[2019-07-13] MEDS: IPRATROPIUM-ALBUTEROL 3 ML NEB INHALATION SCH ×2 (08:51→12:05)
[2019-07-13 09:10] VITALS: PULSE 80
[2019-07-13] MEDS: ONDANSETRON 4 MG TAB PO PRN ×2 (09:13→12:52)
--- NOTE | 2019-07-13 09:17 | P.PN ---
Subjective Progress Note Date: 07/13/19 48-year-old white female patient of Dr. Be Washburn, with past medical history of myasthenia gravis maintained on CellCept, hypertension, nephrolithiasis, GERD, previous history of DVT/PE in 2010 status post [place] filter placement. Patient had her thymus removed in 1994, and she had a gastric sleeve surgery in 2012. She is a lifelong nonsmoker. She has been following at the [facility] in regards to her myasthenia gravis, she used to be on a combination of CellCept and cyclosporine however she is no longer on cyclosporine. She states her myasthenia gravis has been stable, she had last been seen at the [facility] last year in August. Today on O2 2019 patient presents to the hospital with complaints of increased shortness of breath, cough. She states that she started with cold symptoms several weeks ago, which gradually progressed to cough and chest congestion, denies any fever or chills, denies any chest pain, no nausea vomiting or diarrhea, denied any hemoptysis, or palpitations, no increased edema in lower extremities. Chest x-ray shows left upper lobe patchy airspace infiltrate and minimal left lower lobe patchy infiltrate in the right lung is relatively clear. Influenza A and B were negative, other blood work including CBC and comprehensive metabolic panel have been ordered by the attending physician but are pending at this time, she was empirically placed on azithromycin and Rocephin however patient is ALLERGIC to macrolide antibiotics, and Zithromax will be discontinued, room air pulse ox is 95%, hemodynamically she is stable, she is afebrile, she is awake and alert, no altered mentation. Lung sounds reveal diminished breath sounds and crackles at lower bases otherwise patient is clinically stable. On O2 2019 patient seen in follow-up on general medical floor, she states she still has coughing spells, she is not able to bring up any sputum, does have a congested cough. She was able to cannulate the halls, she is on room air, with a pulse ox of 95%, she is afebrile, she has not been able to produce a sputum specimen, hemodynamically she is stable, she is complaining of nasal drainage, sinus headache. She states with activity she starts coughing. Influenza screen was negative, patient is currently on Rocephin for antibiotic coverage, today's labs have been reviewed showing white blood cell count of 2.9, hemoglobin of 12.9, platelet count is 133, chloride is 116, B1 of 18, creatinine is 1.15. Blood cultures are negative at the 24-hour margarito. Objective - Vital Signs Vital signs: Vital Signs Temp 98.2 F 07/13/19 07:00 Pulse 80 07/13/19 09:10 Resp 17 07/13/19 07:00 BP 121/80 07/13/19 07:00 Pulse Ox 95 07/13/19 08:51 Intake & Output 07/12/19 07/13/19 07/13/19 18:59 06:59 18:59 Intake Total 580 480 Balance 580 480 Intake: Oral 580 480 Other: Voiding Method Toilet # Voids 2 2 - Exam GENERAL EXAM: Alert, very pleasant, 48-year-old white female, on room air, with a pulse ox of 96%, hemodynamically stable, no altered mentation, no shortness of breath, comfortable in no apparent distress. HEAD: Normocephalic/atraumatic. EYES: Normal reaction of pupils, equal size. Conjunctiva pink, sclera white. NOSE: Clear with pink turbinates. THROAT: No erythema or exudates. NECK: No masses, no JVD, no thyroid enlargement, no adenopathy. CHEST: No chest wall deformity. Symmetrical expansion. LUNGS: Equal air entry with coarse inspiratory crackles in the left upper lobe, but no wheeze, rhonchi or dullness. CVS: Regular rate and rhythm, normal S1 and S2, no gallops, no murmurs, no rubs ABDOMEN: Soft, nontender. No hepatosplenomegaly, normal bowel sounds, no guardi ng or rigidity. EXTREMITIES: No clubbing, no edema, no cyanosis, 2+ pulses and upper and lower extremities. MUSCULOSKELETAL: Muscle strength and tone normal. SPINE: No scoliosis or deformity SKIN: No rashes CENTRAL NERVOUS SYSTEM: Alert and oriented -3. No focal deficits, tone is normal in all 4 extremities. PSYCHIATRIC: Alert and oriented -3. Appropriate affect. Intact judgment and insight. - Labs CBC & Chem 7: 07/13/19 06:26 07/13/19 06:26 Labs: Abnormal Lab Results - Last 24 Hours (Table) 07/12/19 07/13/19 07/13/19 Range/Units 20:22 06:26 06:26 WBC 2.9 L (3.8-10.6) k/uL MCHC 30.4 L (31.0-37.0) g/dL Plt Count 133 L (150-450) k/uL Chloride 116 H (98-107) mmol/L BUN 18 H (7-17) mg/dL Creatinine 1.15 H (0.52-1.04) mg/dL Glucose 73 L (74-99) mg/dL POC Glucose (mg/dL) 132 H (75-99) mg/dL Total Bilirubin 0.1 L (0.2-1.3) mg/dL Albumin 3.4 L (3.5-5.0) g/dL Microbiology - Last 24 Hours (Table) 07/12/19 01:10 Blood Culture - Preliminary Blood No Growth after 24 hours Assessment and Plan Plan: Assessment: #1. Acute left upper and left lower lobe pneumonia, community acquired. Influenza screen was negative, CBC and CMP are still pending, no fever or c hills, patient presented with symptoms of progressive shortness of breath and coughing after having upper respiratory infection #2. History of myasthenia gravis, status post thymectomy, maintained on CellCept, has been stable, patient follows at the [facility] #3. Previous history of pneumonia #4. Previous history of pulmonary embolism and DVT status post [place] filter #5. Previous history of chronic kidney disease, with previous hemodialysis, which had improved and patient no longer requires hemodialysis #6. History of renal calculi #7. Hypertension #8. History of C. diff colitis #9. History of uterine fibroids status post LEEP surgery #10. History of morbid obesity status post gastric sleeve in 2013 #11. Anxiety #12. Never smoker #13. Neutropenia and thrombocytopenia related to acute left lung pneumonia, rule out sepsis Plan: We'll continue with current antibiotic coverage that includes Rocephin, will provide patient a flutter valve, continue breathing treatments, today's chest x- ray shows stable findings of left upper lobe pneumonia, patient is on room air, has a congested nonproductive cough, she has been afebrile. Continue with curren t medical treatment, repeat blood work in the morning. We'll continue to follow I performed a history & physical examination of the patient and discussed their management with my nurse practitioner, Alisia Guillen. I reviewed the nurse practitioner's note and agree with the documented findings and plan of care. Lung sounds are positive for basilar crackles. The findings and the impression was discussed with the patient. I attest to the documentation by the nurse practitioner. Time with Patient: Less than 30
--- NOTE | 2019-07-13 11:45 | P.PN ---
Subjective Patient had a bad stated she has been up ambulating down the hallway reports cough with sputum production she reports she is looking for to going home soon pulmonology consult this morning recommendation of 1 more night stay recommendation for Augmentin upon discharge for home. Objective - Vital Signs Vital signs: Vital Signs Temp 98.2 F 07/13/19 07:00 Pulse 80 07/13/19 09:10 Resp 17 07/13/19 07:00 BP 121/80 07/13/19 07:00 Pulse Ox 95 07/13/19 08:51 Intake & Output 07/12/19 07/13/19 07/13/19 18:59 06:59 18:59 Intake Total 580 480 Balance 580 480 Intake: Oral 580 480 Other: Voiding Method Toilet Toilet # Voids 2 2 - Constitutional General appearance: Present: mild distress - EENT Eyes: Present: PERRLA - Neck Neck: Present: normal ROM - Respiratory Respiratory: bilateral: diminished, rales (faint crackles at bases) - Cardiovascular Rhythm: regular Heart sounds: normal: S1, S2 - Gastrointestinal General gastrointestinal: Present: normal bowel sounds, soft - Integumentary Integumentary: Present: normal - Neurologic Neurologic: Present: CNII-XII intact - Psychiatric Psychiatric: Present: A&O x's 3, appropriate affect, intact judgment & insight - Labs CBC & Chem 7: 07/13/19 06:26 07/13/19 06:26 Labs: Abnormal Lab Results - Last 24 Hours (Table) 07/12/19 07/13/19 07/13/19 Range/Units 20:22 06:26 06:26 WBC 2.9 L (3.8-10.6) k/uL MCHC 30.4 L (31.0-37.0) g/dL Plt Count 133 L (150-450) k/uL Chloride 116 H (98-107) mmol/L BUN 18 H (7-17) mg/dL Creatinine 1.15 H (0.52-1.04) mg/dL Glucose 73 L (74-99) mg/dL POC Glucose (mg/dL) 132 H (75-99) mg/dL Total Bilirubin 0.1 L (0.2-1.3) mg/dL Albumin 3.4 L (3.5-5.0) g/dL Microbiology - Last 24 Hours (Table) 07/12/19 01:10 Blood Culture - Preliminary Blood No Growth after 24 hours - Imaging and Cardiology Chest x-ray: report reviewed Assessment and Plan Plan: Assessment: Pneumonia left upper lobe community-acquired History of DVT remote History of GERD acid reflux History of hypertension History of pulmonary embolism remote with a [place] filter History of myasthenia gravis treated through [facility] Plan: Continue IV antibiotics Rocephin 1 g daily Continue pulmonology consultation Discharge home tomorrow with Augmentin per pulmonology recommendation
--- NOTE | 2019-07-13 15:38 | P.DS ---
Providers Date of admission: 07/12/19 00:23 Expected date of discharge: 07/13/19 Attending physician: Be Washburn Consults: 07/12/19 11:42 Consult Physician Urgent Consulting Provider: Lamar Bobby Consult Reason/Comments: pneumonia Do you want consulting provider notified?: Yes Primary care physician: Be Washburn Hospital Course: Patient came in with cough, was admitted with pneumonia, consultation with Pulmonolgy, recommended discharge home with Augmentin Assessment: Assessment: Pneumonia left upper lobe community-acquired History of DVT remote History of GERD acid reflux History of hypertension History of pulmonary embolism remote with a [place] filter History of myasthenia gravis treated through [facility] Plan: Discharge home with Augmentin per pulmonology recommendation Follow up with Dr. Washburn in 2-3 days Plan - Discharge Summary Discharge Rx Participant: Yes New Discharge Prescriptions: New Amoxic-Pot Clav 875-125Mg [Augmentin 875-125] 1 tab PO Q12HR 10 Days #20 tab Continue Zolpidem [Ambien] 10 mg PO HS Diazepam [Valium] 5 mg PO HS PRN PRN Reason: Anxiety traMADol HCL [Ultram] 50 mg PO TID PRN PRN Reason: Pain Meclizine [Antivert] 25 mg PO TID PRN PRN Reason: DIZZINESS Loperamide [Imodium] 2 mg PO QID Pyridostigmine [place] [Mestinon] 90 mg PO QID Mycophenolate Mofetil [Cellcept] 1,000 mg PO BID Multivitamins, Thera [Multivitamin (formulary)] 1 tab PO BID Omeprazole [PriLOSEC] 40 mg PO DAILY@1200 Ibuprofen [Motrin] 800 mg PO TID PRN PRN Reason: Pain Ondansetron Odt [Zofran ODT] 8 mg PO Q8HR PRN PRN Reason: Nausea Discharge Medication List Diazepam [Valium] 5 mg PO HS PRN 06/12/16 [History] Zolpidem [Ambien] 10 mg PO HS 06/12/16 [History] Loperamide [Imodium] 2 mg PO QID 07/26/17 [History] Meclizine [Antivert] 25 mg PO TID PRN 07/26/17 [History] traMADol HCL [Ultram] 50 mg PO TID PRN 07/26/17 [History] Mycophenolate Mofetil [Cellcept] 1,000 mg PO BID 10/03/18 [History] Pyridostigmine [place] [Mestinon] 90 mg PO QID 10/03/18 [History] Ibuprofen [Motrin] 800 mg PO TID PRN 07/12/19 [History] Multivitamins, Thera [Multivitamin (formulary)] 1 tab PO BID 07/12/19 [History] Omeprazole [PriLOSEC] 40 mg PO DAILY@1200 07/12/19 [History] Ondansetron Odt [Zofran ODT] 8 mg PO Q8HR PRN 07/12/19 [History] Amoxic-Pot Clav 875-125Mg [Augmentin 875-125] 1 tab PO Q12HR 10 Days #20 tab 07/13/19 [Rx] Follow up Appointment(s)/Referral(s): Be Washburn MD [Primary Care Provider] - 1-2 days
== END 2019-07-13 16:08 | disposition home or self-care (01) | DRG 195 ==
LOC: EC 23:01 → 4SSUR 07-12 00:23
PROVIDERS: ADMIT Family Medicine; ATTEND Family Medicine
DX: J18.9 Pneumonia, unspecified organism (principal); G70.00 Myasthenia gravis without (acute) exacerbation; D70.9 Neutropenia, unspecified; D69.59 Other secondary thrombocytopenia; I10 Essential (primary) hypertension; F41.9 Anxiety disorder, unspecified; K21.9 Gastro-esophageal reflux disease without esophagitis; E66.9 Obesity, unspecified; Z68.38 Body mass index [BMI] 38.0-38.9, adult; Z79.899 Other long term (current) drug therapy; Z87.01 Personal history of pneumonia (recurrent); Z87.19 Personal history of other diseases of the digestive system; Z87.442 Personal history of urinary calculi; Z86.19 Personal history of other infectious and parasitic diseases; Z98.891 History of uterine scar from previous surgery; Z90.49 Acquired absence of other specified parts of digestive tract; Z86.711 Personal history of pulmonary embolism; Z86.718 Personal history of other venous thrombosis and embolism; Z95.828 Presence of other vascular implants and grafts; Z98.890 Other specified postprocedural states; Z90.89 Acquired absence of other organs; Z98.41 Cataract extraction status, right eye; Z98.84 Bariatric surgery status; Z88.1 Allergy status to other antibiotic agents; Z88.2 Allergy status to sulfonamides; Z88.8 Allergy status to other drugs, medicaments and biological substances; Z91.048 Other nonmedicinal substance allergy status
CPT/HCPCS: 71046; 80053; 85025; 87040; 87502; 94640; 94760; 99285

== ENCOUNTER 2019-12-12 07:51 | Day surgery (SDC) | payer MEDICARE ==
[2019-12-07 14:19] VITALS: BMI 38.8
[~2019-12-12 07:51] MED LIST changes: -DEXAMETHASONE SOD PHOSPHATE 10 MG/ML 1 ML VIAL IV ONE; +LIDOCAINE 1% (10MG/ML) FOR IV START INTRADERMA PRN; -ONDANSETRON 4 MG/2 ML VIAL IVP ONE
[2019-12-12 08:23] VITALS: TEMP 95.5
[2019-12-12] MEDS ORDERED: ONDANSETRON 4 MG/2 ML VIAL ONE (08:30)
[2019-12-12] MEDS ORDERED: LIDOCAINE 1% INJ 10MG/ML (20 ML MDV) ONE (09:01)
[2019-12-12] MEDS ORDERED: PROPOFOL 10 MG/ML 20 ML VIAL IV ONE (09:01)
[2019-12-12] MEDS ORDERED: MIDAZOLAM 2 MG/2 ML VIAL ONE (09:01)
[2019-12-12] MEDS ORDERED: fentaNYL (PF) 50 MCG/ML 2 ML AMP ONE (09:01)
--- NOTE | 2019-12-12 09:37 | P.PCN ---
Date of Procedure: 12/12/19 Description of Procedure: BRIEF HISTORY: Patient is a 49-year-old female presenting for outpatient colonoscopy for evaluation of diarrhea. Patient reports long-standing chronic diarrhea. She has 3 bowel movements daily generally lucent urgency. She'll has associated sharp and cramping lower abdominal pain. Symptoms are worse after eating. She does use loperamide as needed for loose stool. PROCEDURE PERFORMED: Colonoscopy with biopsy. PREOPERATIVE DIAGNOSIS: Diarrhea, abdominal pain. ESTIMATED BLOOD LOSS: Minimal. IV sedation per Anesthesia. PROCEDURE: After informed consent was obtained, the patient, was brought into the endoscopy unit. IV sedation was administered by Anesthesia under continuous monitoring. Digital rectal examination was normal. Initially the Olympus CF-190 flexible video colonoscope was then inserted in the rectum, gradually advanced into the cecum without any difficulty. Careful examination was performed as the scope was gradually being withdrawn. Ileocecal valve and the appendiceal orifice were visualized and appeared normal. The terminal ileum was intubated and also appeared normal, with biopsies taken.. Prep was excellent. Mucosa of the cecum, ascending colon, transverse colon, descending colon, sigmoid colon, and rectum appeared normal, with random biopsies taken of the right and left colon in the setting of diarrhea. The patient had multiple small and large mouth diverticula in the left colon with associated diverticular stricture. The scope was withdrawn through the rectum with no lesions noted. IMPRESSION: Moderate left colonic diverticulosis with associated sigmoid stricture in the setting of diverticulosis (will likely need pediatric scope on next colonoscopy). Otherwise normal-appearing colon from rectum to cecum with normal-appearing terminal ileum and random biopsies taken of the terminal ileum, right colon and left colon. RECOMMENDATIONS: Findings of this examination were discussed with the patient and her boyfriend. Okay for diet. Okay to resume medications. With pathology from biopsies. Follow up in gastroenterology clinic as previously scheduled. Patient should undergo screening colonoscopy in 10 years, or sooner if symptoms which warrant further evaluation develop (will likely need pediatric scope at that time.
[2019-12-12 10:00] VITALS: BP 138/91; PULSE 81; RESP 20
== END 2019-12-12 10:50 | disposition home or self-care (01) ==
LOC: ORWHC2ENDO 07:51
PROVIDERS: ATTEND Internal Medicine
DX: K52.9 Noninfective gastroenteritis and colitis, unspecified (principal); K57.30 Diverticulosis of large intestine without perforation or abscess without bleeding; I10 Essential (primary) hypertension; G47.33 Obstructive sleep apnea (adult) (pediatric); F41.9 Anxiety disorder, unspecified; G70.00 Myasthenia gravis without (acute) exacerbation; Z87.442 Personal history of urinary calculi; Z88.1 Allergy status to other antibiotic agents; Z88.2 Allergy status to sulfonamides; Z88.8 Allergy status to other drugs, medicaments and biological substances; Z91.048 Other nonmedicinal substance allergy status; Z79.3 Long term (current) use of hormonal contraceptives; Z79.899 Other long term (current) drug therapy; Z98.84 Bariatric surgery status; Z90.49 Acquired absence of other specified parts of digestive tract; Z90.89 Acquired absence of other organs; Z98.890 Other specified postprocedural states
CPT/HCPCS: 81025; 88305; 45380; J2250; J2405; J2001; J3010; J2704

== ENCOUNTER → 2020-03-05 | Outpatient (CLI) | payer MEDICARE ==
--- NOTE | 2020-03-06 07:44 | CT ---
EXAMINATION TYPE: CT angio chest DATE OF EXAM: 03/05/2020 4:54 PM COMPARISON: CT chest December 23, 2010 HISTORY: Thoracic aortic ectasia CT DLP: 875.8 mGycm Automated exposure control for dose reduction was used. CONTRAST: CTA scan of the thorax is performed without and with IV Contrast, patient injected with 100 mL of Iso mynor 370, pulmonary embolism protocol. 3D reconstructed images are created on an independent workstat ion and reviewed.. FINDINGS: LUNGS: New patchy irregular consolidation and groundglass opacity in the right middle lobe near axial image 27. Left lung is clear. There is no pleural effusion or pneumothorax seen. The tracheobronchi al tree is patent. MEDIASTINUM: Noncontrast images show no suspicious hyperdensity to suggest intramural hematoma. There is satisfactory opacification of the central pulmonary arteries. Ascending aorta measures up to 3.7 cm in diameter sagittal image 20. There is bovine type arch which is normal variant. Some tortuosity to the ascending aorta without aneurysm. No dissection is evident. New right hilar adenopathy seen be st on axial image 26 series 6 measuring 1.4 x 1.2 cm. No pericardial effusion is seen. No cardiomeg allie. Mild/moderate left ventricular dilatation. OTHER: Evidence of gastric sleeve surgery with small sized hiatal hernia similar to 2019 abdominal C T. Cholecystectomy clips are redemonstrated. There is extrahepatic biliary dilatation up to 20 mm davis l image 42 with mild to moderate central intrahepatic biliary dilatation. This is similar to October 03, [address] Consider follow-up based on clinical and lab correlation. Possible 1.8 cm nonsimple cyst exophytic upper pole right kidney axial image 56 perhaps was identifie d on abdominal CT in retrospect is partially imaged and may be more prominent. Follow-up advised. IMPRESSION: 1. Ectasia of the ascending aorta up to 3.7 cm in diameter. 2. Suspicion for right middle lobe acute pneumonic infiltrate with reactive right hilar adenopathy. C orrelate clinically. 3. Possible nonsimple cyst or solid mass exophytically upper pole right kidney. Follow-up advised. Re nal protocol contrast-enhanced CT or MRI recommended to further assess. A Yellow level critical message alert has been initiated for Be Washburn MD via the [employer] Critical Results System on 03/06/2020 7:41 AM. This message alert has been sent to eB Washburn MD via the preferences provided by the clinician for the receipt of Radiology Critical Findings. [facility] [id number].
== END | disposition home or self-care (01) ==
LOC: RADCTMAIN 15:48
PROVIDERS: ATTEND Family Medicine
DX: I77.810 Thoracic aortic ectasia (principal)
CPT/HCPCS: 71275; Q9967

== ENCOUNTER 2020-06-15 16:43 | Emergency (ER) | payer MEDICARE ==
[2020-06-15] MEDS ORDERED: LIDOCAINE 1% INJ 10MG/ML (20 ML MDV) SQ ONE (17:10)
--- NOTE | 2020-06-15 17:49 | ED ---
General Adult HPI - General Chief complaint: Wound/Laceration Stated complaint: Finger Lac Time Seen by Provider: 06/15/20 16:52 Source: patient, RN notes reviewed Mode of arrival: ambulatory Limitations: no limitations - History of Present Illness Initial comments: 49-year-old female with a past medical history of DVT, GERD, hypertension, myasthenia gravis presents to the emergency room for a chief complaint of laceration to the right thumb. Patient has a laceration noted to the tip of the right thumb that occurred prior to arrival. Patient was at [facility] when she was using a pocket knife to cut something and she cut her finger. Tetanus up-to-date within the past 5 years. Patient denies any difficulty moving the finger. Denies any other injuries.Patient has no other complaints at this time including shortness of breath, chest pain, abdominal pain, nausea or vomiting, headache, or visual changes. - Related Data Home Medications Medication Instructions Recorded Confirmed diazePAM [Valium] 5 mg PO HS PRN 06/12/16 12/12/19 Loperamide [Imodium] 2 mg PO AC-LUNCH 07/26/17 12/12/19 Meclizine [Antivert] 25 mg PO HS 07/26/17 12/12/19 Pyridostigmine [place] [Mestinon] 90 mg PO QID 10/03/18 12/12/19 mycophenolate mofetiL [Cellcept] 1,000 mg PO BID 10/03/18 12/12/19 Multivitamins, Thera [Multivitamin 1 tab PO DAILY 07/12/19 12/12/19 (formulary)] Omeprazole [PriLOSEC] 40 mg PO DAILY@1200 07/12/19 12/12/19 Ondansetron Odt [Zofran ODT] 8 mg PO Q8HR PRN 07/12/19 12/12/19 Medroxyprogesterone Acetate 150 mg IM Q90D 12/07/19 12/12/19 [Depo-Provera] traZODone HCL [Trazodone HCl] 100 mg PO HS 12/07/19 12/12/19 Allergies Allergy/AdvReac Type Severity Reaction Status Date / Time adhesive Allergy Rash/Hives Verified 06/15/20 16:49 Aminoglycosides Allergy Dyspnea Verified 06/15/20 16:49 amlodipine besylate Allergy Swelling Verified 06/15/20 16:49 [From Norvasc] levofloxacin [From Levaquin] Allergy Dyspnea Verified 06/15/20 16:49 Macrolide Antibiotics Allergy Dyspnea Verified 06/15/20 16:49 Quinolones Allergy Dyspnea Verified 06/15/20 16:49 sulfamethoxazole Allergy Dyspnea Verified 06/15/20 16:49 [From Bactrim] trimethoprim [From Bactrim] Allergy Dyspnea Verified 06/15/20 16:49 FLUORINOQUINOLINES Allergy Unknown Uncoded 06/15/20 16:50 Review of Systems ROS Statement: Those systems with pertinent positive or pertinent negative responses have been documented in the HPI. ROS Other: All systems not noted in ROS Statement are negative. Past Medical History Past Medical History: Deep Vein Thrombosis (DVT), GERD/Reflux, Hypertension, Pneumonia, Pulmonary Embolus (PE) Additional Past Medical History / Comment(s): ivan filter, kidney stones, myasthenia gravis, vertigo, hypoglycemia, hx renal problems with dialysis 1 yr ago- now resolved per pt, c-diff 2012, septicemia 2016, diverticulitis. History of Any Multi-Drug Resistant Organisms: C-DIFF Date of last positivie culture/infection: 2012 MDRO Source:: stool Past Surgical History: Bariatric Surgery, Section, Cholecystectomy, Hernia Repair, Tonsillectomy Additional Past Surgical History / Comment(s): thymus removed , LEEP.Umbilical hernia. GASTRIC SLEEVE 2012, uterine fibroid biopsy, hiatal hernia repair, rt cataract, [place] filter, ports x 2/later removed Past Anesthesia/Blood Transfusion Reactions: Motion Sickness Past Psychological History: Anxiety Smoking Status: Never smoker Past Alcohol Use History: None Reported Past Drug Use History: None Reported - Past Family History Mother Family Medical History: No Reported History General Exam Limitations: no limitations General appearance: alert Head exam: Present: atraumatic Eye exam: Present: normal appearance, PERRL, EOMI. Absent: scleral icterus ENT exam: Present: normal exam, mucous membranes moist Neck exam: Present: normal inspection, full ROM. Absent: tenderness Respiratory exam: Present: normal lung sounds bilaterally. Absent: respiratory distress, wheezes Cardiovascular Exam: Present: regular rate, normal rhythm, normal heart sounds Extremities exam: Present: other (1.5 cm laceration to the distal tip of the right thumb.) Course Vital Signs 06/15/20 16:46 Temperature 98.5 F Pulse Rate 58 L Respiratory 16 Rate Blood Pressure 179/108 O2 Sat by Pulse 97 Oximetry Procedures - Laceration Laceration #1 Consent Obtained: verbal consent Indication: laceration Site: hand Size (cm): 2 Description: linear Depth: simple, single layer Anesthetic Used: lidocaine 1% Anesthesia Technique: nerve block Amount (mls): 4 Pre-repair: wound explored, irrigated extensively, deep structures intact Type of Sutures: nylon Size of Sutures: 5-0 Number of Sutures: 3 Technique: simple, interrupted Patient Tolerated Procedure: well, no complications Medical Decision Making - Medical Decision Making Area was cleaned. Sutures were applied. Wound well approximated. Patient was hypertensive likely secondary to anxiety from injury. Discussed monitoring for signs of infection and care parameters her discuss follow-up with her doctor. She'll return in 10 days for suture removal. Disposition Clinical Impression: Laceration Disposition: HOME SELF-CARE Instructions (If sedation given, give patient instructions): Care For Your Stitches (ED), Laceration (ED) Additional Instructions: Please keep the area clean. Monitor for signs of infection such as spreading or streaking redness, drainage, or fever and return if these occur. Return if you have any other worsening symptoms. Otherwise return in 10 days for suture removal. Is patient prescribed a controlled substance at d/c from ED?: No Referrals: Be Washburn MD [Primary Care Provider] - 1-2 days Time of Disposition: 17:48
[2020-06-15 18:06] VITALS: BP 156/98; PULSE 71; RESP 18; TEMP 97.9
== END 2020-06-15 18:05 | disposition home or self-care (01) ==
LOC: EC 16:43
DX: S61.011A Laceration without foreign body of right thumb without damage to nail, initial encounter (principal); I10 Essential (primary) hypertension; K21.9 Gastro-esophageal reflux disease without esophagitis; G70.00 Myasthenia gravis without (acute) exacerbation; Z79.899 Other long term (current) drug therapy; Z91.048 Other nonmedicinal substance allergy status; Z88.8 Allergy status to other drugs, medicaments and biological substances; Z88.1 Allergy status to other antibiotic agents; Z88.2 Allergy status to sulfonamides; Z98.84 Bariatric surgery status; Z86.718 Personal history of other venous thrombosis and embolism; Z86.711 Personal history of pulmonary embolism; Z99.2 Dependence on renal dialysis; W26.0XXA Contact with knife, initial encounter
CPT/HCPCS: 99282; 12001; J2001

== ENCOUNTER → 2020-06-18 | Outpatient (CLI) | payer MEDICARE ==
--- NOTE | 2020-06-21 13:15 | MM ---
Reason for exam: screening (asymptomatic). Last mammogram was performed 1 year and 9 months ago. History: Taking hormonal contraceptives beginning at age 31. Physical Findings: A clinical breast exam by your physician is recommended on an annual basis and results should be correlated with mammographic findings. MG 3D Screening Mammo W/Cad Bilateral CC and MLO view(s) were taken. Prior study comparison: September 19, 2018, bilateral MG 3d screening mammo w/cad. January 06, 2018, left breast MG 3d diag mammo w/cad LT. The breast tissue is heterogeneously dense. This may lower the sensitivity of mammography. No significant changes when compared with prior studies. ASSESSMENT: Benign, BI-RAD 2 RECOMMENDATION: Routine screening mammogram of both breasts in 1 year.
== END | disposition home or self-care (01) ==
LOC: RADMAMWWP 15:29
PROVIDERS: ATTEND Family Medicine
DX: Z12.31 Encounter for screening mammogram for malignant neoplasm of breast (principal)
CPT/HCPCS: 77063; 77067

== ENCOUNTER → 2020-07-03 | Outpatient (CLI) | payer MEDICARE ==
--- NOTE | 2020-07-03 16:31 | US ---
EXAMINATION TYPE: US venous doppler duplex LE RT DATE OF EXAM: 07/03/2020 3:49 PM COMPARISON: NONE CLINICAL HISTORY: M79.650 pain right leg. SIDE PERFORMED: right TECHNIQUE: The lower extremity deep venous system is examined utilizing real time linear array sonog micah with graded compression, doppler sonography and color-flow sonography. VESSELS IMAGED: Common Femoral Vein Deep Femoral Vein Greater Saphenous Vein * Femoral Vein Popliteal Vein Small Saphenous Vein * Proximal Calf Veins (* superficial vessels) Right Leg: Appears negative for DVT. Area of redness scanned, no superficial clot seen at this area. IMPRESSION: 1. Right lower extremity ultrasound negative for deep venous thrombosis.
== END | disposition home or self-care (01) ==
LOC: RADUSWWP 15:47
PROVIDERS: ATTEND Family Medicine
DX: M79.604 Pain in right leg (principal)

== ENCOUNTER 2020-07-29 09:53 | Emergency (ER) | payer MEDICARE ==
[2020-07-29 10:02] VITALS: RESP 18
--- NOTE | 2020-07-29 10:58 | ED ---
Skin/Abscess/FB HPI - General Source: patient, RN notes reviewed Mode of arrival: ambulatory Limitations: no limitations - History of Present Illness MD complaint: other (cellulitis , area of induration) Location: RLE (approx 6cm x 3.5cm induration) Severity scale (1-10): 10 Consistency: constant Improves with: none Worsens with: palpation Context: recent antibiotic (states seen a couple lesions which have resolved, area of dry skin noted where lesions were) Associated symptoms: denies other symptoms Treatments Prior to Arrival: antibiotic (taking keflex qid) <Ari Goel - Last Filed: 07/29/20 12:25> <Delisa Phillips - Last Filed: 07/30/20 23:03> - General Chief complaint: Skin/Abscess/Foreign Body Stated complaint: leg swelling/pain Time Seen by Provider: 07/29/20 10:29 - History of Present Illness Initial comments: 49-year-old white female patient presents to the emergency room with right calf pain and redness with 6cm x 3.5cm area of induration. Patient states seen Dr. Washburn and was prescribed Keflex for 10 days and is on day 3, but states has not gotten better. Patient states started with 3 lesions which have now healed. She denies any symptoms of nausea, vomiting, diarrhea, fever or chills associated with leg pain. Patient denies trauma. Patient with a history of DVT, hypertension, PE, kidney stones, myasthenia gravis, C. diff, and diverticulitis. Patient afebrile with a temp of 98 4, tachycardic at 116 with 10 out of 10 pain. Patient denies any drainage from site. (Ari Goel) - Related Data Home Medications Medication Instructions Recorded Confirmed diazePAM [Valium] 5 mg PO HS PRN 06/12/16 12/12/19 Loperamide [Imodium] 2 mg PO AC-LUNCH 07/26/17 12/12/19 Meclizine [Antivert] 25 mg PO HS 07/26/17 12/12/19 Pyridostigmine [place] [Mestinon] 90 mg PO QID 10/03/18 12/12/19 mycophenolate mofetiL [Cellcept] 1,000 mg PO BID 10/03/18 12/12/19 Multivitamins, Thera [Multivitamin 1 tab PO DAILY 07/12/19 12/12/19 (formulary)] Omeprazole [PriLOSEC] 40 mg PO DAILY@1200 07/12/19 12/12/19 Ondansetron Odt [Zofran ODT] 8 mg PO Q8HR PRN 07/12/19 12/12/19 Medroxyprogesterone Acetate 150 mg IM Q90D 12/07/19 12/12/19 [Depo-Provera] traZODone HCL [Trazodone HCl] 100 mg PO HS 12/07/19 12/12/19 Previous Rx's Medication Instructions Recorded Clindamycin [Cleocin] 450 mg PO Q8HR 10 Days #30 cap 07/29/20 Allergies Allergy/AdvReac Type Severity Reaction Status Date / Time adhesive Allergy Rash/Hives Verified 06/15/20 16:49 Aminoglycosides Allergy Dyspnea Verified 06/15/20 16:49 amlodipine besylate Allergy Swelling Verified 06/15/20 16:49 [From Norvasc] levofloxacin [From Levaquin] Allergy Dyspnea Verified 06/15/20 16:49 Macrolide Antibiotics Allergy Dyspnea Verified 06/15/20 16:49 Quinolones Allergy Dyspnea Verified 06/15/20 16:49 sulfamethoxazole Allergy Dyspnea Verified 06/15/20 16:49 [From Bactrim] trimethoprim [From Bactrim] Allergy Dyspnea Verified 06/15/20 16:49 FLUORINOQUINOLINES Allergy Unknown Uncoded 06/15/20 16:50 Review of Systems ROS Other: All systems not noted in ROS Statement are negative. <Ari Goel - Last Filed: 07/29/20 12:25> ROS Other: All systems not noted in ROS Statement are negative. <Delisa Phillips - Last Filed: 07/30/20 23:03> ROS Statement: Those systems with pertinent positive or pertinent negative responses have been documented in the HPI. Past Medical History Past Medical History: Deep Vein Thrombosis (DVT), GERD/Reflux, Hypertension, Pneumonia, Pulmonary Embolus (PE) Additional Past Medical History / Comment(s): ivan filter, kidney stones, myasthenia gravis, vertigo, hypoglycemia, hx renal problems with dialysis 1 yr ago- now resolved per pt, c-diff 2012, septicemia 2017, diverticulitis. History of Any Multi-Drug Resistant Organisms: C-DIFF Date of last positivie culture/infection: 2012 MDRO Source:: stool Past Surgical History: Ablation, Bariatric Surgery, Section, Cholecystectomy, Hernia Repair, Tonsillectomy Additional Past Surgical History / Comment(s): thymus removed , LEEP.Umbilical hernia. GASTRIC SLEEVE 2012, uterine fibroid biopsy, hiatal hernia repair, rt cataract, ivan filter, ports x 2/later removed Past Anesthesia/Blood Transfusion Reactions: Motion Sickness Past Psychological History: Anxiety Smoking Status: Never smoker Past Alcohol Use History: None Reported Past Drug Use History: None Reported - Past Family History Mother Family Medical History: No Reported History <Ari Goel - Last Filed: 07/29/20 12:25> General Exam Limitations: no limitations General appearance: alert, in no apparent distress Head exam: Present: atraumatic, normocephalic, normal inspection Eye exam: Present: other (ecchymosis , purple, yellow and green to right eye. States fell on 07/15 in bathroom after having an episode of diarrhea from IBS) Neck exam: Present: normal inspection. Absent: tenderness, meningismus, lymphadenopathy Respiratory exam: Present: normal lung sounds bilaterally. Absent: respiratory distress, wheezes, rales, rhonchi, stridor Cardiovascular Exam: Present: tachycardia GI/Abdominal exam: Present: soft, normal bowel sounds. Absent: distended, tenderness, guarding, rebound, rigid Right Lower Leg exam: Present: tenderness, swelling, erythema (area of induration 6cm x 3.5cm) Ankle exam: Present: normal inspection, full ROM. Absent: swelling, ecchymosis, erythema Foot/Toe exam: Present: normal inspection (calleous medial side of great toe) Neurovascular tendon exam: Present: no vascular compromise. Absent: pulse deficit, abnormal cap refill, extremity cold to touch, pallor Neurological exam: Present: alert, oriented X3, CN II-XII intact, normal gait Psychiatric exam: Present: normal affect, normal mood Skin exam: Present: warm, dry, intact, normal color. Absent: rash <Ari Goel - Last Filed: 07/29/20 12:25> Course Vital Signs 07/29/20 07/29/20 09:59 11:17 Temperature 98.4 F 98.1 F Pulse Rate 116 H 102 H Respiratory 18 18 Rate Blood Pressure 159/96 148/88 O2 Sat by Pulse 94 L 95 Oximetry Medical Decision Making - Lab Data Result diagrams: 07/29/20 11:05 07/29/20 11:05 <Ari Goel - Last Filed: 07/29/20 12:25> - Lab Data Result diagrams: 07/29/20 11:05 07/29/20 11:05 <Delisa Phillips - Last Filed: 07/30/20 23:03> - Medical Decision Making Patient states was seen at Dr. Washburn's office and placed on Keflex for c ellulitis of the right calf. Patient states has been on antibiotics for 3 days and still has 7 days to go. Pt states that although the lesions have healed, swelling and tenderness remains. WBC count is 9.8, patient afebrile with no systemic s/s of infectino. Pt willing to go home with an additional antibiotic of clindamycin 450 mg 3 times a day with follow-up by Dr. Washburn before Wednesday this week. (Ari Goel) I was available for consultation in the emergency department. The history and physical exam were done by the midlevel provider. I was consulted for this patients care. I reviewed the case with the midlevel provider and based on their presentation of the patient, I agree with the assessment, medical decision making and plan of care as documented. Chart was dictated using [employer] dictation software. Attempts were made to correct any dictation errors however some typographical errors may persist. (Delisa Phillips) - Lab Data Lab Results 07/29/20 07/29/20 Range/Units 11:05 11:05 WBC 9.8 (3.8-10.6) k/uL RBC 4.84 (3.80-5.40) m/uL Hgb 13.3 (11.4-16.0) gm/dL Hct 42.4 (34.0-46.0) % MCV 87.7 (80.0-100.0) fL MCH 27.6 (25.0-35.0) pg MCHC 31.4 (31.0-37.0) g/dL RDW 14.0 (11.5-15.5) % Plt Count 209 (150-450) k/uL MPV 7.7 Neutrophils % 75 % Lymphocytes % 17 % Monocytes % 5 % Eosinophils % 2 % Basophils % 1 % Neutrophils # 7.4 (1.3-7.7) k/uL Lymphocytes # 1.7 (1.0-4.8) k/uL Monocytes # 0.5 (0-1.0) k/uL Eosinophils # 0.2 (0-0.7) k/uL Basophils # 0.1 (0-0.2) k/uL Sodium 139 (137-145) mmol/L Potassium 4.2 (3.5-5.1) mmol/L Chloride 114 H (98-107) mmol/L Carbon Dioxide 25 (22-30) mmol/L Anion Gap 0 mmol/L BUN 14 (7-17) mg/dL Creatinine 1.08 H (0.52-1.04) mg/dL Est GFR (CKD-EPI)AfAm 70 (>60 ml/min/1.73 sqM) Est GFR (CKD-EPI)NonAf 61 (>60 ml/min/1.73 sqM) Glucose 77 (74-99) mg/dL Calcium 9.6 (8.4-10.2) mg/dL Disposition Is patient prescribed a controlled substance at d/c from ED?: No Time of Disposition: 12:31 <Ari Goel - Last Filed: 07/29/20 12:25> <Delisa Phillips - Last Filed: 07/30/20 23:03> Clinical Impression: Cellulitis Disposition: HOME SELF-CARE Condition: Good Additional Instructions: Take clindamycin 3 times a day in addition to Keflex as previously prescribed by your doctor. Please follow-up with your doctor before Wednesday this week. Prescriptions: Clindamycin [Cleocin] 450 mg PO Q8HR 10 Days #30 cap Referrals: Be Washburn MD [Primary Care Provider] - 1-2 days
[2020-07-29 11:18] VITALS: BP 148/88; PULSE 102; TEMP 98.1
[2020-07-29 11:23] LABS: Basophils # (A) 0.1 k/uL (0-0.2); Basophils % (A) 1 %; Eosinophils # (A) 0.2 k/uL (0-0.7); Eosinophils % (A) 2 %; HCT 42.4 % (34.0-46.0); HGB 13.3 gm/dL (11.4-16.0); Lymphocytes # (A) 1.7 k/uL (1.0-4.8); Lymphocytes % (A) 17 %; MCH 27.6 pg (25.0-35.0); MCHC 31.4 g/dL (31.0-37.0); MCV 87.7 fL (80.0-100.0); Mean Platelet Volume 7.7; Monocytes # (A) 0.5 k/uL (0-1.0); Monocytes % (A) 5 %; Neutrophils # (A) 7.4 k/uL (1.3-7.7); Neutrophils % (A) 75 %; Platelet Count 209 k/uL (150-450); RBC 4.84 m/uL (3.80-5.40); WBC 9.8 k/uL (3.8-10.6)
[2020-07-29 11:38] LABS: Calcium 9.6 mg/dL (8.4-10.2); Potassium 4.2 mmol/L (3.5-5.1)
== END 2020-07-29 12:56 | disposition home or self-care (01) ==
LOC: EC 09:53
DX: L03.115 Cellulitis of right lower limb (principal); I10 Essential (primary) hypertension; K21.9 Gastro-esophageal reflux disease without esophagitis; F41.9 Anxiety disorder, unspecified; Z86.711 Personal history of pulmonary embolism
CPT/HCPCS: 36415; 80048; 85025; 99283

== ENCOUNTER 2020-08-10 10:06 | Observation (INO) | payer MEDICARE ==
[2020-08-10] MEDS ORDERED: SODIUM CHLORIDE 0.9% 1,000 ML IV ONE (10:42)
--- NOTE | 2020-08-10 10:45 | ED ---
Lower Extremity Injury HPI - General Source: patient, RN notes reviewed, old records reviewed Mode of arrival: ambulatory Limitations: no limitations <Ketty Vela - Last Filed: 08/10/20 12:59> <Delisa Phillips - Last Filed: 08/12/20 15:14> - General Chief Complaint: Extremity Injury, Lower Stated Complaint: Sent pcp Time Seen by Provider: 08/10/20 10:24 - History of Present Illness Initial Comments: This is a 49-year-old female who presents emergency department today for concern for failure of outpatient treatment for right leg cellulitis. Patient reports that she has been on Keflex for the past 10 days and continues to report right lower extremity swelling. He states that she's had history of DVT and does have a [place] filter. Patient states that she is not on anticoagulation this time. Patient reports she did have an ultrasound for her leg approximately 2 months ago which this was negative for DVT. She states that she was told to come to the ER yesterday for admission. Patient denies any other complaints. (Ketty eVla) - Related Data Home Medications Medication Instructions Recorded Confirmed diazePAM [Valium] 5 mg PO HS 06/12/16 08/10/20 Loperamide [Imodium] 12 mg PO DAILY PRN 07/26/17 08/10/20 Meclizine [Antivert] 25 mg PO HS 07/26/17 08/10/20 Pyridostigmine [place] [Mestinon] 90 mg PO QID 10/03/18 08/10/20 mycophenolate mofetiL [Cellcept] 1,000 mg PO BID 10/03/18 08/10/20 Omeprazole [PriLOSEC] 40 mg PO DAILY@1200 07/12/19 08/10/20 Ondansetron Odt [Zofran ODT] 8 mg PO Q8HR PRN 07/12/19 08/10/20 Medroxyprogesterone Acetate 150 mg IM Q90D 12/07/19 08/10/20 [Depo-Provera] traZODone HCL [Trazodone HCl] 100 mg PO HS 12/07/19 08/10/20 Allergies Allergy/AdvReac Type Severity Reaction Status Date / Time adhesive Allergy Rash/Hives Verified 08/10/20 17:04 Aminoglycosides Allergy Dyspnea Verified 08/10/20 17:04 amlodipine besylate Allergy Swelling Verified 08/10/20 17:04 [From Norvasc] levofloxacin [From Levaquin] Allergy Dyspnea Verified 08/10/20 17:04 Macrolide Antibiotics Allergy Dyspnea Verified 08/10/20 17:04 Quinolones Allergy Dyspnea Verified 08/10/20 17:04 sulfamethoxazole Allergy Dyspnea Verified 08/10/20 17:04 [From Bactrim] trimethoprim [From Bactrim] Allergy Dyspnea Verified 08/10/20 17:04 FLUORINOQUINOLINES Allergy Unknown Uncoded 08/10/20 17:04 Review of Systems ROS Other: All systems not noted in ROS Statement are negative. <Ketty Vela - Last Filed: 08/10/20 12:59> ROS Other: All systems not noted in ROS Statement are negative. <Delisa Phillips - Last Filed: 08/12/20 15:14> ROS Statement: Those systems with pertinent positive or pertinent negative responses have been documented in the HPI. Past Medical History Past Medical History: Deep Vein Thrombosis (DVT), GERD/Reflux, Hypertension, Pneumonia, Pulmonary Embolus (PE) Additional Past Medical History / Comment(s): ivan filter, kidney stones, myasthenia gravis, vertigo, hypoglycemia, hx renal problems with dialysis 1 yr ago- now resolved per pt, c-diff 2012, septicemia 2016, diverticulitis. History of Any Multi-Drug Resistant Organisms: C-DIFF Date of last positivie culture/infection: 2012 MDRO Source:: stool Past Surgical History: Ablation, Bariatric Surgery, Section, Cholecystectomy, Hernia Repair, Tonsillectomy Additional Past Surgical History / Comment(s): thymus removed , LEEP.Umbilical hernia. GASTRIC SLEEVE 2012, uterine fibroid biopsy, hiatal hernia repair, rt cataract, ivan filter, ports x 2/later removed Past Anesthesia/Blood Transfusion Reactions: Motion Sickness Past Psychological History: Anxiety Smoking Status: Never smoker Past Alcohol Use History: None Reported Past Drug Use History: None Reported - Past Family History Mother Family Medical History: No Reported History <Ketty Vela - Last Filed: 08/10/20 12:59> General Exam Limitations: no limitations General appearance: alert, in no apparent distress Head exam: Present: atraumatic, normocephalic, normal inspection Eye exam: Present: normal appearance, PERRL, EOMI. Absent: scleral icterus, con junctival injection, periorbital swelling ENT exam: Present: normal exam, mucous membranes moist Neck exam: Present: normal inspection. Absent: tenderness, meningismus, lymphadenopathy Respiratory exam: Present: normal lung sounds bilaterally. Absent: respiratory distress, wheezes, rales, rhonchi, stridor Cardiovascular Exam: Present: regular rate, normal rhythm, normal heart sounds. Absent: systolic murmur, diastolic murmur, rubs, gallop, clicks GI/Abdominal exam: Present: soft, normal bowel sounds. Absent: distended, tenderness, guarding, rebound, rigid Extremities exam: Present: normal inspection, full ROM, normal capillary refill, calf tenderness, other (lower extremity swelling on R leg, firm calf, slight erythema. No evidence of skin laceration. ). Absent: tenderness, pedal edema, joint swelling Back exam: Present: normal inspection Neurological exam: Present: alert, oriented X3, CN II-XII intact Psychiatric exam: Present: normal affect, normal mood Skin exam: Present: warm, dry, intact, normal color. Absent: rash <Ketty Vela - Last Filed: 08/10/20 12:59> - General Exam Comments Initial Comments: Pleasant 49-year-old female. Alert and oriented. No acute distress. (Ketty Vela) Course Vital Signs 08/10/20 08/10/20 10:20 15:03 Temperature 97.9 F Pulse Rate 87 76 Respiratory 18 18 Rate Blood Pressure 143/96 154/99 O2 Sat by Pulse 98 100 Oximetry Medical Decision Making - Lab Data Result diagrams: 08/10/20 11:29 08/10/20 11:29 - Radiology Data Radiology results: report reviewed <Ketty Vela - Last Filed: 08/10/20 12:59> - Lab Data Result diagrams: 08/11/20 06:52 08/12/20 07:19 <Delisa Phillips - Last Filed: 08/12/20 15:14> - Medical Decision Making 41-year-old female presents to the emergency department today with right lower extremity swelling. She has had this for over 2 weeks. She completed 10 day course of Keflex and was encouraged him to emergency room due to continued swelling and redness. Patient was to be admitted for failure of outpatient treatment. She did have ultrasound completed today which is negative for DVT. Patient has no evidence of laceration or break in the skin at this time. She did report initially there is ulceration on the right calf that have now healed. Patient has extensive history of ALLERGY to multiple antibiotics. Patient started on Zosyn and Vancomycin. Patient case was discussed with Dr. Phillips who evaluated the Patient. Patient will be admitted at this time for failure of outpatient treatment. She discussed the case with Dr. Ram. (Ketty Vela) I was available for consultation in the emergency department. The history and physical exam were done by the midlevel provider. I was consulted for this patients care. I reviewed the case with the midlevel provider and based on their presentation of the patient, I agree with the assessment, medical decision making and plan of care as documented. Chart was dictated using [employer] dictation software. Attempts were made to correct any dictation errors however some typographical errors may persist. Patient was seen during a national state of emergency due to the Covid-19 pandemic. (Delisa Phillips) - Lab Data Lab Results 08/10/20 08/10/20 08/10/20 Range/Units 11:29 11:29 11:29 WBC 7.2 (3.8-10.6) k/uL RBC 4.81 (3.80-5.40) m/uL Hgb 13.5 (11.4-16.0) gm/dL Hct 41.1 (34.0-46.0) % MCV 85.5 (80.0-100.0) fL MCH 28.1 (25.0-35.0) pg MCHC 32.8 (31.0-37.0) g/dL RDW 13.6 (11.5-15.5) % Plt Count 263 (150-450) k/uL MPV 7.8 Neutrophils % 61 % Lymphocytes % 29 % Monocytes % 6 % Eosinophils % 3 % Basophils % 1 % Neutrophils # 4.4 (1.3-7.7) k/uL Lymphocytes # 2.1 (1.0-4.8) k/uL Monocytes # 0.4 (0-1.0) k/uL Eosinophils # 0.2 (0-0.7) k/uL Basophils # 0.0 (0-0.2) k/uL Sodium 138 (137-145) mmol/L Potassium 4.0 (3.5-5.1) mmol/L Chloride 113 H (98-107) mmol/L Carbon Dioxide 20 L (22-30) mmol/L Anion Gap 5 mmol/L BUN 19 H (7-17) mg/dL Creatinine 1.09 H (0.52-1.04) mg/dL Est GFR (CKD-EPI)AfAm 70 (>60 ml/min/1.73 sqM) Est GFR (CKD-EPI)NonAf 61 (>60 ml/min/1.73 sqM) Glucose 99 (74-99) mg/dL Plasma Lactic Acid [place] 1.2 (0.7-2.0) mmol/L Calcium 9.7 (8.4-10.2) mg/dL Total Bilirubin 0.4 (0.2-1.3) mg/dL AST 18 (14-36) U/L ALT 10 (4-34) U/L Alkaline Phosphatase 94 (38-126) U/L C-Reactive Protein 12.1 H (<10.0) mg/L Total Protein 7.4 (6.3-8.2) g/dL Albumin 4.0 (3.5-5.0) g/dL - Radiology Data RLE US si negative for DVT. (Ketty Vela) Disposition Is patient prescribed a controlled substance at d/c from ED?: No Time of Disposition: 13:00 <Ketty Vela - Last Filed: 08/10/20 12:59> <Delisa Phillips - Last Filed: 08/12/20 15:14> Clinical Impression: Cellulitis, Failure of outpatient treatment Disposition: ADMITTED IP TO THIS HOSP Condition: Good
[2020-08-10 11:37] LABS: Basophils % (A) 1 %; Eosinophils # (A) 0.2 k/uL (0-0.7); Eosinophils % (A) 3 %; HCT 41.1 % (34.0-46.0); HGB 13.5 gm/dL (11.4-16.0); Lymphocytes # (A) 2.1 k/uL (1.0-4.8); Lymphocytes % (A) 29 %; MCH 28.1 pg (25.0-35.0); MCHC 32.8 g/dL (31.0-37.0); MCV 85.5 fL (80.0-100.0); Mean Platelet Volume 7.8; Monocytes # (A) 0.4 k/uL (0-1.0); Monocytes % (A) 6 %; Neutrophils # (A) 4.4 k/uL (1.3-7.7); Neutrophils % (A) 61 %; Platelet Count 263 k/uL (150-450); RBC 4.81 m/uL (3.80-5.40); RDW 13.6 % (11.5-15.5); WBC 7.2 k/uL (3.8-10.6)
[2020-08-10] MEDS: SODIUM CHLORIDE 0.9% 1,000 ML IV SCH ×3 (11:50→21:25)
--- NOTE | 2020-08-10 11:56 | US ---
EXAMINATION TYPE: US venous doppler duplex LE RT DATE OF EXAM: 08/10/2020 11:42 AM COMPARISON: NONE CLINICAL HISTORY: swelling, hx dvt. SIDE PERFORMED: Right TECHNIQUE: The lower extremity deep venous system is examined utilizing real time linear array sonog micah with graded compression, doppler sonography and color-flow sonography. VESSELS IMAGED: Common Femoral Vein Deep Femoral Vein Greater Saphenous Vein * Femoral Vein Popliteal Vein Small Saphenous Vein * Proximal Calf Veins (* superficial vessels) Right Leg: Negative for DVT IMPRESSION: No evidence for DVT at this time.
[2020-08-10 12:10] LABS: C Reactive Protein 12.1 mg/L (<10.0); Calcium 9.7 mg/dL (8.4-10.2); Total Bilirubin 0.4 mg/dL (0.2-1.3); Total Protein 7.4 g/dL (6.3-8.2)
[2020-08-10] MEDS ORDERED: PIPERACILLIN-TAZOBACTAM 3.375 GM in SODIUM CHLORIDE 0.9% 100 ML IVPB STA (12:15)
[2020-08-10] MEDS ORDERED: VANCOMYCIN IV PER PHARMACY 1 EACH MISC MISCELLANE PRN (12:15)
[2020-08-10] MEDS ORDERED: KETOROLAC 15 MG/ML 1 ML VIAL IVP STA (12:16)
[2020-08-10] MEDS ORDERED: VANCOMYCIN 1,750 MG in SODIUM CHLORIDE 0.9% 500 ML 500 ML IVPB STA (12:20)
[2020-08-10] MEDS ORDERED: LORazepam 2 MG/ML INJ IV PRN (13:00)
[2020-08-10] MEDS ORDERED: NALOXONE 0.4 MG/ML 1 ML VIAL IV PRN (13:00)
[2020-08-10] MEDS ORDERED: IBUPROFEN 400 MG TAB PO PRN (13:00)
[2020-08-10] MEDS ORDERED: methylPREDNISolone SOD SUCCI 125 MG/2 ML VIAL IV STA (15:09)
[2020-08-10] MEDS ORDERED: diphenhydrAMINE 50 MG/ML 1 ML VIAL IVP STA (15:09)
[2020-08-10] MEDS: FAMOTIDINE 20 MG/2 ML VIAL IV SCH (15:16)
[2020-08-10] MEDS ORDERED: LOPERAMIDE 2 MG CAP PO PRN (16:20)
[2020-08-10] MEDS: ACETAMINOPHEN TAB 325 MG TAB PO PRN (17:38)
[2020-08-10] MEDS: HYDROmorphone 2 MG TAB PO PRN ×2 (17:54→21:24)
[2020-08-10] MEDS: PYRIDOSTIGMINE 60 MG TAB PO SCH ×2 (18:22→22:27)
--- NOTE | 2020-08-10 19:47 | CT ---
Result: History: Right posterior leg pain and swelling. Comparison: None available. Technique: Axial CT images of the right lower extremity was obtained with 100 mL Isovue-300 intraveno us contrast. Coronal and sagittal reformats were provided and reviewed. Automated dose control was u sed for this exam. Findings: There is moderate, near circumferential soft tissue edema and fat stranding about the distal leg and imaged ankle. There is confluent soft tissue edema at the posterior medial aspect of the distal leg. No soft tissue gas or enhancing fluid collection seen. No acute osseous abnormality or significant joint effusion. No destructive or erosive lesions seen. A therosclerotic calcifications are seen. Impression: Soft tissue edema/inflammatory changes about the distal leg/ankle, compatible with cellulitis in the appropriate clinical setting. No evidence of soft tissue gas or definite fluid collection.
[2020-08-10] MEDS: MECLIZINE 25 MG TAB PO SCH (21:25)
[2020-08-10] MEDS: diazePAM 5 MG TAB PO SCH (22:28)
[2020-08-10] MEDS: traZODone HCL 100 MG TAB PO SCH (22:28)
--- NOTE | 2020-08-10 22:56 | P.HPIM ---
History of Present Illness H&P Date: 08/10/20 Chief Complaint: Right LE cellulitis Ms. Beaver is a 49-year-old female with a past medical history of GERD, hypertension, PE, DVT not on anticoagulation, myasthenia gravis, nephrolithiasis, history of medial problems with dialysis 1 year ago now resolved coming in with a chief complaint of right lower extremity swelling. Patient states that she was being treated for right leg cellulitis with Keflex and clindamycin as outpatient. But her lower extremity redness and swelling did not show much improvement. So she came in to the ED for further management. Patient denies having any fevers chills or rigors. She has past medical history of DVT and [place] filter placement. She is not on any anticoagulation. Patient denies having any recent travel. She denies having any chest pain or palpitations. No abdominal pain nausea vomiting or diarrhea. No dysuria or hematuria. In the ER patient's vitals at the time of admission temperature 97.9, heart rate 87, blood pressure 143 x 96, saturating at 98% on room air. She had lower extremity Doppler that was negative for DVT in her right leg. She was given a dose of vancomycin and Zosyn and admitted for further management. The patient received her Zosyn dose without any complications. Then when she was getting her vancomycin patient developed a rash over the upper extremity and upper chest. So her IV vancomycin was discontinued she was given a dose of Benadryl and Solu-Medrol in the ED. Later on patient's rash resolved and she is transferred to the general medical floors. On reviewing the labs white count of 7.2, hemoglobin 13.5, platelets 263. Sodium 138, potassium 4, chloride 113, bic arb 20, BUN 19, creatinine 1.09. CRP of 12.1. Coronavirus PCR negative. Review of Systems REVIEW OF SYSTEMS: CONSTITUTIONAL: No fever, fatigue or malaise HEENT: No recent visual problems or hearing problems. Denied any sore throat. CARDIOVASCULAR: No chest pain, orthopnea, PND, no palpitations, no syncope. PULMONARY: no cough or SOB GASTROINTESTINAL: No diarrhea, no nausea, no vomiting, no abdominal pain. NEUROLOGICAL: no headaches, no weakness, no numbness. HEMATOLOGICAL: Denies any bleeding or petechiae. GENITOURINARY: Denies any burning micturition, frequency, or urgency. MUSCULOSKELETAL/RHEUMATOLOGICAL: Myasthenia gravis ENDOCRINE: Denies any polyuria or polydipsia. The rest of the 14-point review of systems is negative Past Medical History Past Medical History: Deep Vein Thrombosis (DVT), GERD/Reflux, Hypertension, Pneumonia, Pulmonary Embolus (PE) Additional Past Medical History / Comment(s): ivan filter, kidney stones, myasthenia gravis, vertigo, hypoglycemia, hx renal problems with dialysis 1 yr ago- now resolved per pt, c-diff 2012, septicemia 2016, diverticulitis. History of Any Multi-Drug Resistant Organisms: C-DIFF Date of last positivie culture/infection: 2012 MDRO Source:: stool Past Surgical History: Ablation, Bariatric Surgery, Section, Cholecystectomy, Hernia Repair, Tonsillectomy Additional Past Surgical History / Comment(s): thymus removed , LEEP.Umbilical hernia. GASTRIC SLEEVE 2012, uterine fibroid biopsy, hiatal hernia repair, rt cataract, ivan filter, ports x 2/later removed Past Anesthesia/Blood Transfusion Reactions: Motion Sickness Past Psychological History: Anxiety Smoking Status: Never smoker Past Alcohol Use History: None Reported Past Drug Use History: None Reported - Past Family History Mother Family Medical History: No Reported History Father Family Medical History: Coronary Artery Disease (CAD) Additional Family Medical History / Comment(s): quadruple bipass Medications and Allergies Home Medications Medication Instructions Recorded Confirmed Type diazePAM [Valium] 5 mg PO HS 06/12/16 08/10/20 History Loperamide [Imodium] 12 mg PO DAILY PRN 07/26/17 08/10/20 History Meclizine [Antivert] 25 mg PO HS 07/26/17 08/10/20 History Pyridostigmine Mcgrad[place] [Mestinon] 90 mg PO QID 10/03/18 08/10/20 History mycophenolate mofetiL [Cellcept] 1,000 mg PO BID 10/03/18 08/10/20 History Omeprazole [PriLOSEC] 40 mg PO DAILY@1200 07/12/19 08/10/20 History Ondansetron Odt [Zofran ODT] 8 mg PO Q8HR PRN 07/12/19 08/10/20 History Medroxyprogesterone Acetate 150 mg IM Q90D 12/07/19 08/10/20 History [Depo-Provera] traZODone HCL [Trazodone HCl] 100 mg PO HS 12/07/19 08/10/20 History Allergies Allergy/AdvReac Type Severity Reaction Status Date / Time adhesive Allergy Rash/Hives Verified 08/10/20 17:04 Aminoglycosides Allergy Dyspnea Verified 08/10/20 17:04 amlodipine besylate Allergy Swelling Verified 08/10/20 17:04 [From Norvasc] levofloxacin [From Levaquin] Allergy Dyspnea Verified 08/10/20 17:04 Macrolide Antibiotics Allergy Dyspnea Verified 08/10/20 17:04 Quinolones Allergy Dyspnea Verified 08/10/20 17:04 sulfamethoxazole Allergy Dyspnea Verified 08/10/20 17:04 [From Bactrim] trimethoprim [From Bactrim] Allergy Dyspnea Verified 08/10/20 17:04 FLUORINOQUINOLINES Allergy Unknown Uncoded 08/10/20 17:04 Physical Exam Vitals: Vital Signs Temp Pulse Resp BP Pulse Ox 08/10/20 15:03 76 18 154/99 100 08/10/20 10:20 97.9 F 87 18 143/96 98 Intake and Output 08/10/20 08/10/20 08/10/20 06:59 14:59 22:59 Other: Weight 103.419 kg PHYSICAL EXAMINATION: GENERAL: The patient is alert and oriented x3, not in any acute distress.Obese HEENT: Pupils are round and equally reacting to light. EOMI. No scleral icterus. No conjunctival pallor. CARDIOVASCULAR: S1 and S2 present. Tachycardia PULMONARY: Chest is clear to auscultation, no wheezing or crackles. ABDOMEN: Soft, nontender, nondistended, normoactive bowel sounds. No palpable organomegaly. MUSCULOSKELETAL: No joint swelling EXTREMITIES: Right LE - skin is tender and indurated on the posterior calf area, skin markings done. Let LE - WNL. NEUROLOGICAL: Gross neurological examination did not reveal any focal deficits. SKIN: No rashes. Results CBC & Chem 7: 08/10/20 11:29 08/10/20 11:29 Labs: Abnormal Lab Results - Last 24 Hours (Table) 08/10/20 Range/Units 11:29 Chloride 113 H (98-107) mmol/L Carbon Dioxide 20 L (22-30) mmol/L BUN 19 H (7-17) mg/dL Creatinine 1.09 H (0.52-1.04) mg/dL C-Reactive Protein 12.1 H (<10.0) mg/L Assessment and Plan Assessment: ASSESSMENT Right lower extremity cellulitis-failed outpatient antibiotic therapy History of DVT and PE -status post IVC Ivan replacement 10 years back Myasthenia gravis CKD stage II History of nephrolithiasis History of renal problems with dialysis 1 year ago History of bariatric surgery History of gastric sleeve in 2002 History of hiatal hernia repair Obesity with BMI of 39.1 PLAN: Patient failed outpatient antibiotic therapy for her right lower extremity cellulitis. She had a lower extremity Doppler that was negative for DVT. Patient was given a dose of Zosyn and vancomycin. She developed a rash with IV vancomycin, responded to Benadryl and Solu-Medrol. ID Dr. Alfonso consulted for antibiotic stewardship. Patient has been restarted on her home medications. Further recommendations to follow depending on the progress of the patient.
--- NOTE | 2020-08-11 00:22 | CONS ---
CONSULTATION DATE OF SERVICE: 08/10/2020 REASON FOR CONSULTATION: Right lower extremity cellulitis. HISTORY OF PRESENT ILLNESS: The patient is a 49-year-old female with apparently family history of DVT and Teresita filter in this patient who did have a fall with right lower extremity swelling and redness and has been treated in the outpatient setting with oral Keflex. The patient currently has been evaluated by the nurse practitioner yesterday. She was noticed to have increasing swelling and redness to the right lower extremity for which the patient was advised to go to the hospital. The patient said she could not come yesterday, hence took care of her business and came to the ER this morning. The patient complaining of swelling and redness to the right posterior leg that has been going on for the last few days. No history of any trauma. The patient did have pain to the leg more of a dull aching at times sharp, 6 to 7/10. No radiation with associated swelling and redness. The patient denies any high-grade fever or any chills and did not have any fever on presentation to the hospital. The patient also had a normal white count. Creatinine was 1.09. Liver enzymes are normal. Creatinine was 12.1. The patient was started on vancomycin and Zosyn. Apparently, the patient did have some with the vancomycin which was put on hold. Infectious Disease was consulted for management of antibiotic therapy. The patient did have a lower extremity Doppler that was negative for DVT. REVIEW OF SYSTEMS: Positive points have been mentioned in HPI. Rest of the systems are negative. PAST MEDICAL HISTORY: DVT, gastroesophageal reflux disease, hypertension, pneumonia, pulmonary embolism, history of C difficile and cellulitis. PAST SURGICAL HISTORY: Ablation, bariatric surgery, , cholecystectomy, hernia repair, tonsillectomy. SOCIAL HISTORY: No history of smoking, drinking or drug use. FAMILY HISTORY: No pertinent findings noticed. ALLERGIES: AMLODIPINE, LEVAQUIN, MACROBID. MEDICATIONS: Currently include the patient is on vancomycin pharmacy to dose, she is on Desyrel, saline, Protonix, Narcan, sulfa, Antivert, Imodium, Toradol, Motrin, Dilaudid, Pepcid, Valium and Tylenol. PHYSICAL EXAMINATION: Blood pressure 146/96, pulse of 65, temperature of 98.3. She is 97% on room air. General description: The patient is a middle-aged female lying in bed in no distress. No tachypnea or accessory muscles of respiration use. HEENT: Examination shows no pallor or scleral icterus. Oral mucous membranes dry. No pharyngeal erythema or thrush. NECK: Trachea central. There is no thyromegaly. LUNGS: Unlabored breathing. Clear to auscultation with no wheeze or crackles. HEART S1, S2. Regular rate and rhythm. ABDOMEN: Soft. No tenderness. No guarding. No rigidity. EXTREMITIES: No edema of the feet. SKIN examination: The right posterior leg did have a line drawn on the area that is slightly indurated, mildly warm to touch. The patient mentioned there was some redness, however, at the time of my evaluation, there was no redness. No skin breakdown. No drainage. NEUROLOGICAL: Patient is awake, alert, oriented times three. Mood and affect normal. LABS: Hemoglobin is 13.5, white count 7.2, BUN of 19, creatinine 1.09. CRP is 12.1. DIAGNOSTIC IMPRESSION AND PLAN: 1. Patient with acute right lower extremity cellulitis in this patient who did have history of recurrent cellulitis and apparently has been treated with oral Keflex, without any clear resolution. Concern for possible community associated MRSA. 2. Patient who does have multiple antibiotic allergies that will limit the number of antibiotics safe to use. PLAN: 1. We will obtain a CT of the right lower extremity to make sure no evidence of any abscess in view of the induration that was seen on clinical examination. 2. Vancomycin, pharmacy to dose target of 15 while watching kidney function closely. 3. We will follow on clinical condition and culture to further adjust medication if needed. Thank you for this consultation. Will follow this patient with you. MMODL / IJN: [id number] /
[2020-08-11] MEDS: KETOROLAC 15 MG/ML 1 ML VIAL IVP PRN ×3 (00:48→17:49)
[2020-08-11] MEDS: VANCOMYCIN 1,750 MG in SODIUM CHLORIDE 0.9% 500 ML 500 ML IVPB SCH ×2 (06:02→22:21)
[2020-08-11] MEDS: SODIUM CHLORIDE 0.9% 1,000 ML IV SCH ×2 (06:08→17:58)
[2020-08-11 07:44] LABS: Basophils % (A) 0 %; Eosinophils % (A) 0 %; HCT 42.2 % (34.0-46.0); HGB 13.9 gm/dL (11.4-16.0); Lymphocytes # (A) 1.2 k/uL (1.0-4.8); Lymphocytes % (A) 13 %; MCH 28.4 pg (25.0-35.0); MCV 86.1 fL (80.0-100.0); Mean Platelet Volume 8.2; Monocytes # (A) 0.2 k/uL (0-1.0); Monocytes % (A) 2 %; Neutrophils # (A) 7.5 k/uL (1.3-7.7); Neutrophils % (A) 84 %; Platelet Count 231 k/uL (150-450); RDW 13.5 % (11.5-15.5); WBC 8.9 k/uL (3.8-10.6)
[2020-08-11 08:14] LABS: Calcium 9.8 mg/dL (8.4-10.2); Potassium 5.1 mmol/L (3.5-5.1)
[2020-08-11] MEDS: ACETAMINOPHEN TAB 325 MG TAB PO PRN ×2 (08:26→17:50)
[2020-08-11] MEDS: PYRIDOSTIGMINE 60 MG TAB PO SCH ×4 (08:29→22:20)
[2020-08-11] MEDS: FAMOTIDINE 20 MG/2 ML VIAL IV SCH (08:30)
[2020-08-11] MEDS ORDERED: PANTOPRAZOLE 40 MG/10 ML VIAL IV SCH (09:00)
[2020-08-11] MEDS: HYDROmorphone 2 MG TAB PO PRN ×3 (09:59→21:00)
[2020-08-11] MEDS ORDERED: NON FORMULARY DRUG (Omeprazole 40 MG Capsule.Dr) PO SCH (12:00)
[2020-08-11] MEDS: LORATADINE 10 MG TAB PO SCH (13:17)
--- NOTE | 2020-08-11 15:09 | P.PN ---
Subjective Progress Note Date: 08/11/20 Principal diagnosis: Right LE cellulitis failed OP Abx Ms. Beaver is a 49-year-old female with a past medical history of GERD, hypertension, PE, DVT not on anticoagulation, myasthenia gravis, nephrolithiasis, history of medial problems with dialysis 1 year ago now [facility] coming in with a chief complaint of right lower extremity swelling. Patient states that she was being treated for right leg cellulitis with Keflex and clindamycin as outpatient. But her lower extremity redness and swelling did not show much improvement. So she came in to the ED for further management. Patient denies having any fevers chills or rigors. She has past medical history of DVT and [place] filter placement. She is not on any anticoagulation. Patient denies having any recent travel. She denies having any chest pain or palpitations. No abdominal pain nausea vomiting or diarrhea. No dysuria or hematuria. In the ER patient's vitals at the time of admission temperature 97.9, heart rate 87, blood pressure 143 x 96, saturating at 98% on room air. She had lower extremity Doppler that was negative for DVT in her right leg. She was given a dose of vancomycin and Zosyn and admitted for further management. The patient received her Zosyn dose without any complications. Then when she was getting her vancomycin patient developed a rash over the upper extremity and upper chest. So her IV vancomycin was discontinued she was given a dose of Benadryl and Solu-Medrol in the ED. Later on patient's rash resolved and she is transferred to the general medical floors. On reviewing the labs white count of 7.2, hemoglobin 13.5, platelets 263. Sodium 138, potassium 4, chloride 113, bicarb 20, BUN 19, creatinine 1.09. CRP of 12.1. Coronavirus PCR negative. On 08/03/2020 - patient was seen and examined at the bedside. She states that her right lower extremity swelling is improved, she feels less tight in her leg. She also states that redness and pain improved a lot. Patient denies having any chest pain or palpitations. No fever chills or rigors. No cough or difficulty in breathing. No abdominal pain nausea vomiting or diarrhea. No dysuria or hematuria. On reviewing vitals temperature of 98.3, heart rate 86, respiratory rate 18, blood pressure 1 36 x 80, saturating at 98% on room air. Reviewing the labs white count of 8.9, hemoglobin 13.9, platelets 231. Sodium 138, potassium 4.1, chloride 1:15 over 16, BUN 17, creatinine 0.98. Patient's blood cultures currently pending. Active Medications Acetaminophen (Acetaminophen Tab 325 Mg Tab) 650 mg PO Q6HR PRN PRN Reason: Mild Pain or Fever > 100.5 Last Admin: 08/11/20 08:26 Dose: 650 mg Documented by: Diazepam (Diazepam 5 Mg Tab) 5 mg PO [facility] Last Admin: 08/10/20 22:28 Dose: 5 mg Documented by: Hydromorphone HCl (Hydromorphone 2 Mg Tab) 1 mg PO Q3HR PRN PRN Reason: Severe Pain Last Admin: 08/11/20 09:59 Dose: 1 mg Documented by: Sodium Chloride (Saline 0.9%) 1,000 mls @ 100 mls/hr IV .Q10H [facility] Last Admin: 08/11/20 06:08 Dose: 100 mls/hr Documented by: Vancomycin HCl 1,750 mg/ (Sodium Chloride) 500 mls @ 167 mls/hr IVPB Q16H [facility] Last Admin: 08/11/20 06:02 Dose: 167 mls/hr Documented by: Ibuprofen (Ibuprofen 400 Mg Tab) 400 mg PO Q6HR PRN PRN Reason: Mild Pain or Fever > 100.5 Ketorolac Tromethamine (Ketorolac 15 Mg/Ml 1 Ml Vial) 15 mg IVP Q6HR PRN PRN Reason: Moderate Pain Stop: 08/13/20 13:01 Last Admin: 08/11/20 08:33 Dose: 15 mg Documented by: Loperamide HCl (Loperamide 2 Mg Cap) 2 mg PO BID PRN PRN Reason: Loose Stool Loratadine (Loratadine 10 Mg Tab) 10 mg PO DAILY [facility] Last Admin: 08/11/20 13:17 Dose: 10 mg Documented by: Meclizine HCl (Meclizine 25 Mg Tab) 25 mg PO [facility] Last Admin: 08/10/20 21:25 Dose: 25 mg Documented by: Miscellaneous Information (Vancomycin Trough Due 1 Each Misc) 1 each MISCELLANE ONCE ONE Stop: 08/13/20 05:01 Mycophenolate Mofetil (Mycophenolate Mofetil 500 Mg Tab) 1,000 mg PO BID [facility] Last Admin: 08/11/20 08:28 Dose: 1,000 mg Documented by: Naloxone HCl (Naloxone 0.4 Mg/Ml 1 Ml Vial) 0.2 mg IV Q2M PRN PRN Reason: Opioid Reversal Pantoprazole Sodium (Pantoprazole 40 Mg Tablet) 40 mg PO AC-BRKFST [facility] Pyridostigmine [place] (Pyridostigmine 60 Mg Tab) 90 mg PO QID [facility] Last Admin: 08/11/20 13:18 Dose: 90 mg Documented by: Trazodone HCl (Trazodone Hcl 100 Mg Tab) 100 mg PO HS [facility] Last Admin: 08/10/20 22:28 Dose: 100 mg Documented by: Objective - Vital Signs Vital signs: Vital Signs Temp 97.8 F 08/11/20 08:25 Pulse 75 08/11/20 08:25 Resp 18 08/11/20 08:25 BP 160/93 08/11/20 08:25 Pulse Ox 97 08/11/20 08:25 Intake & Output 08/10/20 08/11/20 08/11/20 18:59 06:59 18:59 Intake Total 480 Balance 480 Weight 103.419 kg Intake: Oral 480 Other: # Voids 1 1 # Emeses 1 - Exam PHYSICAL EXAMINATION: GENERAL: The patient is alert and oriented x3, not in any acute distress.Obese HEENT: Pupils are round and equally reacting to light. EOMI. No scleral icterus. No conjunctival pallor. CARDIOVASCULAR: S1 and S2 present. PULMONARY: Chest is clear to auscultation, no wheezing or crackles. ABDOMEN: Soft, nontender, nondistended, normoactive bowel sounds. No palpable organomegaly. MUSCULOSKELETAL: No joint swelling EXTREMITIES: Right LE - skin is tender and indurated on the posterior calf area , skin markings done. Redness and swelling residing. NEUROLOGICAL: Gross neurological examination did not reveal any focal deficits. SKIN: No rashes. - Labs CBC & Chem 7: 08/11/20 06:52 08/11/20 06:52 Labs: Abnormal Lab Results - Last 24 Hours (Table) 08/11/20 Range/Units 06:52 Chloride 115 H (98-107) mmol/L Carbon Dioxide 16 L (22-30) mmol/L Glucose 102 H (74-99) mg/dL Assessment and Plan Assessment: ASSESSMENT Right lower extremity cellulitis-failed outpatient antibiotic therapy History of DVT and PE -status post IVC Teresita replacement 10 years back Myasthenia gravis CKD stage II History of nephrolithiasis History of renal problems with dialysis 1 year ago History of bariatric surgery History of gastric sleeve in 2002 History of hiatal hernia repair Obesity with BMI of 39.1 PLAN: Patient failed outpatient antibiotic therapy for her right lower extremity cellulitis. She had a lower extremity Doppler that was negative for DVT. Patient was given a dose of Zosyn and vancomycin. She developed a rash with IV vancomycin, responded to Benadryl and Solu-Medrol. ID Dr. Alfonso consulted for antibiotic stewardship. Patient is being continued on vancomycin at a slow rate. She complains of mild nasal congestion, Claritin and it for symptomatic relief. Further recommendations to follow depending on the progress of the patient.
--- NOTE | 2020-08-11 19:45 | PN ---
PROGRESS NOTE DATE OF SERVICE: 08/11/2020 REASON FOR FOLLOWUP: Right lower extremity cellulitis. INTERVAL HISTORY: Patient is currently afebrile. The patient is feeling better. Breathing comfortably. Denies having any chest pain. No shortness of breath or cough. Right leg swelling and redness are improved. Currently no open wound or any drainage. PHYSICAL EXAMINATION: Blood pressure 135/84, pulse of 59, temperature is 97.8. She is 96% on room air. General description is a middle-aged female up in the bed in no distress. Respiratory system: Unlabored breathing, clear to auscultation anteriorly. Heart S1, S2. Regular rate and rhythm. Abdomen soft, no tenderness. Right leg swelling persists. Minimal induration. No redness. DIAGNOSTIC IMPRESSION AND PLAN: Patient with acute right lower extremity cellulitis in this patient who did have a CT that was negative for any abscess formation. The patient seemed to have shown overall clinical improvement with vancomycin to continue with the plan to finish therapy with oral doxy 100 mg twice a day for 10 days and close outpatient followup. MMODL / IJN: [id number] /
[2020-08-11] MEDS: traZODone HCL 100 MG TAB PO SCH (22:20)
[2020-08-11] MEDS: MECLIZINE 25 MG TAB PO SCH (22:20)
[2020-08-11] MEDS: diazePAM 5 MG TAB PO SCH (22:20)
[2020-08-12] MEDS: HYDROmorphone 2 MG TAB PO PRN ×2 (02:01→22:47)
[2020-08-12] MEDS: ACETAMINOPHEN TAB 325 MG TAB PO PRN ×2 (02:01→22:46)
[2020-08-12] MEDS: KETOROLAC 15 MG/ML 1 ML VIAL IVP PRN ×2 (02:01→19:22)
[2020-08-12] MEDS: SODIUM CHLORIDE 0.9% 1,000 ML IV SCH ×2 (02:58→13:53)
[2020-08-12] MEDS: PANTOPRAZOLE 40 MG TABLET PO SCH (06:40)
[2020-08-12] MEDS: PYRIDOSTIGMINE 60 MG TAB PO SCH ×4 (08:46→22:47)
[2020-08-12] MEDS: LORATADINE 10 MG TAB PO SCH (08:46)
[2020-08-12] MEDS: VANCOMYCIN 1,750 MG in SODIUM CHLORIDE 0.9% 500 ML 500 ML IVPB SCH (13:51)
[2020-08-12] MEDS ORDERED: ONDANSETRON ODT 8 MG TAB.RAPDIS PO PRN (15:59)
[2020-08-12] MEDS ORDERED: NON FORMULARY DRUG (Medroxyprogesterone Acetate [Depo-Provera] 150 MG/ML Syringe) IM SCH (16:00)
--- NOTE | 2020-08-12 16:39 | PN ---
PROGRESS NOTE DATE OF SERVICE: 08/12/2020 This 49-year-old woman who was admitted with right lower extremity cellulitis and failure of outpatient treatment is on IV vancomycin. The cultures are negative so far. Infectious Disease is following the patient closely. No chest pain. No palpitations. No fever. PHYSICAL EXAMINATION: Alert and oriented x3. Pulse 75, blood pressure 128/84, respirations 20, temperature 97.9, pulse ox 97% on room air. HEENT: Conjunctivae normal. NECK: No jugular venous distention. CARDIOVASCULAR SYSTEM: S1, S2 muffled. RESPIRATORY SYSTEM: Breath sounds diminished at the bases. No rhonchi. No crackles. ABDOMEN: Soft, non-tender. LEGS: No edema. No swelling. NERVOUS SYSTEM: No focal deficit. LABS: WBC 8.2, hemoglobin 13.9. CO2 is 16. ASSESSMENT: 1. Right lower extremity cellulitis with failure of outpatient treatment. 2. History of deep vein thrombosis and pulmonary embolism, status post IVC Te[place] filter placement 10 years ago. 3. Decreased carbon dioxide. 4. History of myasthenia gravis. 5. Chronic kidney disease, stage 2. 6. History of nephrolithiasis. 7. History of renal problems with dialysis one year ago. 8. History of bariatric surgery. 9. History of gastric sleeve in 2002. 10.History of hiatal hernia repair. 11.Obesity with body mass index of 39.1. RECOMMENDATIONS AND DISCUSSION: I recommend to continue current medications, continue with the monitoring, symptomatic treatment. Would recommend repeat labs. Continue with the rest of the medications. Continue with IV antibiotics. Closely follow with Dr. Alfonso in the outpatient . Continue with Mestinon q.i.d. Cut down on the IV fluids. Prognosis guarded. Further recommendations to follow. MMODL / IJN: [id number] / MTDD
[2020-08-12 20:45] LABS: Appearance,Urine Clear (Clear); Bilirubin,Urine Negative (Negative); Blood,Urine Negative (Negative); Color,Urine Light Yellow; Glucose,Urine (UA) Negative (Negative); Ketones,Urine Negative (Negative); Leukocyte Esterase,Urine Negative (Negative); Nitrite,Urine Negative (Negative); Protein,Urine Negative (Negative); Specific Gravity,Urine 1.016 (1.001-1.035); Urobilinogen,Urine <2.0 mg/dL (<2.0)
[2020-08-12] MEDS: traZODone HCL 100 MG TAB PO SCH (21:24)
[2020-08-12] MEDS: MECLIZINE 25 MG TAB PO SCH (21:24)
[2020-08-12] MEDS: diazePAM 5 MG TAB PO SCH (21:24)
--- NOTE | 2020-08-13 00:31 | PN ---
PROGRESS NOTE DATE OF SERVICE: 08/12/2020 REASON FOR FOLLOWUP: Right lower extremity cellulitis. INTERVAL HISTORY: The patient is currently afebrile. The patient is breathing comfortably. Overall pain and discomfort the right lower extremity has improved. No chest pain, shortness of breath or cough. No abdominal pain or diarrhea. PHYSICAL EXAMINATION: Blood pressure is 141/94, pulse of 73, temperature 98.7. She is 96% on room air. General description is a middle-aged female lying in bed in no distress. Respiratory system: Unlabored breathing, clear to auscultation anteriorly. Heart S1, S2. Regular rate and rhythm. Abdomen: Soft, no tenderness. LABS: Creatinine 1.01. Urine is negative. DIAGNOSTIC IMPRESSION AND PLAN: Patient with acute right lower extremity cellulitis. The patient is failing outpatient oral Keflex therapy. CT was negative for any abscess. Improvement on vancomycin. Finish therapy on oral doxycycline for 10 days. Close outpatient followup. MMODL / IJN: [id number] /
[2020-08-13] MEDS: KETOROLAC 15 MG/ML 1 ML VIAL IVP PRN ×2 (01:44→08:49)
[2020-08-13] MEDS: HYDROmorphone 2 MG TAB PO PRN (01:45)
[2020-08-13] MEDS ORDERED: VANCOMYCIN TROUGH DUE 1 EACH MISC MISCELLANE ONE (05:00)
[2020-08-13] MEDS: VANCOMYCIN 1,750 MG in SODIUM CHLORIDE 0.9% 500 ML 500 ML IVPB SCH (06:06)
[2020-08-13 06:42] LABS: Basophils % (A) 1 %; Eosinophils # (A) 0.3 k/uL (0-0.7); Eosinophils % (A) 4 %; HCT 37.4 % (34.0-46.0); HGB 12.3 gm/dL (11.4-16.0); Lymphocytes # (A) 2.4 k/uL (1.0-4.8); Lymphocytes % (A) 36 %; MCH 28.8 pg (25.0-35.0); MCHC 32.9 g/dL (31.0-37.0); MCV 87.4 fL (80.0-100.0); Mean Platelet Volume 8.5; Monocytes # (A) 0.4 k/uL (0-1.0); Monocytes % (A) 5 %; Neutrophils # (A) 3.5 k/uL (1.3-7.7); Neutrophils % (A) 52 %; Platelet Count 208 k/uL (150-450); RBC 4.28 m/uL (3.80-5.40); RDW 13.6 % (11.5-15.5); WBC 6.7 k/uL (3.8-10.6)
[2020-08-13] MEDS: PANTOPRAZOLE 40 MG TABLET PO SCH (06:43)
[2020-08-13 07:43] LABS: Calcium 8.8 mg/dL (8.4-10.2); Potassium 4.4 mmol/L (3.5-5.1)
[2020-08-13 08:21] VITALS: BP 161/88; PULSE 63; RESP 16; TEMP 98.7
[2020-08-13] MEDS: LORATADINE 10 MG TAB PO SCH (08:42)
[2020-08-13] MEDS: PYRIDOSTIGMINE 60 MG TAB PO SCH ×2 (08:42→13:29)
[2020-08-13] MEDS ORDERED: VANCOMYCIN 1,500 MG in SODIUM CHLORIDE 0.9% 250 ML IVPB SCH (22:00)
--- NOTE | 2020-08-14 05:52 | DS ---
DISCHARGE SUMMARY DATE OF SERVICE: 08/13/2020 FINAL DIAGNOSIS: 1. Right lower extremity cellulitis with failure of outpatient treatment. 2. History of deep vein thrombosis and pulmonary embolism, status post IVC [place] filter placement 10 years ago. 3. Decreased CO2. 4. History of myasthenia gravis. 5. Chronic kidney disease stage 2. 6. History of nephrolithiasis. 7. History of renal problems with dialysis about a year ago. 8. History of bariatric surgery. 9. History of gastric sleeve in 2002. 10.History of hiatal hernia repair. 11.Obesity with body mass index of 39.1. DISCHARGE DISPOSITION: The patient will be discharged in stable condition with a guarded prognosis. HISTORY OF PRESENT ILLNESS: This 49-year-old with a past history of multiple medical problems was admitted with features of cellulitis with failure of outpatient treatment. The patient has been treated with IV vancomycin. Infectious Disease saw the patient and recommended doxycycline as outpatient. Cultures negative. PHYSICAL EXAMINATION: On exam, vitals are stable. Cardiovascular stable. Abdomen soft. Nervous system: No focal deficits. DISCHARGE DIAGNOSIS: Right leg cellulitis improved. DISCHARGE INSTRUCTIONS: Discharge diet is cardiac diet. Activity is limited until followup. Follow up with Dr. Washburn in 2-3 days. Follow up with Dr. Alfonso as recommended. MEDICATIONS: 1. Antivert 25 mg q.h.s. 2. CellCept 1000 mg p.o. b.i.d. 3. Medroxyprogesterone 150 mg p.o. Q 90 days. 4. Next Imodium 12 mg p.o. daily. 5. Mestinon 90 mg p.o. q.i.d. 6. Prilosec 40 mg p.o. daily. 7. Trazodone 100 mg q.h.s. 8. Valium 5 mg q.h.s. 9. Zofran 8 mg q.8 p.r.n. 10.Doxycycline [address] Dr[address] Alfonso. MMODL / IJN: [id number] /
== END 2020-08-13 14:10 | disposition home or self-care (01) ==
LOC: EC 10:06 → 6PED 13:13
PROVIDERS: ADMIT Family Medicine; ATTEND Family Medicine
DX: L03.115 Cellulitis of right lower limb (principal); K21.9 Gastro-esophageal reflux disease without esophagitis; I10 Essential (primary) hypertension; G70.00 Myasthenia gravis without (acute) exacerbation; F41.9 Anxiety disorder, unspecified; R42 Dizziness and giddiness; R21 Rash and other nonspecific skin eruption; R09.81 Nasal congestion; I12.9 Hypertensive chronic kidney disease with stage 1 through stage 4 chronic kidney disease, or unspecified chronic kidney disease; N18.2 Chronic kidney disease, stage 2 (mild); Z86.718 Personal history of other venous thrombosis and embolism; Z95.828 Presence of other vascular implants and grafts; Z79.899 Other long term (current) drug therapy; Z79.890 Hormone replacement therapy; Z88.1 Allergy status to other antibiotic agents; Z88.2 Allergy status to sulfonamides; Z88.8 Allergy status to other drugs, medicaments and biological substances; Z91.048 Other nonmedicinal substance allergy status; Z87.01 Personal history of pneumonia (recurrent); Z86.711 Personal history of pulmonary embolism; Z87.442 Personal history of urinary calculi; Z16.24 Resistance to multiple antibiotics; Z87.19 Personal history of other diseases of the digestive system; Z98.84 Bariatric surgery status; Z86.19 Personal history of other infectious and parasitic diseases; Z90.49 Acquired absence of other specified parts of digestive tract; Z20.822 Contact with and (suspected) exposure to COVID-19; E66.9 Obesity, unspecified; Z68.39 Body mass index [BMI] 39.0-39.9, adult; Z82.49 Family history of ischemic heart disease and other diseases of the circulatory system
CPT/HCPCS: 96361 ×4; 96366 ×4; 96375 ×2; 96376 ×3; 96365; 96367; 99285; 36415; 80053; 80048 ×2; 82565; 83605; 85025 ×3; 80202; 86140; 81003; 87040; 87635; 93971; 73701; G0378 ×4; J2543; J3370 ×4; J1200; J2930; J7517 ×4; J1885 ×4; C9113; Q9967

== ENCOUNTER → 2021-02-17 | Outpatient (CLI) | payer MEDICARE ==
--- NOTE | 2021-02-17 16:10 | US ---
EXAMINATION TYPE: US extremity nonvasc mass LT DATE OF EXAM: 02/17/2021 COMPARISON: CT 08/10/2020 CLINICAL HISTORY: 50-year-old female R22.9 Localized swelling, mass and lump, unspecified. Right ante rior lower leg mass noted x 1 week. TECHNIQUE: Sonography notes: At right anterior lower leg US at palpable site. FINDINGS: A small solid appearing echogenic, shadowing mass is seen measuring 5 x 3 x 2 mm. A second smaller si milar area is present seen just inferiorly measuring 3 x 2 x 2 mm. These appear to be located in the deep subcutaneous adipose layer along the superficial muscular fascia. These measure 1.5 cm away from each other. IMPRESSION: 2 adjacent shadowing echogenic lesions situated within the subcutaneous adipose layer at the patient' s palpable site anterior lower leg measuring 5 mm and 3 mm. These are located along the superficial m uscular fascia in the subcutaneous adipose layer. Possible calcifications relating to small areas of oil cyst formation/fat necrosis. Tiny hernias related to myofascial defects are also possible and matilda uld be correlated clinically. Recommend follow-up ultrasound in 2-3 months to reassess.
== END | disposition home or self-care (01) ==
LOC: RADUSWWP 13:35
PROVIDERS: ATTEND Family Medicine
DX: R22.42 Localized swelling, mass and lump, left lower limb (principal)

== ENCOUNTER → 2021-04-08 | Outpatient (CLI) | payer MEDICARE ==
--- NOTE | 2021-04-09 07:51 | CT ---
EXAMINATION TYPE: CT angio chest DATE OF EXAM: 04/08/2021 COMPARISON: 03/05/2020 HISTORY: f/u aneurysm CT DLP: 1129.3 mGycm CONTRAST: CTA thoracic aorta with 3-D reconstruction is performed and without and with IV Contrast, patient inj ected with 100 mL of Isovue 370. Contrast CTA of the thoracic aorta was performed from the lung apex through the upper abdomen. 3D re construction imaging obtained at a separate workstation. CT Chest: THORACIC AORTA: No evidence for thoracic aortic aneurysm. Ascending thoracic aorta measures approxima tely 3.7 cm AP dimension versus 3.7 cm. Mild atheromatous changes seen. There is no evidence for dis section or periaortic collection. LUNGS: The lungs are clear and free of infiltrate or atelectasis. Postinflammatory change persists ri ght upper lobe anteriorly. No pulmonary nodule or mass is detected. No pleural effusion or CT eviden ce of interstitial lung disease. MEDIASTINUM: No evidence for mediastinal hematoma. The heart is not enlarged. No evidence for med iastinal mass or adenopathy. HILAR STRUCTURES: No evidence for mass. No hilar adenopathy is appreciated. OTHER: No significant abnormality. IMPRESSION- No evidence for ascending thoracic aortic aneurysm. No evidence for adenopathy at this time.
== END | disposition home or self-care (01) ==
LOC: RADCTMAIN 17:23
PROVIDERS: ATTEND Thoracic Surgery (Cardiothoracic Vascular Surgery)
DX: Z03.89 Encounter for observation for other suspected diseases and conditions ruled out (principal)
CPT/HCPCS: 82565; 84520; 71275; 36415; Q9967

== ENCOUNTER 2021-05-04 21:11 | Emergency (ER) | payer MEDICARE ==
--- NOTE | 2021-05-04 22:14 | ED ---
Female Urogenital HPI - General Chief complaint: Urogenital Stated complaint: Urogenital Time Seen by Provider: 05/04/21 21:48 Source: patient, RN notes reviewed, old records reviewed Mode of arrival: ambulatory Limitations: no limitations - History of Present Illness Initial comments: This is a 50-year-old female to the emergency department for evaluation today. Patient's history of myasthenia gravis very nervous so medications that she takes. Patient does have multiple medication antibiotic ALLERGIES. Patient presents with frequency and urgency of urination. No fevers no abdominal pain no other complaints. MD Complaint: dysuria -: days(s) (3) Location: suprapubic Radiation: non-radiating Severity: moderate Severity scale (1-10): 7 Quality: burning Consistency: intermittent Improves with: none Worsens with: urination Patient : No Associated Symptoms: dysuria - Related Data Sexually active: No Home Medications Medication Instructions Recorded Confirmed diazePAM [Valium] 5 mg PO HS 06/12/16 05/04/21 Loperamide [Imodium] 2 mg PO QID PRN 07/26/17 05/04/21 Meclizine [Antivert] 50 mg PO HS 07/26/17 05/04/21 Pyridostigmine [place] [Mestinon] 90 mg PO QID@08,14,19,00 10/03/18 05/04/21 mycophenolate mofetiL [Cellcept] 1,000 mg PO Q12H 10/03/18 05/04/21 Omeprazole [PriLOSEC] 40 mg PO DAILY@1200 07/12/19 05/04/21 Ondansetron Odt [Zofran ODT] 8 mg PO Q8HR PRN 07/12/19 05/04/21 Medroxyprogesterone Acetate 150 mg IM Q90D 12/07/19 05/04/21 [Depo-Provera] traZODone HCL 100 mg PO HS 12/07/19 05/04/21 Fluticasone Nasal Smoot [Flonase 1 spray EA NOSTRIL DAILY 05/04/21 05/04/21 Nasal Smoot] Previous Rx's Medication Instructions Recorded Cephalexin [Keflex] 500 mg PO TID #21 cap 05/04/21 Allergies Allergy/AdvReac Type Severity Reaction Status Date / Time adhesive Allergy Rash/Hives Verified 05/04/21 23:24 Aminoglycosides Allergy Dyspnea Verified 05/04/21 23:24 amlodipine besylate Allergy Swelling Verified 05/04/21 23:24 [From Norvasc] levofloxacin [From Levaquin] Allergy Dyspnea Verified 05/04/21 23:24 Macrolide Antibiotics Allergy Dyspnea Verified 05/04/21 23:24 Quinolones Allergy Dyspnea Verified 05/04/21 23:24 sulfamethoxazole Allergy Dyspnea Verified 05/04/21 23:24 [From Bactrim] trimethoprim [From Bactrim] Allergy Dyspnea Verified 05/04/21 23:24 FLUORINOQUINOLINES Allergy Unknown Uncoded 05/04/21 21:38 Review of Systems ROS Statement: Those systems with pertinent positive or pertinent negative responses have been documented in the HPI. ROS Other: All systems not noted in ROS Statement are negative. Past Medical History Past Medical History: Deep Vein Thrombosis (DVT), GERD/Reflux, Hypertension, Pneumonia, Pulmonary Embolus (PE) Additional Past Medical History / Comment(s): ivan filter, kidney stones, myasthenia gravis, vertigo, hypoglycemia, hx renal problems with dialysis 1 yr ago- now resolved per pt, c-diff 2012, septicemia 2016, diverticulitis. History of Any Multi-Drug Resistant Organisms: C-DIFF Date of last positivie culture/infection: 2012 MDRO Source:: stool Past Surgical History: Ablation, Bariatric Surgery, Section, Cholecystectomy, Hernia Repair, Tonsillectomy Additional Past Surgical History / Comment(s): thymus removed , LEEP.Umbilical hernia. GASTRIC SLEEVE 2012, uterine fibroid biopsy, hiatal hernia repair, rt cataract, ivan filter, ports x 2/later removed Past Anesthesia/Blood Transfusion Reactions: Motion Sickness Past Psychological History: Anxiety Smoking Status: Never smoker Past Alcohol Use History: None Reported Past Drug Use History: None Reported - Past Family History Mother Family Medical History: No Reported History Father Family Medical History: Coronary Artery Disease (CAD) Additional Family Medical History / Comment(s): quadruple bipass General Exam Limitations: no limitations General appearance: alert, in no apparent distress Head exam: Present: atraumatic, normocephalic, normal inspection Eye exam: Present: normal appearance, PERRL, EOMI. Absent: scleral icterus, conjunctival injection, periorbital swelling ENT exam: Present: normal exam, mucous membranes moist Neck exam: Present: normal inspection. Absent: tenderness, meningismus, lymphadenopathy Respiratory exam: Present: normal lung sounds bilaterally. Absent: respiratory distress, wheezes, rales, rhonchi, stridor Cardiovascular Exam: Present: regular rate, normal rhythm, normal heart sounds. Absent: systolic murmur, diastolic murmur, rubs, gallop, clicks GI/Abdominal exam: Present: soft, normal bowel sounds. Absent: distended, tenderness, guarding, rebound, rigid Extremities exam: Present: normal inspection, full ROM, normal capillary refill. Absent: tenderness, pedal edema, joint swelling, calf tenderness Back exam: Present: normal inspection Neurological exam: Present: alert, oriented X3, CN II-XII intact Psychiatric exam: Present: normal affect, normal mood Skin exam: Present: warm, dry, intact, normal color. Absent: rash Course Vital Signs 05/04/21 05/05/21 21:33 00:06 Temperature 98.4 F 99.4 F Pulse Rate 87 85 Respiratory 16 18 Rate Blood Pressure 179/110 175/107 O2 Sat by Pulse 95 98 Oximetry - Reevaluation(s) Reevaluation #1: 05/05/21 00:13 Medical record is reviewed Reevaluation #2: 05/05/21 improved here in the ER patient feels comfortable with discharge Medical Decision Making - Medical Decision Making 50 female positive urinary tract infection. Patient will be discharged home on appropriate antibiotic treatment - Lab Data Lab Results 05/04/21 Range/Units 22:13 Urine Color Yellow Urine Appearance Cloudy H (Clear) Urine pH 5.5 (5.0-8.0) Ur Specific [place] 1.020 (1.001-1.035) Urine Protein 1+ H (Negative) Urine Glucose (UA) Negative (Negative) Urine Ketones Negative (Negative) Urine Blood Large H (Negative) Urine Nitrite Negative (Negative) Urine Bilirubin Negative (Negative) Urine Urobilinogen <2.0 (<2.0) mg/dL Ur Leukocyte Esterase Large H (Negative) Urine RBC 49 H (0-5) /hpf Urine WBC >182 H (0-5) /hpf Urine WBC Clumps Occasional H (None) /hpf Ur Squamous Epith Cells 1 (0-4) /hpf Urine Bacteria Few H (None) /hpf Urine Mucus Rare H (None) /hpf Disposition Clinical Impression: Dehydration, Urinary tract infection Disposition: HOME SELF-CARE Condition: Good Instructions (If sedation given, give patient instructions): Urinary Tract Infection in Women (ED) Prescriptions: Cephalexin [Keflex] 500 mg PO TID #21 cap Is patient prescribed a controlled substance at d/c from ED?: No Referrals: Be Washburn MD [Primary Care Provider] - 1-2 days
[2021-05-04 22:28] LABS: Appearance,Urine Cloudy (Clear); Bacteria,Urine Few /hpf; Bilirubin,Urine Negative (Negative); Blood,Urine Large (Negative); Color,Urine Yellow; Glucose,Urine (UA) Negative (Negative); Ketones,Urine Negative (Negative); Leukocyte Esterase,Urine Large (Negative); Mucus,Urine Rare /hpf; Nitrite,Urine Negative (Negative); PH, Urine 5.5 (5.0-8.0); Protein,Urine 1+ (Negative); RBC,Urine 49 /hpf (0-5); Squamous Epithelial Cell,Urine 1 /hpf (0-4); Urobilinogen,Urine <2.0 mg/dL (<2.0); WBC,Urine >182 /hpf (0-5)
[2021-05-04] MEDS ORDERED: NITROFURANTOIN MONOHYD/M-CRYST 100 MG CAP PO STA (23:13)
[2021-05-04] MEDS ORDERED: PHENAZOPYRIDINE 200 MG TAB PO STA (23:13)
[2021-05-04] MEDS ORDERED: cefTRIAXone 250 MG VIAL IM STA (23:13)
[2021-05-04] MEDS ORDERED: CEPHALEXIN 500 MG CAP PO STA (23:39)
[2021-05-04] MEDS ORDERED: CEPHALEXIN 500MG STARTER PACK 4 CAP BTL PO STA (23:39)
[2021-05-05 00:09] VITALS: BP 175/107; PULSE 85; RESP 18; TEMP 99.4
== END 2021-05-05 00:15 | disposition home or self-care (01) ==
LOC: EC 21:11
DX: E86.0 Dehydration (principal); N39.0 Urinary tract infection, site not specified; I10 Essential (primary) hypertension; K21.9 Gastro-esophageal reflux disease without esophagitis; F41.9 Anxiety disorder, unspecified; Z86.718 Personal history of other venous thrombosis and embolism; Z79.899 Other long term (current) drug therapy
CPT/HCPCS: 81001; 87086; 99283; 96372; J0696; 87077; 87186

== ENCOUNTER 2021-05-12 21:09 | Emergency (ER) | payer MEDICARE ==
--- NOTE | 2021-05-12 22:34 | XR ---
EXAMINATION TYPE: XR chest 2V DATE OF EXAM: 05/12/2021 COMPARISON: 07/13/2019 HISTORY: Cough TECHNIQUE: 2 views FINDINGS: There is no heart failure no confluent pneumonic infiltrate. There are sternal wires. Costo phrenic angles are clear. There is some mild interstitial infiltrate in the left lung in the upper an d lower lobe. IMPRESSION: Left-sided mild pulmonary interstitial pneumonia which is improved compared to old exam. Normal heart.
[2021-05-13] MEDS ORDERED: ONDANSETRON 4 MG/2 ML VIAL IVP STA (00:09)
[2021-05-13] MEDS ORDERED: FAMOTIDINE 20 MG/2 ML VIAL IV STA (00:09)
[2021-05-13] MEDS ORDERED: SODIUM CHLORIDE 0.9% 1,000 ML IV STA (00:09)
--- NOTE | 2021-05-13 01:01 | ED ---
General Adult HPI - General Source: patient, RN notes reviewed, old records reviewed Mode of arrival: ambulatory Limitations: no limitations <Cameron Aviles - Last Filed: 05/13/21 00:57> <Tyler Webber - Last Filed: 05/13/21 07:18> - General Chief complaint: Upper Respiratory Infection Stated complaint: SOB,Cough Time Seen by Provider: 05/12/21 23:30 - History of Present Illness Initial comments: Patient is a 50-year-old female with past medical history remarkable for recently diagnosed UTI for which she is no longer taking antibiotics, hypertension, GERD who presents emergency Department complaining of cough, diarrhea. She states she has been having a persistent cough since last weekend. She states she feels "miserable." Endorses fatigue and joint pain. States she feels dehydrated. Denies any dysuria, hematuria. His no other acute complaints at this time. Presents emergency Department because she feels she is dehydrated and wants to be evaluated. She was recently tested for Covid and was found to be negative. She is seeking additional tests at this time. (Cameron Aviles) - Related Data Home Medications Medication Instructions Recorded Confirmed diazePAM [Valium] 5 mg PO HS 06/12/16 05/13/21 Loperamide [Imodium] 2 mg PO QID PRN 07/26/17 05/13/21 Meclizine [Antivert] 25 mg PO HS 07/26/17 05/13/21 Pyridostigmine [place] [Mestinon] 90 mg PO QID@08,14,19,00 10/03/18 05/13/21 mycophenolate mofetiL [Cellcept] 1,000 mg PO Q12H 10/03/18 05/13/21 Omeprazole [PriLOSEC] 40 mg PO DAILY@1200 07/12/19 05/13/21 Ondansetron Odt [Zofran ODT] 8 mg PO Q8HR PRN 07/12/19 05/13/21 Medroxyprogesterone Acetate 150 mg IM Q90D 12/07/19 05/13/21 [Depo-Provera] traZODone HCL 100 mg PO HS 12/07/19 05/13/21 Ibuprofen [Motrin] 600 mg PO DAILY PRN 05/13/21 05/13/21 Allergies Allergy/AdvReac Type Severity Reaction Status Date / Time adhesive Allergy Rash/Hives Verified 05/13/21 06:54 Aminoglycosides Allergy Dyspnea Verified 05/13/21 06:54 amlodipine besylate Allergy Swelling Verified 05/13/21 06:54 [From Norvasc] levofloxacin [From Levaquin] Allergy Dyspnea Verified 05/13/21 06:54 Macrolide Antibiotics Allergy Dyspnea Verified 05/13/21 06:54 Quinolones Allergy Dyspnea Verified 05/13/21 06:54 sulfamethoxazole Allergy Dyspnea Verified 05/13/21 06:54 [From Bactrim] trimethoprim [From Bactrim] Allergy Dyspnea Verified 05/13/21 06:54 FLUORINOQUINOLINES Allergy Unknown Uncoded 05/12/21 22:04 Review of Systems ROS Other: All systems not noted in ROS Statement are negative. <Cameron Aviles - Last Filed: 05/13/21 00:57> ROS Other: All systems not noted in ROS Statement are negative. <Tyler Webber - Last Filed: 05/13/21 07:18> ROS Statement: Those systems with pertinent positive or pertinent negative responses have been documented in the HPI. Review of Systems: CONST: Denies fever EYES: Denies blurry vision ENT: Endorses nasal congestion C/V: Denies Chest pain RESP: Denies shortness of breath GI: Denies abdominal pain : Denies dysuria SKIN: Denies rash. MSK: Endorses generalized joint pain. NEURO: Denies headache (Cameron Aviles) Past Medical History Past Medical History: Deep Vein Thrombosis (DVT), GERD/Reflux, Hypertension, Pneumonia, Pulmonary Embolus (PE) Additional Past Medical History / Comment(s): ivan filter, kidney stones, myasthenia gravis, vertigo, hypoglycemia, hx renal problems with dialysis 1 yr ago- now resolved per pt, c-diff 2012, septicemia 2017, diverticulitis. History of Any Multi-Drug Resistant Organisms: C-DIFF Date of last positivie culture/infection: 2012 MDRO Source:: stool Past Surgical History: Ablation, Bariatric Surgery, Section, Cholecystectomy, Hernia Repair, Tonsillectomy Additional Past Surgical History / Comment(s): thymus removed , LEEP.Umbilical hernia. GASTRIC SLEEVE 2013, uterine fibroid biopsy, hiatal hernia repair, rt cataract, ivan filter, ports x 2/later removed Past Anesthesia/Blood Transfusion Reactions: Motion Sickness Past Psychological History: Anxiety Smoking Status: Never smoker Past Alcohol Use History: None Reported Past Drug Use History: None Reported - Past Family History Mother Family Medical History: No Reported History Father Family Medical History: Coronary Artery Disease (CAD) Additional Family Medical History / Comment(s): quadruple bipass <Cameron Aviles - Last Filed: 05/13/21 00:57> General Exam Limitations: no limitations <Cameron Aviles - Last Filed: 05/13/21 00:57> - General Exam Comments Initial Comments: General: Appears in no acute distress. HEAD: Normal with no signs of head trauma. EYES: PERRLA, EOMI, conjunctiva normal, no discharge. ENT: Hearing grossly intact. Mildly dry mucous membranes. RESPIRATORY: Clear breath sounds bilaterally. No wheezes, rales, or rhonchi. No hypoxia. No increased work of breathing. C/V: Regular rate and rhythm. S1 and S2 auscultated, no edema, peripheral pulses 2+ and intact throughout ABD: Abd is soft, nontender, nondistended. No guarding. No peritoneal signs. No rebound tenderness. EXT: Normal range of motion, no obvious deformity SKIN: No rashes or lesions observed on exposed skin. NEURO: Alert and oriented 4. (Cameron Aviles) Course Vital Signs 05/12/21 05/12/21 05/12/21 22:00 23:46 23:48 Temperature 99.4 F Pulse Rate 86 76 Respiratory 18 20 22 Rate Blood Pressure 162/110 149/94 O2 Sat by Pulse 96 97 Oximetry 05/13/21 05/13/21 05/13/21 01:00 05:35 06:18 Temperature 98.4 F Pulse Rate 64 87 54 L Respiratory 20 20 18 Rate Blood Pressure 155/95 151/96 137/83 O2 Sat by Pulse 99 96 96 Oximetry Medical Decision Making <Cameron Aviles - Last Filed: 05/13/21 00:57> - Lab Data Result diagrams: 05/13/21 00:34 05/13/21 00:34 <Tyler Webber - Last Filed: 05/13/21 07:18> - Medical Decision Making Based on the patient's presentation and physical exam, I'm concerned for acute dehydration considering she is having persistent diarrhea after stopping her antibiotics for prior UTI. She is also having upper respiratory complaints wo uld like Covid swab. Covid swab was already obtained in triage and is pending. Chest x-ray will also be obtained in triage show no acute cardiopulmonary process. I will add on to abdominal laboratory studies as well as a urinalysis. She'll be symptomatically treated with 1 L fluid bolus, IV Zofran and Pepcid. She was in agreement with this plan. Patient's laboratory studies are remarkable for positive Covid test and negative flu and RSV. Chest x-ray showed no acute cardiopulmonary process, but improving mild pulmonary interstitial pneumonia.. Remainder the patient's laboratory studies are pending at this time. She'll be sent to the emergency team under Dr. Webber pending results of laboratory studies and re-evaluation. She is sent out in stable condition. (Cameron Aviles) - Lab Data Lab Results 05/12/21 05/13/21 05/13/21 Range/Units 22:06 00:34 00:34 WBC 5.5 (3.8-10.6) k/uL RBC 4.99 (3.80-5.40) m/uL Hgb 13.6 (11.4-16.0) gm/dL Hct 44.5 (34.0-46.0) % MCV 89.2 (80.0-100.0) fL MCH 27.2 (25.0-35.0) pg MCHC 30.5 L (31.0-37.0) g/dL RDW 13.5 (11.5-15.5) % Plt Count 158 (150-450) k/uL MPV 9.5 Neutrophils % 67 % Lymphocytes % 25 % Monocytes % 7 % Eosinophils % 0 % Basophils % 0 % Neutrophils # 3.7 (1.3-7.7) k/uL Lymphocytes # 1.4 (1.0-4.8) k/uL Monocytes # 0.4 (0-1.0) k/uL Eosinophils # 0.0 (0-0.7) k/uL Basophils # 0.0 (0-0.2) k/uL Hypochromasia Slight Sodium (137-145) mmol/L Potassium (3.5-5.1) mmol/L Chloride (98-107) mmol/L Carbon Dioxide (22-30) mmol/L Anion Gap mmol/L BUN (7-17) mg/dL Creatinine (0.52-1.04) mg/dL Est GFR (CKD-EPI)AfAm (>60 ml/min/1.73 sqM) Est GFR (CKD-EPI)NonAf (>60 ml/min/1.73 sqM) Glucose (74-99) mg/dL Calcium (8.4-10.2) mg/dL Total Bilirubin (0.2-1.3) mg/dL AST (14-36) U/L ALT (4-34) U/L Alkaline Phosphatase (38-126) U/L Total Protein (6.3-8.2) g/dL Albumin (3.5-5.0) g/dL Amylase (30-110) U/L Lipase (23-300) U/L Urine Color Yellow Urine Appearance Clear (Clear) Urine pH 6.0 (5.0-8.0) Ur Specific [place] 1.030 (1.001-1.035) Urine Protein 2+ H (Negative) Urine Glucose (UA) Negative (Negative) Urine Ketones 2+ H (Negative) Urine Blood Large H (Negative) Urine Nitrite Negative (Negative) Urine Bilirubin Negative (Negative) Urine Urobilinogen <2.0 (<2.0) mg/dL Ur Leukocyte Esterase Negative (Negative) Urine RBC 50 H (0-5) /hpf Urine WBC 3 (0-5) /hpf Ur Squamous Epith Cells 1 (0-4) /hpf Urine Bacteria Rare H (None) /hpf Hyaline Casts 8 H (0-2) /lpf Urine Mucus Occasional H (None) /hpf Urine Yeast (Bud[place]) Occasional H (None) /hpf Influenza Type A (PCR) Not Detected (Not Detectd) Influenza Type B (PCR) Not Detected (Not Detectd) RSV (PCR) Not Detected (Not Detectd) SARS-CoV-2 (PCR) Detected A (Not Detectd) 05/13/21 Range/Units 00:34 WBC (3.8-10.6) k/uL RBC (3.80-5.40) m/uL Hgb (11.4-16.0) gm/dL Hct (34.0-46.0) % MCV (80.0-100.0) fL MCH (25.0-35.0) pg MCHC (31.0-37.0) g/dL RDW (11.5-15.5) % Plt Count (150-450) k/uL MPV Neutrophils % % Lymphocytes % % Monocytes % % Eosinophils % % Basophils % % Neutrophils # (1.3-7.7) k/uL Lymphocytes # (1.0-4.8) k/uL Monocytes # (0-1.0) k/uL Eosinophils # (0-0.7) k/uL Basophils # (0-0.2) k/uL Hypochromasia Sodium 143 (137-145) mmol/L Potassium 3.9 (3.5-5.1) mmol/L Chloride 119 H (98-107) mmol/L Carbon Dioxide 20 L (22-30) mmol/L Anion Gap 4 mmol/L BUN 12 (7-17) mg/dL Creatinine 0.85 (0.52-1.04) mg/dL Est GFR (CKD-EPI)AfAm >90 (>60 ml/min/1.73 sqM) Est GFR (CKD-EPI)NonAf 81 (>60 ml/min/1.73 sqM) Glucose 92 (74-99) mg/dL Calcium 9.3 (8.4-10.2) mg/dL Total Bilirubin 0.4 (0.2-1.3) mg/dL AST 28 (14-36) U/L ALT 13 (4-34) U/L Alkaline Phosphatase 109 (38-126) U/L Total Protein 7.5 (6.3-8.2) g/dL Albumin 3.9 (3.5-5.0) g/dL Amylase 67 (30-110) U/L Lipase 86 (23-300) U/L Urine Color Urine Appearance (Clear) Urine pH (5.0-8.0) Ur Specific [place] (1.001-1.035) Urine Protein (Negative) Urine Glucose (UA) (Negative) Urine Ketones (Negative) Urine Blood (Negative) Urine Nitrite (Negative) Urine Bilirubin (Negative) Urine Urobilinogen (<2.0) mg/dL Ur Leukocyte Esterase (Negative) Urine RBC (0-5) /hpf Urine WBC (0-5) /hpf Ur Squamous Epith Cells (0-4) /hpf Urine Bacteria (None) /hpf Hyaline Casts (0-2) /lpf Urine Mucus (None) /hpf Urine Yeast (Bud[place]) (None) /hpf Influenza Type A (PCR) (Not Detectd) Influenza Type B (PCR) (Not Detectd) RSV (PCR) (Not Detectd) SARS-CoV-2 (PCR) (Not Detectd) Disposition <Cameron Aviles - Last Filed: 05/13/21 00:57> Is patient prescribed a controlled substance at d/c from ED?: No <Tyler Webber - Last Filed: 05/13/21 07:18> Clinical Impression: COVID-19 Disposition: HOME SELF-CARE Condition: Good Instructions (If sedation given, give patient instructions): Coronavirus Disease 2019 (COVID-19) Referrals: Be Washburn MD [Primary Care Provider] - 1-2 days
[2021-05-13 01:07] LABS: Basophils % (A) 0 %; Eosinophils % (A) 0 %; HCT 44.5 % (34.0-46.0); HGB 13.6 gm/dL (11.4-16.0); Hypochromasia Slight; Lymphocytes # (A) 1.4 k/uL (1.0-4.8); Lymphocytes % (A) 25 %; MCH 27.2 pg (25.0-35.0); MCHC 30.5 g/dL (31.0-37.0); MCV 89.2 fL (80.0-100.0); Mean Platelet Volume 9.5; Monocytes # (A) 0.4 k/uL (0-1.0); Monocytes % (A) 7 %; Neutrophils # (A) 3.7 k/uL (1.3-7.7); Neutrophils % (A) 67 %; Platelet Count 158 k/uL (150-450); RBC 4.99 m/uL (3.80-5.40); RDW 13.5 % (11.5-15.5); WBC 5.5 k/uL (3.8-10.6)
[2021-05-13 01:23] LABS: ALT 13 U/L (4-34); AST 28 U/L (14-36); African American GFR (CKD) >90 (>60 ml/min/1.73 sqM); Albumin 3.9 g/dL (3.5-5.0); Alkaline Phosphatase 109 U/L (38-126); Amylase 67 U/L (30-110); Anion Gap 4 mmol/L; Blood Urea Nitrogen 12 mg/dL (7-17); Calcium 9.3 mg/dL (8.4-10.2); Carbon Dioxide 20 mmol/L (22-30); Chloride 119 mmol/L (98-107); Glucose 92 mg/dL (74-99); Lipase 86 U/L (23-300); Non-African American GFR(CKD) 81 (>60 ml/min/1.73 sqM); Potassium 3.9 mmol/L (3.5-5.1); Sodium 143 mmol/L (137-145); Total Bilirubin 0.4 mg/dL (0.2-1.3); Total Protein 7.5 g/dL (6.3-8.2)
[2021-05-13 01:42] LABS: Appearance,Urine Clear (Clear); Bacteria,Urine Rare /hpf; Bilirubin,Urine Negative (Negative); Blood,Urine Large (Negative); Budding Yeast,Urine Occasional /hpf; Color,Urine Yellow; Glucose,Urine (UA) Negative (Negative); Hyaline Casts,Urine 8 /lpf (0-2); Ketones,Urine 2+ (Negative); Leukocyte Esterase,Urine Negative (Negative); Mucus,Urine Occasional /hpf; Nitrite,Urine Negative (Negative); Protein,Urine 2+ (Negative); RBC,Urine 50 /hpf (0-5); Squamous Epithelial Cell,Urine 1 /hpf (0-4); Urobilinogen,Urine <2.0 mg/dL (<2.0); WBC,Urine 3 /hpf (0-5)
[2021-05-13 02:02] VITALS: TEMP 98.4
[2021-05-13] MEDS ORDERED: ALBUTEROL NEBULIZED 2.5 MG/3 ML INHALATION STA (04:30)
[2021-05-13] MEDS ORDERED: SODIUM CHLORIDE 0.9% 50 ML IVPB ONE (05:00)
[2021-05-13] MEDS ORDERED: BAMLANIVIMAB (EUA) 700 MG, ETESEVIMAB (EUA) 1,400 MG in SODIUM CHLORIDE 0.9% 100 ML IVPB ONE (05:00)
[2021-05-13] MEDS ORDERED: ALBUTEROL HFA INHALER INHALATION STA (06:09)
[2021-05-13 06:19] VITALS: BP 137/83; PULSE 54; RESP 18
== END 2021-05-13 07:43 | disposition home or self-care (01) ==
LOC: EC 21:09
DX: U07.1 COVID-19 (principal); I10 Essential (primary) hypertension; K21.9 Gastro-esophageal reflux disease without esophagitis; F41.9 Anxiety disorder, unspecified; Z86.711 Personal history of pulmonary embolism; Z86.718 Personal history of other venous thrombosis and embolism; Z79.1 Long term (current) use of non-steroidal anti-inflammatories (NSAID); Z79.899 Other long term (current) drug therapy
CPT/HCPCS: 36415; 94640; 80053; 82150; 83690; 85025; 81001; 87636; 71046; 99284; 96374; 96375; 96361; J2405; J3490

== ENCOUNTER 2021-07-23 14:18 | Emergency (ER) | payer MEDICARE ==
[2021-07-23] MEDS ORDERED: ONDANSETRON ODT 4 MG TAB PO STA (15:24)
--- NOTE | 2021-07-23 15:28 | ED ---
General Adult HPI - General Chief complaint: Nausea/Vomiting/Diarrhea Stated complaint: Nausea/Vomiting/Headcold Time Seen by Provider: 07/23/21 15:15 Source: patient, RN notes reviewed, old records reviewed Mode of arrival: ambulatory - History of Present Illness Initial comments: 50-year-old female, well-appearing, alert and oriented presents to the emergency room with complaints of nausea vomiting and diarrhea that started yesterday. She states that other people at work have similar symptoms. She is concerned for coronavirus. She has not had a fever. She's had 2 episodes of vomiting and one episode of diarrhea which was watery, not very much. She denies hematochezia or hematemesis. She states that she has a weakened immune system because she has myasthenia gravis. She did see her primary care doctor last week for respiratory congestion and was told to take Mucinex. She states she did take a Zofran prior to arrival. -: days(s) (1) Location: abdomen Radiation: non-radiation Quality: other (Cramping) Consistency: intermittent Improves with: other (bowel movement or vomiting) Worsens with: none Associated Symptoms: nausea/vomiting, other (congestion) Treatments Prior to Arrival: other (mucinex) - Related Data Home Medications Medication Instructions Recorded Confirmed diazePAM [Valium] 5 mg PO HS 06/12/16 05/13/21 Loperamide [Imodium] 2 mg PO QID PRN 07/26/17 05/13/21 Meclizine [Antivert] 25 mg PO HS 07/26/17 05/13/21 Pyridostigmine [place] [Mestinon] 90 mg PO QID@08,14,19,00 10/03/18 05/13/21 mycophenolate mofetiL [Cellcept] 1,000 mg PO Q12H 10/03/18 05/13/21 Omeprazole [PriLOSEC] 40 mg PO DAILY@1200 07/12/19 05/13/21 Ondansetron Odt [Zofran ODT] 8 mg PO Q8HR PRN 07/12/19 05/13/21 Medroxyprogesterone Acetate 150 mg IM Q90D 12/07/19 05/13/21 [Depo-Provera] traZODone HCL 100 mg PO HS 12/07/19 05/13/21 Ibuprofen [Motrin] 600 mg PO DAILY PRN 05/13/21 05/13/21 Allergies Allergy/AdvReac Type Severity Reaction Status Date / Time adhesive Allergy Rash/Hives Verified 07/23/21 14:24 Aminoglycosides Allergy Dyspnea Verified 07/23/21 14:24 amlodipine besylate Allergy Swelling Verified 07/23/21 14:24 [From Norvasc] levofloxacin [From Levaquin] Allergy Dyspnea Verified 07/23/21 14:24 Macrolide Antibiotics Allergy Dyspnea Verified 07/23/21 14:24 Quinolones Allergy Dyspnea Verified 07/23/21 14:24 sulfamethoxazole Allergy Dyspnea Verified 07/23/21 14:24 [From Bactrim] trimethoprim [From Bactrim] Allergy Dyspnea Verified 07/23/21 14:24 FLUORINOQUINOLINES Allergy Unknown Uncoded 05/12/21 22:04 Review of Systems ROS Statement: Those systems with pertinent positive or pertinent negative responses have been documented in the HPI. ROS Other: All systems not noted in ROS Statement are negative. Past Medical History Past Medical History: Deep Vein Thrombosis (DVT), GERD/Reflux, Hypertension, Pneumonia, Pulmonary Embolus (PE) Additional Past Medical History / Comment(s): ivan filter, kidney stones, myasthenia gravis, vertigo, hypoglycemia, hx renal problems with dialysis 1 yr ago- now resolved per pt, c-diff 2012, septicemia 2016, diverticulitis. History of Any Multi-Drug Resistant Organisms: C-DIFF Date of last positivie culture/infection: 2012 MDRO Source:: stool Past Surgical History: Ablation, Bariatric Surgery, Section, Cholecystectomy, Hernia Repair, Tonsillectomy Additional Past Surgical History / Comment(s): thymus removed , LEEP.Umbilical hernia. GASTRIC SLEEVE 2012, uterine fibroid biopsy, hiatal hernia repair, rt cataract, ivan filter, ports x 2/later removed Past Anesthesia/Blood Transfusion Reactions: Motion Sickness Past Psychological History: Anxiety Smoking Status: Never smoker Past Alcohol Use History: None Reported Past Drug Use History: None Reported - Past Family History Mother Family Medical History: No Reported History Father Family Medical History: Coronary Artery Disease (CAD) Additional Family Medical History / Comment(s): quadruple bipass General Exam Limitations: no limitations General appearance: alert, in no apparent distress Eye exam: Present: normal appearance. Absent: scleral icterus, conjunctival injection ENT exam: Present: normal oropharynx, mucous membranes moist Neck exam: Present: full ROM. Absent: meningismus Respiratory exam: Present: normal lung sounds bilaterally. Absent: respiratory distress, wheezes, rales, rhonchi, stridor, accessory muscle use, decreased breath sounds Cardiovascular Exam: Present: tachycardia, normal heart sounds GI/Abdominal exam: Present: soft. Absent: distended, guarding, rebound, rigid Neurological exam: Present: alert, oriented X3 Psychiatric exam: Present: normal affect, normal mood Skin exam: Present: warm, dry, normal color. Absent: cyanosis, diaphoretic, pallor Course Vital Signs 07/23/21 07/23/21 14:21 16:31 Temperature 98.8 F 98.0 F Pulse Rate 110 H 83 Respiratory 18 16 Rate Blood Pressure 166/96 163/119 O2 Sat by Pulse 96 96 Oximetry Medical Decision Making - Medical Decision Making Patient presents with 1 day of nausea vomiting diarrhea. No fevers. She did have a URI type symptoms was seen by her primary care doctor put on Mucinex. 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 She was given Zofran in the emergency room no further nausea vomiting. Coronavirus, influenza and RSV swabs negative. Lungs sounds are clear to auscultation vital signs are stable. She is encouraged to increase her fluid intake and follow-up with her doctor next week. She was given a work note as requested. Case discussed with Dr. Vann - Lab Data Lab Results 07/23/21 Range/Units 15:12 Influenza Type A (PCR) Not Detected (Not Detectd) Influenza Type B (PCR) Not Detected (Not Detectd) RSV (PCR) Not Detected (Not Detectd) SARS-CoV-2 (PCR) Not Detected (Not Detectd) Disposition Clinical Impression: Nausea vomiting and diarrhea Disposition: HOME SELF-CARE Condition: Good Instructions (If sedation given, give patient instructions): Acute Nausea and Vomiting (ED), Acute Diarrhea (ED) Additional Instructions: Increase your fluid intake to prevent dehydration. Clear liquid diet for the next 12 hours and for the following 12 hours, slowly advance your diet with bananas, rice, applesauce and toast. Return to the emergency room with any new or concerning symptoms including increased pain, inability to keep any fluids down or pain with fever. Follow-up with the primary care doctor this week. Is patient prescribed a controlled substance at d/c from ED?: No Referrals: Be Washburn MD [Primary Care Provider] - 1-2 days Time of Disposition: 16:24
[2021-07-23 16:03] LABS: Influenza A Not Detected (Not Detectd); Influenza B Not Detected (Not Detectd)
[2021-07-23 16:33] VITALS: BP 163/119; PULSE 83; RESP 16; TEMP 98
== END 2021-07-23 16:32 | disposition home or self-care (01) ==
LOC: EC 14:18
DX: R11.2 Nausea with vomiting, unspecified (principal); R19.7 Diarrhea, unspecified; Z20.822 Contact with and (suspected) exposure to COVID-19; I10 Essential (primary) hypertension; F41.9 Anxiety disorder, unspecified; Z86.718 Personal history of other venous thrombosis and embolism
CPT/HCPCS: 87636; 99284

== ENCOUNTER → 2021-10-01 | Outpatient (CLI) | payer MEDICARE ==
--- NOTE | 2021-10-01 15:48 | XR ---
EXAMINATION TYPE: XR chest 2V DATE OF EXAM: 10/01/2021 COMPARISON: 01/08 TECHNIQUE: PA and lateral views submitted. HISTORY: History of myasthenia gravis FINDINGS: The lungs are clear and there is no pneumothorax, pleural effusion, or focal pneumonia. Postsurgica l changes. Degenerative changes of the spine. Ectasia of the aorta. IMPRESSION: 1. No acute process.
--- NOTE | 2021-10-01 15:49 | XR ---
EXAMINATION TYPE: XR sternum DATE OF EXAM: 10/01/2021 COMPARISON: NONE HISTORY: Pain TECHNIQUE: 3 views submitted FINDINGS: Sternotomy wires are noted. Visualized portion of the sternum is intact. IMPRESSION: No abnormality noted. If symptoms persist consider CT scan.
== END | disposition home or self-care (01) ==
LOC: RADXRMAIN 14:26
PROVIDERS: ATTEND Family Medicine
DX: G70.00 Myasthenia gravis without (acute) exacerbation (principal)
CPT/HCPCS: 71046; 71120

== ENCOUNTER → 2021-10-06 | Outpatient (CLI) | payer MEDICARE ==
--- NOTE | 2021-10-08 08:49 | MM ---
Reason for Exam: Screening (asymptomatic). Last mammogram was performed 1 year(s) and 3 month(s) ago. Patient History: Menarche at age 12. First Full-Term at age 22. Postmenopausal. Hormonal Contraceptives, from age 31 until age 50. Risk Values: Alea 5 year model risk: 0.9%. NCI Lifetime model risk: 8.9%. Film Views: Bilateral CC views were taken. Bilateral MLO views were taken. Prior Study Comparison: 01/06/2018 Left Diagnostic Mammogram, [facility]. 09/19/2018 Bilateral Screening Mammogram, [facility]. 06/18/2020 Bilateral Screening Mammogram, [facility]. Tissue Density: The breast tissue is heterogeneously dense. This may lower the sensitivity of mammography. Findings: Analyzed By CAD. There is no suspicious group of microcalcifications or new suspicious mass in either breast. Overall Assessment: Benign, BI-RAD 2 Management: Screening Mammogram of both breasts in 1 year. A clinical breast exam by your physician is recommended on an annual basis and results should be correlated with mammographic findings. Patient should continue with self breast exam. Electronically signed and approved by: Aravind Curtis D.O. Radiologis
== END | disposition home or self-care (01) ==
LOC: RADMAMWWP 13:38
PROVIDERS: ATTEND Family Medicine
DX: Z12.31 Encounter for screening mammogram for malignant neoplasm of breast (principal); Z78.0 Asymptomatic menopausal state
CPT/HCPCS: 77063; 77067

== ENCOUNTER 2021-11-01 12:27 | Emergency (ER) | payer MEDICARE ==
[2021-11-01 12:31] VITALS: TEMP 97.5
--- NOTE | 2021-11-01 13:05 | ED ---
General Adult HPI - General Chief complaint: ENT Stated complaint: Throat pain Time Seen by Provider: 11/01/21 12:50 Source: patient, RN notes reviewed Mode of arrival: ambulatory Limitations: no limitations - History of Present Illness Initial comments: Patient is a pleasant 50-year-old female presenting to the emergency department with sore throat. Onset of symptoms was today. Patient has some mild fatigue. Patient has cough occasional sputum. Patient states her voice is off a little bit and her throat is sore. No fever. - Related Data Home Medications Medication Instructions Recorded Confirmed diazePAM [Valium] 5 mg PO HS 06/12/16 11/01/21 Loperamide [Imodium] 2 mg PO Q4H PRN 07/26/17 11/01/21 Meclizine [Antivert] 50 mg PO HS 07/26/17 11/01/21 Pyridostigmine [place] [Mestinon] 90 mg PO QID@08,14,19,00 10/03/18 11/01/21 mycophenolate mofetiL [Cellcept] 1,000 mg PO Q12H 10/03/18 11/01/21 Omeprazole [PriLOSEC] 40 mg PO DAILY@1200 07/12/19 11/01/21 traZODone HCL 100 mg PO HS 12/07/19 11/01/21 Fluticasone Nasal [place] [Flonase 2 spray EA NOSTRIL DAILY 11/01/21 11/01/21 Nasal [place]] Previous Rx's Medication Instructions Recorded Amoxicillin 500 mg PO Q8H #30 capsule 11/01/21 Allergies Allergy/AdvReac Type Severity Reaction Status Date / Time adhesive Allergy Rash/Hives Verified 11/01/21 14:02 Aminoglycosides Allergy Dyspnea Verified 11/01/21 14:02 amlodipine besylate Allergy Swelling Verified 11/01/21 14:02 [From Norvasc] cephalexin [From Keflex] Allergy Unknown Verified 11/01/21 12:31 levofloxacin [From Levaquin] Allergy Dyspnea Verified 11/01/21 14:02 Macrolide Antibiotics Allergy Dyspnea Verified 11/01/21 14:02 Quinolones Allergy Dyspnea Verified 11/01/21 14:02 sulfamethoxazole Allergy Dyspnea Verified 11/01/21 14:02 [From Bactrim] trimethoprim [From Bactrim] Allergy Dyspnea Verified 11/01/21 14:02 FLUORINOQUINOLINES Allergy Unknown Uncoded 11/01/21 12:31 Review of Systems ROS Statement: Those systems with pertinent positive or pertinent negative responses have been documented in the HPI. ROS Other: All systems not noted in ROS Statement are negative. Constitutional: Denies: fever, chills Eyes: Denies: eye pain ENT: Reports: throat pain Respiratory: Reports: cough. Denies: dyspnea Cardiovascular: Denies: chest pain Endocrine: Reports: fatigue Gastrointestinal: Denies: abdominal pain Genitourinary: Denies: urgency Past Medical History Past Medical History: Deep Vein Thrombosis (DVT), GERD/Reflux, Hypertension, Pneumonia, Pulmonary Embolus (PE) Additional Past Medical History / Comment(s): ivan filter, kidney stones, myasthenia gravis, vertigo, hypoglycemia, hx renal problems with dialysis 1 yr ago- now resolved per pt, c-diff 2012, septicemia 2016, diverticulitis. History of Any Multi-Drug Resistant Organisms: C-DIFF Date of last positivie culture/infection: 2012 MDRO Source:: stool Past Surgical History: Ablation, Bariatric Surgery, Section, Cholecystectomy, Hernia Repair, Tonsillectomy Additional Past Surgical History / Comment(s): thymus removed , LEEP.Umbilical hernia. GASTRIC SLEEVE 2013, uterine fibroid biopsy, hiatal hernia repair, rt cataract, ivan filter, ports x 2/later removed Past Anesthesia/Blood Transfusion Reactions: Motion Sickness Past Psychological History: Anxiety Smoking Status: Never smoker Past Alcohol Use History: None Reported Past Drug Use History: None Reported - Past Family History Mother Family Medical History: No Reported History Father Family Medical History: Coronary Artery Disease (CAD) Additional Family Medical History / Comment(s): quadruple bipass General Exam Limitations: no limitations General appearance: alert, in no apparent distress Head exam: Present: normocephalic Eye exam: Present: normal appearance ENT exam: Present: normal oropharynx Neck exam: Present: normal inspection. Absent: lymphadenopathy Respiratory exam: Present: normal lung sounds bilaterally Cardiovascular Exam: Present: regular rate, normal rhythm GI/Abdominal exam: Present: soft. Absent: tenderness Extremities exam: Present: normal inspection. Absent: pedal edema, calf tenderness Neurological exam: Present: alert Psychiatric exam: Present: normal affect, normal mood Skin exam: Present: normal color Course Vital Signs 11/01/21 12:29 Temperature 97.5 F L Pulse Rate 68 Respiratory 20 Rate Blood Pressure 180/98 O2 Sat by Pulse 97 Oximetry Medical Decision Making - Medical Decision Making Patient has multiple antibiotic ALLERGIES. Patient is not ALLERGIC to amoxicillin. Patient is on CellCept and therefore will be covered with amoxicillin. Patient states she is on this for myasthenia gravis. Patient having no increased weakness at this time. Patient is updated on results and is comfortable with discharge home. Patient recommended close follow-up. - Lab Data Lab Results 11/01/21 11/01/21 11/01/21 Range/Units 13:09 13:09 13:09 Coronavirus (PCR) Not Detected (Not Detectd) Influenza Type A RNA Not Detected (Not Detectd) Influenza Type B (PCR) Not Detected (Not Detectd) Group A Strep Rapid Negative (Negative) - Radiology Data Radiology results: image reviewed (Wrist x-ray shows possible scarring versus interstitial changes right upper lobe.) Disposition Clinical Impression: Pharyngitis Disposition: HOME SELF-CARE Condition: Stable Instructions (If sedation given, give patient instructions): Pharyngitis (ED) Additional Instructions: Please follow-up with primary care physician Wednesday. Return for fevers, difficulty breathing, increased sore throat, difficulty swallowing fluids, worsening symptoms or any other concerns. Prescriptions: Amoxicillin 500 mg PO Q8H #30 capsule Is patient prescribed a controlled substance at d/c from ED?: No Referrals: Be Washburn MD [Primary Care Provider] - 1-2 days Time of Disposition: 14:46
--- NOTE | 2021-11-01 14:21 | XR ---
EXAMINATION TYPE: XR chest 2V DATE OF EXAM: 11/01/2021 COMPARISON: Chest x-ray 10/01/2021, chest CT 04/08/2021 HISTORY: Cough TECHNIQUE: Frontal and lateral views of the chest are obtained. FINDINGS: There is no focal air space opacity, pleural effusion, or pneumothorax seen. The cardiac silhouette size is within normal limits. Patient is post median sternotomy. Right hemidiaphragm anand ins elevated. There are some interstitial changes in the right upper lobe, possible scarring. The oss eous structures are intact. Inferior vena cava filter is noted incidentally. There is overlying artif act. IMPRESSION: Possible scarring or interstitial changes right upper lobe.
[2021-11-01 15:14] VITALS: BP 154/78; PULSE 74; RESP 18
== END 2021-11-01 15:14 | disposition home or self-care (01) ==
LOC: EC 12:27
DX: J02.9 Acute pharyngitis, unspecified (principal); I10 Essential (primary) hypertension; Z91.09 Other allergy status, other than to drugs and biological substances; Z88.8 Allergy status to other drugs, medicaments and biological substances; Z20.822 Contact with and (suspected) exposure to COVID-19; Z88.1 Allergy status to other antibiotic agents; Z88.2 Allergy status to sulfonamides; Z79.899 Other long term (current) drug therapy
CPT/HCPCS: 71046; 87081; 87430; 87502; 87635; 99283

== ENCOUNTER 2022-01-14 17:42 | Emergency (ER) | payer MEDICARE ==
[2022-01-14 18:31] VITALS: BP 150/111; PULSE 112; RESP 20; TEMP 98.4
[2022-01-14] MEDS ORDERED: diphenhydrAMINE 50 MG/ML 1 ML VIAL IVP STA (19:58)
[2022-01-14] MEDS ORDERED: SODIUM CHLORIDE 0.9% 2,000 ML IV STA (19:58)
[2022-01-14] MEDS ORDERED: METOCLOPRAMIDE 5 MG/ML 2 ML VIAL IVP STA (19:58)
[2022-01-14] MEDS ORDERED: FAMOTIDINE 20 MG/2 ML VIAL IV STA (19:58)
--- NOTE | 2022-01-14 20:08 | ED ---
General Adult HPI <SofyanevaMing B - Last Filed: 01/14/22 22:53> - General Source: patient, RN notes reviewed, old records reviewed Mode of arrival: ambulatory Limitations: no limitations <Cameron Aviles - Last Filed: 01/16/22 04:13> - General Chief complaint: Nausea/Vomiting/Diarrhea Stated complaint: vomiting Time Seen by Provider: 01/14/22 19:50 - History of Present Illness Initial comments: Patient is a 51-year-old female with past medical history remarkable for gastric sleeve surgery, PE, hypertension, myasthenia gravis who presents emergency Department complaining of nausea, vomiting, diarrhea for one day. No known sick contacts. Was accepted for Covid. Denies fevers, chills. Denies shortness of breath, chest pain. Presents over concern for repeated episodes of nonbilious, bloody emesis, approximately 6 times today. She states they are not all large volume. Also states she's been having runny diarrhea that is nonbloody. No known sick contacts. Uncertain what is causing it. Denies any abdominal pain. Denies any urinary complaints. She presents for further evaluation at this time. (Cameron Aviles) - Related Data Home Medications Medication Instructions Recorded Confirmed diazePAM [Valium] 5 mg PO HS 06/12/16 01/14/22 Loperamide [Imodium] 2 mg PO Q4H PRN 07/26/17 01/14/22 Meclizine [Antivert] 50 mg PO HS 07/26/17 01/14/22 Pyridostigmine [place] [Mestinon] 90 mg PO QID@08,,19,10/03/18 01/14/22 mycophenolate mofetiL [Cellcept] 1,000 mg PO Q12H 10/03/18 01/14/22 Omeprazole [PriLOSEC] 40 mg PO DAILY@1200 07/12/19 01/14/22 traZODone HCL 100 mg PO HS 12/07/19 01/14/22 Fluticasone Nasal [place] [Flonase 2 spray EA NOSTRIL DAILY 11/01/21 01/14/22 Nasal [place]] Allergies Allergy/AdvReac Type Severity Reaction Status Date / Time adhesive Allergy Rash/Hives Verified 01/14/22 21:37 Aminoglycosides Allergy Dyspnea Verified 01/14/22 21:37 amlodipine besylate Allergy Swelling Verified 01/14/22 21:37 [From Norvasc] cephalexin [From Keflex] Allergy Unknown Verified 01/14/22 21:37 levofloxacin [From Levaquin] Allergy Dyspnea Verified 01/14/22 21:37 Macrolide Antibiotics Allergy Dyspnea Verified 01/14/22 21:37 Quinolones Allergy Dyspnea Verified 01/14/22 21:37 sulfamethoxazole Allergy Dyspnea Verified 01/14/22 21:37 [From Bactrim] trimethoprim [From Bactrim] Allergy Dyspnea Verified 01/14/22 21:37 FLUORINOQUINOLINES Allergy Unknown Uncoded 01/14/22 18:31 Review of Systems ROS Other: All systems not noted in ROS Statement are negative. <Ming [place] - Last Filed: 01/14/22 22:53> ROS Other: All systems not noted in ROS Statement are negative. <Cameron Aviles - Last Filed: 01/16/22 04:13> ROS Statement: Those systems with pertinent positive or pertinent negative responses have been documented in the HPI. Review of Systems: CONST: Denies fever EYES: Denies blurry vision ENT: Denies nasal congestion C/V: Denies Chest pain RESP: Denies shortness of breath GI: Denies abdominal pain : Denies dysuria SKIN: Denies rash. MSK: Denies joint pain. NEURO: Denies headache (Cameron Aviles) Past Medical History Past Medical History: Deep Vein Thrombosis (DVT), GERD/Reflux, Hypertension, Pneumonia, Pulmonary Embolus (PE) Additional Past Medical History / Comment(s): ivan filter, kidney stones, myasthenia gravis, vertigo, hypoglycemia, hx renal problems with dialysis 1 yr ago- now resolved per pt, c-diff 2012, septicemia 2017, diverticulitis. History of Any Multi-Drug Resistant Organisms: C-DIFF Date of last positivie culture/infection: 2012 MDRO Source:: stool Past Surgical History: Ablation, Bariatric Surgery, Section, Cholecystectomy, Hernia Repair, Tonsillectomy Additional Past Surgical History / Comment(s): thymus removed , LEEP.Umbilical hernia. GASTRIC SLEEVE 2013, uterine fibroid biopsy, hiatal hernia repair, rt cataract, ivan filter, ports x 2/later removed Past Anesthesia/Blood Transfusion Reactions: Motion Sickness Past Psychological History: Anxiety Smoking Status: Never smoker Past Alcohol Use History: None Reported Past Drug Use History: None Reported - Past Family History Mother Family Medical History: No Reported History Father Family Medical History: Coronary Artery Disease (CAD) Additional Family Medical History / Comment(s): quadruple bipass <Cameron Aviles - Last Filed: 01/16/22 04:13> General Exam General appearance: alert, in no apparent distress Head exam: Present: atraumatic, normocephalic, normal inspection Eye exam: Present: normal appearance, PERRL, EOMI. Absent: scleral icterus, conjunctival injection, periorbital swelling ENT exam: Present: normal exam, mucous membranes moist Neck exam: Present: normal inspection. Absent: tenderness, meningismus, lymphadenopathy Respiratory exam: Present: normal lung sounds bilaterally. Absent: respiratory distress, wheezes, rales, rhonchi, stridor Cardiovascular Exam: Present: regular rate, normal rhythm, normal heart sounds. Absent: systolic murmur, diastolic murmur, rubs, gallop, clicks GI/Abdominal exam: Present: soft, normal bowel sounds. Absent: distended, tenderness, guarding, rebound, rigid Extremities exam: Present: normal inspection, full ROM, normal capillary refill. Absent: tenderness, pedal edema, joint swelling, calf tenderness Back exam: Present: normal inspection Neurological exam: Present: alert, oriented X3, CN II-XII intact Psychiatric exam: Present: normal affect, normal mood Skin exam: Present: warm, dry, intact, normal color. Absent: rash <[place] - Last Filed: 01/14/22 22:53> Limitations: no limitations <Cameron Aviles - Last Filed: 01/16/22 04:13> - General Exam Comments Initial Comments: General: Appears in no acute distress. HEAD: Normal with no signs of head trauma. EYES: PERRLA, EOMI, conjunctiva normal, no discharge. ENT: Hearing grossly intact, normal oropharynx. Mildly dry mucous membranes. RESPIRATORY: Clear breath sounds bilaterally. No wheezes, rales, or rhonchi. C/V: Mild tachycardia. S1 and S2 auscultated, no edema, peripheral pulses 2+ and intact throughout ABD: Abd is soft, nontender, nondistended. No guarding. No peritoneal signs. No rebound tenderness. EXT: Normal range of motion, no obvious deformity SKIN: No rashes or lesions observed on exposed skin. NEURO: Alert and oriented 4. (Cameron Aviles) Course <Ming [place] - Last Filed: 01/14/22 22:53> Vital Signs 01/14/22 18:29 Temperature 98.4 F Pulse Rate 112 H Respiratory 20 Rate Blood Pressure 150/111 O2 Sat by Pulse 98 Oximetry - Reevaluation(s) Reevaluation #1: 01/14/22 22:53 Medical record is reviewed ([place]) Reevaluation #2: 01/14/22 22:53 Patient currently feels significantly improved and feels good for discharge home ([place]) Reevaluation #3: 01/14/22 22:53 Patient informed of results here in the ER (Ming [place]) Medical Decision Making - Lab Data Result diagrams: 01/14/22 20:28 01/14/22 20:28 <Ming [place] - Last Filed: 01/14/22 22:53> - Lab Data Result diagrams: 01/14/22 20:28 01/14/22 20:28 <Cameron Aviles - Last Filed: 01/16/22 04:13> - Medical Decision Making 51 female to the ER for evaluation. Patient feels improved here in the ER nausea vomiting stopped no current loose stools or diarrhea and patient can be discharged home ([place]ing [place]) Based On the patient's presentation and physical exam, and concern for acute intra-abdominal pathology for current symptoms. Cannot rule out COVID-19 infection. Recommended we obtain Covid swab, urine studies, abdominal labs. She'll be symptomatically treated at this time as well. She has no abdominal pain. Vital signs are relatively normal but we'll continue to monitor her mild tachycardia. This could be secondary to dehydration. She'll be given 2 L IV fluids. She was in agreement this plan. Patient's laboratory studies are remarkable for mild leukocytosis which is likely reactive at 11.5. She is not . Remainder the labs are unremarkable. Covid and urine are still pending at this time. On reevaluation, patient is feeling improved. We'll continue IV fluid hydration. Urine is still pending. Covid is still pending. Patient care signed out to Dr. Land. (Cameron Aviles) - Lab Data Lab Results 01/14/22 01/14/22 01/14/22 Range/Units 20:28 20:28 21:05 WBC 11.5 H (3.8-10.6) k/uL RBC 5.32 (3.80-5.40) m/uL Hgb 14.7 (11.4-16.0) gm/dL Hct 48.7 H (34.0-46.0) % MCV 91.5 (80.0-100.0) fL MCH 27.7 (25.0-35.0) pg MCHC 30.3 L (31.0-37.0) g/dL RDW 13.9 (11.5-15.5) % Plt Count 220 (150-450) k/uL MPV 8.6 Neutrophils % 89 % Lymphocytes % 6 % Monocytes % 3 % Eosinophils % 2 % Basophils % 0 % Neutrophils # 10.2 H (1.3-7.7) k/uL Lymphocytes # 0.7 L (1.0-4.8) k/uL Monocytes # 0.3 (0-1.0) k/uL Eosinophils # 0.2 (0-0.7) k/uL Basophils # 0.0 (0-0.2) k/uL Hypochromasia Moderate Sodium 142 (137-145) mmol/L Potassium 4.3 (3.5-5.1) mmol/L Chloride 113 H (98-107) mmol/L Carbon Dioxide 22 (22-30) mmol/L Anion Gap 7 mmol/L BUN 16 (7-17) mg/dL Creatinine 1.11 H (0.52-1.04) mg/dL Est GFR (CKD-EPI)AfAm 67 (>60 ml/min/1.73 sqM) Est GFR (CKD-EPI)NonAf 58 (>60 ml/min/1.73 sqM) Glucose 103 H (74-99) mg/dL Calcium 9.5 (8.4-10.2) mg/dL Total Bilirubin 0.4 (0.2-1.3) mg/dL AST 25 (14-36) U/L ALT 15 (4-34) U/L Alkaline Phosphatase 117 (38-126) U/L Total Protein 7.7 (6.3-8.2) g/dL Albumin 4.3 (3.5-5.0) g/dL Amylase 81 (30-110) U/L Lipase 87 (23-300) U/L HCG, Qual Not Detected Urine Color Urine Appearance (Clear) Urine pH (5.0-8.0) Ur Specific [place] (1.001-1.035) Urine Protein (Negative) Urine Glucose (UA) (Negative) Urine Ketones (Negative) Urine Blood (Negative) Urine Nitrite (Negative) Urine Bilirubin (Negative) Urine Urobilinogen (<2.0) mg/dL Ur Leukocyte Esterase (Negative) Urine RBC (0-5) /hpf Urine WBC (0-5) /hpf Ur Squamous Epith Cells (0-4) /hpf Urine Bacteria (None) /hpf Urine Mucus (None) /hpf Coronavirus (PCR) Not Detected (Not Detectd) 01/14/22 Range/Units 22:08 WBC (3.8-10.6) k/uL RBC (3.80-5.40) m/uL Hgb (11.4-16.0) gm/dL Hct (34.0-46.0) % MCV (80.0-100.0) fL MCH (25.0-35.0) pg MCHC (31.0-37.0) g/dL RDW (11.5-15.5) % Plt Count (150-450) k/uL MPV Neutrophils % % Lymphocytes % % Monocytes % % Eosinophils % % Basophils % % Neutrophils # (1.3-7.7) k/uL Lymphocytes # (1.0-4.8) k/uL Monocytes # (0-1.0) k/uL Eosinophils # (0-0.7) k/uL Basophils # (0-0.2) k/uL Hypochromasia Sodium (137-145) mmol/L Potassium (3.5-5.1) mmol/L Chloride (98-107) mmol/L Carbon Dioxide (22-30) mmol/L Anion Gap mmol/L BUN (7-17) mg/dL Creatinine (0.52-1.04) mg/dL Est GFR (CKD-EPI)AfAm (>60 ml/min/1.73 sqM) Est GFR (CKD-EPI)NonAf (>60 ml/min/1.73 sqM) Glucose (74-99) mg/dL Calcium (8.4-10.2) mg/dL Total Bilirubin (0.2-1.3) mg/dL AST (14-36) U/L ALT (4-34) U/L Alkaline Phosphatase (38-126) U/L Total Protein (6.3-8.2) g/dL Albumin (3.5-5.0) g/dL Amylase (30-110) U/L Lipase (23-300) U/L HCG, Qual Urine Color Light Yellow Urine Appearance Clear (Clear) Urine pH 5.0 (5.0-8.0) Ur Specific [place] 1.015 (1.001-1.035) Urine Protein Negative (Negative) Urine Glucose (UA) Negative (Negative) Urine Ketones Trace H (Negative) Urine Blood Moderate H (Negative) Urine Nitrite Negative (Negative) Urine Bilirubin Negative (Negative) Urine Urobilinogen <2.0 (<2.0) mg/dL Ur Leukocyte Esterase Negative (Negative) Urine RBC 5 (0-5) /hpf Urine WBC 1 (0-5) /hpf Ur Squamous Epith Cells 1 (0-4) /hpf Urine Bacteria Rare H (None) /hpf Urine Mucus Rare H (None) /hpf Coronavirus (PCR) (Not Detectd) Disposition Is patient prescribed a controlled substance at d/c from ED?: No Time of Disposition: 23:00 <[place]ing [place] - Last Filed: 01/14/22 22:53> <Cameron Aviles - Last Filed: 01/16/22 04:13> Clinical Impression: Food poisoning, Nausea & vomiting, Dehydration Disposition: HOME SELF-CARE Condition: Good Instructions (If sedation given, give patient instructions): Acute Nausea and Vomiting (ED), Acute Diarrhea (ED) Referrals: Be Washburn MD [Primary Care Provider] - 1-2 days
[2022-01-14 20:32] LABS: Basophils % (A) 0 %; Eosinophils # (A) 0.2 k/uL (0-0.7); Eosinophils % (A) 2 %; HCT 48.7 % (34.0-46.0); HGB 14.7 gm/dL (11.4-16.0); Hypochromasia Moderate; Lymphocytes # (A) 0.7 k/uL (1.0-4.8); Lymphocytes % (A) 6 %; MCH 27.7 pg (25.0-35.0); MCHC 30.3 g/dL (31.0-37.0); MCV 91.5 fL (80.0-100.0); Mean Platelet Volume 8.6; Monocytes # (A) 0.3 k/uL (0-1.0); Monocytes % (A) 3 %; Neutrophils # (A) 10.2 k/uL (1.3-7.7); Neutrophils % (A) 89 %; Platelet Count 220 k/uL (150-450); RBC 5.32 m/uL (3.80-5.40); RDW 13.9 % (11.5-15.5); WBC 11.5 k/uL (3.8-10.6)
[2022-01-14 20:43] LABS: ALT 15 U/L (4-34); AST 25 U/L (14-36); African American GFR (CKD) 67 (>60 ml/min/1.73 sqM); Albumin 4.3 g/dL (3.5-5.0); Alkaline Phosphatase 117 U/L (38-126); Amylase 81 U/L (30-110); Anion Gap 7 mmol/L; Blood Urea Nitrogen 16 mg/dL (7-17); Calcium 9.5 mg/dL (8.4-10.2); Carbon Dioxide 22 mmol/L (22-30); Chloride 113 mmol/L (98-107); Glucose 103 mg/dL (74-99); Lipase 87 U/L (23-300); Non-African American GFR(CKD) 58 (>60 ml/min/1.73 sqM); Potassium 4.3 mmol/L (3.5-5.1); Sodium 142 mmol/L (137-145); Total Bilirubin 0.4 mg/dL (0.2-1.3); Total Protein 7.7 g/dL (6.3-8.2)
[2022-01-14 20:44] LABS: HCG,Qualitative Serum Not Detected
[2022-01-14 22:33] LABS: Appearance,Urine Clear (Clear); Bacteria,Urine Rare /hpf; Bilirubin,Urine Negative (Negative); Blood,Urine Moderate (Negative); Color,Urine Light Yellow; Glucose,Urine (UA) Negative (Negative); Ketones,Urine Trace (Negative); Leukocyte Esterase,Urine Negative (Negative); Mucus,Urine Rare /hpf; Nitrite,Urine Negative (Negative); Protein,Urine Negative (Negative); RBC,Urine 5 /hpf (0-5); Specific Gravity,Urine 1.015 (1.001-1.035); Squamous Epithelial Cell,Urine 1 /hpf (0-4); Urobilinogen,Urine <2.0 mg/dL (<2.0); WBC,Urine 1 /hpf (0-5)
[2022-01-14] MEDS ORDERED: ONDANSETRON 4 MG ODT STARTER PACK 2 TAB BTL PO STA (22:57)
== END 2022-01-14 23:01 | disposition home or self-care (01) ==
LOC: EC 17:42
DX: A05.9 Bacterial foodborne intoxication, unspecified (principal); K21.9 Gastro-esophageal reflux disease without esophagitis; I10 Essential (primary) hypertension; Z86.718 Personal history of other venous thrombosis and embolism; Z86.711 Personal history of pulmonary embolism; Z20.822 Contact with and (suspected) exposure to COVID-19; Z79.899 Other long term (current) drug therapy; Z91.048 Other nonmedicinal substance allergy status; Z88.1 Allergy status to other antibiotic agents; Z88.8 Allergy status to other drugs, medicaments and biological substances; Z88.2 Allergy status to sulfonamides
CPT/HCPCS: 36415; 80053; 82150; 83690; 85025; 81001; 84703; 87635; 99283; 96374; 96375; J1200; J2765

== ENCOUNTER → 2022-01-23 | Outpatient (CLI) | payer MEDICARE ==
--- NOTE | 2022-01-23 09:32 | US ---
EXAMINATION TYPE: US pelvis complete transvag DATE OF EXAM: 01/23/2022 COMPARISON: NONE CLINICAL HISTORY: N93.8 DUB. TECHNIQUE: Transvaginal (TV) and Transabdominal (TA) . Transabdominal sonographic images of the pel vis were acquired. Transvaginal sonographic images were medically necessary to better assess the fol lowing anatomy: Date of LMP: Patient unsure EXAM MEASUREMENTS: Uterus: 9.0 x 3.8 x 5.2 cm Endometrial Stripe: 4mm cm Right Ovary: 2.7 x 1.8 x 1.7 cm Left Ovary: 4.2 x 3.0 x 3.9 cm Patient unable to empty her bladder for transvaginal ultrasound 1. Uterus: hypoechoic oval structure seen abdominally probable fibroid measuring 1.4 x 1.0 x 1.4cm 2. Endometrium: small amount of free fluid in endocervical canal 3. Right Ovary: wnl, limited views due to overlying bowel 4. Left Ovary: cyst with daughter cyst within measuring 3.2 x 2.5 x 2.5cm Spectral, color and waveform doppler imaging shows good arterial and venous flow within the ovaries ; there is no evidence for ovarian torsion. 5. Bilateral Adnexa: wnl 6. Posterior cul-de-sac: wnl IMPRESSION: 1. Probable leiomyomatous change of the uterus. 2 small amount of Endo cervical fluid 3. Left ovarian cystic lesion. Consider follow-up study in 6 weeks.
== END | disposition home or self-care (01) ==
LOC: RADUSWWP 08:18
PROVIDERS: ATTEND Obstetrics & Gynecology
DX: N83.202 Unspecified ovarian cyst, left side (principal)
CPT/HCPCS: 76830; 76856

== ENCOUNTER 2022-06-05 13:10 | Emergency (ER) | payer OTHER, MEDICARE ==
[2022-06-05] MEDS ORDERED: ACETAMINOPHEN TAB 500 MG TAB PO STA (13:38)
--- NOTE | 2022-06-05 13:42 | ED ---
Head Injury HPI - General Chief complaint: Head Injury Stated complaint: [facility] - head injury Time Seen by Provider: 06/05/22 13:33 Source: patient, RN notes reviewed, old records reviewed Mode of arrival: ambulatory Limitations: no limitations - History of Present Illness Initial comments: 51-year-old female presents to the emergency room with complaints of head injury. Patient states that she was at school working and leaned into a cooler and the lid came down and hit her on top of the head. No loss of consciousness. No bleeding. She put ice on it right away with some relief. She does not take any blood thinners. She does have a history of DVT with [place] filter, GERD, hypertension. MD Complaint: head injury -: hour(s) Mechanism of Injury: other (leaning into a cooler and lid came down and hit her head) Loss of Consciousness: no Place: work Severity scale (1-10): 10 Quality: aching Associated Symptoms: denies other symptoms - Related Data Home Medications Medication Instructions Recorded Confirmed diazePAM [Valium] 5 mg PO HS 06/12/16 01/14/22 Loperamide [Imodium] 2 mg PO Q4H PRN 07/26/17 01/14/22 Meclizine [Antivert] 50 mg PO HS 07/26/17 01/14/22 Pyridostigmine [place] [Mestinon] 90 mg PO QID@08,14,19,00 10/03/18 01/14/22 mycophenolate mofetiL [Cellcept] 1,000 mg PO Q12H 10/03/18 01/14/22 Omeprazole [PriLOSEC] 40 mg PO DAILY@1200 07/12/19 01/14/22 traZODone HCL 100 mg PO HS 12/07/19 01/14/22 Fluticasone Nasal [place] [Flonase 2 spray EA NOSTRIL DAILY 11/01/21 01/14/22 Nasal [place]] Allergies/Adverse reactions: Allergies Allergy/AdvReac Type Severity Reaction Status Date / Time adhesive Allergy Rash/Hives Verified 06/05/22 13:21 Aminoglycosides Allergy Dyspnea Verified 06/05/22 13:21 amlodipine besylate Allergy Swelling Verified 06/05/22 13:21 [From Norvasc] cephalexin [From Keflex] Allergy Unknown Verified 06/05/22 13:21 levofloxacin [From Levaquin] Allergy Dyspnea Verified 06/05/22 13:21 Macrolide Antibiotics Allergy Dyspnea Verified 06/05/22 13:21 Quinolones Allergy Dyspnea Verified 06/05/22 13:21 sulfamethoxazole Allergy Dyspnea Verified 06/05/22 13:21 [From Bactrim] trimethoprim [From Bactrim] Allergy Dyspnea Verified 06/05/22 13:21 FLUORINOQUINOLINES Allergy Unknown Uncoded 06/05/22 13:21 Review of Systems ROS Statement: Those systems with pertinent positive or pertinent negative responses have been documented in the HPI. ROS Other: All systems not noted in ROS Statement are negative. Past Medical History Past Medical History: Deep Vein Thrombosis (DVT), GERD/Reflux, Hypertension, Pneumonia, Pulmonary Embolus (PE) Additional Past Medical History / Comment(s): ivan filter, kidney stones, myasthenia gravis, vertigo, hypoglycemia, hx renal problems with dialysis 1 yr ago- now resolved per pt, c-diff 2012, septicemia 2016, diverticulitis. History of Any Multi-Drug Resistant Organisms: C-DIFF Date of last positivie culture/infection: 2012 MDRO Source:: stool Past Surgical History: Ablation, Bariatric Surgery, Section, Cholecystectomy, Hernia Repair, Tonsillectomy Additional Past Surgical History / Comment(s): thymus removed , LEEP.Umbilical hernia. GASTRIC SLEEVE 2012, uterine fibroid biopsy, hiatal hernia repair, rt cataract, ivan filter, ports x 2/later removed Past Anesthesia/Blood Transfusion Reactions: Motion Sickness Past Psychological History: Anxiety Smoking Status: Never smoker Past Alcohol Use History: None Reported Past Drug Use History: None Reported - Past Family History Mother Family Medical History: No Reported History Father Family Medical History: Coronary Artery Disease (CAD) Additional Family Medical History / Comment(s): quadruple bipass General Exam Limitations: no limitations General appearance: alert, in no apparent distress Head exam: Present: normocephalic, normal inspection Expanded Head exam: Present: contusion (Left parietal). Absent: laceration, abrasion, hematoma, general tenderness Eye exam: Present: EOMI. Absent: scleral icterus, conjunctival injection, periorbital swelling Neck exam: Absent: tenderness, meningismus Respiratory exam: Absent: respiratory distress, accessory muscle use Cardiovascular Exam: Present: regular rate Neurological exam: Present: alert, oriented X3 Expanded Patient oriented to: Present: person, place, time Speech: Present: fluid speech Cranial nerves: EOM's Intact: Normal Cerebellar function: [place]: Normal Motor strength exam: RUE: 5, LUE: 5, RLE: 5, LLE: 5 Eye Response: (4) open spontaneously Motor Response: (6) obeys commands Verbal Response: (5) oriented [place] Total: 15 Psychiatric exam: Present: normal affect, normal mood Skin exam: Present: warm, dry, normal color. Absent: cyanosis, diaphoretic, petechiae, pallor Course Vital Signs 06/05/22 06/05/22 13:19 14:44 Temperature 98 F 98.4 F Pulse Rate 83 64 Respiratory 20 18 Rate Blood Pressure 174/115 131/86 O2 Sat by Pulse 99 96 Oximetry Medical Decision Making - Medical Decision Making Patient has no focal neurological deficits. There is no evidence of hematoma, no step-offs. Neurologically intact. Directed to take Tylenol and/or Motrin as needed for pain and discomfort. Ice for any swelling. Patient states that her blood pressure is always high when she comes to the emergency room and she has discussed this with her primary care Dr. Washburn multiple times however her blood pressure is not elevated in his office. She states that he opted not to put her on medications at this time. Directed to follow-up with her primary care doctor on Wednesday. Case discussed with Dr. Corado Was pt. sent in by a medical professional or institution? @ -[facility] employer Did you speak to anyone other than the patient for history? @ -no Did you review nursing and triage notes? @ -yes i agree Were old charts reviewed? @ -no Differential Diagnosis? @ -Differential Headache: Migraine, tension, cluster, skull fracture, concussion, intercranial hemorrhage, head injury, this is not meant to be an all-inclusive list. EKG interpreted by me (3pts min.)? @ -[none] X-rays interpreted by me (1pt min.)? @ -[none] CT interpreted by me (1pt min.)? @ -[none] U/S interpreted by me (1pt. min.)? @ -[none] What testing was considered but not performed? (CT, X-rays, U/S, labs)? Why? @ [CT, X-rays, U/S, labs? Why?] What meds were considered but not given? Why? @ -CT was considered however NEXUS Head CT instrument score is low risk of significant intracranial injury, CT not necessary; no focal neurological deficits Did you discuss the management of the patient with other professionals? @ -No Did you reconcile home meds? @ -no Was smoking cessation discussed for >3mins.? @ -[none] Was critical care preformed (if so, how long)? @ -no Were there social determinants of health that impacted care today? How? (Homelessness, low income, unemployed, alcoholism, drug addiction, transportation, low edu. Level, literacy, decrease access to med. care, skilled nursing, rehab)? @ -none Was there de-escalation of care discussed even if they declined? (Discuss DNR or withdrawal of care, Hospice)? @ -no What co-morbidities impacted this encounter? (DM, HTN, Smoking, COPD, CAD, Cancer, CVA, Hep., AIDS, mental health diagnosis, sleep apnea, morbid obesity)? @ -DVT, GERD, hypertension, pulmonary embolism with [place] filter Was patient admitted / discharged? @ -discharged Undiagnosed new problem with uncertain prognosis? @ -[none] Drug Therapy requiring intensive monitoring for toxicity (Heparin, Nitro, Insulin, Cardizem)? @ -no Were any procedures done? @ -no Diagnosis/symptom? @ -acute headache Acute, or Chronic, or Acute on Chronic? @ -acute Uncomplicated (without systemic symptoms) or Complicated (systemic symptoms)? @ -Uncomplicated Side effects of treatment? @ -[none] Exacerbation, Progression, or Severe Exacerbation] @ -[no] Poses a threat to life or bodily function? @ -[no] Disposition Clinical Impression: Closed head injury Disposition: HOME SELF-CARE Condition: Good Instructions (If sedation given, give patient instructions): Acute Headache (ED) Additional Instructions: Tylenol and/or Motrin as needed for pain and discomfort. Ice for any swelling. Follow-up with your primary care doctor on Wednesday. Is patient prescribed a controlled substance at d/c from ED?: No Referrals: Be Washburn MD [Primary Care Provider] - 1-2 days Time of Disposition: 13:59
[2022-06-05 14:45] VITALS: BP 131/86; PULSE 64; RESP 18; TEMP 98.4
== END 2022-06-05 14:45 | disposition home or self-care (01) ==
LOC: EC 13:10
DX: S09.90XA Unspecified injury of head, initial encounter (principal); F41.9 Anxiety disorder, unspecified; I10 Essential (primary) hypertension; K21.9 Gastro-esophageal reflux disease without esophagitis; Z79.899 Other long term (current) drug therapy; Z88.1 Allergy status to other antibiotic agents; Z88.2 Allergy status to sulfonamides; Z88.8 Allergy status to other drugs, medicaments and biological substances; X58.XXXA Exposure to other specified factors, initial encounter
CPT/HCPCS: 99283

== ENCOUNTER → 2022-10-07 | Outpatient (CLI) | payer MEDICARE ==
--- NOTE | 2022-10-08 20:58 | MM ---
Reason for Exam: Screening (asymptomatic). Last screening mammogram was performed 12 month(s) ago. Patient History: Menarche at age 12. First Full-Term at age 22. Postmenopausal. Hormonal Contraceptives, from age 31 until age 50. Risk Values: Alea 5 year model risk: 0.9%. NCI Lifetime model risk: 8.8%. Prior Study Comparison: 09/19/2018 Bilateral Screening Mammogram, [facility]. 06/18/2020 Bilateral Screening Mammogram, [facility]. 10/06/2021 Bilateral MG 3D screening mammo w/cad, [facility]. Tissue Density: The breast tissue is heterogeneously dense. This may lower the sensitivity of mammography. Findings: Analyzed By CAD. Areas of asymmetric density are unchanged. There is no suspicious group of microcalcifications or new suspicious mass in either breast. Overall Assessment: Benign, BI-RAD 2 Management: Screening Mammogram of both breasts in 1 year. . Patient should continue monthly self-breast exams. A clinical breast exam by your physician is recommended on an annual basis. This exam should not preclude additional follow-up of suspicious palpable abnormalities. Note on Alea scores and lifetime risk: 1. A Alea score greater than 3% is considered moderate risk. If this is the case, consider specialist referral to assess eligibility for a risk reducing agent. 2. If overall lifetime risk for the development of breast cancer is 20% or higher, the patient may qualify for future screening with alternating mammogram and breast MRI. Electronically signed and approved by: Yesenia Khan M.D. Radiologist
== END | disposition home or self-care (01) ==
LOC: RADMAMWWP 14:41
PROVIDERS: ATTEND Family Medicine
DX: Z12.31 Encounter for screening mammogram for malignant neoplasm of breast (principal); Z78.0 Asymptomatic menopausal state
CPT/HCPCS: 77063; 77067

== ENCOUNTER → 2022-12-22 | Outpatient (CLI) | payer MEDICARE ==
--- NOTE | 2022-12-22 16:29 | XR ---
EXAMINATION TYPE: XR chest 2V DATE OF EXAM: 12/22/2022 3:41 PM COMPARISON: Chest radiographs from 11/01/2021 TECHNIQUE: XR chest 2V Frontal and lateral views of the chest. CLINICAL INDICATION:Female, 52 years old with history of R05.3; FINDINGS: Lungs/Pleura: There is no evidence of pleural effusion, focal consolidation, or pneumothorax. Pulmonary vascularity: Unremarkable. Heart/mediastinum: Cardiomediastinal silhouette is unremarkable. Musculoskeletal: No acute osseous pathology. Midline sternotomy wires are noted. IMPRESSION: No acute cardiopulmonary disease/process.
== END | disposition home or self-care (01) ==
LOC: RADXRMAIN 15:29
PROVIDERS: ATTEND Family Medicine
DX: R05.3 Chronic cough (principal)
CPT/HCPCS: 71046

== ENCOUNTER 2023-01-11 17:05 | Emergency (ER) | payer MEDICARE ==
[2023-01-11 17:21] VITALS: RESP 16
[2023-01-11] MEDS ORDERED: KETOROLAC 15 MG/ML 1 ML VIAL IM STA (17:45)
--- NOTE | 2023-01-11 17:52 | ED ---
General Adult HPI - General Chief complaint: Extremity Injury, Upper Stated complaint: right side pain Time Seen by Provider: 01/11/23 17:28 Source: patient, RN notes reviewed Mode of arrival: ambulatory Limitations: no limitations - History of Present Illness Initial comments: Patient is a pleasant 52-year-old female presenting to the emergency Department with right axillary pain. Onset of symptoms was today. Patient was playing with a young family member who was bouncing. Patient was holding onto the family member. Patient then felt discomfort of her right axilla which has been persistent since that time. Discomfort is positional. Discomfort increases with change of motion. Patient has occasional cough. Cough does increase discomfort. - Related Data Home Medications Medication Instructions Recorded Confirmed diazePAM [Valium] 5 mg PO HS 06/12/16 01/14/22 Loperamide [Imodium] 2 mg PO Q4H PRN 07/26/17 01/14/22 Meclizine [Antivert] 50 mg PO HS 07/26/17 01/14/22 Pyridostigmine [place] [Mestinon] 90 mg PO QID@08,14,19,00 10/03/18 01/14/22 mycophenolate mofetiL [Cellcept] 1,000 mg PO Q12H 10/03/18 01/14/22 Omeprazole [PriLOSEC] 40 mg PO DAILY@1200 07/12/19 01/14/22 traZODone HCL 100 mg PO HS 12/07/19 01/14/22 Fluticasone Nasal Sesser [Flonase 2 spray EA NOSTRIL DAILY 11/01/21 01/14/22 Nasal Sesser] Allergies Allergy/AdvReac Type Severity Reaction Status Date / Time adhesive Allergy Rash/Hives Verified 01/11/23 17:17 Aminoglycosides Allergy Dyspnea Verified 01/11/23 17:17 amlodipine besylate Allergy Swelling Verified 01/11/23 17:17 [From Norvasc] cephalexin [From Keflex] Allergy Unknown Verified 01/11/23 17:17 levofloxacin [From Levaquin] Allergy Dyspnea Verified 01/11/23 17:17 Macrolide Antibiotics Allergy Dyspnea Verified 01/11/23 17:17 Quinolones Allergy Dyspnea Verified 01/11/23 17:17 sulfamethoxazole Allergy Dyspnea Verified 01/11/23 17:17 [From Bactrim] trimethoprim [From Bactrim] Allergy Dyspnea Verified 01/11/23 17:17 FLUORINOQUINOLINES Allergy Unknown Uncoded 01/11/23 17:17 Review of Systems ROS Statement: Those systems with pertinent positive or pertinent negative responses have been documented in the HPI. ROS Other: All systems not noted in ROS Statement are negative. Constitutional: Denies: fever Eyes: Denies: eye pain ENT: Denies: ear pain Respiratory: Reports: as per HPI, cough. Denies: dyspnea Cardiovascular: Denies: chest pain Endocrine: Denies: fatigue Gastrointestinal: Denies: abdominal pain Genitourinary: Denies: dysuria Past Medical History Past Medical History: Deep Vein Thrombosis (DVT), GERD/Reflux, Hypertension, Pneumonia, Pulmonary Embolus (PE), Renal Disease Additional Past Medical History / Comment(s): ivan filter, kidney stones, myasthenia gravis, vertigo, hypoglycemia, hx renal problems with dialysis 1 yr ago- now resolved per pt, c-diff 2012, septicemia 2016, diverticulitis. History of Any Multi-Drug Resistant Organisms: C-DIFF Date of last positivie culture/infection: 2012 MDRO Source:: stool Past Surgical History: Ablation, Bariatric Surgery, Section, Cholecystectomy, Hernia Repair, Tonsillectomy Additional Past Surgical History / Comment(s): thymus removed , LEEP.Umbilical hernia. GASTRIC SLEEVE 2012, uterine fibroid biopsy, hiatal hernia repair, rt cataract, ivan filter, ports x 2/later removed Past Anesthesia/Blood Transfusion Reactions: Motion Sickness Past Psychological History: Anxiety Smoking Status: Never smoker Past Alcohol Use History: None Reported Past Drug Use History: None Reported - Past Family History Mother Family Medical History: No Reported History Father Family Medical History: Coronary Artery Disease (CAD) Additional Family Medical History / Comment(s): quadruple bipass General Exam Limitations: no limitations General appearance: alert, in no apparent distress Head exam: Present: atraumatic Eye exam: Present: normal appearance Neck exam: Present: normal inspection. Absent: tenderness Respiratory exam: Present: normal lung sounds bilaterally Cardiovascular Exam: Present: regular rate, normal rhythm GI/Abdominal exam: Present: soft. Absent: tenderness Extremities exam: Present: tenderness (Tenderness right anterior axillary region) Neurological exam: Present: alert, other (Distally the extremity is neurovascula r intact.). Absent: motor sensory deficit Psychiatric exam: Present: normal affect, normal mood Skin exam: Present: normal color Course Vital Signs 01/11/23 17:18 Temperature 98.2 F Pulse Rate 66 Respiratory 16 Rate Blood Pressure 119/84 O2 Sat by Pulse 96 Oximetry Medical Decision Making - Medical Decision Making Was pt. sent in by a medical professional or institution (, [facility]REG[facility], HELPER COORDINATOR, urgent care, hospital, or penitentiary...) When possible be specific @ -No Did you speak to anyone other than the patient for history (EMS, parent, family, police, friend...)? What history was obtained from this source @ -No Did you review nursing and triage notes (agree or disagree)? Why? @ -I reviewed and agree with nursing and triage notes Were old charts reviewed (outside hosp., previous admission, EMS record, old EKG, old radiological studies, urgent care reports/EKG's, penitentiary records)? Report findings @ -No old charts were reviewed Differential Diagnosis (chest pain, altered mental status, abdominal pain women, abdominal pain men, vaginal bleeding, weakness, fever, dyspnea, syncope, headache, dizziness, GI bleed, back pain, seizure, CVA, palpatations, mental health, musculoskeletal)? @ -Differential Musculoskeletal Muscular strain, contusion, ligament sprain, fracture, arthritis, septic arthritis, bursitis, cellulitis, muscle spasm, nerve compression, DVT, arterial occlusion, herpes zoster, electrolyte abnormality, tumor.... This is not meant to be in all inclusive list EKG interpreted by me (3pts min.). @ -As above X-rays interpreted by me (1pt min.). @ -Is x-ray shows no acute process CT interpreted by me (1pt min.). @ -None done U/S interpreted by me (1pt. min.). @ -None done What testing was considered but not performed or refused? (CT, X-rays, U/S, labs)? Why? @ -None What meds were considered but not given or refused? Why? @ -Considered muscle relaxers however that should be avoided with myasthenia gravis. Did you discuss the management of the patient with other professionals (professionals i.e. , GREGORY, HELPER COORDINATOR, lab, RT, psych nurse, social service manager, heating and cooling technician, teacher, probation officer, behavioral health case manager)? Give summary @ -No Was smoking cessation discussed for >3mins.? @ -No Was critical care preformed (if so, how long)? @ -No Were there social determinants of health that impacted care today? How? (Homelessness, low income, unemployed, alcoholism, drug addiction, transportation, low edu. Level, literacy, decrease access to med. care, residential, rehab)? @ -No Was there de-escalation of care discussed even if they declined (Discuss DNR or withdrawal of care, Hospice)? DNR status @ -No What co-morbidities impacted this encounter? (DM, HTN, Smoking, COPD, CAD, Cancer, CVA, ARF, Chemo, Hep., AIDS, mental health diagnosis, sleep apnea, morbid obesity)? @ -None Was patient admitted / discharged? Hospital course, mention meds given and route, prescriptions, significant lab abnormalities, going to OR and other pertinent info. @ -Patient reevaluated and updated. Patient will be discharged with recommended anti-inflammatories. Undiagnosed new problem with uncertain prognosis? @ -No Drug Therapy requiring intensive monitoring for toxicity (Heparin, Nitro, Insulin, Cardizem)? @ -No Were any procedures done? @ -No Diagnosis/symptom? @ -Arm strain Acute, or Chronic, or Acute on Chronic? @ -Acute Uncomplicated (without systemic symptoms) or Complicated (systemic symptoms)? @ -default Side effects of treatment? @ -No Exacerbation, Progression, or Severe Exacerbation? @ -No Poses a threat to life or bodily function? How? (Chest pain, [place], [place], pneumonia, PE, COPD, DKA, ARF, appy, cholecystitis, CVA, Diverticulitis, Homicidal, Suicidal, threat to staff... and all critical care pts) @ -No Disposition Clinical Impression: Strain of upper arm, right Disposition: HOME SELF-CARE Condition: Stable Instructions (If sedation given, give patient instructions): Muscle Strain (ED) Additional Instructions: Please do follow-up with your primary care physician in the next day or 2 for recheck. Anti-inflammatories such as Motrin as needed. Return for increased pain, difficulty breathing, worsening or changing symptoms or any other concerns. Is patient prescribed a controlled substance at d/c from ED?: No Referrals: Be Washburn MD [Primary Care Provider] - 1-2 days Time of Disposition: 18:24
--- NOTE | 2023-01-11 17:56 | XR ---
EXAMINATION TYPE: XR chest 2V DATE OF EXAM: 01/11/2023 5:48 PM COMPARISON: Chest radiographs from 01/03/2023 TECHNIQUE: XR chest 2V Frontal and lateral views of the chest. CLINICAL INDICATION:Female, 52 years old with history of r axilla pain; FINDINGS: Lungs/Pleura: Similar right midlung scarring Prominent interstitial lung markings are seen scattered throughout the lungs with flattening of the diaphragm and increased lucency of the lung apices. No ev idence of focal consolidation, pneumothorax or pleural effusion. Pulmonary vascularity: Unremarkable. Heart/mediastinum: Cardiomediastinal silhouette is unremarkable. Musculoskeletal: No acute osseous pathology. The right axilla is without evidence of acute process. IMPRESSION: 1. No acute cardiopulmonary disease process. 2. COPD changes.
[2023-01-11 18:43] VITALS: BP 101/68; PULSE 57; TEMP 97.6
== END 2023-01-11 19:23 | disposition home or self-care (01) ==
LOC: EC 17:05
DX: S46.911A Strain of unspecified muscle, fascia and tendon at shoulder and upper arm level, right arm, initial encounter (principal); K21.9 Gastro-esophageal reflux disease without esophagitis; I10 Essential (primary) hypertension; F41.9 Anxiety disorder, unspecified; Z88.1 Allergy status to other antibiotic agents; Z88.2 Allergy status to sulfonamides; Z90.49 Acquired absence of other specified parts of digestive tract; Z99.2 Dependence on renal dialysis; X58.XXXA Exposure to other specified factors, initial encounter
CPT/HCPCS: 71046; 99283; 96372; J1885

== ENCOUNTER → 2023-03-25 | Outpatient (CLI) | payer MEDICARE ==
--- NOTE | 2023-03-25 15:57 | XR ---
EXAMINATION TYPE: XR chest 2V DATE OF EXAM: 03/25/2023 COMPARISON: 01/11/2023 TECHNIQUE: PA and lateral views submitted. HISTORY: Cough FINDINGS: There is a linear density in the right upper lobe. Postmedian sternotomy changes noted. Nodular densi ty seen in the prior exam is less apparent than there is no pneumothorax, pleural effusion, or focal pneumonia. Heart size normal and no overt failure. Osseous structures demonstrate hypertrophic and d egenerative changes of the spine. IVC filter noted on the lateral view. IMPRESSION: 1. Right upper lobe scarring with no acute infiltrate. Nodular appearing density adjacent to the scar is less apparent on today's exam. Would recommend follow-up CT of the chest for further evaluation t o assess for pulmonary nodule.
== END | disposition home or self-care (01) ==
LOC: RADXRMAIN 15:42
PROVIDERS: ATTEND Family Medicine
DX: J98.4 Other disorders of lung (principal)
CPT/HCPCS: 71046

== ENCOUNTER → 2023-04-02 | Outpatient (CLI) | payer MEDICARE ==
--- NOTE | 2023-04-02 17:02 | CT ---
EXAMINATION TYPE: CT chest wo con CT DLP: 414.8 mGycm, Automated exposure control for dose reduction was used. DATE OF EXAM: 04/02/2023 4:43 PM COMPARISON: Chest x-ray 03/25/2023. CTA chest 04/08/2021 CLINICAL INDICATION:Female, 52 years old with history of R91.1; PHH, Dx. with bronchitis x 2 weeks, c ough x3 weeks. TECHNIQUE: Multiple axial images were obtained through the chest. Sagittal and coronal reformats were created for review. Contrast used: mL of (None if empty) Oral contrast used: (None if empty) FINDINGS: Limited study without IV contrast. LUNGS/ PLEURA: Linear and slightly patchy opacities in the right upper lobe appear slightly increased from the prior CT. Mild linear opacities also in the right middle lobe. There is asymmetric elevatio n of the right hemidiaphragm. No discrete lung nodules or masses are seen. Left lung and pleural spac e are clear. AIRWAY: Patent and unremarkable. HEART: Size within normal limits. Mild coronary artery calcifications. MEDIASTINUM: No gross evidence of adenopathy. VASCULATURE: Mild atherosclerotic calcification. No evidence of aortic aneurysm. MUSCULOSKELETAL: Mild multilevel degenerative disc disease. No acute bony pathology is seen. Several sternotomy wires. SOFT TISSUES/LYMPH NODES: Unremarkable. LOWER NECK: No significant findings. UPPER ABDOMEN: No acute findings. Postoperative changes in the stomach involving the GE junction, pos sibly related to gastric bypass. Cholecystectomy clips. Exophytic 2.2 cm nodule from the upper pole r ight kidney has the appearance of a cyst. IMPRESSION: Linear slightly patchy opacities in the right upper lobe, and a few linear opacities in the right mid dle lobe. This likely reflects combination of scarring and subsegmental atelectasis, with superimpose d infectious infiltrate possible but considered less likely.
== END | disposition home or self-care (01) ==
LOC: RADCTMAIN 16:10
PROVIDERS: ATTEND Family Medicine
DX: R91.8 Other nonspecific abnormal finding of lung field (principal)
CPT/HCPCS: 71250

== ENCOUNTER 2023-04-19 15:35 | Emergency (ER) | payer MEDICARE ==
--- NOTE | 2023-04-19 16:13 | ED ---
URI HPI - General Source: patient, RN notes reviewed Mode of arrival: ambulatory Limitations: no limitations <Stephanie Bello - Last Filed: 04/19/23 16:12> - General Source: patient, RN notes reviewed Mode of arrival: ambulatory Limitations: no limitations <Frandy Terry - Last Filed: 04/19/23 21:33> - General Stated Complaint: chest cold Time Seen by Provider: 04/19/23 16:12 - History of Present Illness Initial Comments: Patient is a 52-year-old female presented ER with a chief complaint of a chest cold. Patient states she has recently treating the patient with antibiotics and steroids with no relief. Patient states increasing shortness of breath. Patient denies any fevers or chills. (Stephanie eBllo) Patient is a pleasant 52-year-old female presenting to the emergency department with concerns with cough. Onset of symptoms was 2 months ago. Patient has seen her doctor twice and had 2 doses of steroids and antibiotics. Patient has had some wheezing. No fevers. Patient denies any history of chronic lung disease. (Frandy Terry) - Related Data Home Medications Medication Instructions Recorded Confirmed diazePAM [Valium] 5 mg PO HS 06/12/16 01/14/22 Loperamide [Imodium] 2 mg PO Q4H PRN 07/26/17 01/14/22 Meclizine [Antivert] 50 mg PO HS 07/26/17 01/14/22 Pyridostigmine [place] [Mestinon] 90 mg PO QID@08,14,19,00 10/03/18 01/14/22 mycophenolate mofetiL [Cellcept] 1,000 mg PO Q12H 10/03/18 01/14/22 Omeprazole [PriLOSEC] 40 mg PO DAILY@1200 07/12/19 01/14/22 traZODone HCL 100 mg PO HS 12/07/19 01/14/22 Fluticasone Nasal [place] [Flonase 2 spray EA NOSTRIL DAILY 11/01/21 01/14/22 Nasal [place]] Previous Rx's Medication Instructions Recorded Albuterol Inhaler [Ventolin Hfa 2 puff INHALATION Q4HR PRN #1 each 04/19/23 Inhaler] Allergies Allergy/AdvReac Type Severity Reaction Status Date / Time adhesive Allergy Rash/Hives Verified 04/19/23 16:07 Aminoglycosides Allergy Dyspnea Verified 04/19/23 16:07 amlodipine besylate Allergy Swelling Verified 04/19/23 16:07 [From Norvasc] cephalexin [From Keflex] Allergy Unknown Verified 04/19/23 16:07 levofloxacin [From Levaquin] Allergy Dyspnea Verified 04/19/23 16:07 Macrolide Antibiotics Allergy Dyspnea Verified 04/19/23 16:07 Quinolones Allergy Dyspnea Verified 04/19/23 16:07 sulfamethoxazole Allergy Dyspnea Verified 04/19/23 16:07 [From Bactrim] trimethoprim [From Bactrim] Allergy Dyspnea Verified 04/19/23 16:07 FLUORINOQUINOLINES Allergy Unknown Uncoded 04/19/23 16:07 Review of Systems ROS Other: All systems not noted in ROS Statement are negative. <Stephanie Bello - Last Filed: 04/19/23 16:12> ROS Other: All systems not noted in ROS Statement are negative. Constitutional: Denies: fever Eyes: Denies: eye pain Respiratory: Reports: as per HPI, cough, dyspnea Cardiovascular: Denies: chest pain Endocrine: Denies: fatigue Gastrointestinal: Denies: abdominal pain Genitourinary: Denies: dysuria Musculoskeletal: Denies: back pain Skin: Denies: rash Neurological: Denies: weakness <Frandy Terry - Last Filed: 04/19/23 21:33> ROS Statement: Those systems with pertinent positive or pertinent negative responses have been documented in the HPI. Past Medical History Past Medical History: Deep Vein Thrombosis (DVT), GERD/Reflux, Hypertension, Pneumonia, Pulmonary Embolus (PE), Renal Disease Additional Past Medical History / Comment(s): ivan filter, kidney stones, myasthenia gravis, vertigo, hypoglycemia, hx renal problems with dialysis 1 yr ago- now resolved per pt, c-diff 2012, septicemia 2017, diverticulitis. History of Any Multi-Drug Resistant Organisms: C-DIFF Date of last positivie culture/infection: 2012 MDRO Source:: stool Past Surgical History: Ablation, Bariatric Surgery, Section, Cholecystectomy, Hernia Repair, Tonsillectomy Additional Past Surgical History / Comment(s): thymus removed , LEEP.Umbilical hernia. GASTRIC SLEEVE 2013, uterine fibroid biopsy, hiatal hernia repair, rt cataract, ivan filter, ports x 2/later removed Past Anesthesia/Blood Transfusion Reactions: Motion Sickness Past Psychological History: Anxiety Smoking Status: Never smoker Past Alcohol Use History: None Reported Past Drug Use History: None Reported - Past Family History Mother Family Medical History: No Reported History Father Family Medical History: Coronary Artery Disease (CAD) Additional Family Medical History / Comment(s): quadruple bipass <Stephanie Bello - Last Filed: 04/19/23 16:12> General Exam Limitations: no limitations <Stephanie Bello - Last Filed: 04/19/23 16:12> Limitations: no limitations General appearance: alert, in no apparent distress Head exam: Present: normocephalic Eye exam: Present: normal appearance Neck exam: Present: normal inspection Respiratory exam: Present: wheezes (Mild) Cardiovascular Exam: Present: regular rate, normal rhythm GI/Abdominal exam: Present: soft. Absent: tenderness Extremities exam: Present: normal inspection. Absent: pedal edema, calf tenderness Neurological exam: Present: alert Psychiatric exam: Present: normal affect, normal mood Skin exam: Present: normal color <Frandy Terry Last Filed: 04/19/23 21:33> - General Exam Comments Initial Comments: Visual Physical Exam Vital signs reviewed General: Well-appearing, nontoxic, no acute distress. Head: Normocephalic, atraumatic Eyes: PERRLA, EOMI ENT: Airway patent Chest: Nonlabored breathing Skin: No visual rash, normal skin tone Neuro: Alert and oriented 3 Musculoskeletal: No gross abnormalities (Stephanie Bello) Course Vital Signs 04/19/23 04/19/23 04/19/23 16:05 19:08 19:10 Temperature 97.7 F Pulse Rate 72 70 Respiratory 19 23 10 L Rate Blood Pressure 168/110 179/92 O2 Sat by Pulse 94 L 95 96 Oximetry 04/19/23 04/19/23 04/19/23 19:20 20:55 21:05 Temperature Pulse Rate 71 73 84 Respiratory 12 Rate Blood Pressure 179/92 O2 Sat by Pulse 94 L Oximetry Medical Decision Making <Stephanie Bello - Last Filed: 04/19/23 16:12> - Lab Data Result diagrams: 04/19/23 16:40 04/19/23 16:40 <Frandy Terry - Last Filed: 04/19/23 21:33> - Medical Decision Making I performed the quick note portion of the exam. Electronically signed by Stephanie Bello PA-C (Stephanie Bello) Was pt. sent in by a medical professional or institution (GREGORY Casey, SCRAP YARD WORKER, urgent care, hospital, or [facility]...) When possible be specific @ -No Did you speak to anyone other than the patient for history (EMS, parent, family, police, friend...)? What history was obtained from this source @ -No Did you review nursing and triage notes (agree or disagree)? Why? @ -I reviewed and agree with nursing and triage notes Were old charts reviewed (outside hosp., previous admission, EMS record, old EKG, old radiological studies, urgent care reports/EKG's, [facility] records)? Report findings @ -No old charts were reviewed Differential Diagnosis (chest pain, altered mental status, abdominal pain women, abdominal pain men, vaginal bleeding, weakness, fever, dyspnea, syncope, headache, dizziness, GI bleed, back pain, seizure, CVA, palpatations, mental health, musculoskeletal)? @ -Differential Dyspnea: Coronary syndrome, arrhythmia, tamponade, asthma, COPD, pulmonary embolism, pn eumonia, pneumothorax, pulmonary effusion, anaphylaxis, diabetic ketoacidosis, flailed chest, pulmonary contusion, diaphragmatic rupture, anemia, neuromuscular, this is not meant to be an all-inclusive list. EKG interpreted by me (3pts min.). @ -As above X-rays interpreted by me (1pt min.). @ -Chest x-ray reveals no acute abnormality. Right-sided atelectasis. CT interpreted by me (1pt min.). @ -CT chest without obvious embolism U/S interpreted by me (1pt. min.). @ -None done What testing was considered but not performed or refused? (CT, X-rays, U/S, labs)? Why? @ -None What meds were considered but not given or refused? Why? @ -None Did you discuss the management of the patient with other professionals (professionals i.e. GREGORY Casey, SCRAP YARD WORKER, lab, RT, psych nurse, group social worker, cashier gambling, teacher, staff mine warfare officer, case picker)? Give summary @ -No Was smoking cessation discussed for >3mins.? @ -No Was critical care preformed (if so, how long)? @ -No Were there social determinants of health that impacted care today? How? (Homelessness, low income, unemployed, alcoholism, drug addiction, transportation, low edu. Level, literacy, decrease access to med. care, usp, rehab)? @ -No Was there de-escalation of care discussed even if they declined (Discuss DNR or withdrawal of care, Hospice)? DNR status @ -No What co-morbidities impacted this encounter? (DM, HTN, Smoking, COPD, CAD, Cancer, CVA, ARF, Chemo, Hep., AIDS, mental health diagnosis, sleep apnea, m orbid obesity)? @ -None Was patient admitted / discharged? Hospital course, mention meds given and route, prescriptions, significant lab abnormalities, going to OR and other pertinent info. @ -Patient reevaluated following nebulizer and does feel better. Patient is updated on results and need for follow-up. No wheezing on exam. Undiagnosed new problem with uncertain prognosis? @ -No Drug Therapy requiring intensive monitoring for toxicity (Heparin, Nitro, Insulin, Cardizem)? @ -No Were any procedures done? @ -No Diagnosis/symptom? @ -Bronchitis Acute, or Chronic, or Acute on Chronic? @ -Acute Uncomplicated (without systemic symptoms) or Complicated (systemic symptoms)? @ -default Side effects of treatment? @ -No Exacerbation, Progression, or Severe Exacerbation? @ -No Poses a threat to life or bodily function? How? (Chest pain, [place], [place], pneumonia, PE, COPD, DKA, ARF, appy, cholecystitis, CVA, Diverticulitis, Homicidal, Suicidal, threat to staff... and all critical care pts) @ -No (Frandy Terry) - Lab Data Lab Results 04/19/23 04/19/23 04/19/23 Range/Units 16:40 16:40 16:40 WBC 11.8 H (3.8-10.6) k/uL RBC 5.21 (3.80-5.40) m/uL Hgb 14.2 (11.4-16.0) gm/dL Hct 46.6 H (34.0-46.0) % MCV 89.4 (80.0-100.0) fL MCH 27.3 (25.0-35.0) pg MCHC 30.5 L (31.0-37.0) g/dL RDW 14.4 (11.5-15.5) % Plt Count 252 (150-450) k/uL MPV 8.8 Hypochromasia Moderate D-Dimer (<0.60) mg/L FEU Sodium 140 (137-145) mmol/L Potassium 4.0 (3.5-5.1) mmol/L Chloride 105 (98-107) mmol/L Carbon Dioxide 27 (22-30) mmol/L Anion Gap 8 mmol/L BUN 28 H (7-17) mg/dL Creatinine 1.04 (0.52-1.04) mg/dL Est GFR (CKD-EPI)AfAm 72 (>60 ml/min/1.73 sqM) Est GFR (CKD-EPI)NonAf 63 (>60 ml/min/1.73 sqM) Glucose 77 (74-99) mg/dL Plasma Lactic Acid Nahid (0.7-2.0) mmol/L Calcium 9.7 (8.4-10.2) mg/dL Total Bilirubin 0.4 (0.2-1.3) mg/dL AST 20 (14-36) U/L ALT 17 (4-34) U/L Alkaline Phosphatase 97 (38-126) U/L Total Protein 8.4 H (6.3-8.2) g/dL Albumin 4.5 (3.5-5.0) g/dL Influenza Type A (PCR) Not Detected (Not Detectd) Influenza Type B (PCR) Not Detected (Not Detectd) RSV (PCR) Not Detected (Not Detectd) SARS-CoV-2 (PCR) Not Detected (Not Detectd) 04/19/23 04/19/23 Range/Units 16:40 18:12 WBC (3.8-10.6) k/uL RBC (3.80-5.40) m/uL Hgb (11.4-16.0) gm/dL Hct (34.0-46.0) % MCV (80.0-100.0) fL MCH (25.0-35.0) pg MCHC (31.0-37.0) g/dL RDW (11.5-15.5) % Plt Count (150-450) k/uL MPV Hypochromasia D-Dimer 1.06 H (<0.60) mg/L FEU Sodium (137-145) mmol/L Potassium (3.5-5.1) mmol/L Chloride (98-107) mmol/L Carbon Dioxide (22-30) mmol/L Anion Gap mmol/L BUN (7-17) mg/dL Creatinine (0.52-1.04) mg/dL Est GFR (CKD-EPI)AfAm (>60 ml/min/1.73 sqM) Est GFR (CKD-EPI)NonAf (>60 ml/min/1.73 sqM) Glucose (74-99) mg/dL Plasma Lactic Acid Nahid 0.9 (0.7-2.0) mmol/L Calcium (8.4-10.2) mg/dL Total Bilirubin (0.2-1.3) mg/dL AST (14-36) U/L ALT (4-34) U/L Alkaline Phosphatase (38-126) U/L Total Protein (6.3-8.2) g/dL Albumin (3.5-5.0) g/dL Influenza Type A (PCR) (Not Detectd) Influenza Type B (PCR) (Not Detectd) RSV (PCR) (Not Detectd) SARS-CoV-2 (PCR) (Not Detectd) Disposition <Stephanie Bello - Last Filed: 04/19/23 16:12> Is patient prescribed a controlled substance at d/c from ED?: No Time of Disposition: 21:31 <Frandy Terry - Last Filed: 04/19/23 21:33> Clinical Impression: Bronchitis Disposition: HOME SELF-CARE Condition: Stable Instructions (If sedation given, give patient instructions): Acute Bronchitis (ED) Additional Instructions: Please do follow-up with your primary care physician in the next day or 2 for recheck. Prescription for inhaler has been sent to pharmacy. Follow-up with pulmonary, number provided. Return for difficulty breathing, fevers, worsening or changing symptoms or any other concerns. Prescriptions: Albuterol Inhaler [Ventolin Hfa Inhaler] 2 puff INHALATION Q4HR PRN #1 each PRN Reason: Dyspnea Referrals: Be Washburn MD [Primary Care Provider] - 1-2 days Larry Doan MD [STAFF PHYSICIAN] - 1-2 days
--- NOTE | 2023-04-19 17:29 | XR ---
EXAMINATION TYPE: XR chest 2V DATE OF EXAM: 04/19/2023 5:01 PM CLINICAL INDICATION:Female, 52 years old with history of cough; COMPARISON: Chest radiographs from 03/25/2023. TECHNIQUE: XR chest 2V Frontal and lateral views of the chest. FINDINGS: Lungs/Pleura: There is no evidence of pleural effusion, focal consolidation, or pneumothorax. Right midlung streaky atelectasis. Pulmonary vascularity: Unremarkable. Heart/mediastinum: Cardiomediastinal silhouette is unremarkable. Musculoskeletal: No acute osseous pathology. Midline sternotomy wires are noted. Other findings: None IMPRESSION: No acute cardiopulmonary disease/process.
[2023-04-19] MEDS ORDERED: IPRATROPIUM-ALBUTEROL 3 ML NEB INHALATION STA (18:04)
[2023-04-19 18:29] LABS: HCT 46.6 % (34.0-46.0); HGB 14.2 gm/dL (11.4-16.0); Hypochromasia Moderate; MCH 27.3 pg (25.0-35.0); MCHC 30.5 g/dL (31.0-37.0); MCV 89.4 fL (80.0-100.0); Mean Platelet Volume 8.8; Platelet Count 252 k/uL (150-450); RBC 5.21 m/uL (3.80-5.40); RDW 14.4 % (11.5-15.5); WBC 11.8 k/uL (3.8-10.6)
[2023-04-19 18:49] LABS: ALT 17 U/L (4-34); AST 20 U/L (14-36); African American GFR (CKD) 72 (>60 ml/min/1.73 sqM); Albumin 4.5 g/dL (3.5-5.0); Alkaline Phosphatase 97 U/L (38-126); Anion Gap 8 mmol/L; Blood Urea Nitrogen 28 mg/dL (7-17); Calcium 9.7 mg/dL (8.4-10.2); Carbon Dioxide 27 mmol/L (22-30); Chloride 105 mmol/L (98-107); Glucose 77 mg/dL (74-99); Non-African American GFR(CKD) 63 (>60 ml/min/1.73 sqM); Sodium 140 mmol/L (137-145); Total Bilirubin 0.4 mg/dL (0.2-1.3); Total Protein 8.4 g/dL (6.3-8.2)
--- NOTE | 2023-04-19 20:10 | CT ---
EXAMINATION TYPE: CT angio chest CT DLP: 394.8 mGycm, Automated exposure control for dose reduction was used. DATE OF EXAM: 04/19/2023 7:42 PM COMPARISON: 04/02/2023. CLINICAL INDICATION:Female, 52 years old with history of dyspnea; TECHNIQUE/CONTRAST: CTA scan of the thorax is performed with IV Contrast, patient injected with 100ml mL of Isovue 300, M IP images are created and reviewed these are created on a separate workstation.. FINDINGS: Pulmonary Artery: There is no evidence for a filling defect within the pulmonary vasculature to sugge st acute pulmonary embolism. The pulmonary artery is of normal size. Lungs/Pleura: Streaky atelectasis in the right upper and right middle lung. Few scattered reticular o pacities. Scattered reticular opacities seen throughout the lungs. Some of which endometrium. No evid ence of focal consolidation, pleural effusion or pneumothorax. Airway: Large airways are patent. Heart: Heart is within normal limits for size. Vasculature: No evidence of aortic aneurysm. Mediastinum: No gross evidence of adenopathy. Musculoskeletal: No acute osseous abnormalities Soft Tissues: Unremarkable. Lower neck: No significant findings. Upper Abdomen: IVC filter percent stenosis. The gallbladder surgically absent. Hepatic biliary system which can be seen in setting of post cholecystectomy physiology. Post surgical changes the gastric l umen. IMPRESSION: 1. No evidence of pulmonary embolism. 2. Reticular densities throughout the lungs not significantly changed from 04/08/2021. There is could represent sequela prior atypical pneumonia.
[2023-04-19 21:38] VITALS: RESP 16
[2023-04-19 22:26] VITALS: BP 169/96; PULSE 68; TEMP 98.1
== END 2023-04-19 22:07 | disposition home or self-care (01) ==
LOC: EC 15:35
DX: J20.9 Acute bronchitis, unspecified (principal); K21.9 Gastro-esophageal reflux disease without esophagitis; I10 Essential (primary) hypertension; F41.9 Anxiety disorder, unspecified; Z79.899 Other long term (current) drug therapy; Z91.09 Other allergy status, other than to drugs and biological substances; Z88.2 Allergy status to sulfonamides; Z88.1 Allergy status to other antibiotic agents; Z88.8 Allergy status to other drugs, medicaments and biological substances; Z20.822 Contact with and (suspected) exposure to COVID-19
CPT/HCPCS: 36415; 94640; 85379; 80053; 83605; 85027; 87636; 71046; 71275; 99284; Q9967

== ENCOUNTER 2023-05-25 13:19 | Emergency (ER) | payer OTHER, MEDICARE ==
[2023-05-25 13:53] VITALS: BP 193/98; PULSE 110; TEMP 98
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
[2023-05-25 15:06] VITALS: RESP 18
== END 2023-05-25 14:43 | disposition home or self-care (01) ==
LOC: EC 13:19
DX: Z77.21 Contact with and (suspected) exposure to potentially hazardous body fluids (principal); I10 Essential (primary) hypertension; K21.9 Gastro-esophageal reflux disease without esophagitis; F41.9 Anxiety disorder, unspecified; Z79.899 Other long term (current) drug therapy; Z91.09 Other allergy status, other than to drugs and biological substances; Z88.2 Allergy status to sulfonamides; Z88.6 Allergy status to analgesic agent; Z88.8 Allergy status to other drugs, medicaments and biological substances
CPT/HCPCS: 99282

== ENCOUNTER → 2023-10-18 | Outpatient (CLI) | payer MEDICARE ==
--- NOTE | 2023-10-19 21:00 | MM ---
Reason for Exam: Screening (asymptomatic). Last mammogram was performed 1 year(s) and 1 month(s) ago. Patient History: Menarche at age 12. First Full-Term at age 22. Postmenopausal. Hormonal Contraceptives, from age 31 until age 50. Risk Values: Alea 5 year model risk: 1.0%. NCI Lifetime model risk: 8.7%. Prior Study Comparison: 06/18/2020 Bilateral Screening Mammogram, [facility]. 10/06/2021 Bilateral MG 3D screening mammo w/cad, [facility]. 10/07/2022 Bilateral MG 3D screening mammo w/cad, [facility]. Tissue Density: The breasts are heterogeneously dense, which may obscure small masses. Findings: Analyzed By CAD. Benign dermal calcifications inferior aspect of the right breast. A few benign scattered round calcifications redemonstrated along both sides. There is no suspicious group of microcalcifications or new suspicious mass in either breast. Overall Assessment: Benign, BI-RAD 2 Management: Screening Mammogram of both breasts in 1 year. . Patient should continue monthly self-breast exams. A clinical breast exam by your physician is recommended on an annual basis. This exam should not preclude additional follow-up of suspicious palpable abnormalities. Note on Alea scores and lifetime risk: 1. A Alea score greater than 3% is considered moderate risk. If this is the case, consider specialist referral to assess eligibility for a risk reducing agent. 2. If overall lifetime risk for the development of breast cancer is 20% or higher, the patient may qualify for future screening with alternating mammogram and breast MRI. Electronically signed and approved by: Yesenia Khan M.D. Radiologist
== END | disposition home or self-care (01) ==
LOC: RADMAMWWP 14:37
PROVIDERS: ATTEND Family Medicine
DX: Z12.31 Encounter for screening mammogram for malignant neoplasm of breast (principal); Z78.0 Asymptomatic menopausal state
CPT/HCPCS: 77063; 77067

== ENCOUNTER → 2023-11-04 | Outpatient (CLI) | payer MEDICARE ==
--- NOTE | 2023-11-04 15:52 | XR ---
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 FINDINGS: Sternotomy wires appear intact and appropriate position. No evidence for sternal fracture. The ribs have a normal appearance. No evidence of fracture. Overall, the lungs are clear. The cardi ac silhouette is normal in size. The remaining osseous structures are intact. IMPRESSION: Appropriate sternotomy wire placement. No acute osseous pathology.
== END | disposition home or self-care (01) ==
LOC: RADXRMAIN 14:54
PROVIDERS: ATTEND Nurse Practitioner Family
DX: Q79.9 Congenital malformation of musculoskeletal system, unspecified (principal)
CPT/HCPCS: 71120

== ENCOUNTER 2024-04-30 15:01 | Observation (INO) | payer MEDICARE ==
--- NOTE | 2024-04-30 15:56 | ED ---
Chest Pain HPI - General Source: RN notes reviewed Mode of arrival: ambulatory Limitations: no limitations - History of Present Illness MD Complaint: chest pain Onset/Timin -: week(s) Pain Location: epigastric Pain Radiation: back Severity scale (1-10): 8 Quality: other (Pressure) Worsens With: other (Cough) Other Symptoms: cough <Gildardo Mcfarlane - Last Filed: 04/30/24 15:53> - General Source: patient, RN notes reviewed Mode of arrival: ambulatory Limitations: no limitations <Frandy Terry - Last Filed: 04/30/24 20:46> - General Chief Complaint: Upper Respiratory Infection Stated Complaint: Cough Time Seen by Provider: 04/30/24 15:05 - History of Present Illness Initial Comments: Quick note: This is a 53-year-old female with history of MG and C. difficile presenting with dry cough and chest pain (8/10) x 2 weeks. Patient states she was initially treated for pneumonia with steroids and amoxicillin, stopping antibiotics after concern for development of C. difficile. Patient states lower chest pain pain, described as pressure, radiates to back with associated weakness and fatigue. Patient states cough was initially productive but is now dry and worsening. Endorses Motrin use with minimal relief. (Gildardo Mcfarlane) Patient is a 53-year-old female present to the emergency department with chief complaint of cough. Patient has some associated dyspnea. Patient also has some discomfort of her lower chest and left breast region. Symptoms do worsen with exertion and patient has exertional dyspnea and fatigue. No fevers. Cough has had occasional green mucus. No fever. (Frandy Terry) - Related Data Home Medications Medication Instructions Recorded Confirmed diazePAM [Valium] 5 mg PO HS 06/12/16 04/30/24 Loperamide [Imodium] 2 mg PO Q4H PRN 07/26/17 04/30/24 Meclizine [Antivert] 50 mg PO HS 07/26/17 04/30/24 Pyridostigmine [place] [Mestinon] 90 mg PO QID@08,14,19,00 10/03/18 04/30/24 mycophenolate mofetiL [Cellcept] 1,000 mg PO Q12H 10/03/18 04/30/24 Omeprazole [PriLOSEC] 40 mg PO W/LUNCH 07/12/19 04/30/24 traZODone HCL 100 mg PO HS 12/07/19 04/30/24 Fluticasone Nasal [place] [Flonase 2 spr EA NOSTRIL DAILY 11/01/21 04/30/24 Nasal [place]] Albuterol Inhaler [Ventolin Hfa 2 puff INHALATION RT-Q4H PRN 04/30/24 04/30/24 Inhaler] Allergies Allergy/AdvReac Type Severity Reaction Status Date / Time adhesive Allergy Rash/Hives Verified 04/30/24 19:00 Aminoglycosides Allergy Dyspnea Verified 04/30/24 19:00 amlodipine besylate Allergy Swelling Verified 04/30/24 19:00 [From Norvasc] cephalexin [From Keflex] Allergy Unknown Verified 04/30/24 19:00 levofloxacin [From Levaquin] Allergy Dyspnea Verified 04/30/24 19:00 Macrolide Antibiotics Allergy Dyspnea Verified 04/30/24 19:00 Quinolones Allergy Dyspnea Verified 04/30/24 19:00 sulfamethoxazole Allergy Dyspnea Verified 04/30/24 19:00 [From Bactrim] trimethoprim [From Bactrim] Allergy Dyspnea Verified 04/30/24 19:00 FLUORINOQUINOLINES Allergy Unknown Uncoded 04/30/24 19:00 Review of Systems ROS Other: All systems not noted in ROS Statement are negative. <Gildardo Mcfarlane - Last Filed: 04/30/24 15:53> ROS Other: All systems not noted in ROS Statement are negative. Constitutional: Denies: fever ENT: Denies: ear pain Respiratory: Reports: as per HPI, cough, dyspnea Cardiovascular: Reports: as per HPI, chest pain, dyspnea on exertion Endocrine: Reports: fatigue Gastrointestinal: Denies: abdominal pain Musculoskeletal: Denies: back pain <Frandy Terry Last Filed: 04/30/24 20:46> ROS Statement: Those systems with pertinent positive or pertinent negative responses have been documented in the HPI. EKG Findings - EKG Results: EKG: interpreted by ERMD (T wave inversion V4 V5. T wave inversion in leads III and aVF as well), sinus rhythm, normal axis, normal QRS EKG shows: bradycardia <Frandy Terry Last Filed: 04/30/24 20:46> Past Medical History Past Medical History: Deep Vein Thrombosis (DVT), GERD/Reflux, Hypertension, Pneumonia, Pulmonary Embolus (PE), Renal Disease Additional Past Medical History / Comment(s): ivan filter, kidney stones, myasthenia gravis, vertigo, hypoglycemia, hx renal problems with dialysis 1 yr ago- now resolved per pt, c-diff 2012, septicemia 2017, diverticulitis. History of Any Multi-Drug Resistant Organisms: C-DIFF Date of last positivie culture/infection: 2012 MDRO Source:: stool Past Surgical History: Ablation, Bariatric Surgery, Section, Cholecystectomy, Hernia Repair, Tonsillectomy Additional Past Surgical History / Comment(s): thymus removed , LEEP.Umbilical hernia. GASTRIC SLEEVE 2012, uterine fibroid biopsy, hiatal hernia repair, rt cataract, ivan filter, ports x 2/later removed Past Anesthesia/Blood Transfusion Reactions: Motion Sickness Past Psychological History: Anxiety Smoking Status: Never smoker Past Alcohol Use History: None Reported Past Drug Use History: None Reported - Past Family History Mother Family Medical History: No Reported History Father Family Medical History: Coronary Artery Disease (CAD) Additional Family Medical History / Comment(s): quadruple bipass <Gildardo Mcfarlane - Last Filed: 04/30/24 15:53> General Exam <Gildardo Mcfarlane - Last Filed: 04/30/24 15:53> Limitations: no limitations General appearance: alert, in no apparent distress Head exam: Present: normocephalic Eye exam: Present: normal appearance Neck exam: Present: normal inspection Respiratory exam: Present: wheezes (Mild expiratory), chest wall tenderness (Under left breast) Cardiovascular Exam: Present: regular rate, normal rhythm, normal heart sounds GI/Abdominal exam: Present: soft. Absent: tenderness Extremities exam: Present: normal inspection. Absent: pedal edema, calf tenderness Neurological exam: Present: alert Psychiatric exam: Present: normal affect, normal mood Skin exam: Present: normal color <Frandy Terry - Last Filed: 04/30/24 20:46> - General Exam Comments Initial Comments: Visual Physical Exam Vital signs reviewed General: Well-appearing, nontoxic, no acute distress. Head: Normocephalic, atraumatic Eyes: PERRLA, EOMI ENT: Airway patent Chest: Nonlabored breathing Skin: No visual rash, normal skin tone Neuro: Alert and oriented 3 Musculoskeletal: No gross abnormalities (Gildardo Mcfarlane) Course Vital Signs 04/30/24 04/30/24 04/30/24 15:57 16:42 16:54 Temperature 98.5 F Pulse Rate 67 70 80 Respiratory 18 18 Rate Blood Pressure 210/116 202/110 178/97 O2 Sat by Pulse 100 98 Oximetry 04/30/24 04/30/24 18:36 19:50 Temperature Pulse Rate 78 64 Respiratory 18 16 Rate Blood Pressure 187/116 183/94 O2 Sat by Pulse 94 L 99 Oximetry Chest Pain MDM <Gildardo Mcfarlane - Last Filed: 04/30/24 15:53> <Frandy Terry - Last Filed: 04/30/24 20:46> - MDM I completed the quick note portion of this chart signed YONNY Raymundo (Gildardo Mcfarlane) Was pt. sent in by a medical professional or institution ([facility]REGORY Casey, ORGANIC LAB WORKER, urgent care, hospital, or retirement...) When possible be specific @ -No Did you speak to anyone other than the patient for history (EMS, parent, family, police, friend...)? What history was obtained from this source @ -No Did you review nursing and triage notes (agree or disagree)? Why? @ -I reviewed and agree with nursing and triage notes Were old charts reviewed (outside hosp., previous admission, EMS record, old EKG, old radiological studies, urgent care reports/EKG's, retirement records)? Report findings @ -Previous chest x-ray Differential Diagnosis (chest pain, altered mental status, abdominal pain women, abdominal pain men, vaginal bleeding, weakness, fever, dyspnea, syncope, headache, dizziness, GI bleed, back pain, seizure, CVA, palpatations, mental health, musculoskeletal)? @ -Differential Chest Pain: Stable Angina, Unstable Angina, STEMI, NSTEMI Aortic Dissection, Pneumothorax, Musculoskeletal, Esophageal Spasm GERD, Cholecystitis, Pancreatitis, Zoster, this is not meant to be an all-inclusive list. EKG interpreted by me (3pts min.). @ -As above X-rays interpreted by me (1pt min.). @ -Chest x-ray shows no acute process CT interpreted by me (1pt min.). @ -CT scan of the chest without acute U/S interpreted by me (1pt. min.). @ -None done What testing was considered but not performed or refused? (CT, X-rays, U/S, labs)? Why? @ -None What meds were considered but not given or refused? Why? @ -None Did you discuss the management of the patient with other professionals (professionals i.e. , PA, ORGANIC LAB WORKER, lab, RT, psych nurse, foster care social worker, formula maker, teacher, control officer manager, rn case management)? Give summary @ -Case discussed with practitioner Shaylee who will admit covering Dr. Was smoking cessation discussed for >3mins.? @ -No Was critical care preformed (if so, how long)? @ -No Were there social determinants of health that impacted care today? How? (Homelessness, low income, unemployed, alcoholism, drug addiction, transportation, low edu. Level, literacy, decrease access to med. care, halfway, rehab)? @ -No Was there de-escalation of care discussed even if they declined (Discuss DNR or withdrawal of care, Hospice)? DNR status @ -No What co-morbidities impacted this encounter? (DM, HTN, Smoking, COPD, CAD, Cancer, CVA, ARF, Chemo, Hep., AIDS, mental health diagnosis, sleep apnea, morbid obesity)? @ -None Was patient admitted / discharged? Hospital course, mention meds given and route, prescriptions, significant lab abnormalities, going to OR and other pertinent info. @ -Patient presents with cough and exertional dyspnea and chest discomfort. Initial testing unremarkable. Patient will be held for echo and further e valuation. Admission orders written. Patient reevaluated and updated Undiagnosed new problem with uncertain prognosis? @ -No Drug Therapy requiring intensive monitoring for toxicity (Heparin, Nitro, Insulin, Cardizem)? @ -No Were any procedures done? @ -No Diagnosis/symptom? @ -Chest pain, exertional dyspnea Acute, or Chronic, or Acute on Chronic? @ -Acute, acute Uncomplicated (without systemic symptoms) or Complicated (systemic symptoms)? @ -Default Side effects of treatment? @ -No Exacerbation, Progression, or Severe Exacerbation? @ -No Poses a threat to life or bodily function? How? (Chest pain, [place], [place], pneumonia, PE, COPD, DKA, ARF, appy, cholecystitis, CVA, Diverticulitis, Homicidal, Suicidal, threat to staff... and all critical care pts) @ -Threat to cardiac function (Frandy Terry) Disposition <Gildardo Mcfarlane - Last Filed: 04/30/24 15:53> Is patient prescribed a controlled substance at d/c from ED?: No Time of Disposition: 20:46 <Frandy Terry - Last Filed: 04/30/24 20:46> Clinical Impression: Chest pain Disposition: ADMITTED IP TO THIS HOSP Referrals: Be Washburn MD [Primary Care Provider] - 1-2 days
--- NOTE | 2024-04-30 16:20 | XR ---
EXAMINATION TYPE: XR chest 2V DATE OF EXAM: 04/30/2024 4:13 PM COMPARISON: Prior radiographs, most recently dated 11/04/2023. CLINICAL INDICATION: Female, 53 years old with history of Chest pain, cough; [facility] TECHNIQUE: XR chest 2V Frontal and lateral views of the chest. FINDINGS: Lungs/Pleura: There is no evidence of pleural effusion, focal consolidation, or pneumothorax. Median sternotomy wires. Pulmonary vascularity: Unremarkable. Heart/mediastinum: Cardiomediastinal silhouette is unremarkable. Musculoskeletal: No acute osseous pathology. Other findings: None IMPRESSION: No acute cardiopulmonary disease/process. [facility], , 04/30/2024 4:18 PM
[2024-04-30] MEDS: NITROGLYCERIN SL TABS 0.4 MG TAB SUBLINGUAL STA (16:44)
[2024-04-30] MEDS: ASPIRIN 81 MG PO STA (16:47)
[2024-04-30] MEDS: NITROGLYCERIN OINT 1 INCH/GM PACKET TOPICAL STA (16:47)
[2024-04-30 17:05] LABS: Basophils % (A) 0 %; Eosinophils # (A) 0.2 k/uL (0-0.7); Eosinophils % (A) 3 %; HCT 33.9 % (34.0-46.0); HGB 10.6 gm/dL (11.4-16.0); Hypochromasia Slight; Lymphocytes # (A) 1.4 k/uL (1.0-4.8); Lymphocytes % (A) 20 %; MCH 27.9 pg (25.0-35.0); MCHC 31.2 g/dL (31.0-37.0); MCV 89.5 fL (80.0-100.0); Mean Platelet Volume 8.6; Monocytes # (A) 0.4 k/uL (0-1.0); Monocytes % (A) 5 %; Neutrophils % (A) 72 %; Platelet Count 114 k/uL (150-450); RBC 3.78 m/uL (3.80-5.40); RDW 13.8 % (11.5-15.5)
[2024-04-30 17:15] LABS: ALT 26 U/L (4-34); African American GFR (CKD) 59 (>60 ml/min/1.73 sqM); Anion Gap 1 mmol/L; Blood Urea Nitrogen 30 mg/dL (7-17); Calcium 8.9 mg/dL (8.4-10.2); Carbon Dioxide 23 mmol/L (22-30); Chloride 116 mmol/L (98-107); Glucose 86 mg/dL (74-99); Non-African American GFR(CKD) 51 (>60 ml/min/1.73 sqM); Sodium 140 mmol/L (137-145); Total Bilirubin 0.5 mg/dL (0.2-1.3)
[2024-04-30 17:17] LABS: Albumin 3.3 g/dL (3.5-5.0); Potassium 4.9 mmol/L (3.5-5.1); Total Protein 6.3 g/dL (6.3-8.2)
[2024-04-30 17:18] LABS: AST 61 U/L (14-36); Alkaline Phosphatase 85 U/L (38-126)
[2024-04-30 18:44] LABS: INR 0.9 (<1.2); Prothrombin Time 10.6 sec (10.0-12.5)
[2024-04-30 18:52] LABS: Partial Thromboplastin Time 20.9 sec (22.0-30.0)
--- NOTE | 2024-04-30 20:32 | CT ---
EXAMINATION TYPE: CT angio chest DATE OF EXAM: 04/30/2024 7:43 PM COMPARISON: 04/19/2023 CLINICAL INDICATION: Female, 53 years old with history of kalyani, Pt c/o RUQ and epigastric pain as well as dyspnea and wheezing on exertion. TECHNIQUE: CT of the chest is performed on a spiral scan at 2 mm thick sections. Study is performed with intravenous contrast timed for evaluation for pulmonary embolism. This will limit additional po rtions of the evaluation. 3-D MIP images reconstructed by the technologist are reviewed on the compu ter in the coronal and sagittal planes. Contrast used:100ml mL of Isovue 300 with IV Contrast, (none if empty) Oral contrast used: (none if empty) CT DLP: 389.5 mGycm, Automated exposure control for dose reduction was used. FINDINGS: No persistent filling defects are evident to suggest an acute pulmonary embolism. No mediastinal or hilar adenopathy enlarged by CT criteria is evident. The ascending aorta diameter at the level of the main pulmonary artery is 3.9 cm. The main pulmonary artery diameter at the bifurcation is 2.8 cm. Small hiatal hernia is present. Lung windows are clear. Minimal chronic appearing changes are present. There is some chronic linear m arkings in the periphery of the anterior right midlung and right upper lung field present previously. Findings have improved over the interval. Limited CT sections were through the upper abdomen. There is a 2.9 cm cyst on the lateral right mid kidney. Mild cortical thinning of the left kidney may be present. IMPRESSION: 1. No acute pulmonary embolism. 2. No acute pulmonary process. [facility], Workstation: [facility], 04/30/2024 8:29 PM
[2024-04-30] MEDS ORDERED: NITROGLYCERIN SL TABS 0.4 MG TAB SUBLINGUAL PRN (20:46)
[2024-04-30] MEDS ORDERED: ALBUTEROL NEBULIZED 2.5 MG/3 ML INHALATION PRN (20:49)
[2024-04-30] MEDS: ATORVASTATIN 40 MG TAB PO SCH (21:16)
[2024-04-30] MEDS: MECLIZINE 25 MG TAB PO SCH (22:39)
[2024-04-30] MEDS: traZODone HCL 100 MG TAB PO SCH (22:41)
[2024-04-30] MEDS: diazePAM 5 MG TAB PO SCH ×2 (22:50→23:41)
[2024-04-30] MEDS: lisinopriL 10 MG TAB PO SCH (23:00)
[2024-04-30] MEDS: traMADol 50 MG TAB PO PRN (23:00)
[2024-04-30] MEDS: PYRIDOSTIGMINE 60 MG TAB PO SCH (23:33)
[2024-04-30] MEDS: NITROGLYCERIN OINT 1 INCH/GM PACKET TOPICAL SCH (23:44)
[2024-05-01] MEDS: ASPIRIN 325 MG TAB PO SCH (08:13)
[2024-05-01] MEDS: LOPERAMIDE 2 MG CAP PO STA (08:40)
[2024-05-01 09:16] LABS: Chol/HDL Ratio 4.38 Ratio; LDL Cholesterol,Calculated 140.3 mg/dL (0.0-131.0)
[2024-05-01 09:58] VITALS: RESP 18
[2024-05-01] MEDS: lisinopriL 10 MG TAB PO STA (10:01)
[2024-05-01] MEDS: FLUTICASONE NASAL 50MCG/SPRAY 16GM BTL EA NOSTRIL SCH (10:02)
--- NOTE | 2024-05-01 10:09 | CA ---
Transthoracic Echo Report Name: Vianca Beaver Age: 53 Gender: F : 1970 Exam Date: 05/01/2024 07:42 Exam Location: [place] [facility] Ht (in): 64 Wt (lb): 195 Ordering Physician: Frandy Terry DO Attending/Referring Phys: [employer] Ligia Woodward RDCS Procedure CPT: Indications: CP Cardiac Hx: Technical Quality: Good Contrast 1: Total Dose (mL): Contrast 2: Total Dose (mL): MEASUREMENTS (Male / Female) Normal Values 2D ECHO LV Diastolic Diameter PLAX 4.1 cm 4.2 - 5.9 / 3.9 - 5.3 cm LV Systolic Diameter PLAX 3.3 cm IVS Diastolic Thickness 1.5 cm 0.6 - 1.0 / 0.6 - 0.9 cm LVPW Diastolic Thickness 1.4 cm 0.6 - 1.0 / 0.6 - 0.9 cm LV Relative Wall Thickness 0.7 RV Internal Dim ED PLAX 2.8 cm LA Systolic Diameter LX 3.1 cm 3.0 - 4.0 / 2.7 - 3.8 cm LV Diastolic Volume MOD BP 146.6 cm??? 67 - 155 / 56 - 104 cm??? LV Systolic Volume MOD BP 79.3 cm??? 22 - 58 / 19 - 49 cm??? LV Ejection Fraction MOD BP 45.9 % >= 55 % LV Cardiac Index MOD BP 1587.1 cm???/min???m??? LV Diastolic Volume MOD 4C 126.9 cm??? LV Systolic Volume MOD 4C 74.4 cm??? LV Ejection Fraction MOD 4C 41.4 % LV Cardiac Index MOD 4C 1240.1 cm???/min???m??? LV Diastolic Length 4C 8.5 cm LV Systolic Length 4C 7.5 cm LV Diastolic Volume MOD 2C 167.5 cm??? LV Systolic Volume MOD 2C 86.4 cm??? LV Ejection Fraction MOD 2C 48.4 % LV Cardiac Index MOD 2C 1914.8 cm???/min???m??? LV Diastolic Length 2C 8.1 cm LV Systolic Length 2C 7.4 cm LA Volume 51.1 cm??? 18 - 58 / 22 - 52 cm??? LA Volume Index 25.1 cm???/m??? 16 - 28 cm???/m??? M-MODE LV Diastolic Diameter MM 5.8 cm 4.2 - 5.9 / 3.9 - 5.3 cm LV Systolic Diameter MM 3.5 cm LV Cardiac Index MM Teich 2751.5 cm???/min???m??? IVS Diastolic Thickness MM 1.2 cm 0.6 - 1.0 / 0.6 - 0.9 cm LVPW Diastolic Thickness MM 1.3 cm 0.6 - 1.0 / 0.6 - 0.9 cm LV Relative Wall Thickness MM 0.4 0.24 - 0.42 / 0.22 - 0.42 LV Mass Index MM 152.6 g/m??? 49 - 115 / 43 - 95 g/m??? Aortic Root Diameter MM 3.5 cm AV Cusp Separation MM 2.5 cm DOPPLER AV Peak Velocity 123.9 cm/s AV Peak Gradient 6.1 mmHg AI Peak Velocity 415.8 cm/s AI Peak Gradient 69.2 mmHg AI Pressure Half Time 931.4 ms MV Area PHT 3.0 cm??? Mitral E Point Velocity 50.8 cm/s Mitral A Point Velocity 76.1 cm/s Mitral E to A Ratio 0.7 MV Deceleration Time 252.7 ms TR Peak Velocity 200.0 cm/s TR Peak Gradient 16.0 mmHg Right Ventricular Systolic Press 21.0 mmHg FINDINGS Left Ventricle Left ventricular ejection fraction is estimated at 50-55 %. Left ventricular cavity size normal. Severely increased left ventricular mass. Mildly increased septal wall thickness. Mildly increased posterior wall thickness. Moderately increased left ventricular diastolic diameter. Severely increased left ventricular diastolic volume. Severely increased left ventricular systolic volume. Mildly decreased left ventricular ejection fraction. Right Ventricle Normal right ventricular size and function. Right ventricular systolic pressure within normal limits. Right Atrium Normal right atrial size. No right atrial thrombus or mass seen. Left Atrium Normal left atrial size. No left atrial thrombus or mass present. Mitral Valve Structurally normal mitral valve. No mitral stenosis, regurgitation or prolapse. Aortic Valve Trileaflet aortic valve. Mild aortic regurgitation. Tricuspid Valve Structurally normal tricuspid valve. Mild tricuspid regurgitation. Pulmonic Valve Structurally normal pulmonic valve. Mild pulmonic regurgitation. Pericardium No pericardial or pleural effusion. Aorta Normal size aortic root and proximal ascending aorta. CONCLUSIONS Normal LV systolic function Mild aortic regurgitation Mild tricuspid regurgitation Previewed by: Dr. Jonny Samuel MD (Electronically Signed) Final Date: 01 May 2024 10:08
--- NOTE | 2024-05-01 11:02 | P.CRDCN ---
History of Present Illness History of present illness: HISTORY OF PRESENT ILLNESS: This is a 53-year-old female with a past medical history significant for myasthenia gravis and hypertension. Patient does not follow with a community health planning director. We have been asked to see the patient in consultation for chest pain. Patient examined at the bedside in the emergency room. Patient states that she recently had a chest cold. She went to see her PCP and was prescribed steroids and amoxicillin. She states yesterday when she was sitting at home watching TV she began to have chest pain. She states the pain is mostly in the epigastric region and then radiated into her back. She came to the ER for further evaluation. At the time of examination she denies chest pain or pressure. She denies shortness of breath. Patient's blood pressure was found to be elevated at 210/116 upon arrival. Patient does have a history of hypertension and states that she used to be on medications however she was taken off of them many years ago. The patient was started on lisinopril per primary medicine. DIAGNOSTICS: - EKG reveals sinus mechanism with T wave inversions in inferior lateral leads - Chest xray negative for acute process -Chest CT: Negative for pulmonary embolism. No acute pulmonary process. -Echocardiogram obtained this admission reveals ejection fraction 50 to 55%, mild TR, severely increased left ventricular diastolic volume, severely inc reased left ventricular systolic volume, mildly increased septal wall thickness, mildly increased posterior wall thickness, moderately increased left ventricular diastolic diameter. - Laboratory data: WBC 7.0. Hemoglobin 10.6. Platelet count 114. D-dimer 3.07. Sodium 140. Potassium 4.9. BUN 30. Creatinine 1.22. Troponin negative x 3. Cholesterol 221. LDL 140. - Current home cardiac medications include none REVIEW OF SYSTEMS: At the time of my exam: CONSTITUTIONAL: Denies fever or chills. HEENT: Denies blurred vision, vision changes, or eye pain. Denies hemoptysis CARDIOVASCULAR: Denies chest pain. Denies orthopnea. Denies PND. Denies palpitations RESPIRATORY: Denies shortness of breath. GASTROINTESTINAL: Denies abdominal pain. Denies nausea or vomiting. HEMATOLOGIC: Denies bleeding disorders. GENITOURINARY: Denies any blood in urine. SKIN: Denies pruitis. Denies rash. PHYSICAL EXAM: VITAL SIGNS: Reviewed. GENERAL: Well-developed in no acute distress. HEENT: Head is normocephalic. Pupils are equal, round. Sclerae anicteric. Mucous membranes of the mouth are moist. Neck supple. No JVD or thyromegaly LUNGS: Respirations even and unlabored. Lungs essentially clear to auscultation bilaterally. HEART: Regular rate and rhythm. S1 and S2 heard. ABDOMEN: Soft. Nondistended. Nontender. EXTREMITIES: Normal range of motion. No clubbing or cyanosis. Peripheral pulses intact. No lower extremity edema NEUROLOGIC: Awake and alert. Oriented x 3. ASSESSMENT: Hypertensive emergency Chest pain, troponin negative x 3, may be secondary to uncontrolled hypertension Recent upper respiratory infection Hyperlipidemia, LDL 140 History of myasthenia gravis Obesity: BMI 33.5 PLAN: An acute coronary but has been ruled out 2D echo obtained and reviewed Increase lisinopril to 20 mg daily Add clonidine 0.1 mg twice a day Patient started on atorvastatin 40 mg at night Add aspirin 81 mg daily Continue to monitor blood pressure Recommend outpatient stress testing when blood pressure is controlled Further recommendations pending patient course Nurse practitioner note has been reviewed by physician. Signing provider agrees with the documented findings, assessment, and plan of care documented by [employer] as a scribe. Past Medical History Past Medical History: Deep Vein Thrombosis (DVT), GERD/Reflux, Hypertension, Pneumonia, Pulmonary Embolus (PE), Renal Disease Additional Past Medical History / Comment(s): ivan filter, kidney stones, myasthenia gravis, vertigo, hypoglycemia, hx renal problems with dialysis 1 yr ago- now resolved per pt, c-diff 2012, septicemia 2017, diverticulitis. History of Any Multi-Drug Resistant Organisms: C-DIFF Date of last positivie culture/infection: 2012 MDRO Source:: stool Past Surgical History: Ablation, Bariatric Surgery, Section, Cholecystectomy, Hernia Repair, Tonsillectomy Additional Past Surgical History / Comment(s): thymus removed , LEEP.Umbilical hernia. GASTRIC SLEEVE 2013, uterine fibroid biopsy, hiatal hernia repair, rt cataract, ivan filter, ports x 2/later removed Past Anesthesia/Blood Transfusion Reactions: Motion Sickness Past Psychological History: Anxiety Smoking Status: Never smoker Past Alcohol Use History: None Reported Past Drug Use History: None Reported - Past Family History Mother Family Medical History: No Reported History Father Family Medical History: Coronary Artery Disease (CAD) Additional Family Medical History / Comment(s): quadruple bipass Medications and Allergies Home Medications Medication Instructions Recorded Confirmed Type diazePAM [Valium] 5 mg PO HS 06/12/16 04/30/24 History Loperamide [Imodium] 2 mg PO Q4H PRN 07/26/17 04/30/24 History Meclizine [Antivert] 50 mg PO HS 07/26/17 04/30/24 History Pyridostigmine [place] [Mestinon] 90 mg PO QID@08,,19,00 10/03/18 04/30/24 History mycophenolate mofetiL [Cellcept] 1,000 mg PO Q12H 10/03/18 04/30/24 History Omeprazole [PriLOSEC] 40 mg PO W/LUNCH 07/12/19 04/30/24 History traZODone HCL 100 mg PO HS 12/07/19 04/30/24 History Fluticasone Nasal [place] [Flonase 2 spr EA NOSTRIL DAILY 11/01/21 04/30/24 History Nasal [place]] Albuterol Inhaler [Ventolin Hfa 2 puff INHALATION RT-Q4H PRN 04/30/24 04/30/24 History Inhaler] Allergies Allergy/AdvReac Type Severity Reaction Status Date / Time adhesive Allergy Rash/Hives Verified 04/30/24 19:00 Aminoglycosides Allergy Dyspnea Verified 04/30/24 19:00 amlodipine besylate Allergy Swelling Verified 04/30/24 19:00 [From Norvasc] cephalexin [From Keflex] Allergy Unknown Verified 04/30/24 19:00 levofloxacin [From Levaquin] Allergy Dyspnea Verified 04/30/24 19:00 Macrolide Antibiotics Allergy Dyspnea Verified 04/30/24 19:00 Quinolones Allergy Dyspnea Verified 04/30/24 19:00 sulfamethoxazole Allergy Dyspnea Verified 04/30/24 19:00 [From Bactrim] trimethoprim [From Bactrim] Allergy Dyspnea Verified 04/30/24 19:00 FLUORINOQUINOLINES Allergy Unknown Uncoded 04/30/24 19:00 Physical Exam Vitals: Vital Signs Temp Pulse Resp BP Pulse Ox 05/01/24 09:56 97.7 F 64 18 144/84 97 05/01/24 06:00 20 176/102 96 05/01/24 05:00 53 L 20 158/97 96 12/16/24 04:00 55 L 18 159/93 97 05/01/24 03:00 53 L 16 161/93 96 05/01/24 02:00 73 16 162/89 95 05/01/24 01:30 63 16 145/91 95 05/01/24 00:00 70 16 181/96 97 04/30/24 22:07 84 13 188/95 99 04/30/24 19:50 64 16 183/94 99 04/30/24 18:36 78 18 187/116 94 L 04/30/24 16:54 80 178/97 04/30/24 16:42 70 18 202/110 98 04/30/24 15:57 98.5 F 67 18 210/116 100 Intake and Output 04/30/24 05/01/24 05/01/24 22:59 06:59 14:59 Other: Weight 88.451 kg Results 04/30/24 16:49 04/30/24 16:49 Cardiac Enzymes 04/30/24 04/30/24 04/30/24 Range/Units 16:49 16:49 21:04 AST 61 H (14-36) U/L Troponin I 0.031 0.033 (0.000-0.034) ng/mL 05/01/24 Range/Units 00:08 AST (14-36) U/L Troponin I 0.028 (0.000-0.034) ng/mL Coagulation 04/30/24 Range/Units 18:14 PT 10.6 (10.0-12.5) sec APTT 20.9 L (22.0-30.0) sec Lipids 04/30/24 Range/Units 16:49 Triglycerides 151.00 H (0.00-149.00) mg/dL Cholesterol 221.00 H (0.00-200.00) mg/dL HDL Cholesterol 50.50 (40.00-60.00) mg/dL Cholesterol/HDL Ratio 4.38 Ratio CBC 04/30/24 Range/Units 16:49 WBC 7.0 (3.8-10.6) k/uL RBC 3.78 L (3.80-5.40) m/uL Hgb 10.6 L (11.4-16.0) gm/dL Hct 33.9 L (34.0-46.0) % Plt Count 114 L (150-450) k/uL Comprehensive Metabolic Panel 04/30/24 Range/Units 16:49 Sodium 140 (137-145) mmol/L Potassium 4.9 (3.5-5.1) mmol/L Chloride 116 H (98-107) mmol/L Carbon Dioxide 23 (22-30) mmol/L BUN 30 H (7-17) mg/dL Creatinine 1.22 H (0.52-1.04) mg/dL Glucose 86 (74-99) mg/dL Calcium 8.9 (8.4-10.2) mg/dL AST 61 H (14-36) U/L ALT 26 (4-34) U/L Alkaline Phosphatase 85 (38-126) U/L Total Protein 6.3 (6.3-8.2) g/dL Albumin 3.3 L (3.5-5.0) g/dL Current Medications Generic Name Dose Route Start Last Admin Trade Name Freq PRN Reason Stop Dose Admin Albuterol Sulfate 2.5 mg 04/30/24 20:49 Albuterol Nebulized 2.5 Mg/3 Ml INHALATION RT-Q4H PRN Dyspnea Atorvastatin Calcium 40 mg 04/30/24 21:00 04/30/24 21:16 Atorvastatin 40 Mg Tab PO Not Given HS TERRANCE Clonidine 0.1 mg 05/01/24 09:00 Clonidine Hcl 0.1 Mg Tab PO BID TERRANCE Diazepam 5 mg 04/30/24 21:00 04/30/24 23:41 Diazepam 5 Mg Tab PO 5 mg HS TERRANCE Administration Fluticasone Propionate 2 spray 05/01/24 09:00 05/01/24 10:02 Fluticasone Nasal 50mcg/[place] 16gm Btl EA NOSTRIL 2 spray DAILY TERRANCE Administration Lisinopril 20 mg 05/02/24 09:00 Lisinopril 20 Mg Tab PO DAILY TERRANCE Meclizine HCl 50 mg 04/30/24 21:00 04/30/24 22:42 Meclizine 25 Mg Tab PO 50 mg HS TERRANCE Administration Mycophenolate Mofetil 1,000 mg 04/30/24 21:00 05/01/24 08:16 Mycophenolate Mofetil 500 Mg Tab PO 1,000 mg Q12H TERRANCE Administration Nitroglycerin 0.4 mg 04/30/24 20:46 Nitroglycerin Sl Tabs 0.4 Mg Tab SUBLINGUAL Q5M PRN Chest Pain Pantoprazole Sodium 40 mg 05/01/24 12:30 Pantoprazole 40 Mg Tablet PO W/LUNCH TERRANCE Pyridostigmine [place] 90 mg 05/01/24 00:00 05/01/24 08:14 Pyridostigmine 60 Mg Tab PO 90 mg QID@08,14,19,00 TERRANCE Administration Tramadol HCl 50 mg 04/30/24 22:43 04/30/24 23:00 Tramadol 50 Mg Tab PO 50 mg Q6H PRN Administration Pain Trazodone HCl 100 mg 04/30/24 21:00 04/30/24 23:34 Trazodone Hcl 100 Mg Tab PO 100 mg HS TERRANCE Administration Intake and Output 04/30/24 05/01/24 05/01/24 22:59 06:59 14:59 Other: Weight 88.451 kg 04/30/24 16:49 04/30/24 16:49
[2024-05-01] MEDS ORDERED: hydrALAZINE HCL 50 MG TAB PO PRN (11:31)
[2024-05-01] MEDS: cloNIDine HCL 0.1 MG TAB PO SCH (11:31)
--- NOTE | 2024-05-01 11:36 | P.HPIM ---
History of Present Illness 53-year-old female came in with complaints of chest pain sharp in nature radiating to the back and under the rib cage patient has cold has been coughing and because of the cough she was having pain in the chest patient was on steroids and amoxicillin. Patient denied any fever chills patient blood pressure is found to be highly elevated at 210 x 116 upon arrival does have history of hypertension. Patient had elevated D-dimer because of which patient had a CT angio of the chest which is negative for pulmonary embolism echocardiog divya was done which is within normal limits. Patient was started on lisinopril dose of which was increased today by cardiology. Patient states her blood pressure is usually normal in her physician's office. Patient also has mildly elevated serum creatinine of 1.2 with elevated BUN patient did have an episode of vomiting does have history of gastroesophageal reflux disease history omeprazole at home. EKG showed some T wave inversions in the inferior leads chest x-ray is within normal limits LDL is 140 REVIEW OF SYSTEMS: All other systems are negative except those mentioned in the HPI PHYSICAL EXAMINATION: GENERAL: The patient is alert and oriented x3, not in any acute distress. Well developed, well nourished. HEENT: Pupils are round and equally reacting to light. EOMI. No scleral icterus. No conjunctival pallor. Normocephalic, atraumatic. No pharyngeal erythema. No thyromegaly. CARDIOVASCULAR: S1 and S2 present. No murmurs, rubs, or gallops. PULMONARY: Chest is clear to auscultation, no wheezing or crackles. ABDOMEN: Soft, nontender, nondistended, normoactive bowel sounds. No palpable organomegaly. MUSCULOSKELETAL: No joint swelling or deformity. EXTREMITIES: No cyanosis, clubbing, or pedal edema. NEUROLOGICAL: Gross neurological examination did not reveal any focal deficits. SKIN: No rashes. Assessment and plan -Chest pain rule out acute coronary syndromes -Rule out pulmonary embolism -Sinusitis -Acute renal failure secondary to recent viral illness IV fluids at 100 cc/h -Uncontrolled elevated blood pressures, hypertensive urgency or accelerated hypertension: Patient's lisinopril dose was increased part of the reason why her blood pressure is so high is because of her musculoskeletal chest pain -Myasthenia gravis history -Obesity -History of DVT and PE in the past -Gastroesophageal reflux disease continue with proton pump elevator -Hyperlipidemia will start her on statin Patient blood pressure is better now we will monitor until later in the day if her blood pressure is below 150 systolic discharge today echocardiogram within normal limits Past Medical History Past Medical History: Deep Vein Thrombosis (DVT), GERD/Reflux, Hypertension, Pneumonia, Pulmonary Embolus (PE), Renal Disease Additional Past Medical History / Comment(s): ivan filter, kidney stones, myasthenia gravis, vertigo, hypoglycemia, hx renal problems with dialysis 1 yr ago- now resolved per pt, c-diff 2012, septicemia 2016, diverticulitis. History of Any Multi-Drug Resistant Organisms: C-DIFF Date of last positivie culture/infection: 2012 MDRO Source:: stool Past Surgical History: Ablation, Bariatric Surgery, Section, Cholecystectomy, Hernia Repair, Tonsillectomy Additional Past Surgical History / Comment(s): thymus removed , LEEP.Umbilical hernia. GASTRIC SLEEVE 2012, uterine fibroid biopsy, hiatal hernia repair, rt cataract, ivan filter, ports x 2/later removed Past Anesthesia/Blood Transfusion Reactions: Motion Sickness Past Psychological History: Anxiety Smoking Status: Never smoker Past Alcohol Use History: None Reported Past Drug Use History: None Reported - Past Family History Mother Family Medical History: No Reported History Father Family Medical History: Coronary Artery Disease (CAD) Additional Family Medical History / Comment(s): quadruple bipass Medications and Allergies Home Medications Medication Instructions Recorded Confirmed Type diazePAM [Valium] 5 mg PO HS 06/12/16 04/30/24 History Loperamide [Imodium] 2 mg PO Q4H PRN 07/26/17 04/30/24 History Meclizine [Antivert] 50 mg PO HS 07/26/17 04/30/24 History Pyridostigmine [place] [Mestinon] 90 mg PO QID@08,14,19,00 10/03/18 04/30/24 History mycophenolate mofetiL [Cellcept] 1,000 mg PO Q12H 10/03/18 04/30/24 History Omeprazole [PriLOSEC] 40 mg PO W/LUNCH 07/12/19 04/30/24 History traZODone HCL 100 mg PO HS 12/07/19 04/30/24 History Fluticasone Nasal [place] [Flonase 2 spr EA NOSTRIL DAILY 11/01/21 04/30/24 History Nasal [place]] Albuterol Inhaler [Ventolin Hfa 2 puff INHALATION RT-Q4H PRN 04/30/24 04/30/24 History Inhaler] Allergies Allergy/AdvReac Type Severity Reaction Status Date / Time adhesive Allergy Rash/Hives Verified 04/30/24 19:00 Aminoglycosides Allergy Dyspnea Verified 04/30/24 19:00 amlodipine besylate Allergy Swelling Verified 04/30/24 19:00 [From Norvasc] cephalexin [From Keflex] Allergy Unknown Verified 04/30/24 19:00 levofloxacin [From Levaquin] Allergy Dyspnea Verified 04/30/24 19:00 Macrolide Antibiotics Allergy Dyspnea Verified 04/30/24 19:00 Quinolones Allergy Dyspnea Verified 04/30/24 19:00 sulfamethoxazole Allergy Dyspnea Verified 04/30/24 19:00 [From Bactrim] trimethoprim [From Bactrim] Allergy Dyspnea Verified 04/30/24 19:00 FLUORINOQUINOLINES Allergy Unknown Uncoded 04/30/24 19:00 Physical Exam Vitals: Vital Signs Temp Pulse Resp BP Pulse Ox 05/01/24 11:25 64 18 97 05/01/24 09:56 97.7 F 64 18 144/84 97 05/01/24 06:00 20 176/102 96 05/01/24 05:00 53 L 20 158/97 96 05/01/24 04:00 55 L 18 159/93 97 05/01/24 03:00 53 L 16 161/93 96 05/01/24 02:00 73 16 162/89 95 05/01/24 01:30 63 16 145/91 95 05/01/24 00:00 70 16 181/96 97 04/30/24 22:07 84 13 188/95 99 04/30/24 19:50 64 16 183/94 99 04/30/24 18:36 78 18 187/116 94 L 04/30/24 16:54 80 178/97 04/30/24 16:42 70 18 202/110 98 04/30/24 15:57 98.5 F 67 18 210/116 100 Intake and Output 04/30/24 05/01/24 05/01/24 22:59 06:59 14:59 Other: Weight 88.451 kg Results CBC & Chem 7: 04/30/24 16:49 04/30/24 16:49 Labs: Abnormal Lab Results - Last 24 Hours (Table) 04/30/24 04/30/24 04/30/24 Range/Units 16:49 16:49 16:49 RBC 3.78 L (3.80-5.40) m/uL Hgb 10.6 L (11.4-16.0) gm/dL Hct 33.9 L (34.0-46.0) % Plt Count 114 L (150-450) k/uL APTT (22.0-30.0) sec D-Dimer (<0.60) mg/L FEU Chloride 116 H (98-107) mmol/L BUN 30 H (7-17) mg/dL Creatinine 1.22 H (0.52-1.04) mg/dL AST 61 H (14-36) U/L Albumin 3.3 L (3.5-5.0) g/dL Triglycerides 151.00 H (0.00-149.00) mg/dL Cholesterol 221.00 H (0.00-200.00) mg/dL LDL Cholesterol, Calc 140.3 H (0.0-131.0) mg/dL 04/30/24 Range/Units 18:14 RBC (3.80-5.40) m/uL Hgb (11.4-16.0) gm/dL Hct (34.0-46.0) % Plt Count (150-450) k/uL APTT 20.9 L (22.0-30.0) sec D-Dimer 3.07 H (<0.60) mg/L FEU Chloride (98-107) mmol/L BUN (7-17) mg/dL Creatinine (0.52-1.04) mg/dL AST (14-36) U/L Albumin (3.5-5.0) g/dL Triglycerides (0.00-149.00) mg/dL Cholesterol (0.00-200.00) mg/dL LDL Cholesterol, Calc (0.0-131.0) mg/dL
--- NOTE | 2024-05-01 11:39 | P.DS ---
Providers Date of admission: 04/30/24 20:48 Attending physician: Nikolas Ace Consults: 04/30/24 20:47 Consult Physician Urgent Consulting Provider: Amadeo Hubbard Consult Reason/Comments: cp, exertional dyspnea Do you want consulting provider notified?: Yes Primary care physician: eB Washburn [facility] Course: 53-year-old female came in with complaints of chest pain sharp in nature radiating to the back and under the rib cage patient has cold has been coughing and because of the cough she was having pain in the chest patient was on steroids and amoxicillin. Patient denied any fever chills patient blood pressure is found to be highly elevated at 210 x 116 upon arrival does have history of hypertension. Patient had elevated D-dimer because of which patient had a CT angio of the chest which is negative for pulmonary embolism echocardiogram was done which is within normal limits. Patient was started on lisinopril dose of which was increased today by cardiology. Patient states her blood pressure is usually normal in her physician's office. Patient also has mildly elevated serum creatinine of 1.2 with elevated BUN patient did have an episode of vomiting does have history of gastroesophageal reflux disease history omeprazole at home. EKG showed some T wave inversions in the inferior leads chest x-ray is within normal limits LDL is 140 REVIEW OF SYSTEMS: All other systems are negative except those mentioned in the HPI PHYSICAL EXAMINATION: GENERAL: The patient is alert and oriented x3, not in any acute distress. Well developed, well nourished. HEENT: Pupils are round and equally reacting to light. EOMI. No scleral icterus. No conjunctival pallor. Normocephalic, atraumatic. No pharyngeal erythema. No thyromegaly. CARDIOVASCULAR: S1 and S2 present. No murmurs, rubs, or gallops. PULMONARY: Chest is clear to auscultation, no wheezing or crackles. ABDOMEN: Soft, nontender, nondistended, normoactive bowel sounds. No palpable organomegaly. MUSCULOSKELETAL: No joint swelling or deformity. EXTREMITIES: No cyanosis, clubbing, or pedal edema. NEUROLOGICAL: Gross neurological examination did not reveal any focal deficits. SKIN: No rashes. Assessment and plan -Chest pain rule out acute coronary syndromes -Rule out pulmonary embolism -Sinusitis -Acute renal failure secondary to recent viral illness IV fluids at 100 cc/h -Uncontrolled elevated blood pressures, hypertensive urgency or accelerated hypertension: Patient's lisinopril dose was increased part of the reason why her blood pressure is so high is because of her musculoskeletal chest pain -Myasthenia gravis history -Obesity -History of DVT and PE in the past -Gastroesophageal reflux disease continue with proton pump elevator -Hyperlipidemia will start her on statin Patient blood pressure is better now we will monitor until later in the day if her blood pressure is below 150 systolic discharge today echocardiogram within normal limits Plan - Discharge Summary New Discharge Prescriptions: New Nitroglycerin Sl Tabs [Nitrostat] 0.4 mg SUBLINGUAL Q5M PRN #30 tab PRN Reason: Chest Pain lisinopriL [Zestril] 20 mg PO DAILY #30 tab Atorvastatin [Lipitor] 40 mg PO HS #30 tab Continue diazePAM [Valium] 5 mg PO HS Meclizine [Antivert] 50 mg PO HS Loperamide [Imodium] 2 mg PO Q4H PRN PRN Reason: Loose Stool Pyridostigmine [place] [Mestinon] 90 mg PO QID@08,,,00 mycophenolate mofetiL [Cellcept] 1,000 mg PO Q12H Omeprazole [PriLOSEC] 40 mg PO W/LUNCH traZODone HCL 100 mg PO HS Fluticasone Nasal [place] [Flonase Nasal [place]] 2 spr EA NOSTRIL DAILY Albuterol Inhaler [Ventolin Hfa Inhaler] 2 puff INHALATION RT-Q4H PRN PRN Reason: Dyspnea Discharge Medication List diazePAM [Valium] 5 mg PO HS 06/12/16 [History] Loperamide [Imodium] 2 mg PO Q4H PRN 07/26/17 [History] Meclizine [Antivert] 50 mg PO HS 07/26/17 [History] Pyridostigmine [place] [Mestinon] 90 mg PO QID@,,,00 10/03/18 [History] mycophenolate mofetiL [Cellcept] 1,000 mg PO Q12H 10/03/18 [History] Omeprazole [PriLOSEC] 40 mg PO W/LUNCH 07/12/19 [History] traZODone HCL 100 mg PO HS 12/07/19 [History] Fluticasone Nasal [place] [Flonase Nasal [place]] 2 spr EA NOSTRIL DAILY 11/01/21 [History] Albuterol Inhaler [Ventolin Hfa Inhaler] 2 puff INHALATION RT-Q4H PRN 04/30/24 [History] Atorvastatin [Lipitor] 40 mg PO HS #30 tab 05/01/24 [Rx] Nitroglycerin Sl Tabs [Nitrostat] 0.4 mg SUBLINGUAL Q5M PRN #30 tab 05/01/24 [Rx] lisinopriL [Zestril] 20 mg PO DAILY #30 tab 05/01/24 [Rx] Follow up Appointment(s)/Referral(s): Be Washburn MD [Primary Care Provider] - 3 Days Discharge Disposition: HOME SELF-CARE
[2024-05-01] MEDS: SODIUM CHLORIDE 0.9% 1,000 ML IV SCH (13:05)
[2024-05-01] MEDS: PANTOPRAZOLE 40 MG TABLET PO SCH (13:05)
[2024-05-01 15:37] VITALS: BP 134/79; PULSE 90; TEMP 98
[2024-05-02] MEDS ORDERED: ASPIRIN 81 MG PO SCH (09:00)
[2024-05-02] MEDS ORDERED: lisinopriL 20 MG TAB PO SCH (09:00)
== END 2024-05-01 15:37 | disposition home or self-care (01) ==
LOC: EC 15:01 → 6NMEDSUR 20:48
PROVIDERS: ADMIT Hospitalist; ATTEND Hospitalist
DX: R07.9 Chest pain, unspecified (principal); E66.9 Obesity, unspecified; E78.5 Hyperlipidemia, unspecified; F41.9 Anxiety disorder, unspecified; G70.00 Myasthenia gravis without (acute) exacerbation; I10 Essential (primary) hypertension; I16.1 Hypertensive emergency; K21.9 Gastro-esophageal reflux disease without esophagitis; N17.9 Acute kidney failure, unspecified; J32.9 Chronic sinusitis, unspecified; Z68.33 Body mass index [BMI] 33.0-33.9, adult; Z82.49 Family history of ischemic heart disease and other diseases of the circulatory system; Z86.711 Personal history of pulmonary embolism; Z86.718 Personal history of other venous thrombosis and embolism; Z87.01 Personal history of pneumonia (recurrent); Z79.899 Other long term (current) drug therapy; Z88.8 Allergy status to other drugs, medicaments and biological substances; Z88.5 Allergy status to narcotic agent; Z88.1 Allergy status to other antibiotic agents
CPT/HCPCS: 96360; 96361; 99285; 36415; 93005 ×2; 93306; 85379; 80061; 80053; 84484 ×2; 85025; 85610; 85730; 87636; 71046; 71275; G0378 ×2; J7517 ×2; Q9967

== ENCOUNTER → 2024-07-19 | Outpatient (CLI) | payer MEDICARE ==
--- NOTE | 2024-07-19 15:14 | US ---
EXAMINATION TYPE: US thyroid st tissue head/neck DATE OF EXAM: 07/19/2024 COMPARISON: 06/28/18 CLINICAL INDICATION: Female, 53 years old with history of E04.1 NONTOXIC SINGLE THYROID NODULE; follo w up from 2019 TECHNIQUE: Grayscale and color Doppler imaging of the thyroid gland. FINDINGS: GLAND SIZE: Right Lobe: 4.8 x 1.8 x 1.9 cm Overall Parenchyma: heterogeneous Left Lobe: 3.3 x 2.0 x 1.2 cm Overall Parenchyma: heterogeneous Isthmus Thickness: 0.5 cm NODULES RIGHT: # of nodules measured on right: 1 1. 0.6 X 0.7 x 0.5 cm, upper lateral, Prior size: 0.6 x 0.4 x 0.5 cm TIRADS Score: 0 TIRADS Category 1: Benign Composition: Cystic or almost completely cystic (0 points). Recommendation: No FNA LEFT: # of nodules measured on left: 0 Multiple subcentimeter nodules seen ISTHMUS: # of nodules measured in the isthmus: 0 Bilateral neck scanned, no evidence of lymphadenopathy. IMPRESSION: No suspicious thyroid nodules. Subcentimeter left thyroid nodule and right thyroid cyst which do not meet criteria for follow-up or biopsy by TIRADS criteria. [facility], , 07/19/2024 3:11 PM
== END | disposition home or self-care (01) ==
LOC: RADUSWWP 14:14
PROVIDERS: ATTEND Family Medicine
DX: E04.2 Nontoxic multinodular goiter (principal)
CPT/HCPCS: 76536

== ENCOUNTER → 2024-11-10 | Outpatient (CLI) | payer MEDICARE ==
--- NOTE | 2024-11-10 14:31 | MM ---
Reason for Exam: Screening (asymptomatic). Last screening mammogram was performed 12 month(s) ago. Patient History: Menarche at age 12. First Full-Term at age 22. Postmenopausal. Hormonal Contraceptives, from age 31 until age 50. Risk Values: Alea 5 year model risk: 1.0%. NCI Lifetime model risk: 8.5%. Prior Study Comparison: 10/06/2021 Bilateral MG 3D screening mammo w/cad, [facility]. 10/07/2022 Bilateral MG 3D screening mammo w/cad, [facility]. 10/18/2023 Bilateral MG 3D screening mammo w/cad, [facility]. Tissue Density: The breasts are heterogeneously dense, which may obscure small masses. Findings: Analyzed By CAD. Right breast: There is no suspicious group of microcalcifications or new suspicious mass. Left breast: There is no suspicious group of microcalcifications or new suspicious mass. Overall Assessment: Negative, BI-RAD 1 Management: Screening Mammogram of both breasts in [address] [facility] will attempt to contact patient to return for supplemental views and ultrasound if indicated. Patient should continue monthly self-breast exams. A clinical breast exam by your physician is recommended on an annual basis. This exam should not preclude additional follow-up of suspicious palpable abnormalities. Note on Alea scores and lifetime risk: 1. A Alea score greater than 3% is considered moderate risk. If this is the case, consider specialist referral to assess eligibility for a risk reducing agent. 2. If overall lifetime risk for the development of breast cancer is 20% or higher, the patient may qualify for future screening with alternating mammogram and breast MRI. [facility], , 11/10/2024 2:28 PM. Electronically signed and approved by: Krishna Anderson DO
== END | disposition home or self-care (01) ==
LOC: RADMAMWWP 13:46
PROVIDERS: ATTEND Family Medicine
DX: Z12.31 Encounter for screening mammogram for malignant neoplasm of breast (principal); R92.333 Mammographic heterogeneous density, bilateral breasts; Z78.0 Asymptomatic menopausal state; Z92.0 Personal history of contraception
CPT/HCPCS: 77063; 77067